=== PATIENT | male | born 1940 | race Caucasian/White ===

== ENCOUNTER 2018-08-25 08:27 | Outpatient (RCR) | payer MEDICARE | END 2018-08-27 09:14 | disposition home or self-care (01) | PROVIDERS: ATTEND Family Medicine | DX: M54.5 Low back pain (principal) ==

== ENCOUNTER → 2018-09-04 | Outpatient (CLI) | payer MEDICARE ==
--- NOTE | 2018-09-04 14:32 | Diagnostic Imaging Report ---
INDICATION: Dyspnea. TIME OF EXAM: 02:30 p.m. No prior studies are available for comparison. The heart size is normal. The pulmonary vascularity is unremarkable. The lungs are clear. No infiltrate, effusion or pneumothorax is detected. IMPRESSION: No acute cardiopulmonary process is detected. Dictated by: Dictated on workstation # [id number]
== END ==
LOC: CARD 13:57
PROVIDERS: ATTEND Nurse Practitioner Family
DX: R06.00 Dyspnea, unspecified (principal); I25.2 Old myocardial infarction; Z95.5 Presence of coronary angioplasty implant and graft
CPT/HCPCS: 71046; 93005

== ENCOUNTER 2018-09-28 09:31 | Outpatient (RCR) | payer MEDICARE ==
[2018-09-29] MEDS ORDERED: OMEG1CAP58 PO (11:40)
[2018-09-29] MEDS ORDERED: ASPI-586 PO (11:40)
[2018-09-29] MEDS ORDERED: ATOR40TA70 PO (13:01)
[2018-09-29] MEDS ORDERED: ASPI-999 PO (13:01)
== END 2018-09-28 12:24 | disposition home or self-care (01) ==
PROVIDERS: ATTEND Family Medicine
DX: M54.5 Low back pain (principal)

== ENCOUNTER 2018-09-29 11:05 | Day surgery (SDC) | payer MEDICARE ==
[~2018-09-29] VITALS: Ht 175.3 cm; Wt 72.6 kg
[2018-09-29] VITALS (9 sets, daily range): BP systolic 129–155; BP diastolic 68–82
[2018-09-29] MEDS ORDERED: NS IV 1000 ML 1,000 ML IV SCH ×2 (11:15→12:46)
[2018-09-29 11:35] LABS: HEMOGLOBIN 14.6 G/DL (13.3-17.7); MEAN PLATELET VOLUME 10.7 FL (7.4-10.4); RED BLOOD COUNT 4.79 10^6/uL (4.35-5.85); RED CELL DISTRIBUTION WIDTH 14.3 % (10.0-14.5)
[2018-09-29] MEDS ORDERED: OMEG1CAP58 PO (11:40)
[2018-09-29] MEDS ORDERED: ASPI-586 PO (11:40)
[2018-09-29 11:47] LABS: PROTHROMBIN TIME PATIENT 13.2 SEC (12.2-14.7)
[2018-09-29 11:55] LABS: ALANINE AMINOTRANSFERASE 23 U/L (0-55); ALBUMIN 4.6 GM/DL (3.2-4.5); ALKALINE PHOSPHATASE 53 U/L (40-136); BILIRUBIN,TOTAL 0.7 MG/DL (0.1-1.0); BUN/CREATININE RATIO 13; CALCIUM 9.9 MG/DL (8.5-10.1); CARBON DIOXIDE 25 MMOL/L (21-32); CHLORIDE 105 MMOL/L (98-107); CHOLESTEROL 246 MG/DL (< 200); GFR ESTIMATED > 60; GLUCOSE 96 MG/DL (70-105); HDL CHOLESTEROL 53 MG/DL (40-60); POTASSIUM 4.3 MMOL/L (3.6-5.0); SODIUM 139 MMOL/L (135-145); TOTAL PROTEIN 7.5 GM/DL (6.4-8.2); TRIGLYCERIDES 138 MG/DL (<150); VLDL CHOLESTEROL 28 MG/DL (5-40)
[2018-09-29] MEDS ORDERED: fentaNYL INJECTION 100 MCG/2 ML AMP ONE (11:55)
[2018-09-29] MEDS ORDERED: MIDAZOLAM 5 MG/5 ML (VERSED) VIAL ONE (11:55)
--- NOTE | 2018-09-29 12:04 | Cardiac Procedure Note-CS/ASA ---
Pre-Procedure Note Pre-Op Procedure Note H&P Reviewed The H&P was reviewed, patient examined and no changes noted. Date H&P Reviewed: Sep 29, 2018 Time H&P Reviewed: 12:04 Conscious Sedation Pre-Proced Time 12:04 ASA Score 3 For ASA 3 and 4: Consider anesthesia and medical clearance. Also, for patients with a history of failed moderate sedation consider anesthesia. Airway Lungs Heart ASA score ASA 1: a normal healthy patient ASA 2: a patient with a mild systemic disease (mid diabetes, controlled hypertension, obesity ASA 3: a patient with a severe systemic disease that limits activity (angina , COPD, prior Myocardial infarction) ASA 4: a patient with an incapacitating disease that is a constant threat to life (CHF, renal failure) ASA 5: a moribund patient not expected to survive 24 hrs. (ruptured aneurysm) ASA 6: a declared brain patient whose organs are being harvested. For emergent operations, add the letter E after the classification Mallampati Classification Grade 2 Sedation Plan Analgesia, Amnesia, Plan communicated to team members, Discussed options with patient/fam, Discussed risks with patient/fam The patient is an appropriate candidate to undergo the planned procedure, sedation, and anesthesia. The patient immediately re-assessed prior to indication. MEDARDO MCFARLANE MD FACP FAC CCDS Sep 29, 2018 12:04
[2018-09-29] MEDS ORDERED: HEParin 1000 UNIT/ML (10ML VIAL) FOR BOLUS ONE (12:21)
[2018-09-29] MEDS ORDERED: ADENOSINE 3 MG/1 ML (ADENOSCAN) 30ML VIAL IV ONE (12:21)
[2018-09-29] MEDS ORDERED: PATIENT MAY USE OWN MEDS, ALL PO SCH (13:00)
[2018-09-29] MEDS ORDERED: ATOR40TA70 PO (13:01)
[2018-09-29] MEDS ORDERED: ASPI-999 PO (13:01)
--- NOTE | 2018-09-29 13:02 | Discharge Inst-Post CATH ---
Discharge Inst-CATH Post Cardiac Cath D/C Inst Follow Up/Plan F/u with Dr Dunn in 2 weeks CARDIAC CATH DISCHARGE INSTRUCTIONS *Hold Metformin for 48 hours post heart cath. ACTIVITY * Go Home directly and rest. * Limit activity of the leg (or wrist if it was used) for 7 days including aerobics, swimming, jogging, bicycling, etc. * Restrict stair-climbing for 7 days if possible, if not, climb up with your non -cath leg, then bring together on the same step. * Avoid lifting, pushing, pulling or excessive movement of the affected extremity for 7 days. * Customary sexual activity may be resumed after 2 days-use caution not to use a position that strains or causes pain to the affected extremity. * No driving for 24 hours. * NO SMOKING. * Avoid straining for bowel movements for 7 days. * Gentle walking on level ground is allowed. * Returning to work will depend on the type of procedure and the results. Your doctor will discuss this with you. CALL YOUR DOCTOR FOR ANY OF THE FOLLOWING: *If bleeding from the puncture site occurs- Apply gentle pressure to site with clean cloth and call your doctor or EMS. * If a knot or lump forms under the skin, increases in size, or causes pain. * If bruising appears to be worsening or moving further down your leg instead of disappearing. * Temperature above 101 F. CARE OF YOUR GROIN INCISION; * Bruising or purple discoloration of the skin near the puncture site is common. * You may shower only, no bathtub bathing for 5 days. Be careful to avoid slipping as your leg may feel stiff. * If a closure device was used on your femoral artery, please see the attached guide regarding care of the device and your leg. * Leave the dressing on, until removed by office staff. CARE OF YOUR WRIST INCISION; * Bruising or purple discoloration of the skin near the puncture site is common. * You may shower. * DO NOT submerge wrist. * Leave dressing on, until removed by office staff.. MEDARDO DUNN MD [facility] CCDS Sep 29, 2018 13:02
--- NOTE | 2018-09-29 13:02 | Discharge Inst-Cardiology ---
Discharge Inst-Cardiac Discharge Medications New Medications: Aspirin (Aspirin) 81 Mg Tab.chew 81 MG PO DAILY, #90 TAB 3 Refills Atorvastatin Calcium (Atorvastatin Calcium) 40 Mg Tablet 40 MG PO HS, #90 TAB 3 Refills Continued Medications: [place]-3 Fatty Acids/Fish Oil ([place] 3 1,000 mg Softgel) 1 Each Capsule 1 EACH PO DAILY, CAP Discontinued Medications: Aspirin (Aspir 81) 81 Mg Tablet.dr 81 MG PO DAILY, TAB Orders-Post D/C & Referrals Pneu Vac Indicated: Yes MEDARDO MCFARLANE MD FACP FACC CCDS Sep 29, 2018 13:02
--- NOTE | 2018-09-29 15:25 | CARDIAC CATHETERIZATION ---
DATE OF SERVICE: 09/29/2018 CARDIAC CATHETERIZATION REPORT The patient is a 78-year-old gentleman, who is known to have coronary artery disease and has had coronary stenting done several years ago in [place], [place]. He has had recurrent symptoms of chest discomfort and shortness of breath. Repeat cardiac catheterization was carried out after having obtained an informed consent. PROCEDURE: He is brought to the cardiac catheterization laboratory in a fasting state. Right groin was prepared and draped in the usual sterile fashion. Lidocaine 1% was used for local anesthesia. Modified Seldinger technique was used to advance a 5-Cymro sheath in the right femoral artery, 5-Cymro JL4 catheter was used for left coronary angiography, 5-Cymro JR4 catheter for right coronary angiography, 5-Cymro pigtail catheter was used for left heart catheterization and left ventricular angiography. After the completion of the diagnostic procedure, we carried out fractional flow reserve measurement in the mid left circumflex artery; however, the patient appeared to have 50 to 60% stenosis with haziness. FRACTIONAL FLOW RESERVE MEASUREMENT IN THE LEFT CIRCUMFLEX ARTERY: We exchanged the sheath over a wire for a 6-Cymro sheath. We used a 6-Cymro JL4 guide catheter. We advanced the pressure wire across the mid left circumflex artery lesion and the tip was placed in the distal vessel. We gave 140 mcg per kilogram per minute of adenosine for 2.5 minutes. Fractional flow reserve was 0.99, indicating hemodynamic insignificance of the lesion. The wire was removed. Angiography of the coronary system was repeated and found to be unchanged. The catheter was removed. Angiography of the right femoral artery was carried out through the sheath. Mynx was used to achieve hemostasis. He received 5000 units of intravenous heparin prior to the fractional flow reserve measurement procedure. He tolerated the procedure well. HEMODYNAMICS: Left ventricular end-diastolic pressure following coronary angiography was 8 mmHg. There was no significant pressure gradient on pullback across the aortic valve. Ascending aortic pressure was 115/56 with a mean of 81 mmHg. LEFT VENTRICULAR ANGIOGRAPHY: Left ventricular angiography was carried out in the right anterior oblique projection. Global left ventricular systolic function is normal. No significant regional wall motion abnormalities are seen. Left ventricular ejection fraction is approximately 60%. There does not appear to be significant mitral regurgitation. CORONARY ANGIOGRAPHY: Diffuse coronary calcification is seen. Left main coronary artery does not exhibit significant disease. There are patent stents in the proximal left anterior descending and the proximal left circumflex arteries. These are widely patent. The left circumflex and the left anterior descending arteries have diffuse moderate disease distally. There appeared to be approximately 50% stenosis in the mid left circumflex artery and fractional flow reserve across it is 0.99, indicating hemodynamic insignificance. The right coronary artery is dominant. It has diffuse moderate disease, but no significant focal stenosis are seen. There is diffuse calcification of the right coronary artery. CONCLUSIONS: 1. Moderate diffuse coronary artery disease without significant focal stenoses. There are patent stents in the proximal left circumflex and the left anterior descending arteries. 2. Normal left ventricular end-diastolic pressure. 3. Normal global left ventricular systolic function with ejection fraction approximately 60%. DISCUSSION AND RECOMMENDATIONS: Based on results of the study, symptoms do not appear to be of coronary origin. Continuing risk factor modification is advised. We have added statin to the regimen because he was not on statins. Outpatient followup is advised. Job ID: [id number] DocumentID: [id number] Dictated Date: 09/29/2018 12:59:09 Force Variation Equipment Tender Date: 09/29/2018 15:24:31 Dictated By: MEDARDO MCFARLANE MD, MA, FACP, FACC, MTDD
== END 2018-09-29 16:45 | disposition home or self-care (01) ==
LOC: CATH 11:05 → SDC 13:27 → CATH 16:45
PROVIDERS: ATTEND Internal Medicine Cardiovascular Disease
DX: I25.10 Atherosclerotic heart disease of native coronary artery without angina pectoris (principal); Z95.5 Presence of coronary angioplasty implant and graft; Z87.891 Personal history of nicotine dependence; M79.89 Other specified soft tissue disorders; R94.31 Abnormal electrocardiogram [ECG] [EKG]; Z11.2 Encounter for screening for other bacterial diseases
CPT/HCPCS: 36415; 80053; 80061; 85027; 85610; 85730; 87081; 93458

== ENCOUNTER → 2018-11-17 | Outpatient (CLI) | payer MEDICARE ==
[~2018-11-17] MED LIST: ASPI-586 PO; ASPI-999 PO; ATOR40TA70 PO; OMEG1CAP58 PO
== END ==
LOC: RAD 13:07
PROVIDERS: ATTEND Internal Medicine Cardiovascular Disease
DX: I70.213 Atherosclerosis of native arteries of extremities with intermittent claudication, bilateral legs (principal); I25.10 Atherosclerotic heart disease of native coronary artery without angina pectoris; R06.02 Shortness of breath; R94.31 Abnormal electrocardiogram [ECG] [EKG]
CPT/HCPCS: 93923

== ENCOUNTER 2019-01-07 17:20 | Emergency (ER) | payer MEDICARE ==
[~2019-01-07] VITALS: Ht 175.3 cm; Wt 70.3 kg
[2019-01-07] MEDS ORDERED: LACTATED RINGERS 1,000 ML IV ONE (18:21)
[2019-01-07] MEDS ORDERED: ONDANSETRON 4 MG/2 ML (SDV) Z0FRAN IVP ONE (18:30)
[2019-01-07] MEDS ORDERED: DIATRIZOATE MEGLUM/SODIUM 37% 120 ML (GASTROGRAFIN) PO ONE ×2 (18:30→19:45)
[2019-01-07] MEDS ORDERED: LIDOCAINE 2% VISCOUS 15 ML UDC PO ONE (18:30)
[2019-01-07] MEDS ORDERED: ANTACID SUSP 30 ML UDC (MYLANTA) PO ONE (18:30)
[2019-01-07] MEDS ORDERED: PANTOPRAZOLE 40 MG (PROTONIX) VIAL IV ONE (18:30)
--- NOTE | 2019-01-07 18:33 | ED Abdominal Pain ---
General Chief Complaint: Abdominal/GI Problems Stated Complaint: VOMITING,CHEST PAIN Nursing Triage Note: pt presents to ed accompanied by adult daughter with complaints of vomiting 6 times today and no bm for a couple days. reports no abdmominal pain currently but did have some earlier today. pt also reports some cp earlier today. pt is tearful and appears upset in triage. pt daughter reports pt recently moved to be closer to family and is going through a divorce and has been stressed. Sepsis Screen: No Definite Risk Source of Information: Patient, Family (Daughter, nurse practitioner) Exam Limitations: Other (Early dementia, depression) History of Present Illness Date Seen by Provider: Jan 07, 2019 Time Seen by Provider: 18:10 Initial Comments The patient presents to ER by private conveyance with a daughter with chief complaint is had vomiting 6 times today. He's not been feeling well feeling bloated the past 2 or 3 days and had difficulty with bowel movements. He is a poor historian but his daughter has taken an interest in him especially in the last 6 months since he's had a divorce and moved from [place], [place]. He's never had a colonoscopy and denies any black tarry stools blood from the rectum. He does feel distended and nauseated. Allergies and Home Medications Allergies Coded Allergies: No Known Allergies (Verified Allergy, Unknown, 09/29/18) Home Medications Aspirin 81 Mg Tab.chew, 81 MG PO DAILY Prescribed by: MEDARDO MCFARLANE on 09/29/18 1301 Atorvastatin Calcium 40 Mg Tablet, 40 MG PO HS Prescribed by: MEDARDO MCFARLANE on 09/29/18 1301 [place]-3 Fatty Acids/Fish Oil 1 Each Capsule, 1 EACH PO DAILY, (Reported) Patient Home Medication List Home Medication List Reviewed: Yes Review of Systems Review of Systems Constitutional: No chills, No fever; malaise EENTM: No Blurred Vision, No Double Vision Respiratory: Denies Cough, Denies Shortness of Air Cardiovascular: Denies Chest Pain, Denies Edema Gastrointestinal: See HPI, Abdominal Pain (Epigastric, burning); Denies Constipated, Denies Diarrhea; Nausea, Poor Fluid Intake, Vomiting Genitourinary: Denies Burning, Denies Discharge Musculoskeletal: No back pain, No joint pain Past Furvvfe-Wqnfjg-Uxlfny Hx Patient Social History Alcohol Use: Denies Use Recreational Drug Use: No Smoking Status: Former Smoker Former Smoker, Quit: Sep 29, 1988 Recent Foreign Travel: No Contact w/Someone Who Travel: No Recent Infectious Disease Expo: No Immunizations Up To Date Date of Influenza Vaccine: Aug 05, 2018 Past Medical History Surgeries: Yes Coronary Stent, Eye Surgery Respiratory: No Currently Using CPAP: No Cardiac: Yes Coronary Artery Disease, Hypertension Neurological: No Genitourinary: No Gastrointestinal: No Endocrine: No Cancer: No Psychosocial: Yes Depression Blood Disorders: No Adverse Reaction/Blood Tranf: No Physical Exam Vital Signs Vital Signs - First Documented 01/07/19 17:34 Temp 97.8 Pulse 87 Resp 12 B/P (MAP) 164/93 (116) Pulse Ox 98 Capillary Refill : Less Than 3 Seconds Height/Weight/BMI Height: 5'9.00" Weight: 155lbs. 0.0oz. 70.470260wf; 23.6 BMI Method:Stated General Appearance: mild distress, thin HEENT: PERRL/EOMI, normal ENT inspection, pharynx normal Neck: full range of motion, normal inspection Respiratory: chest non-tender, lungs clear, normal breath sounds, no respiratory distress, no accessory muscle use Cardiovascular: normal peripheral pulses, regular rate, rhythm, no edema Peripheral Pulses: 2+ Radial Pulses (R), 2+ Radial Pulses (L) Gastrointestinal: normal bowel sounds (Quiescent), soft, tenderness (Mild epigastric tenderness negative for Escalante sign or mesenteric signs) Extremities: normal range of motion, non-tender, normal inspection, no pedal edema, normal capillary refill Neurologic/Psychiatric: alert, oriented x 3 Skin: normal color, warm/dry Progress/Results/Core Measures Results/Orders Lab Results Laboratory Tests Test 01/07/19 18:16 01/07/19 18:39 Range/Units White Blood Count 9.4 4.3-11.0 10^3/uL Red Blood Count 5.09 4.35-5.85 10^6/uL Hemoglobin 15.4 13.3-17.7 G/DL Hematocrit 43 40-54 % Mean Corpuscular Volume 84 80-99 FL Mean Corpuscular Hemoglobin 30 25-34 PG Mean Corpuscular Hemoglobin Concent 36 32-36 G/DL Red Cell Distribution Width 13.7 10.0-14.5 % Platelet Count 148 130-400 10^3/uL Mean Platelet Volume 11.0 H 7.4-10.4 FL Neutrophils (%) (Auto) 91 H 42-75 % Lymphocytes (%) (Auto) 5 L 12-44 % Monocytes (%) (Auto) 3 0-12 % Eosinophils (%) (Auto) 1 0-10 % Basophils (%) (Auto) 0 0-10 % Neutrophils # (Auto) 8.5 H 1.8-7.8 X 10^3 Lymphocytes # (Auto) 0.5 L 1.0-4.0 X 10^3 Monocytes # (Auto) 0.3 0.0-1.0 X 10^3 Eosinophils # (Auto) 0.1 0.0-0.3 10^3/uL Basophils # (Auto) 0.0 0.0-0.1 10^3/uL Neutrophils % (Manual) 86 % Lymphocytes % (Manual) 4 % Monocytes % (Manual) 5 % Eosinophils % (Manual) 1 % Basophils % (Manual) 0 % Band Neutrophils 4 % Blood Morphology Comment NORMAL Prothrombin Time 13.0 12.2-14.7 SEC INR Comment 1.0 0.8-1.4 Activated Partial Thromboplast Time 29 24-35 SEC Sodium Level 136 135-145 MMOL/L Potassium Level 4.5 3.6-5.0 MMOL/L Chloride Level 101 98-107 MMOL/L Carbon Dioxide Level 23 21-32 MMOL/L Anion Gap 12 5-14 MMOL/L Blood Urea Nitrogen 15 7-18 MG/DL Creatinine 1.02 0.60-1.30 MG/DL Estimat Glomerular Filtration Rate > 60 BUN/Creatinine Ratio 15 Glucose Level 107 H 70-105 MG/DL Calcium Level 9.5 8.5-10.1 MG/DL Corrected Calcium 8.5-10.1 MG/DL Magnesium Level 2.0 1.8-2.4 MG/DL Total Bilirubin 0.9 0.1-1.0 MG/DL Aspartate Amino Transf (AST/SGOT) 27 5-34 U/L Alanine Aminotransferase (ALT/SGPT) 22 0-55 U/L Alkaline Phosphatase 55 40-136 U/L Troponin I < 0.028 <0.028 NG/ML Total Protein 7.5 6.4-8.2 GM/DL Albumin 4.6 H 3.2-4.5 GM/DL Lipase 19 8-78 U/L Urine Color YELLOW Urine Clarity CLEAR Urine pH 5 5-9 Urine Specific [place] 1.020 1.016-1.022 Urine Protein 2+ H NEGATIVE Urine Glucose (UA) NEGATIVE NEGATIVE Urine Ketones 1+ H NEGATIVE Urine Nitrite NEGATIVE NEGATIVE Urine Bilirubin NEGATIVE NEGATIVE Urine Urobilinogen 1 NORMAL MG/DL Urine Leukocyte Esterase 1+ H NEGATIVE Urine RBC (Auto) NEGATIVE NEGATIVE Urine RBC RARE /HPF Urine WBC 0-2 /HPF Urine Crystals NONE /LPF Urine Bacteria TRACE /HPF Urine Casts NONE /LPF Urine Mucus LARGE H /LPF Urine Culture Indicated NO My Orders Orders - CALI CASTAÑEDA Ct Abdomen/Pelvis W (01/07/19 18:21) Saline Lock/Iv-Start (01/07/19 18:21) Cbc With Automated Diff (01/07/19:) Comprehensive Metabolic Panel (01/07/19:) Lipase (01/07/19 18:) Magnesium (01/07/19 18:) Protime With Inr (01/07/19 18:) Partial Thromboplastin Time (01/07/19 18:) Troponin I (01/07/19 18:21) Ua Culture If Indicated (01/07/19 18:21) Saline Lock/Iv-Start (01/07/19 18:21) Lactated Ringers (Lr 1000 Ml Iv Solution (01/07/19 18:21) Ekg Tracing (01/07/19 18:21) Continuous Ekg Monitoring (01/07/19 18:) Ondansetron Injection (Zofran Injectio (01/07/19 18:30) Lidocaine 2% Viscous 15 Ml (Xylocaine Vi (01/07/19 18:30) Antacid Suspension (Mylanta Suspension (01/07/19 18:30) Pantoprazole Injection (Protonix Injecti (01/07/19 18:30) Diatrizoate Meglum/Sodium 37% (Gastrogra (01/07/19 18:30) Manual Differential (01/07/19 18:16) Albuterol/Ipra Inhalation Soln (Duoneb I (01/07/19 19:00) Svn Small Volume Nebulizer (01/07/19 18:54) Chest 1 View, Ap/Pa Only (01/07/19 19:18) Iohexol Injection (Omnipaque 350 Mg/Ml 1 (3/14/19 19:45) Received Contrast (Contrast Received) (01/07/19 19:45) Sodium Chloride Flush (Catheter Flush Sy (01/07/19 19:45) Ns (Ivpb) (Sodium Chloride 0.9% Ivpb Bag (01/07/19 19:45) Diatrizoate Meglum/Sodium 37% (Gastrogra (01/07/19 19:45) Medications Given in ED Current Medications Medications Dose Ordered Sig/Marium Route Start Time Stop Time Status Last Admin Dose Admin Al Hydrox/Mg Hydrox/Simethicone 30 ml ONCE ONCE PO 01/07/19 18:30 01/07/19 18:31 DC 01/07/19 18:48 30 ML Albuterol/ Ipratropium 3 ml ONCE ONCE INH 01/07/19 19:00 01/07/19 19:01 DC 01/07/19 19:21 3 ML Diatrizoate Meglum/ Diatrizoate Sod 120 ml ONCE ONCE PO 01/07/19 18:30 01/07/19 18:31 DC 01/07/19 18:55 120 ML Diatrizoate Meglum/ Diatrizoate Sod 120 ml ONCE ONCE PO 01/07/19 19:45 01/07/19 19:46 DC 01/07/19 19:57 20 ML Iohexol 100 ml ONCE ONCE IV 01/07/19 19:45 01/07/19 19:46 DC 01/07/19 19:57 100 ML Lactated Ringer's 1,000 ml @ 0 mls/hr Q0M ONCE IV 01/07/19 18:21 01/07/19 18:26 DC 01/07/19 18:45 1,000 MLS/HR Lidocaine HCl 15 ml ONCE ONCE PO 01/07/19 18:30 01/07/19 18:31 DC 01/07/19 18:48 15 ML Ondansetron HCl 4 mg ONCE ONCE IVP 01/07/19 18:30 01/07/19 18:31 DC 01/07/19 18:48 4 MG Pantoprazole 40 mg ONCE ONCE IV 01/07/19 18:30 01/07/19 18:31 DC 01/07/19 18:48 40 MG Sodium Chloride 10 ml NEEDED PRN IV 01/07/19 19:45 01/07/19 19:57 10 ML Sodium Chloride 100 ml ONCE ONCE IV 01/07/19 19:45 01/07/19 19:46 DC 01/07/19 19:57 80 ML Vital Signs/I&O 01/07/19 17:34 Temp 97.8 Pulse 87 Resp 12 B/P (MAP) 164/93 (116) Pulse Ox 98 Blood Pressure Mean: 116 Progress Progress Note #1: Time: 19:17 Progress Note The patient tolerated the Zofran and GI cocktail and then drank the whole Gastrografin with aplomb. He had a couple coughing fits while he was drinking fluids only listened to him again and he was having some increased wheezing versus when he first got here so we gave him a DuoNeb which calm the wheezing down. We'll obtain a chest x-ray. Progress Note #2: Time: 20:44 Progress Note Patient's symptoms are significantly improved after the GI cocktail and Zofran. He appears to have some anterior colitis on the CT scan but no obstruction. Because he has oral contrast if need be could have a follow-up x-ray tomorrow by primary care. Initial ECG Impression Date: Jan 07, 2019 Initial ECG Impression Time: 17:34 Initial ECG Rate: 82 Initial ECG Rhythm: Normal Sinus Initial ECG Intervals: Normal Initial ECG Impression: Normal, Nonspecific Changes Initial ECG Comparisson: Unchanged Comment No change compared to previous EKG. Right bundle branch block. No ST elevation or depression. Diagnostic Imaging Diagonstic Imaging: Xray Plain Films/CT/US/NM/MRI: chest Comments No acute cardiopulmonary findings. Reviewed: Reviewed by Me Diagonstic Imaging: CT (With oral and IV contrast) Plain Films/CT/US/NM/MRI: abdomen, pelvis Comments NAME: [facility]IL [facility]ILLAS [facility] REC#: [id number] PT STATUS: REG ER : 1940 PHYSICIAN: CALI CASTAÑEDA MD ADMIT DATE: 01/07/19/ER Draft Date of Exam:01/07/19 CT ABDOMEN/PELVIS W PROCEDURE: CT abdomen and pelvis with contrast. TECHNIQUE: Multiple contiguous axial images were obtained through the abdomen and pelvis after administration of intravenous contrast. INDICATION: Abdomen pain, nausea, vomiting. No bowel movement for several days. EXAMINATION: CT abdomen and pelvis with contrast 01/07/2019 COMPARISONS: None FINDINGS: The lung bases demonstrate scattered chronic appearing changes of atelectasis or scar. The abdomen and pelvis demonstrate fatty infiltration throughout the liver. Gallbladder is distended but otherwise unremarkable. Pancreas is atrophied. Spleen unremarkable. Adrenal glands normal. Stomach is distended. No surrounding inflammatory change appreciated. Multiple dilated small bowel loops seen in the midabdomen. The colon for the most part is normal in appearance, however, the right colon contains some heterogeneous material both stool and fluid like in nature and involving the much of the ascending colon. Findings could be due to an enteritis/colitis; correlate with symptoms. No obstructive process is seen. There is atherosclerotic disease along the aorta and its branches. There is a small hiatal hernia with reflux of contrast into the esophagus noted. The kidneys contain multiple tiny cystic changes too small to characterize at this time. Adrenal glands unremarkable . No free air or free fluid seen in the abdomen nor the pelvis. Appendix unremarkable. Osseous structures unremarkable for acute process. IMPRESSION: 1. Findings of likely enteritis/colitis; correlate with symptoms. An obstruction is not seen at this time but if symptoms worsen followup could be performed at that time. 2. Small hiatal hernia. 3. Other incidental findings as discussed above. Dictated on workstation # [id number] Dict: 01/07/192022 Trans: 01/07/192035 [facility] [id number] Interpreted by: MARC PARMAR MD Electronically signed by: Reviewed: Reviewed by Me Departure Impression Primary Impression: Gastroenteritis and colitis, viral Disposition: HOME, SELF-CARE Condition: Improved Departure-Patient Inst. Decision time for Depature: 20:47 Referrals: KRISTEL PEREZ MD (PCP/Family) Primary Care Physician Patient Instructions: Viral Gastroenteritis, Adult (DC) Add. Discharge Instructions: All discharge instructions reviewed with patient and/or family. Voiced understanding. Drink plenty of fluids, sports drinks, Gatorade, Powerade etc. Eat a bland diet of broth, soup, bananas, rice, applesauce, toast etc. If you have pain you can use Tylenol 1000 mg and/or ibuprofen 800 mg every 8 hours each If you have nausea you can take one tablet of Zofran and place under tongue every 6 hours as needed. If you develop diarrhea leading ago for the first 24-48 hours. If he continues to be watery then you can take 2 tablets of Imodium followed by one tablet every 4 hours thereafter for watery stools. Return to the ER nearest you if you begin to experience bloody stools, intractable pain, nausea, fever above 102.5 or other worrisome symptoms. Your primary care doctor can do a follow-up x-ray if you are having difficulty passing stools over the next 2-3 days. Scripts Ondansetron (Ondansetron Odt) 4 Mg Tab.rapdis 4 MG PO Q6H PRN for NAUSEA/VOMITING, #12 TAB 0 Refills Prov: CALI CASTAÑEDA 01/07/19 CALI CASTAÑEDA Jan 07, 2019 18:33
[2019-01-07 18:40] LABS: BASOPHILS % (AUTO) 0 % (0-10); EOSINOPHILS # (AUTO) 0.1 10^3/uL (0.0-0.3); EOSINOPHILS % (AUTO) 1 % (0-10); HEMATOCRIT 43 % (40-54); HEMOGLOBIN 15.4 G/DL (13.3-17.7); LYMPHOCYTES # (AUTO) 0.5 X 10^3 (1.0-4.0); LYMPHOCYTES % (AUTO) 5 % (12-44); MEAN CORPUSCULAR HEMOGLOBIN 30 PG (25-34); MEAN CORPUSCULAR HGB CONC 36 G/DL (32-36); MEAN CORPUSCULAR VOLUME 84 FL (80-99); MONOCYTES # (AUTO) 0.3 X 10^3 (0.0-1.0); MONOCYTES % (AUTO) 3 % (0-12); NEUTROPHILS # (AUTO) 8.5 X 10^3 (1.8-7.8); NEUTROPHILS % (AUTO) 91 % (42-75); PLATELET COUNT 148 10^3/uL (130-400); RED CELL DISTRIBUTION WIDTH 13.7 % (10.0-14.5); WHITE BLOOD COUNT 9.4 10^3/uL (4.3-11.0)
[2019-01-07 18:49] LABS: BILIRUBIN,URINE NEGATIVE (NEGATIVE); CLARITY,URINE CLEAR; COLOR,URINE YELLOW; GLUCOSE, URINE (UA) NEGATIVE (NEGATIVE); KETONES,URINE 1+ (NEGATIVE); LEUKOCYTE ESTERASE ,URINE 1+ (NEGATIVE); NITRITE,URINE NEGATIVE (NEGATIVE); PH,URINE 5 (5-9); PROTEIN,URINE 2+ (NEGATIVE); UROBILINOGEN,URINE 1 MG/DL (NORMAL)
[2019-01-07] MEDS ORDERED: RT-ALBUTEROL/IPRATROPIUM 3 ML (DUONEB) VIAL INH ONE (19:00)
[2019-01-07 19:03] LABS: ALANINE AMINOTRANSFERASE 22 U/L (0-55); ALBUMIN 4.6 GM/DL (3.2-4.5); ALKALINE PHOSPHATASE 55 U/L (40-136); BILIRUBIN,TOTAL 0.9 MG/DL (0.1-1.0); BUN/CREATININE RATIO 15; CALCIUM 9.5 MG/DL (8.5-10.1); CARBON DIOXIDE 23 MMOL/L (21-32); CHLORIDE 101 MMOL/L (98-107); CREATININE SERUM 1.02 MG/DL (0.60-1.30); GFR ESTIMATED > 60; GLUCOSE 107 MG/DL (70-105); LIPASE 19 U/L (8-78); POTASSIUM 4.5 MMOL/L (3.6-5.0); SODIUM 136 MMOL/L (135-145); TOTAL PROTEIN 7.5 GM/DL (6.4-8.2)
[2019-01-07 19:05] LABS: BACTERIA,URINE TRACE /HPF; RBC,URINE RARE /HPF; WBC,URINE 0-2 /HPF
[2019-01-07 19:09] LABS: BAND NEUTROPHILS 4 %; BASOPHILS % (MANUAL) 0 %; EOSINOPHILS % (MANUAL) 1 %; LYMPHOCYTES % (MANUAL) 4 %; MONOCYTES % (MANUAL) 5 %; NEUTROPHILS % (MANUAL) 86 %; RBC MORPH NORMAL
[2019-01-07] MEDS ORDERED: CATHETER FLUSH 10 ML SYR IV PRN (19:45)
[2019-01-07] MEDS ORDERED: IOHEXOL 350 MG/ML 100 ML (OMNIPAQUE 350) VIAL IV ONE (19:45)
[2019-01-07] MEDS ORDERED: HOLD METFORMIN - RECEIVED CONTRAST 20 ML VIAL IV SCH (19:45)
[2019-01-07] MEDS ORDERED: NS 100 ML (IVPB) BAG IV ONE (19:45)
--- NOTE | 2019-01-07 20:37 | Diagnostic Imaging Report ---
PROCEDURE: CT abdomen and pelvis with contrast. TECHNIQUE: Multiple contiguous axial images were obtained through the abdomen and pelvis after administration of intravenous contrast. INDICATION: Abdomen pain, nausea, vomiting. No bowel movement for several days. EXAMINATION: CT abdomen and pelvis with contrast 01/07/2019 COMPARISONS: None FINDINGS: The lung bases demonstrate scattered chronic appearing changes of atelectasis or scar. The abdomen and pelvis demonstrate fatty infiltration throughout the liver. Gallbladder is distended but otherwise unremarkable. Pancreas is atrophied. Spleen unremarkable. Adrenal glands normal. Stomach is distended. No surrounding inflammatory change appreciated. Multiple dilated small bowel loops seen in the midabdomen. The colon for the most part is normal in appearance, however, the right colon contains some heterogeneous material both stool and fluid like in nature and involving the much of the ascending colon. Findings could be due to an enteritis/colitis; correlate with symptoms. No obstructive process is seen. There is atherosclerotic disease along the aorta and its branches. There is a small hiatal hernia with reflux of contrast into the esophagus noted. The kidneys contain multiple tiny cystic changes too small to characterize at this time. Adrenal glands unremarkable . No free air or free fluid seen in the abdomen nor the pelvis. Appendix unremarkable. Osseous structures unremarkable for acute process. IMPRESSION: 1. Findings of likely enteritis/colitis; correlate with symptoms. An obstruction is not seen at this time but if symptoms worsen followup could be performed at that time. 2. Small hiatal hernia. 3. Other incidental findings as discussed above. Dictated by: Dictated on workstation # [id number]
--- NOTE | 2019-01-07 20:42 | Diagnostic Imaging Report ---
INDICATION: Abdominal pain, nausea, and vomiting. EXAMINATION: Chest dated 01/07/2019. COMPARISON: 09/04/2018. FUNNIES: There are chronic changes in both lungs. In the right mid lung, there is a vague density possibly an early infiltrate. Remaining lungs are clear. Heart and pulmonary vasculature stable. IMPRESSION: 1. Possible right mid lung infiltrate. Follow-up recommended to assure resolution. Dictated by: Dictated on workstation # [id number]
[2019-01-07] MEDS ORDERED: ONDA4TAB11 PO (20:56)
[2019-01-07 21:00] VITALS: BP 132/86
== END 2019-01-07 21:05 | disposition home or self-care (01) ==
LOC: EDUNIT# 17:20 → ER 17:21
DX: A08.4 Viral intestinal infection, unspecified (principal); I25.10 Atherosclerotic heart disease of native coronary artery without angina pectoris; I10 Essential (primary) hypertension; F32.9 Major depressive disorder, single episode, unspecified; Z79.82 Long term (current) use of aspirin; Z87.891 Personal history of nicotine dependence; Z95.5 Presence of coronary angioplasty implant and graft
CPT/HCPCS: 36415; 71045; 74177; 80053; 81000; 83690; 83735; 84484; 85007; 85027; 85610; 85730; 93005

== ENCOUNTER 2019-03-07 14:33 | Emergency (ER) | payer MEDICARE ==
[~2019-03-07] VITALS: Ht 175.3 cm; Wt 65.8 kg
[~2019-03-07 14:33] MED LIST changes: +ONDA4TAB11 PO
--- NOTE | 2019-03-07 14:45 | NUR ---
NOTIFIED OF BUSY ER WITH POSSIBLE LONG WAIT TIME.
--- NOTE | 2019-03-07 15:35 | NUR ---
Moshe bowser in [facility] - 03/07/19 at 1622 by YOLIE PT TO ER ROOM 1, PT STATES HE WAS GETTING OUT OF CAR WHEN HE TRIED TO MOVE TOO FAST AND LOST HIS BALANCE Addendum: 03/07/19 at 1620 by YOLIE Abby bowser in [facility] - 03/07/19 at 1622 by YOLIE PT TO ER ROOM 1, PT STATES HE WAS GETTING OUT OF CAR WHEN HE TRIED TO MOVE TOO FAST AND LOST HIS BALANCE RESULTING IN A SMALL LACERATION TO THE BACK OF HEAD
--- NOTE | 2019-03-07 16:37 | NUR ---
PT ASSISTED WITH URINAL, PT DENIES ANY NEEDS OR C/O AT THIS TIME, PT SHOWS NO S/S OF DISTRESS, WILL CONTINUE TO MONITOR
--- NOTE | 2019-03-07 18:28 | Diagnostic Imaging Report ---
INDICATION: Fall. EXAMINATION: PA view of the chest was obtained at 6:06 p.m. COMPARISON: 01/07/2019. FINDINGS: Heart and mediastinal silhouette are normal in appearance. The lungs appear clear. There is no pneumothorax or pleural fluid. There is no overt bony abnormality in the chest. IMPRESSION: Negative chest. Dictated by: Dictated on workstation # [id number]
--- NOTE | 2019-03-07 18:43 | ED Fall/Injury ---
General Chief Complaint: Trauma-Non Activation Stated Complaint: FALL/LAC ON BACK OF HEAD Nursing Triage Note: TO TRIAGE VIA AMB. STATES HE BECAME DIZZY AND FELL AT [employer] AND HIT HIS HEAD ON THE PAVEMENT. DENIES LOC OR NECK PAIN. Source: patient Exam Limitations: no limitations History of Present Illness Date Seen by Provider: March 07, 2019 Time Seen by Provider: 17:50 Initial Comments This 78 showed gentleman presents to the emergency room accompanied by his daughter. He ambulates into the emergency room on his own power. Patient had a fall in a local retail parking lot. He got up out of the car and lost his balance or tripped causing the fall. He denies any loss of consciousness. Patient has had long-standing problems with dizziness and has been worked up extensively in the past according to his daughter. He has seen Dr. Dunn and underwent cardiac angiography last September. He does have known stents and moderate coronary artery disease. He does not recall specifically feeling more dizzy or lightheaded prior to his fall today. This is a long-standing problem for him and he has gone to physical therapy to try to improve his strength and balance. He struck the back of his head causing a minor abrasion. He states his neck feels a little stiff but does not hurt. Daughter states he ambulated into the emergency room on his own power. Patient states he has had some cough recently. He is afebrile. He has no diagnosis of COPD and does not do breathing treatments, but his daughter notes that he has had wheezing and shortness of breath improved by nebulizer treatments in the acute health care setting in the past. Allergies and Home Medications Allergies Coded Allergies: No Known Allergies (Verified Allergy, Unknown, 09/29/18) Home Medications Aspirin 81 Mg Tab.chew, 81 MG PO DAILY Prescribed by: MEDARDO DUNN on 09/29/18 1301 Atorvastatin Calcium 40 Mg Tablet, 40 MG PO HS Prescribed by: MEDARDO DUNN on 09/29/18 1301 [place]-3 Fatty Acids/Fish Oil 1 Each Capsule, 1 EACH PO DAILY, (Reported) Ondansetron 4 Mg Tab.rapdis, 4 MG PO Q6H PRN for NAUSEA/VOMITING Prescribed by: CALI CASTAÑEDA on 01/07/192055 Patient Home Medication List Home Medication List Reviewed: Yes Review of Systems Review of Systems Constitutional: no symptoms reported Eyes: No Symptoms Reported Ears, Nose, Mouth, Throat: no symptoms reported Respiratory: see HPI Cardiovascular: no symptoms reported Gastrointestinal: no symptoms reported Genitourinary: no symptoms reported Musculoskeletal: see HPI Skin: see HPI Psychiatric/Neurological: No Symptoms Reported Past Logcqfl-Kwsebc-Ooqjwf Hx Past Med/Social Hx: Reviewed and Corrections made Patient Social History Alcohol Use: Denies Use Recreational Drug Use: No Former Smoker, Quit: Sep 29, 1988 Recent Foreign Travel: No Contact w/Someone Who Travel: No Recent Infectious Disease Expo: No Physical Abuse: No Sexual Abuse: No Mistreated: No Fear: No Immunizations Up To Date Date of Influenza Vaccine: Aug 05, 2018 Past Medical History Surgeries: Yes Coronary Stent, Eye Surgery Respiratory: No Currently Using CPAP: No Cardiac: Yes Coronary Artery Disease, Hypertension Neurological: No Genitourinary: No Gastrointestinal: No Musculoskeletal: No Endocrine: No HEENT: No Cancer: No Psychosocial: Yes Depression Blood Disorders: No Adverse Reaction/Blood Tranf: No Physical Exam Vital Signs Vital Signs - First Documented 03/07/19 14:40 Temp 98.0 Pulse 73 Resp 16 B/P (MAP) 154/81 (105) Pulse Ox 97 O2 Delivery Room Air Capillary Refill : Less Than 3 Seconds Height, Weight, BMI Height: 5'9.00" Weight: 145lbs. 0.0oz. [id number]; 23.6 BMI Method:Stated General Appearance: WD/WN, no apparent distress HEENT: PERRL/EOMI, TMs normal, pharynx normal, other (oropharynx slightly dry. Abrasion of the posterior scalp) Neck: non-tender, normal inspection Cardiovascular: regular rate, rhythm, no edema, no murmur Respiratory: no respiratory distress, no accessory muscle use, wheezing Gastrointestinal: non tender, soft Extremities: normal inspection, no pedal edema Neurologic/Psychiatric: phonograph needle tip maker II-XII nml as tested, no motor/sensory deficits, alert, normal mood/affect, oriented x 3 Skin: normal color, warm/dry Cameron Coma Score Best Eye Response: (4) Open Spontaneously Best Verbal Response: (5) Oriented Best Motor Response: (6) Obeys Commands Cameron Total: 15 Progress/Results/Core Measures Results/Orders Lab Results Laboratory Tests Test 03/07/19 18:40 Range/Units Urine Color YELLOW Urine Clarity CLEAR Urine pH 8 5-9 Urine Specific [place] 1.010 L 1.016-1.022 Urine Protein NEGATIVE NEGATIVE Urine Glucose (UA) NEGATIVE NEGATIVE Urine Ketones NEGATIVE NEGATIVE Urine Nitrite NEGATIVE NEGATIVE Urine Bilirubin NEGATIVE NEGATIVE Urine Urobilinogen NORMAL NORMAL MG/DL Urine Leukocyte Esterase NEGATIVE NEGATIVE Urine RBC (Auto) NEGATIVE NEGATIVE Urine RBC NONE /HPF Urine WBC NONE /HPF Urine Squamous Epithelial Cells RARE /HPF Urine Crystals NONE /LPF Urine Bacteria NEGATIVE /HPF Urine Casts NONE /LPF Urine Mucus NEGATIVE /LPF Urine Culture Indicated NO My Orders Orders - KALEB CALL MD Ua Culture If Indicated (03/07/19 18:41) Albuterol/Ipra Inhalation Soln (Duoneb I (03/07/19 18:45) Svn Small Volume Nebulizer (03/07/19 18:44) Medications Given in ED Current Medications Medications Dose Ordered Sig/Marium Route Start Time Stop Time Status Last Admin Dose Admin Albuterol/ Ipratropium 3 ml ONCE ONCE INH 03/07/19 18:45 03/07/19 18:46 DC 03/07/19 19:00 3 ML Vital Signs/I&O 03/07/19 03/07/19 03/07/19 14:40 19:00 19:07 Temp 98.0 Pulse 73 78 81 79 Resp 16 B/P (MAP) 154/81 (105) 140/76 (97) 124/74 (91) 138/72 (94) Pulse Ox 97 96 O2 Delivery Room Air Room Air Blood Pressure Mean: 105 Progress Progress Note : Time: 19:05 Progress Note Chest x-ray was unremarkable. CT is pending. DuoNeb treatment was ordered for wheezing. Orthostatic blood pressures were unremarkable. Diagnostic Imaging Diagonstic Imaging: Xray Plain Films/CT/US/NM/MRI: chest Comments Chest x-ray viewed by me and report reviewed. See report below: NAME: PHIL CASILLAS MED REC#: [id number] PT STATUS: REG ER : 1940 PHYSICIAN: CALI CASTAÑEDA MD ADMIT DATE: 03/07/19/ER Draft Date of Exam:03/07/19 CHEST 1 VIEW, AP/PA ONLY INDICATION: Fall. EXAMINATION: PA view of the chest was obtained at 6:06 p.m. COMPARISON: 01/07/2019. FINDINGS: Heart and mediastinal silhouette are normal in appearance. The lungs appear clear. There is no pneumothorax or pleural fluid. There is no overt bony abnormality in the chest. IMPRESSION: Negative chest. Dictated on workstation # [id number] Dict: 03/07/191822 Trans: 03/07/191826 [facility] [id number] Interpreted by: DARIEL CHAU MD Diagonstic Imaging: CT Plain Films/CT/US/NM/MRI: c-spine, head Comments CT head and cervical spine viewed by me and report reviewed. See report below: NAME: PHIL CASILLAS [facility] REC#: [id number] PT STATUS: REG ER : 1940 PHYSICIAN: CALI CASTAÑEDA MD ADMIT DATE: 03/07/19/ER Draft Date of Exam:03/07/19 CT HEAD/CERVICAL SPINE WO INDICATION: Fall with head and neck pain CT brain findings: Noncontrast brain CT is performed. There are diffuse moderate atrophic changes. There were no extra-axial fluid collections. No intracranial hemorrhage. No intracranial mass or mass effect. Ventricles are prominent but compatible with age. Calvarial windows show no fracture. CT cervical spine findings: Axial slices are obtained with sagittal and coronal reconstructions without contrast. There was no evidence of cervical spine fracture. There is no subluxation or malalignment. There is disc space narrowing most prominent at C5-6 and C6-7. The facets are in good alignment with diffuse degenerative change. IMPRESSION: CT brain shows atrophic changes with no acute intracranial process or calvarial fracture. CT cervical spine shows degenerative findings as described above with no acute fracture or subluxation. Dictated on workstation # [id number] Dict: 03/07/191907 Trans: 03/07/19 [address] [facility] [id number] Interpreted by: DARIEL CHAU MD Departure Impression Primary Impression: Fall on same level Qualified Codes: W18.30XA - Fall on same level, unspecified, initial encounter Additional Impression: Contusion of scalp Qualified Codes: S00.03XA - Contusion of scalp, initial encounter Disposition: 01 HOME, SELF-CARE Condition: Stable Departure-Patient Inst. Decision time for Depature: 19:46 Referrals: KRISTEL PEREZ MD (PCP/Family) Primary Care Physician Patient Instructions: Minor Head Injury (DC) Add. Discharge Instructions: Rise and walk very carefully. Take her time getting up from a sitting or lying position. Follow-up with your primary care provider soon as possible. If ultrasound of the carotid arteries in your neck has not been performed by Dr. Dunn or Dr. Perez, consider having this ordered as it may be a cause of your episodes of dizziness. Stay well-hydrated. Return to care if you have any worsening of symptoms. Consider ambulating with a cane or walker to reduce risk of fall. All discharge instructions reviewed with patient and/or family. Voiced understanding. Copy Copies To 1: MEDARDO DUNN MD FACP FAC CCDS Copies To 2: KRISTEL PEREZ MD, JOSHUA T MD March 07, 2019 18:43
[2019-03-07] MEDS ORDERED: RT-ALBUTEROL/IPRATROPIUM 3 ML (DUONEB) VIAL INH ONE (18:45)
[2019-03-07 18:46] LABS: BILIRUBIN,URINE NEGATIVE (NEGATIVE); CLARITY,URINE CLEAR; COLOR,URINE YELLOW; GLUCOSE, URINE (UA) NEGATIVE (NEGATIVE); KETONES,URINE NEGATIVE (NEGATIVE); LEUKOCYTE ESTERASE ,URINE NEGATIVE (NEGATIVE); NITRITE,URINE NEGATIVE (NEGATIVE); PH,URINE 8 (5-9); PROTEIN,URINE NEGATIVE (NEGATIVE); UROBILINOGEN,URINE NORMAL (NORMAL)
[2019-03-07 18:51] LABS: BACTERIA,URINE NEGATIVE /HPF; SQUAMOUS EPITHELIAL CELL,UR RARE /HPF
--- NOTE | 2019-03-07 18:58 | NUR ---
PT BACK TO ED ROOM FROM RADIOLOGY, PT DENIES ANY NEEDS OR C/O AT THIS TIME, PT SHOWS NO S/S OF DISTRESS, VS ASSESSED AND STABLE, WILL CONTINUE TO MONITOR
[2019-03-07 19:07] VITALS: BP_SYST 124; BP_SYST 138; BP_SYST 140; BP_DIAS 72; BP_DIAS 74; BP_DIAS 76
--- NOTE | 2019-03-07 19:15 | NUR ---
Pt refused to give a urine sample for the tech. JAMILA Echeverria notified this RN of what the pt told her. Pt stated, "If we are not done by 1999 she is leaving and going to rip her IV out." Provider was notified and stated he would go and talk to pt.
--- NOTE | 2019-03-07 19:15 | Diagnostic Imaging Report ---
INDICATION: Fall with head and neck pain CT brain findings: Noncontrast brain CT is performed. There are diffuse moderate atrophic changes. There were no extra-axial fluid collections. No intracranial hemorrhage. No intracranial mass or mass effect. Ventricles are prominent but compatible with age. Calvarial windows show no fracture. CT cervical spine findings: Axial slices are obtained with sagittal and coronal reconstructions without contrast. There was no evidence of cervical spine fracture. There is no subluxation or malalignment. There is disc space narrowing most prominent at C5-6 and C6-7. The facets are in good alignment with diffuse degenerative change. IMPRESSION: CT brain shows atrophic changes with no acute intracranial process or calvarial fracture. CT cervical spine shows degenerative findings as described above with no acute fracture or subluxation. Dictated by: Dictated on workstation # [id number]
[2019-03-07 20:05] VITALS: BP 138/72
== END 2019-03-07 20:05 | disposition home or self-care (01) ==
LOC: EDUNIT# 14:33 → ER 14:34
DX: S00.03XA Contusion of scalp, initial encounter (principal); I25.10 Atherosclerotic heart disease of native coronary artery without angina pectoris; I10 Essential (primary) hypertension; F32.9 Major depressive disorder, single episode, unspecified; R40.2142 Coma scale, eyes open, spontaneous, at arrival to emergency department; R40.2252 Coma scale, best verbal response, oriented, at arrival to emergency department; R40.2362 Coma scale, best motor response, obeys commands, at arrival to emergency department; Z95.5 Presence of coronary angioplasty implant and graft; Z87.891 Personal history of nicotine dependence; W01.0XXA Fall on same level from slipping, tripping and stumbling without subsequent striking against object, initial encounter; Y92.481 Parking lot as the place of occurrence of the external cause
CPT/HCPCS: 70450; 71045; 72125; 81000; 94640

== ENCOUNTER 2019-09-28 16:59 | Observation (INO) | payer MEDICARE ==
[~2019-09-28] VITALS: Ht 175 cm; Wt 68.1 kg
[2019-09-28] MEDS ORDERED: PATIENT MAY USE OWN MEDS, ALL PO SCH (17:15)
--- NOTE | 2019-09-28 17:19 | History & Physicial ---
History of Present Illness History of Present Illness Reason for visit/HPI 79-year-old male presents to office late this afternoon with his daughter and he has symptoms of shortness of breath and difficulty breathing. His daughter reports he has been on Zithromax over the last week without any change of his respiratory status. He has not been running a significant fever. Most of his breathing is with gurgling sounds as well as wheezing. He does have a history of coronary artery disease. He has not had congestive heart failure in the past. His oral intake has markedly changed. Date of Admission September 28, 2019 Date Seen by a Provider: Sep 28, 2019 Time Seen by a Provider: 17:00 I consulted on this patient on 09/28/19 17:14 Attending Physician Kristel Perez MD Admitting Physician Kristel Perez MD Consult Allergies and Home Medications Allergies Coded Allergies: No Known Allergies (Verified Allergy, Unknown, 09/29/18) Home Medications Aspirin 81 Mg Tab.chew, 81 MG PO DAILY Prescribed by: MEDARDO MCFARLANE on 09/29/18 1301 Atorvastatin Calcium 40 Mg Tablet, 40 MG PO HS Prescribed by: MEDARDO MCFARLANE on 09/29/18 1301 [place]-3 Fatty Acids/Fish Oil 1 Each Capsule, 1 EACH PO DAILY, (Reported) Ondansetron 4 Mg Tab.rapdis, 4 MG PO Q6H PRN for NAUSEA/VOMITING Prescribed by: CALI CASTAÑEDA on 01/07/192055 Patient Home Medication List Home Medication List Reviewed: Yes Past Ptukcui-Wkqvyn-Jlkird Hx Patient Social History Employed/Student: retired Recreational Drug Use: No Smoking Status: Former Smoker Former Smoker, Quit: Sep 29, 1988 Immunizations Up To Date Date of Influenza Vaccine: Aug 05, 2018 Surgeries Yes Coronary Stent, Eye Surgery Respiratory No Currently Using CPAP: No Cardiovascular Yes Coronary Artery Disease, Hypertension Neurological No Genitourinary No Gastrointestinal No Musculoskeletal No Endocrine History of Endocrine Disorders: No HEENT History of HEENT Disorders: No Cancer No Psychosocial History of Psychiatric Problem: Yes Behavioral Health Disorders: Depression Blood Transfusions History of Blood Disorders: No Adverse Reaction to a Blood Tr: No Review of Systems Constitutional: see HPI Physical Exam Vital Signs Capillary Refill : Height, Weight, BMI Height: 5'9.00" Weight: 145lbs. 0.0oz. 65.244614bw; 23.6 BMI Method:Stated General Appearance: Mild Distress (due to dyspnea) Eyes: Bilateral Eye Normal Inspection HEENT: Pharynx Normal (with dry mucous membranes) Neck: Supple Respiratory: Chest Non Tender; No Lungs Clear; Accessory Muscle Use (slight), Crackles; No Decreased Breath Sounds; Rales (in basis), Respiratory Distress (mild), Rhonci; No Stridor; Wheezing Cardiovascular: Regular Rate, Rhythm (with occasional ectopy) Gastrointestinal: Soft Rectal: Deferred Back: Normal Inspection Extremity: Normal Capillary Refill, Pedal Edema (slight) Neurologic/Psychiatric: Oriented x3 Skin: Normal Color Assessment/Plan Assessment and Plan 1. Dyspnea and this may be related to pneumonia, pneumonitis, or perhaps congestive heart failure -patient to receive chest x-ray -Laboratory to include CBC, chemistries as well as BNP -We will initiate Rocephin 1 g IV every 24 hours -Respiratory therapy for oxygen by nasal cannula if necessary 2. History of coronary artery disease -Patient has seen arborist representative in the last 2 weeks and currently not on any medication. Admission Diagnosis 1. Dyspnea and this may be related to pneumonia, pneumonitis, or perhaps congestive heart failure 2. History of coronary artery disease Admission Status: Observation Reason for Inpatient Admission: initiation of IV Rocephin. Provide respiratory support and oxygen if necessary via respiratory therapy. Check chest x-ray and BNP KRISTEL PEREZ MD Sep 28, 2019 17:19 POS
[2019-09-28 17:32] VITALS: BP 179/89
--- NOTE | 2019-09-28 17:59 | Diagnostic Imaging Report ---
INDICATION: Shortness of air. TIME OF EXAM: 5:55 PM COMPARISON: Correlation is made with prior chest from 03/07/2019. FINDINGS: The heart size is normal. The pulmonary vascularity is unremarkable. The lungs are clear. No infiltrate, effusion or pneumothorax is detected. IMPRESSION: No acute cardiopulmonary process is detected. Dictated by: Dictated on workstation # [id number]
--- NOTE | 2019-09-28 18:00 | NUR ---
PHIL CASILLAS admitted to room 407-1, with an admitting diagnosis of SOA, on 09/28/[address] Watson's office via private vehicle, accompanied by family. PHIL CASILLAS introduced to surroundings, call light, bed controls, phone, TV, temperature control, lights, meal times, smoking policy, visitor policy, side rail policy, bathrooms and showers. Patient Rights given to patient in the handbook. PHIL CASILLAS verbalizes understanding that [facility] is not responsible for the loss or damage to any personal effects or valuables that are kept in the patients possession during their hospitalization. The following Patient Care Plans were discussed with the patient and family: Discharge Planning, pain management, dehydration, and medications. PHIL CASILLAS verbalizes understanding of Interdisciplinary Patient Education. Patient and/or family were informed about the Rapid Response Team and its purpose.
[2019-09-28 18:55] LABS: BASOPHILS % (AUTO) 0 % (0-10); EOSINOPHILS # (AUTO) 0.2 10^3/uL (0.0-0.3); EOSINOPHILS % (AUTO) 3 % (0-10); HEMATOCRIT 40 % (40-54); HEMOGLOBIN 13.8 G/DL (13.3-17.7); LYMPHOCYTES # (AUTO) 1.7 X 10^3 (1.0-4.0); LYMPHOCYTES % (AUTO) 29 % (12-44); MEAN CORPUSCULAR HEMOGLOBIN 30 PG (25-34); MEAN CORPUSCULAR HGB CONC 34 G/DL (32-36); MEAN CORPUSCULAR VOLUME 87 FL (80-99); MONOCYTES # (AUTO) 0.4 X 10^3 (0.0-1.0); MONOCYTES % (AUTO) 7 % (0-12); NEUTROPHILS # (AUTO) 3.7 X 10^3 (1.8-7.8); NEUTROPHILS % (AUTO) 62 % (42-75); PLATELET COUNT 138 10^3/uL (130-400); RED CELL DISTRIBUTION WIDTH 13.7 % (10.0-14.5)
[2019-09-28] MEDS ORDERED: CATHETER FLUSH 10 ML SYR IV PRN (19:15)
[2019-09-28 19:16] LABS: ALANINE AMINOTRANSFERASE 19 U/L (0-55); ALBUMIN 4.6 GM/DL (3.2-4.5); ALKALINE PHOSPHATASE 56 U/L (40-136); BILIRUBIN,TOTAL 0.6 MG/DL (0.1-1.0); BUN/CREATININE RATIO 10; CALCIUM 9.6 MG/DL (8.5-10.1); CARBON DIOXIDE 24 MMOL/L (21-32); CHLORIDE 101 MMOL/L (98-107); CREATININE SERUM 1.06 MG/DL (0.60-1.30); GFR ESTIMATED > 60; GLUCOSE 97 MG/DL (70-105); POTASSIUM 4.1 MMOL/L (3.6-5.0); SODIUM 136 MMOL/L (135-145); TOTAL PROTEIN 7.4 GM/DL (6.4-8.2)
[2019-09-28 19:30] VITALS: BP 119/71
[2019-09-28] MEDS: CATHETER FLUSH 10 ML SYR IV SCH (20:50)
[2019-09-28 22:03] LABS: BILIRUBIN,URINE NEGATIVE (NEGATIVE); CLARITY,URINE CLEAR; COLOR,URINE YELLOW; GLUCOSE, URINE (UA) NEGATIVE (NEGATIVE); KETONES,URINE NEGATIVE (NEGATIVE); LEUKOCYTE ESTERASE ,URINE NEGATIVE (NEGATIVE); NITRITE,URINE NEGATIVE (NEGATIVE); PH,URINE 6.5 (5-9); PROTEIN,URINE NEGATIVE (NEGATIVE)
[2019-09-28 22:15] LABS: AMORPHOUS SEDIMENT,UR RARE AMOR URATES /LPF; BACTERIA,URINE TRACE /HPF; WBC,URINE 0-2 /HPF
[2019-09-28] MEDS: RT-ALBUTEROL SULF 2.5 MG/3 ML PRE-MIX VIAL INH SCH (22:40)
[2019-09-29 00:05] VITALS: BP 128/60
[2019-09-29 04:05] VITALS: BP 132/61
[2019-09-29 05:14] LABS: BASOPHILS % (AUTO) 0 % (0-10); EOSINOPHILS # (AUTO) 0.2 10^3/uL (0.0-0.3); EOSINOPHILS % (AUTO) 4 % (0-10); HEMATOCRIT 37 % (40-54); HEMOGLOBIN 12.5 G/DL (13.3-17.7); LYMPHOCYTES # (AUTO) 1.3 X 10^3 (1.0-4.0); LYMPHOCYTES % (AUTO) 26 % (12-44); MEAN CORPUSCULAR HEMOGLOBIN 30 PG (25-34); MEAN CORPUSCULAR HGB CONC 34 G/DL (32-36); MEAN CORPUSCULAR VOLUME 87 FL (80-99); MEAN PLATELET VOLUME 11.1 FL (7.4-10.4); MONOCYTES # (AUTO) 0.4 X 10^3 (0.0-1.0); MONOCYTES % (AUTO) 8 % (0-12); NEUTROPHILS % (AUTO) 61 % (42-75); PLATELET COUNT 127 10^3/uL (130-400); RED CELL DISTRIBUTION WIDTH 13.6 % (10.0-14.5); WHITE BLOOD COUNT 4.8 10^3/uL (4.3-11.0)
[2019-09-29 05:34] LABS: ALANINE AMINOTRANSFERASE 12 U/L (0-55); ALBUMIN 3.8 GM/DL (3.2-4.5); ALKALINE PHOSPHATASE 45 U/L (40-136); BILIRUBIN,TOTAL 0.6 MG/DL (0.1-1.0); BUN/CREATININE RATIO 13; CALCIUM 8.9 MG/DL (8.5-10.1); CARBON DIOXIDE 22 MMOL/L (21-32); CHLORIDE 105 MMOL/L (98-107); CREATININE SERUM 0.94 MG/DL (0.60-1.30); GFR ESTIMATED > 60; GLUCOSE 89 MG/DL (70-105); SODIUM 138 MMOL/L (135-145)
[2019-09-29] MEDS: CATHETER FLUSH 10 ML SYR IV SCH (06:27)
--- NOTE | 2019-09-29 07:49 | Progress Note ---
Subjective Date Seen by a Provider: Sep 29, 2019 Time Seen by a Provider: 07:10 Subjective/Events-last exam Today I spoke with patient as well as his daughter regarding his course overnight. He apparently did not have any acute respiratory decompensation. He still has quite a bit of audible respiratory wheezing and "bubbly" sounds. He remained afebrile overnight. Patient reports he is weak. Objective Exam Vital Signs Date Time Temp Pulse Resp B/P (MAP) Pulse Ox O2 Delivery O2 Flow Rate FiO2 09/29/19 04:05 36.4 56 20 132/61 (84) 95 Room Air 09/29/19 00:05 36.8 66 22 128/60 (82) 98 Room Air 09/28/19 22:40 94 Room Air 09/28/19 20:00 Room Air 09/28/19 19:30 37.0 67 22 119/71 (87) 97 Room Air 09/28/19 18:00 Room Air 09/28/19 17:32 36.8 63 22 179/89 99 Room Air I & O 09/29/19 07:00 Intake Total 320 ml Output Total 625 ml Balance -305 ml Capillary Refill : General Appearance: No Apparent Distress (Although he has audible respiratory wheezing) Neck: Supple Respiratory: No Accessory Muscle Use; No Respiratory Distress; Rhonci, Wheezing Cardiovascular: Regular Rate, Rhythm Extremity: No Pedal Edema Neurologic/Psychiatric: Alert, Oriented x3 Results Lab Laboratory Tests 09/28/19 18:48: White Blood Count 6.0, Red Blood Count 4.59, Hemoglobin 13.8, Hematocrit 40, Mean Corpuscular Volume 87, Mean Corpuscular Hemoglobin 30, Mean Corpuscular Hemoglobin Concent 34, Red Cell Distribution Width 13.7, Platelet Count 138, Mean Platelet Volume 11.0H, Neutrophils (%) (Auto) 62, Lymphocytes (%) (Auto) 29 , Monocytes (%) (Auto) 7, Eosinophils (%) (Auto) 3, Basophils (%) (Auto) 0, Neutrophils # (Auto) 3.7, Lymphocytes # (Auto) 1.7, Monocytes # (Auto) 0.4, Eosinophils # (Auto) 0.2, Basophils # (Auto) 0.0, Sodium Level 136, Potassium Level 4.1, Chloride Level 101, Carbon Dioxide Level 24, Anion Gap 11, Blood Urea Nitrogen 11, Creatinine 1.06, Estimat Glomerular Filtration Rate > 60, BU N/Creatinine Ratio 10, Glucose Level 97, Calcium Level 9.6, Corrected Calcium , Total Bilirubin 0.6, Aspartate Amino Transf (AST/SGOT) 22, Alanine Aminotransferase (ALT/SGPT) 19, Alkaline Phosphatase 56, B-Type Natriuretic Peptide 96.9, Total Protein 7.4, Albumin 4.6H 09/28/19 21:50: Urine Color YELLOW, Urine Clarity CLEAR, Urine pH 6.5, Urine Specific [place] 1.020, Urine Protein NEGATIVE, Urine Glucose (UA) NEGATIVE, Urine Ketones NEGATIVE, Urine Nitrite NEGATIVE, Urine Bilirubin NEGATIVE, Urine Urobilinogen 0.2, Urine Leukocyte Esterase NEGATIVE, Urine RBC (Auto) NEGATIVE, Urine RBC NONE, Urine WBC 0-2, Urine Crystals PRESENTH, Urine Amorphous Sediment RARE ALO URATESH, Urine Bacteria TRACE, Urine Casts NONE, Urine Mucus NEGATIVE, Urine Culture Indicated NO 09/29/19 04:30: White Blood Count 4.8, Red Blood Count 4.21L, Hemoglobin 12.5L, Hematocrit 37L, Mean Corpuscular Volume 87, Mean Corpuscular Hemoglobin 30, Mean Corpuscular Hemoglobin Concent 34, Red Cell Distribution Width 13.6, Platelet Count 127L, Mean Platelet Volume 11.1H, Neutrophils (%) (Auto) 61, Lymphocytes (%) (Auto) 26, Monocytes (%) (Auto) 8, Eosinophils (%) (Auto) 4, Basophils (%) (Auto) 0, Neutrophils # (Auto) 3.0, Lymphocytes # (Auto) 1.3, Monocytes # (Auto) 0.4, Eosinophils # (Auto) 0.2, Basophils # (Auto) 0.0, Sodium Level 138, Potassium Level 4.0, Chloride Level 105, Carbon Dioxide Level 22, Anion Gap 11, Blood Urea Nitrogen 12, Creatinine 0.94, Estimat Glomerular Filtration Rate > 60, BUN/Creatinine Ratio 13, Glucose Level 89, Calcium Level 8.9, Corrected Calcium 9.1, Total Bilirubin 0.6, Aspartate Amino Transf (AST/SGOT) 19, Alanine Aminotransferase (ALT/SGPT) 12, Alkaline Phosphatase 45, Total Protein 6.0L, Albumin 3.8 Assessment/Plan Assessment/Plan Assess & Plan/Chief Complaint 1. Dyspnea and this may be related to pneumonia, pneumonitis, or perhaps congestive heart failure -patient to receive chest x-ray -Laboratory to include CBC, chemistries as well as BNP -We will initiate Rocephin 1 g IV every 24 hours -Respiratory therapy for oxygen by nasal cannula if necessary 09/29 -BNP is within normal range. Congestive heart failure seems much less likely also in light of negative chest x-ray. -It appears that his dyspnea is due to bronchial/perhaps even clinically bronchopneumonia. Patient may need repeat chest x-ray 2. History of coronary artery disease -Patient has seen patient relations director in the last 2 weeks and currently not on any medication. 3. Weakness -Patient may need rehabilitation. Will check with social worker. Clinical Quality Measures Admission Status Admission Dx 1. Dyspnea and this may be related to pneumonia, pneumonitis, or perhaps congestive heart failure 2. History of coronary artery disease DVT/VTE Risk/Contraindication: Risk Factor Score Per Nursin RFS Level Per Nursing on Admit: 2=Moderate KRISTEL PEREZ MD Sep 29, 2019 07:49 POS
[2019-09-29 08:00] VITALS: BP 141/66
[2019-09-29] MEDS ORDERED: BIMA2.5D4 OU (09:00)
[2019-09-29] MEDS ORDERED: cefTRIAXone FOR IV USE 1,000 MG in WATER (STERILE) FOR INJECTION 10 ML IV SCH (09:00)
--- NOTE | 2019-09-29 09:00 | NUR ---
PATIENT STATES THE ONLY MEDICATION HE TAKES IS HIS EYE DROP AT HS. HE STOPPED ALL OTHER PRESCRIPTION AND OTC MEDS.
--- NOTE | 2019-09-29 09:32 | Physical Therapy Evaluation ---
PT Evaluation-General Medical Diagnosis Admission Date Sep 28, 2019 at 17:13 Medical Diagnosis: SOB, difficulty breathing Onset Date: Sep 28, 2019 Therapy Diagnosis Therapy Diagnosis: impaired gait, decreased ROM, SOB Height/Weight Height (Feet): 5 Height (Inches): 9.00 Weight (Pounds): 145 Weight (Ounces): 0.0 Precautions Precautions/Isolations: Fall Prevention, Standard Precautions Weight Bear Status Right Lower Extremity: Right Full Weight Bearing Left Lower Extremity: Left Full Weight Bearing Referral Physician: Walter Reason for Referral: Evaluation/Treatment Medical History Pertinent Medical History: CAD, HTN Reviewed History: Yes Social History Home: Apartment ([place] [address]) Current Living Status: grandson lives with him Entry Into Home: Stairs With Railing PT Steps Into Home: 15 (5 steps split with platforms) Prior Prior Level of Function SCALE: Activities may be completed with or without assistive devices. 5-Xfxboohxat-lrdiuyo completes the activity by him/herself with no assistance from a helper. 5-Set-up or Clean-up Assistance-helper sets up or cleans up; patient completes activity. [place] assists only prior to or following the activity. 4-Supervision or Touching Assistance-helper provides verbal cues and/or touching/steadying and/or contact guard assistance as patient completes activity. Assistance may be provided throughout the activity or intermittently. 3-Partial/Moderate Assistance-helper does LESS THAN HALF the effort. [place] lifts, holds or supports trunk or limbs, but provides less than half the effort. 2-Substantial/Maximal Assistance-helper does MORE THAN HALF the effort. [place] lifts or holds trunk or limbs and provides more than half the effort. 2-Flsujicrk-tgfdaz does ALL the effort. Patient does none of the effort to complete the activity. Or, the assistance of 2 or more helpers is required for the patient to complete the activity. If activity was not attempted, code reason: 7-Patient Refused. 9-Not Applicable-not attempted and the patient did not perform the activity before the current illness, exacerbation or injury. 10-Not Attempted due to Environmental Limitations-(lack of equipment, weather restraints, etc.). 88-Not Attempted due to Medical Conditions or Safety Concerns. Bed Mobility: 4 Transfers (B,C,W/C): 4 Gait: 4 Stairs: 4 Indoor Mobility (Ambulation): Needed Some Help Stairs: Needed Some Help Prior Devices Use: Walker Prior Device Use: daughter reports pt uses 4 wheel walker in home and in community Pt's daughter reports pt has had multiple falls recently with 2 falls involving the pt hitting his head PT Evaluation-Current Subjective pt in bed pre-tx agrees to therapy reports no pain but 5/10 dyspnea at this time. Pt in recliner post-tx with daughter and RN present at this time. pt with call light, phone, table in reach with all needs met at this time. Pt/Family Goals to be independent at home Objective Patient Orientation: Person, Confused, Place pt is unaware of who is current president and reports the year is 2011. ROM/Strength ROM Lower Extremities WFL except for R dorsiflexion limited to neutral with hard end feel Strength Lower Extremities grossly 5/5 B/L throughout Integumentary/Posture Integumentary see nursing notes Bowel Incontinence: No Bladder Incontinence: No Neuromuscular (Tone, Coordination, Reflexes) hypertonicity in the R calf. Sensory Vision: Wears Glasses Hearing: Impaired Sensation Right Lower Extremit: Intact Sensation Left Lower Extremity: Intact Transfers Roll Left to Right (QC): 6 Sit to Lying (QC): 88 Lying to Sitting/Side of Bed(Q: 4 (SBA) Sit to Stand (QC): 4 (SBA) Chair/Fef-fk-Wiojr Xfer(QC): 4 (SBA) Car Transfer (QC): 88 Gait Does the Patient Walk?: Yes Mode of Locomotion: Walk Anticipated Mode of Locomotion: Both Walk 10 feet (QC): 4 (CGA) Walk 50 ft with 2 Turns(QC): 4 (CGA) Walk 150 ft (QC): 88 Walking 10ft/uneven surface-QC: 88 Distance: 140' Gait Assistive Device: FWW Comments/Gait Description pt ambulates with FWW CGA with increased R hip flexion to compensate for inability to dorsiflex past neutral in the R ankle. pt has tendency to speed up and loose control of the walker at times during ambulation. Wheelchair Training Does the Pt Use a Wheelchair?: No Wheel 50 ft with 2 turns (QC): 88 Wheel 150 ft (QC): 88 Type of Wheelchair: Manual Stairs 1 Step (curb) (QC): 88 4 Steps (QC): 88 12 Steps (QC): 8 Balance Sitting Static: Normal Sitting Dynamic: Normal Standing Static: Good Standing Dynamic: Fair Picking up an Object (QC): 88 Treatment pt performed bed mobility training, transfer training, skilled ambulation training, education, and functional LE strengthening (hip flexion, AP's, SAQ's) Assessment/Needs pt has some confusion this session. pt becomes unsafe during ambulation as he gets the walker too far out in front of him or turns and will attempt to leave the walker where it is requiring mod cuing to stay up and inside the walker. The pt reports no increase in dyspnea during ambulation but has audible crackling in chest area post-tx. Rehab Potential: Fair PT Rn Neonatal Icu Goals Skilled Nursing Goals PT Rn Neonatal Icu Goals Time Frame: Oct 06, 2019 Roll Left & Right (QC): 6 Sit to Lying (QC): 6 Lying-Sitting on Side/Bed(QC): 6 Sit to Stand (QC): 6 Chair/Bpo-ws-Lqsoq Xfer(QC): 5 Toilet Transfer (QC): 5 Car Transfer (QC): 5 Does the Patient Walk: Yes Walk 10 feet (QC): 5 Walk 50ft with 2 Turns (QC): 5 Walk 150 ft (QC): 5 Walking 10ft on Uneven Surface: 88 1 Step (curb) (QC): 4 4 Steps (QC): 4 12 Steps (QC): 4 Picking up an Object (QC): 88 Does the Pt use WC or Scooter?: No Type: N/A Type: N/A PT Plan Problem List Problem List: Activity Tolerance, Functional Strength, Safety, Balance, Gait, Transfer, Bed Mobility, ROM Treatment/Plan Treatment Plan: Continue Plan of Care Treatment Plan: Bed Mobility, Education, Functional Activity Roxie, Functional Strength, Gait, Safety, Therapeutic Exercise, Transfers Treatment Duration: Oct 06, 2019 Frequency: 6 times per week Estimated Hrs Per Day: .25 hour per day Patient and/or Family Agrees t: Yes Safety Risks/Education Patient Education: Gait Training, Transfer Techniques, Correct Positioning, Safety Issues Teaching Recipient: Patient Teaching Methods: Demonstration, Discussion Response to Teaching: Return Demonstration, Reinforcement Needed Discharge Recommendations Plan Pt will perform transfer training, bed mobility training, functional LE strengthening, step training, skilled ambulation training, and education. Therapy Discharge Recommendati: Other, See Comments (rehab) Time/GCodes Time In: 09 Time Out: 09 Total Billed Treatment Time: 15 Total Billed Treatment 1 visit EVL 15' KARAN VANEGAS PT Sep 29, 2019 09:32 POS
--- NOTE | 2019-09-29 09:38 | NUR ---
CM/SS: SS consult received for this patient for need of rehabilitation. Peggy RN called Dr. Walter montalvo determine if he was thinking more of a SNF rehabilitation or a IRF. He reports the patient lives with his daughter above a local cafe' and that there are several steps to enter the apartment. He is becoming increasingly weak and needs to gain some strength before discharge. Doctor requested a IRF referral be ordered, which has been done.
[2019-09-29] MEDS: RT-ALBUTEROL SULF 2.5 MG/3 ML PRE-MIX VIAL INH SCH (09:49)
--- NOTE | 2019-09-29 10:04 | NUR ---
CM/SS Visited pt to assess needs for Discharge Planning Plan: Pt to be assessed for inpatient rehab. Daughter is wanting pt to go inpatient rehab to get stronger, reports numerous falls prior to hospital admission. DME: Pt has can and two walkers - no other needs Summary: (written by Taylor) The patient's daughter Savannah ([phone]) requested to speak to social work lecturer to discuss inpatient rehab and or senior living placements. The daughter wanted to talk in private; therefore, we talked in family visiting room. The daughter verbalized the patient's history to CM/SS. The patient is currently living with his daughter, son-in-law, and grandson [place] [address]. The patient's daughter reports that he has been getting much weaker physically and having falls at home. Patient does have 2 walkers and a cane but is resistant to using them. The patient will use them when encouraged. The patient suffers from mental health issues such as depression and anxiety. The patient's daughter reports that he is not currently on medication or being seen by a mental health worker. However, the daughter has made an appointment at [facility] for October 07. CM/SS spoke with the patient to assess for suicidal ideation. Patient denies suicidal thoughts at this time. Patient agree's to speak with Warner. CM/SS got a hold of Ayannakeenan Linares who will visit with patient. Patient's daughter states that her Jaime will be visiting while she is in [place]. Will continue to follow to assess for other needs.
--- NOTE | 2019-09-29 10:28 | NUR ---
IRF Evaluation Order received to evaluate patient for the ARU. Chart review complete and findings discussed with Dr. Ku - patient accepted. Thank you for this referral.
--- NOTE | 2019-09-29 11:55 | NUR ---
report given to Sirena Wells f/junior Watson on signing DNR papers with family
[2019-09-29] MEDS ORDERED: BIMATOPROST 0.01% OU SCH (21:00)
[2019-09-29] MEDS ORDERED: EYE OU SCH (21:00)
[2019-10-07] MEDS ORDERED: SUCR1TAB PO (09:10)
[2019-10-07] MEDS ORDERED: FLUT12AE4 IH (09:10)
[2019-10-07] MEDS ORDERED: PANT40TA3 PO (09:10)
--- NOTE | 2019-10-14 08:22 | Discharge Summary ---
Diagnosis/Chief Complaint Date of Admission Sep 28, 2019 at 17:20 Date of Discharge Sep 29, 2019 at 11:55 Discharge Date: Sep 29, 2019 Admission Diagnosis Admission Diagnosis 1. Dyspnea and this may be related to pneumonia, pneumonitis, or perhaps congestive heart failure 2. History of coronary artery disease 3. Weakness Discharge Diagnosis 1. Dyspnea -- bronchitis/clinical pneumonia 2. History of coronary artery disease 3. Weakness/debility Reason Hospital Visit 79-year-old male presents to office late this afternoon with his daughter and he has symptoms of shortness of breath and difficulty breathing. His daughter reports he has been on Zithromax over the last week without any change of his respiratory status. He has not been running a significant fever. Most of his breathing is with gurgling sounds as well as wheezing. He does have a history of coronary artery disease. He has not had congestive heart failure in the past. His oral intake has markedly changed. Discharge Summary Hospital Course Hospital Course patient was admitted for observation on September 28, 2019 with a diagnosis of dyspnea. He was felt to have pneumonia or pneumonitis. With his history of coronary artery disease perhaps even congestive heart failure. His BNP however came back low and his chest x-ray was not consistent with congestive heart failure. He was initiated on Rocephin 1 g every 24 hours. Respiratory therapy also involved during the course of his stay In the morning of September 29, 2019 his respiratory effort was stable. He was still with audible wheezing but he was in no distress. I spoke tohis daughter regarding his health. He was not in shape to go home due to his debility and muscle weakness. Inpatient rehabilitation was consulted and graciously accepted him on the day of September 29, 2019 at this time he will be maintained on his current medications. Procedures None. Discharge Physical Examination Allergies: Coded Allergies: No Known Allergies (Verified Allergy, Unknown, 09/29/18) General Appearance: No Acute Distress Respiratory: Clear to Auscultation (except for a few wheezes) Cardiovascular: Regular Rate (with occasional ectopy) Abdominal: Normal Bowel Sounds, Soft Skin: No Rashes Neuro: Normal Speech (although he does seem confused at times) Discharge Home Medications Reviewed and agree with Discharge Medication list on patient's Discharge Instruction sheet Instructions to Patient/Family Please see electronic discharge instructions given to patient. Clinical Quality Measures DVT/VTE Risk/Contraindication: Risk Factor Score Per Nursin RFS Level Per Nursing on Admit: 2=Moderate KRISTEL PEREZ MD Oct 14, 2019 08:21
--- OUTSIDE RECORDS SUMMARY | 2019-10-24 08:01 | XMS REPORT | Continuity of Care Document ---
Author Organization Unknown Address Unknown Phone Unavailable Allergies Active Description Code Type Severity Reaction Onset Reported/Identified Relationship to Patient Clinical Status Yes NO KNOWN DRUG ALLERGIES UNKNOWN UNKNOWN Yes No Known Allergies [id number] Drug Allergy Unknown N/A 09/29/2018 Medications Medication Packaging Start Date St op Date Route Dosage Sig ACETAMINOPHEN ORAL TABLET 325mg(Tylenol) MG 10/07/2019 11/06/2019 PRN EVERY 6 Hour SUCRALFATE TAB 1 GM (CARAFATE) GM 10/07/2019 11/06/2019 ACHS&0630,1130,1630,2100 LOPERAMIDE CAP 2 MG (IMMODIUM) MG 10/07/2019 10/14/2019 PRN QID POLYETHYLENE GLYCOL POWDER U D PWD (MIRALAX 17GM UNIT DOSE PAKS) gm 10/07/2019 10/17/2019 PRN Q3H ALUM/MAG/SIMETH 30CC LIQ (MYLANTA PLUS) cc 10/07/2019 10/17/2019 PRN Q4H FLUTICASONE/SALMETEROL 100 / 50MCG (ADVAIR DISKUS) 10/07/2019 11/06/2019 BID&0800,2000 LACTULOSE SYRUP LIQ 20 GM/30 CC (CHRONULAC SYRUP) GM 10/07/2019 11/06/2019 BID&0800,2000 MILK OF MAGNESIA LIQ ml 10/07/2019 11/06/2019 PRN BID PANTOPRAZOLE TAB 40 MG (PROTONIX) MG 10/08/2019 11/06/2019 QAM&0800 VENLAFAXINE XR CAP 75 MG (EFFEXOR XR) MG 10/08/2019 11/06/2019 Daily&0900 BISACODYL SUPPOS 10 MG (DULCOLAX SUPPOS) MG 10/08/2019 10/14/2019 PRN Daily LORATADINE TAB 10 MG (CLARITIN) MG 10/09/2019 10/15/2019 Daily&0900 IPRATROPIUM/ALBUTEROL INH SO LN (DUO-NEB INH SOLN) MLS 10/09/2019 10/09/2019 ONCE&0958 IPRATROPIUM/ALBUTEROL INH SO LN (DUO-NEB INH SOLN) MLS 10/09/2019 11/08/2019 TID&0800,1400,2000 MONTELUKAST TAB 10 MG (SINGULAIR) MG 10/09/2019 11/07/2019 Daily&2000 VENLAFAXINE XR CAP 75 MG (EFFEXOR XR) MG 10/12/2019 11/10/2019 Daily&0900 NORMAL SALINE 1000CC IV BAG INJ 0.9 % (NS 1000CC IV BAG) ml 10/14/2019 10/29/2019 CONTINUOUSEVERY 0 Hour LORAZEPAM 1CC VIAL INJ 2 MG/CC (ATIVAN VIA L) MG 10/14/2019 10/21/2019 PRN Q4H IPRATROPIUM/ALBUTEROL INH SO LN (DUO-NEB INH SOLN) MLS 10/14/2019 10/24/2019 Q4H&0330,0730,1130,1530,1930 ,2330 Piperacillin-tazobactam 3.37 5 Gm IV recon soln (Zosyn) GM 10/14/2019 10/21/2019 Q6H&0400,1000,1600,2200 SUCRALFATE TAB 1 GM (CARAFATE) GM 10/14/2019 11/13/2019 ACHS&0630,1130,1630,2100 IPRATROPIUM/ALBUTEROL INH SO LN (DUO-NEB INH SOLN) MLS 10/14/2019 10/24/2019 Q4H&0200,0600,1000,1400,1800 ,2200 METHYLPREDNISOLONE VIAL INJ 40 MG/CC (SOLU-MEDROL VIAL) MG 10/14/2019 10/19/2019 Q6H&0600,1200,1800,2359 BUDESONIDE INHALATION SUSP A MP 0.5 MG/2CC (PULMICORT) MG 10/14/2019 10/21/2019 BID&0800,2000 FLUTICASONE/SALMETEROL 100 / 50MCG (ADVAIR DISKUS) APPLICATION 10/14/2019 11/13/2019 BID&0800,2000 LACTULOSE SYRUP LIQ 20 GM/30 CC (CHRONULAC SYRUP) GM 10/14/2019 10/21/2019 BID&0800,2000 VENLAFAXINE XR CAP 75 MG (EFFEXOR XR) MG 10/15/2019 10/21/2019 QAM&0800 LORATADINE TAB 10 MG (CLARITIN) MG 10/15/2019 10/21/2019 QAM&0800 MONTELUKAST TAB 10 MG (SINGULAIR) MG 10/15/2019 10/21/2019 QAM&0800 PANTOPRAZOLE TAB 40 MG (PROTONIX) MG 10/15/2019 11/13/2019 QAM&0800 ENOXAPARIN SYRINGE INJ 40 MG (LOVENOX SYRI NGE) MG 10/15/2019 10/24/2019 Daily&0900 AMOX-CLAV 875/125 TAB 875 MG-125MG (AUGMEN TIN) TAB 10/17/2019 10/17/2019 ONCE&1000 AMOX-CLAV 875/125 TAB 875 MG-125MG (AUGMEN TIN) TAB 10/17/2019 10/27/2019 BID&0800,2000 METHYLPREDNISOLONE VIAL INJ 40 MG/CC (SOLU-MEDROL VIAL) MG 10/17/2019 10/22/2019 BID&0800,2000 PREDNISONE TAB 10 MG (DELTASONE) MG 10/18/2019 10/18/2019 ONCE&1130 Problems Date Dx Coded Attending Type Code Diagnosis Diagnosed By KRISTEL PEREZ MD, Ot M54.5 LOW BACK PAIN 09/25/1223 KRISTEL PEREZ MD, Ot M54. 5 LOW BACK PAIN 08/11/2018 KRISTEL PEREZ MD, Ot M54. 5 LOW BACK PAIN 08/27/2018 KRISTEL PEREZ MD, Ot M54. 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 PRESENCE OF CORONARY ANGIOPLASTY IMPLANT 09/29/2018 MAEVE BAUGH FACC, MEDARDO FACP CCDS Ot I25.10 ATHSCL HEART DISEASE OF [place] CORONARY 09/29/2018 MAEVE BAUGH FACC, ALI FACP CCDS Ot M79.89 OTHER SPECIFIED SOFT TISSUE DISORDERS 09/29/2018 MAEVE BAUGH FACC, ALI FACP CCDS Ot R94.31 ABNORMAL ELECTROCARDIOGRAM [ECG] [EKG] 09/29/2018 MAEVE BAUGH FACC, ALI FACP CCDS Ot Z11.2 ENCOUNTER FOR SCREENING FOR OTHER BACTER 09/29/2018 MEDARDO MCFARLANE MD, FACC FACP CCDS Ot Z87.891 PERSONAL HISTORY OF NICOTINE DEPENDENCE 09/29/2018 MAEVE BAUGH FACC, ALI FACP CCDS Ot Z95.5 PRESENCE OF CORONARY ANGIOPLASTY IMPLANT 10/01/2018 LENY ANDREWS FERRYBOAT OPERATOR CABLE Ot I25.2 OLD MYOCARDIAL INFARCTION 10/01/2018 LENY ANDREWS FERRYBOAT OPERATOR CABLE Ot R06.00 DYSPNEA, UNSPECIFIED 10/01/2018 LENY ANDREWS FERRYBOAT OPERATOR CABLE Ot Z95.5 PRESENCE OF CORONARY ANGIOPLASTY IMPLANT 10/01/2018 MAEVE BAUGH FACC, MEDARDO FACP CCDS Ot I25.10 ATHSCL HEART DISEASE OF [place] CORONARY 10/01/2018 MAEVE BAUGH FACC, ALI FACP CCDS Ot M79.89 OTHER SPECIFIED SOFT TISSUE DISORDERS 10/01/2018 MEDARDO MCFARLANE MD, FACC FACP CCDS Ot R94.31 ABNORMAL ELECTROCARDIOGRAM [ECG] [EKG] 10/01/2018 MAEVE BAUGH FACC ALI FACP CCDS Ot Z11.2 ENCOUNTER FOR SCREENING FOR OTHER BACTER 10/01/2018 MAEVE BAUGH FACC ALI FACP CCDS Ot Z87.891 PERSONAL HISTORY OF NICOTINE DEPENDENCE 10/01/2018 MAEVE BAUGH FACC, ALI FACP CCDS Ot Z95.5 PRESENCE OF CORONARY ANGIOPLASTY IMPLANT 10/05/2018 MAEVE BAUGH FACC, ALI FACP CCDS Ot I25.10 ATHSCL HEART DISEASE OF [place] CORONARY 10/05/2018 MAEVE BAUGH FACC, ALI FACP CCDS Ot M79.89 OTHER SPECIFIED SOFT TISSUE DISORDERS 10/05/2018 MAEVE BAUGH FACC, ALI FACP CCDS Ot R94.31 ABNORMAL ELECTROCARDIOGRAM [ECG] [EKG] 10/05/2018 MAEVE BAUGH FACC, MEDARDO FACP CCDS Ot Z11.2 ENCOUNTER FOR SCREENING FOR OTHER BACTER 10/05/2018 MAEVE BAUGH FACC, ALI FACP CCDS Ot Z87.891 PERSONAL HISTORY OF NICOTINE DEPENDENCE 10/05/2018 MAEVE BAUGH FACC, ALI FACP CCDS Ot Z95.5 PRESENCE OF CORONARY ANGIOPLASTY IMPLANT 10/13/2018 MAEVE BAUGH FACC, ALI FACP CCDS Ot I70.213 ATHSCL [place] ARTERIES OF EXTRM W INTRMT 10/13/2018 MAEVE BAUGH FACC, ALI FACP CCDS Ot I70.213 ATHSCL [place] ARTERIES OF EXTRM W INTRMT 11/03/2018 MAEVE BAUGH FACC, ALI FACP CCDS Ot I25.10 ATHSCL HEART DISEASE OF [place] CORONARY 11/03/2018 MAEVE BAUGH FACC, ALI FACP CCDS Ot R06.02 SHORTNESS OF BREATH 11/03/2018 MAEVE BAUGH FACC, ALI FACP CCDS Ot R94.31 ABNORMAL ELECTROCARDIOGRAM [ECG] [EKG] 11/10/2018 MAEVE BAUGH FACC, ALI FACP CCDS Ot I70.213 ATHSCL [place] ARTERIES OF EXTRM W INTRMT 11/17/2018 MAEVE BAUGH FACC, ALI FACP CCDS Ot I70.213 ATHSCL [place] ARTERIES OF EXTRM W INTRMT 11/17/2018 MAEVE BAUGH FACC, ALI FACP CCDS Ot I70.213 ATHSCL [place] ARTERIES OF EXTRM W INTRMT 11/30/2018 MAEVE BAUGH FACC, ALI FACP CCDS Ot I25.10 ATHSCL HEART DISEASE OF [place] CORONARY 11/30/2018 MAEVE BAUGH FACC, ALI FACP CCDS Ot R06.02 SHORTNESS OF BREATH 11/30/2018 MAEVE BAUGH FACC, ALI FACP CCDS Ot R94.31 ABNORMAL ELECTROCARDIOGRAM [ECG] [EKG] 12/03/2018 MAEVE BAUGH FACC, ALI FACP CCDS Ot I25.10 ATHSCL HEART DISEASE OF [place] CORONARY 12/03/2018 MAEVE BAUGH FACC, ALI FACP CCDS Ot R06.02 SHORTNESS OF BREATH 12/03/2018 MAEVE BAUGH FACC, ALI FACP CCDS Ot R94.31 ABNORMAL ELECTROCARDIOGRAM [ECG] [EKG] 12/22/2018 MAEVE BAUGH FACC, ALI FACP CCDS Ot I25.10 ATHSCL HEART DISEASE OF [place] CORONARY 12/22/2018 MAEVE BAUGH FACC, ALI FACP CCDS Ot I70.213 ATHSCL [place] ARTERIES OF EXTRM W INTRMT 12/22/2018 MAEVE BAUGH FACC, ALI FACP CCDS Ot R06.02 SHORTNESS OF BREATH 12/22/2018 MAEVE BAUGH FACC, ALI FACP CCDS Ot R94.31 ABNORMAL ELECTROCARDIOGRAM [ECG] [EKG] 12/28/2018 MAEVE BAUGH FACC, ALI FACP CCDS Ot I25.10 ATHSCL HEART DISEASE OF [place] CORONARY 12/28/2018 MAEVE BAUGH FACC, ALI FACP CCDS Ot I70.213 ATHSCL [place] ARTERIES OF EXTRM W INTRMT 12/28/2018 MAEVE BAUGH FACАлександр, ALI FACP CCDS Ot R06.02 SHORTNESS OF BREATH 12/28/2018 MAEVE BAUGH FACАлександр, ALI FACP CCDS Ot R94.31 ABNORMAL ELECTROCARDIOGRAM [ECG] [EKG] 01/07/2019 CALI CASTAÑEDA MD Ot A08. 4 VIRAL INTESTINAL INFECTION, UNSPECIFIED 01/07/2019 CALI CASTAÑEDA MD Ot F32. 9 MAJOR DEPRESSIVE DISORDER, SINGLE EPISOD 01/07/2019 CALI CASTAÑEDA MD Ot I10 ESSENTIAL (PRIMARY) HYPERTENSION 01/07/2019 CALI CASTAÑEDA MD Ot I25. 10 ATHSCL HEART DISEASE OF [place] CORONARY 01/07/2019 CALI CASTAÑEDA MD Ot R11. 10 VOMITING, UNSPECIFIED 01/07/2019 CALI CASTAÑEDA MD Ot Z79. 82 RN PLASTIC SURGERY (CURRENT) USE OF ASPIRIN 01/07/2019 CALI CASTAÑEDA MD Ot Z87.891 PERSONAL HISTORY OF NICOTINE DEPENDENCE 01/07/2019 CALI CASTAÑEDA MD Ot Z95. 5 PRESENCE OF CORONARY ANGIOPLASTY IMPLANT 01/11/2019 CALI CASTAÑEDA MD Ot A08. 4 VIRAL INTESTINAL INFECTION, UNSPECIFIED 01/11/2019 CALI CASTAÑEDA MD Ot F32. 9 MAJOR DEPRESSIVE DISORDER, SINGLE EPISOD 01/11/2019 CALI CASTAÑEDA MD Ot I10 ESSENTIAL (PRIMARY) HYPERTENSION 01/11/2019 CALI CASTAÑEDA MD, Ot I25. 10 ATHSCL HEART DISEASE OF [place] CORONARY 01/11/2019 CALI CASTAÑEDA MD Ot R11. 10 VOMITING, UNSPECIFIED 01/11/2019 CALI CASTAÑEDA MD Ot Z79. 82 RN PLASTIC SURGERY (CURRENT) USE OF ASPIRIN 01/11/2019 CALI CASTAÑEDA MD, Ot Z87.891 PERSONAL HISTORY OF NICOTINE DEPENDENCE 01/11/2019 CALI CASTAÑEDA MD, Ot Z95. 5 PRESENCE OF CORONARY ANGIOPLASTY IMPLANT 03/07/2019 KALEB CALL MD, Ot F32.9 MAJOR DEPRESSIVE DISORDER, SINGLE EPISOD 03/07/2019 KALEB CALL MD, Ot I10 ESSENTIAL (PRIMARY) HYPERTENSION 03/07/2019 KALEB CALL MD, Ot I25.10 ATHSCL HEART DISEASE OF [place] CORONARY 03/07/2019 KALEB CALL MD, Ot R40.2142 COMA SCALE, EYES OPEN, SPONTANEOUS, EMR 03/07/2019 KALEB CALL MD, Ot R40.2252 COMA SCALE, BEST VERBAL RESPONSE, ORIENT 03/07/2019 KALEB CALL MD, Ot R40.2362 COMA SCALE, BEST MOTOR RESPONSE, OBEYS C 03/07/2019 KALEB CALL MD, Ot R42 DIZZINESS AND GIDDINESS 03/07/2019 KALEB CALL MD, Ot S00.03XA CONTUSION OF SCALP, INITIAL ENCOUNTER 03/07/2019 KALEB CALL MD, Ot W01.0XXA FALL SAME LEV FROM SLIP/TRIP W/O STRIKE 03/07/2019 KALEB CALL MD, Ot Y92.[address] OF OCCURRENCE O 03/07/2019 KALEB CALL MD, Ot Z87.891 PERSONAL HISTORY OF NICOTINE DEPENDENCE 03/07/2019 KALEB CALL MD, Ot Z95.5 PRESENCE OF CORONARY ANGIOPLASTY IMPLANT 03/09/2019 KALEB CALL MD, Ot F32.9 MAJOR DEPRESSIVE DISORDER, SINGLE EPISOD 03/09/2019 KALEB CALL MD, Ot I10 ESSENTIAL (PRIMARY) HYPERTENSION 03/09/2019 KALEB CALL MD, Ot I25.10 ATHSCL HEART DISEASE OF [place] CORONARY 03/09/2019 KALEB CALL MD, Ot R40.2142 COMA SCALE, EYES OPEN, SPONTANEOUS, EMR 03/09/2019 KALEB CALL MD, Ot R40.2252 COMA SCALE, BEST VERBAL RESPONSE, ORIENT 03/09/2019 KALEB CALL MD, Ot R40.2362 COMA SCALE, BEST MOTOR RESPONSE, OBEYS C 03/09/2019 KALEB CALL MD, Ot R42 DIZZINESS AND GIDDINESS 03/09/2019 KALEB CALL MD, Ot S00.03XA CONTUSION OF SCALP, INITIAL ENCOUNTER 03/09/2019 KALEB CALL MD, Ot W01.0XXA FALL SAME LEV FROM SLIP/TRIP W/O STRIKE 03/09/2019 KALEB CALL MD, Ot Y92.[address] OF OCCURRENCE O 03/09/2019 KALEB CALL MD, Ot Z87.891 PERSONAL HISTORY OF NICOTINE DEPENDENCE 03/09/2019 KALEB CALL MD, Ot Z95.5 PRESENCE OF CORONARY ANGIOPLASTY IMPLANT 09/29/2019 KRISTEL PEREZ MD, Ot F32. 9 MAJOR DEPRESSIVE DISORDER, SINGLE EPISOD 09/29/2019 KRISTEL PEREZ MD Ot I10 ESSENTIAL (PRIMARY) HYPERTENSION 09/29/2019 KRISTEL PEREZ MD, Ot I25. 10 ATHSCL HEART DISEASE OF [place] CORONARY 09/29/2019 KRISTEL PEREZ MD Ot R06. 02 SHORTNESS OF BREATH 09/29/2019 KRISTEL PEREZ MD, Ot Z79. 82 FDC (CURRENT) USE OF ASPIRIN 09/29/2019 KRISTEL PEREZ MD, Ot Z79.899 OTHER RN PLASTIC SURGERY (CURRENT) DRUG THERAPY 09/29/2019 KRISTEL PEREZ MD, Ot Z87.891 PERSONAL HISTORY OF NICOTINE DEPENDENCE 09/29/2019 KRISTEL PEREZ MD, Ot Z95. 5 PRESENCE OF CORONARY ANGIOPLASTY IMPLANT 10/07/2019 NAILA MACIEL DO Ot B96.89 OTH BACTERIAL AGENTS THE CAUSE OF DIS 10/07/2019 JANELL DO, NAILA Ot E78.5 HYPERLIPIDEMIA, UNSPECIFIED 10/07/2019 MACIEL DO, NAILA Ot F03.90 UNSPECIFIED DEMENTIA WITHOUT BEHAVIORAL 10/07/2019 JANELL LIU, NAILA Ot F32.9 MAJOR DEPRESSIVE DISORDER, SINGLE EPISOD 10/07/2019 MACIEL DO, NAILA Ot I10 ESSENTIAL (PRIMARY) HYPERTENSION 10/07/2019 MACIEL DO, NAILA Ot I25.10 ATHSCL HEART DISEASE OF [place] CORONARY 10/07/2019 MACIEL DO, NAILA Ot J18.9 PNEUMONIA, UNSPECIFIED ORGANISM 10/07/2019 MACIEL DO, NAILA Ot J20.8 ACUTE BRONCHITIS DUE TO OTHER SPECIFIED 10/07/2019 MACIEL DO, NAILA Ot J44.0 CHR OBSTRUCTIVE PULMON DISEASE WITH (ACU 10/07/2019 MACIEL DO, NAILA Ot J44.1 CHRONIC OBSTRUCTIVE PULMONARY DISEASE W 10/07/2019 JANELL DO, NAILA Ot K21.9 GASTRO-ESOPHAGEAL REFLUX DISEASE WITHOUT 10/07/2019 JANELL DO, NAILA Ot R29.6 REPEATED FALLS 10/07/2019 JANELL LIU, NAILA Ot R53.81 OTHER MALAISE 10/07/2019 MACIEL DO, NAILA Ot R63.4 ABNORMAL WEIGHT LOSS 10/07/2019 JANELL LIU, NAILA Ot Z87.89 1 PERSONAL HISTORY OF NICOTINE DEPENDENCE 10/07/2019 JANELL LIU, NAILA Ot Z95.5 PRESENCE OF CORONARY ANGIOPLASTY IMPLANT 10/15/2019 Rey Macieli W 491.20 OBSTRUCTIVE CHRONIC BRONCHITIS, WITHOUT EXACERBATION 10/15/2019 Naila Maciel W J44.9 CHRONIC OBSTRUCTIVE PULMONARY DISEASE, UNSPECIFIED 10/15/2019 Maciel, Naila W 491.20 OBSTRUCTIVE CHRONIC BRONCHITIS, WITHOUT EXACERBATION 10/15/2019 Maciel, Naila W 518.82 OTHER PULMONARY INSUFFICIENCY, NOT ELSEWHERE CLASSIFIED 10/15/2019 Naila Maciel W J44.9 CHRONIC OBSTRUCTIVE PULMONARY DISEASE, UNSPECIFIED 10/15/2019 Rey Macieli W R06.03 ACUTE RESPIRATORY DISTRESS 10/15/2019 Maciel, Naila W 491.20 OBSTRUCTIVE CHRONIC BRONCHITIS, WITHOUT EXACERBATION 10/15/2019 Maciel, Naila W 518.82 OTHER PULMONARY INSUFFICIENCY, NOT ELSEWHERE CLASSIFIED 10/15/2019 Naila Maciel W J44.9 CHRONIC OBSTRUCTIVE PULMONARY DISEASE, UNSPECIFIED 10/15/2019 Naila Maciel R06.03 ACUTE RESPIRATORY DISTRESS Procedures There is no data. Results Test Result Range Automated blood complete blood count (he mogram) panel - 09/29/18 11:30 Blood leukocytes automated count (number/volume) 6.0 10*3/uL 4.3-11.0 Blood erythrocytes automated count (number/volume) 4.79 10*6/uL 4.35-5.85 Venous blood hemoglobin measurement (mass/volume) 14.6 g/dL 13.3-17.7 Blood hematocrit (volume fraction) 41 % 40-54 Automated erythrocyte mean corpuscular volume 86 [ foz_us] 80-99 Automated erythrocyte mean corpuscular h emoglobin (mass per erythrocyte) 31 pg 25-34 Automated erythrocyte mean corpuscular h emoglobin concentration measurement (mass/volume) 36 g/dL 32-36 Automated erythrocyte distribution width ratio 14. 3 % 10.0- 14.5 Automated blood platelet count (count/volume) 141 10*3/uL 130-400 Automated blood platelet mean volume measurement 10.7 [foz_us] 7.4-10.4 PT panel in platelet poor plasma by coag ulation assay - 09/29/18 11:30 Prothrombin time (PT) in platelet poor plasma by coagu lation assay 13.2 s 12.2-14.7 INR in platelet poor plasma or blood by coagulation as say 1.0 0.8-1.4 Activated partial thromboplastin time (a PTT) in platelet poor plasma bycoagulation assay - 09/29/18 11:30 Activated partial thromboplastin time (a PTT) in platelet poor plasma bycoagulation assay 31 s 24-35 Comprehensive metabolic panel - 09/29/18 11:30 Serum or plasma sodium measurement (moles/volume) 139 mmol/L 135-145 Serum or plasma potassium measurement (moles/volume) 4.3 mmol/L 3.6-5.0 Serum or plasma chloride measurement (moles/volume) 105 mmol/L 98-107 Carbon dioxide 25 mmol/L 21-32 Serum or plasma anion gap determination (moles/volume) 9 mmol/L 5-14 Serum or plasma urea nitrogen measurement (mass/volume ) 12 mg/dL 7-18 Serum or plasma creatinine measurement (mass/volume) 0.90 mg/dL 0.60-1.30 Serum or plasma urea nitrogen/creatinine mass ratio 13 NRG Serum or plasma creatinine measurement w ith calculation of estimated glomerular filtration rate > NRG Serum or plasma glucose measurement (mass/volume) 96 mg/dL 70-105 Serum or plasma calcium measurement (mass/volume) 9.9 mg/dL 8.5-10.1 Serum or plasma total bilirubin measurement (mass/volu me) 0.7 mg/dL 0.1-1.0 Serum or plasma alkaline phosphatase karen surement (enzymatic activity/volume) 53 U/L 40-136 Serum or plasma aspartate aminotransfera se measurement (enzymatic activity/volume) 24 U/L 5-34 Serum or plasma alanine aminotransferase measurement (enzymatic activity/volume) 23 U/L 0-55 Serum or plasma protein measurement (mass/volume) 7.5 g/dL 6.4-8.2 Serum or plasma albumin measurement (mass/volume) 4.6 g/dL 3.2-4.5 Lipid 1996 panel - 09/29/18 11:30 Serum or plasma triglyceride measurement (mass/volume) 138 mg/dL <150 Serum or plasma cholesterol measurement (mass/volume) 246 mg/dL < 200 Serum or plasma cholesterol in HDL measurement (mass/v olume) 53 mg/dL 40-60 Cholesterol in LDL [mass/volume] in serum or plasma by direct assay 173 mg/dL 1-129 Serum or plasma cholesterol in VLDL measurement (mass/ volume) 28 mg/dL 5-40 Methicillin resistant Staphylococcus aur eus (MRSA) screening culture - 09/29/18 11:30 Methicillin resistant Staphylococcus aureus (MRSA) scr eening culture NEG NRG Complete blood count (CBC) with automate d white blood cell (WBC) differential - 01/07/19 18:16 Blood leukocytes automated count (number/volume) 9.4 10*3/uL 4.3-11.0 Blood erythrocytes automated count (number/volume) 5.09 10*6/uL 4.35-5.85 Venous blood hemoglobin measurement (mass/volume) 15.4 g/dL 13.3-17.7 Blood hematocrit (volume fraction) 43 % 40-54 Automated erythrocyte mean corpuscular volume 84 [ foz_us] 80-99 Automated erythrocyte mean corpuscular h emoglobin (mass per erythrocyte) 30 pg 25-34 Automated erythrocyte mean corpuscular h emoglobin concentration measurement (mass/volume) 36 g/dL 32-36 Automated erythrocyte distribution width ratio 13. 7 % 10.0- 14.5 Automated blood platelet count (count/volume) 148 10*3/uL 130-400 Automated blood platelet mean volume measurement 11.0 [foz_us] 7.4-10.4 Automated blood neutrophils/100 leukocytes 91 % 42-75 Automated blood lymphocytes/100 leukocytes 5 % 12-44 Blood monocytes/100 leukocytes 3 % 0-12 Automated blood eosinophils/100 leukocytes 1 % 0-10 Automated blood basophils/100 leukocytes 0 % 0-10 Blood neutrophils automated count (number/volume) 8.5 10*3 1.8-7.8 Blood lymphocytes automated count (number/volume) 0.5 10*3 1.0-4.0 Blood monocytes automated count (number/volume) 0. 3 10*3 0.0-1.0 Automated eosinophil count 0.1 10*3/uL 0 .0-0.3 Automated blood basophil count (count/volume) 0.0 10*3/uL 0.0-0.1 PT panel in platelet poor plasma by coag ulation assay - 01/07/19 18:16 Prothrombin time (PT) in platelet poor plasma by coagu lation assay 13.0 s 12.2-14.7 INR in platelet poor plasma or blood by coagulation as say 1.0 0.8-1.4 Activated partial thromboplastin time (a PTT) in platelet poor plasma bycoagulation assay - 01/07/19 18:16 Activated partial thromboplastin time (a PTT) in platelet poor plasma bycoagulation assay 29 s 24-35 Comprehensive metabolic panel - 01/07/19 18:16 Serum or plasma sodium measurement (moles/volume) 136 mmol/L 135-145 Serum or plasma potassium measurement (moles/volume) 4.5 mmol/L 3.6-5.0 Serum or plasma chloride measurement (moles/volume) 101 mmol/L 98-107 Carbon dioxide 23 mmol/L 21-32 Serum or plasma anion gap determination (moles/volume) 12 mmol/L 5-14 Serum or plasma urea nitrogen measurement (mass/volume ) 15 mg/dL 7-18 Serum or plasma creatinine measurement (mass/volume) 1.02 mg/dL 0.60-1.30 Serum or plasma urea nitrogen/creatinine mass ratio 15 NRG Serum or plasma creatinine measurement w ith calculation of estimated glomerular filtration rate > NRG Serum or plasma glucose measurement (mass/volume) 107 mg/dL 70-105 Serum or plasma calcium measurement (mass/volume) 9.5 mg/dL 8.5-10.1 Serum or plasma total bilirubin measurement (mass/volu me) 0.9 mg/dL 0.1-1.0 Serum or plasma alkaline phosphatase karen surement (enzymatic activity/volume) 55 U/L 40-136 Serum or plasma aspartate aminotransfera se measurement (enzymatic activity/volume) 27 U/L 5-34 Serum or plasma alanine aminotransferase measurement (enzymatic activity/volume) 22 U/L 0-55 Serum or plasma protein measurement (mass/volume) 7.5 g/dL 6.4-8.2 Serum or plasma albumin measurement (mass/volume) 4.6 g/dL 3.2-4.5 Magnesium - 01/07/19 18:16 Magnesium 2.0 mg/dL 1.8-2.4 Serum or plasma troponin i.cardiac measu rement (mass/volume) - 01/07/19 18:16 Serum or plasma troponin i.cardiac measurement (mass/v olume) < ng/mL <0.028 Lipase - 01/07/19 18:16 Lipase 19 U/L 8-78 Blood manual differential performed dete ction - 01/07/19 18:16 Blood monocytes/100 leukocytes 5 % NRG Manual blood segmented neutrophils/100 leukocytes 86 % NRG Blood band neutrophils/100 leukocytes 4 % NRG Manual blood lymphocytes/100 leukocytes 4 % NRG Manual eosinophils/100 leukocytes in nose 1 % NRG Manual blood basophils/100 leukocytes 0 % NRG Blood erythrocyte morphology finding identification NORMAL NRG Complete urinalysis with reflex to cultu re - 01/07/19 18:39 Urine color determination YELLOW NRG Urine clarity determination CLEAR NR G Urine pH measurement by test strip 5 5-9 Specific gravity of urine by test strip 1.020 1.016-1.022 Urine protein assay by test strip, semi-quantitative 2+ NEGATIVE Urine glucose detection by automated test strip NE GATIVE NEGATIVE Erythrocytes detection in urine sediment by light micr oscopy NEGATIVE NEGATIVE Urine ketones detection by automated test strip 1+ NEGATIVE Urine nitrite detection by test strip NEGATIVE NEGATIVE Urine total bilirubin detection by test strip NEGA TIVE NEGATIVE Urine urobilinogen measurement by automated test strip (mass/volume) 1 mg/dL NORMAL Urine leukocyte esterase detection by dipstick 1+ NEGATIVE Automated urine sediment erythrocyte cou nt by microscopy (number/high power field) RARE NRG Automated urine sediment leukocyte count by microscopy (number/high power field) [HPF] NRG Bacteria detection in urine sediment by light microsco py TRACE NRG Crystals detection in urine sediment by light microsco py NONE NRG Casts detection in urine sediment by light microscopy NONE NRG Mucus detection in urine sediment by light microscopy LARGE NRG Complete urinalysis with reflex to culture NO NRG Complete urinalysis with reflex to cultu re - 03/07/19 18:40 Urine color determination YELLOW NRG Urine clarity determination CLEAR NR G Urine pH measurement by test strip 8 5-9 Specific gravity of urine by test strip 1.010 1.016-1.022 Urine protein assay by test strip, semi-quantitative NEGATIVE NEGATIVE Urine glucose detection by automated test strip NE GATIVE NEGATIVE Erythrocytes detection in urine sediment by light micr oscopy NEGATIVE NEGATIVE Urine ketones detection by automated test strip NE GATIVE NEGATIVE Urine nitrite detection by test strip NEGATIVE NEGATIVE Urine total bilirubin detection by test strip NEGA TIVE NEGATIVE Urine urobilinogen measurement by automated test strip (mass/volume) NORMAL NORMAL Urine leukocyte esterase detection by dipstick NEG ATIVE NEGATIVE Automated urine sediment erythrocyte cou nt by microscopy (number/high power field) NONE NRG Automated urine sediment leukocyte count by microscopy (number/high power field) NONE NRG Bacteria detection in urine sediment by light microsco py NEGATIVE NRG Squamous epithelial cells detection in u rine sediment by light microscopy RARE NRG Crystals detection in urine sediment by light microsco py NONE NRG Casts detection in urine sediment by light microscopy NONE NRG Mucus detection in urine sediment by light microscopy NEGATIVE NRG Complete urinalysis with reflex to culture NO NRG Complete blood count (CBC) with automate d white blood cell (WBC) differential - 09/28/19 18:48 Blood leukocytes automated count (number/volume) 6.0 10*3/uL 4.3-11.0 Blood erythrocytes automated count (number/volume) 4.59 10*6/uL 4.35-5.85 Venous blood hemoglobin measurement (mass/volume) 13.8 g/dL 13.3-17.7 Blood hematocrit (volume fraction) 40 % 40-54 Automated erythrocyte mean corpuscular volume 87 [ foz_us] 80-99 Automated erythrocyte mean corpuscular h emoglobin (mass per erythrocyte) 30 pg 25-34 Automated erythrocyte mean corpuscular h emoglobin concentration measurement (mass/volume) 34 g/dL 32-36 Automated erythrocyte distribution width ratio 13. 7 % 10.0- 14.5 Automated blood platelet count (count/volume) 138 10*3/uL 130-400 Automated blood platelet mean volume measurement 11.0 [foz_us] 7.4-10.4 Automated blood neutrophils/100 leukocytes 62 % 42-75 Automated blood lymphocytes/100 leukocytes 29 % 12-44 Blood monocytes/100 leukocytes 7 % 0-12 Automated blood eosinophils/100 leukocytes 3 % 0-10 Automated blood basophils/100 leukocytes 0 % 0-10 Blood neutrophils automated count (number/volume) 3.7 10*3 1.8-7.8 Blood lymphocytes automated count (number/volume) 1.7 10*3 1.0-4.0 Blood monocytes automated count (number/volume) 0. 4 10*3 0.0-1.0 Automated eosinophil count 0.2 10*3/uL 0 .0-0.3 Automated blood basophil count (count/volume) 0.0 10*3/uL 0.0-0.1 Comprehensive metabolic panel - 09/28/19 18:48 Serum or plasma sodium measurement (moles/volume) 136 mmol/L 135-145 Serum or plasma potassium measurement (moles/volume) 4.1 mmol/L 3.6-5.0 Serum or plasma chloride measurement (moles/volume) 101 mmol/L 98-107 Carbon dioxide 24 mmol/L 21-32 Serum or plasma anion gap determination (moles/volume) 11 mmol/L 5-14 Serum or plasma urea nitrogen measurement (mass/volume ) 11 mg/dL 7-18 Serum or plasma creatinine measurement (mass/volume) 1.06 mg/dL 0.60-1.30 Serum or plasma urea nitrogen/creatinine mass ratio 10 NRG Serum or plasma creatinine measurement w ith calculation of estimated glomerular filtration rate > NRG Serum or plasma glucose measurement (mass/volume) 97 mg/dL 70-105 Serum or plasma calcium measurement (mass/volume) 9.6 mg/dL 8.5-10.1 Serum or plasma total bilirubin measurement (mass/volu me) 0.6 mg/dL 0.1-1.0 Serum or plasma alkaline phosphatase karen surement (enzymatic activity/volume) 56 U/L 40-136 Serum or plasma aspartate aminotransfera se measurement (enzymatic activity/volume) 22 U/L 5-34 Serum or plasma alanine aminotransferase measurement (enzymatic activity/volume) 19 U/L 0-55 Serum or plasma protein measurement (mass/volume) 7.4 g/dL 6.4-8.2 Serum or plasma albumin measurement (mass/volume) 4.6 g/dL 3.2-4.5 Serum or plasma lithium measurement (mol es/volume) - 09/28/19 18:48 BNP PT 96.9 pg/mL <100.0 Complete urinalysis with reflex to cultu re - 09/28/19 21:50 Urine color determination YELLOW NRG Urine clarity determination CLEAR NR G Urine pH measurement by test strip 6.5 5-9 Specific gravity of urine by test strip 1.020 1.016-1.022 Urine protein assay by test strip, semi-quantitative NEGATIVE NEGATIVE Urine glucose detection by automated test strip NE GATIVE NEGATIVE Erythrocytes detection in urine sediment by light micr oscopy NEGATIVE NEGATIVE Urine ketones detection by automated test strip NE GATIVE NEGATIVE Urine nitrite detection by test strip NEGATIVE NEGATIVE Urine total bilirubin detection by test strip NEGA TIVE NEGATIVE Urine urobilinogen measurement by automated test strip (mass/volume) 0.2 mg/dL < = 1.0 Urine leukocyte esterase detection by dipstick NEG ATIVE NEGATIVE Automated urine sediment erythrocyte cou nt by microscopy (number/high power field) NONE NRG Automated urine sediment leukocyte count by microscopy (number/high power field) [HPF] NRG Bacteria detection in urine sediment by light microsco py TRACE NRG Crystals detection in urine sediment by light microsco py PRESENT NRG Casts detection in urine sediment by light microscopy NONE NRG Mucus detection in urine sediment by light microscopy NEGATIVE NRG Complete urinalysis with reflex to culture NO NRG Amorphous sediment detection in urine sediment by ligh t microscopy RARE ALO URATES NRG Complete blood count (CBC) with automate d white blood cell (WBC) differential - 09/29/19 04:30 Blood leukocytes automated count (number/volume) 4.8 10*3/uL 4.3-11.0 Blood erythrocytes automated count (number/volume) 4.21 10*6/uL 4.35-5.85 Venous blood hemoglobin measurement (mass/volume) 12.5 g/dL 13.3-17.7 Blood hematocrit (volume fraction) 37 % 40-54 Automated erythrocyte mean corpuscular volume 87 [ foz_us] 80-99 Automated erythrocyte mean corpuscular h emoglobin (mass per erythrocyte) 30 pg 25-34 Automated erythrocyte mean corpuscular h emoglobin concentration measurement (mass/volume) 34 g/dL 32-36 Automated erythrocyte distribution width ratio 13. 6 % 10.0- 14.5 Automated blood platelet count (count/volume) 127 10*3/uL 130-400 Automated blood platelet mean volume measurement 11.1 [foz_us] 7.4-10.4 Automated blood neutrophils/100 leukocytes 61 % 42-75 Automated blood lymphocytes/100 leukocytes 26 % 12-44 Blood monocytes/100 leukocytes 8 % 0-12 Automated blood eosinophils/100 leukocytes 4 % 0-10 Automated blood basophils/100 leukocytes 0 % 0-10 Blood neutrophils automated count (number/volume) 3.0 10*3 1.8-7.8 Blood lymphocytes automated count (number/volume) 1.3 10*3 1.0-4.0 Blood monocytes automated count (number/volume) 0. 4 10*3 0.0-1.0 Automated eosinophil count 0.2 10*3/uL 0 .0-0.3 Automated blood basophil count (count/volume) 0.0 10*3/uL 0.0-0.1 Comprehensive metabolic panel - 09/29/19 04:30 Serum or plasma sodium measurement (moles/volume) 138 mmol/L 135-145 Serum or plasma potassium measurement (moles/volume) 4.0 mmol/L 3.6-5.0 Serum or plasma chloride measurement (moles/volume) 105 mmol/L 98-107 Carbon dioxide 22 mmol/L 21-32 Serum or plasma anion gap determination (moles/volume) 11 mmol/L 5-14 Serum or plasma urea nitrogen measurement (mass/volume ) 12 mg/dL 7-18 Serum or plasma creatinine measurement (mass/volume) 0.94 mg/dL 0.60-1.30 Serum or plasma urea nitrogen/creatinine mass ratio 13 NRG Serum or plasma creatinine measurement w ith calculation of estimated glomerular filtration rate > NRG Serum or plasma glucose measurement (mass/volume) 89 mg/dL 70-105 Serum or plasma calcium measurement (mass/volume) 8.9 mg/dL 8.5-10.1 Serum or plasma total bilirubin measurement (mass/volu me) 0.6 mg/dL 0.1-1.0 Serum or plasma alkaline phosphatase karen surement (enzymatic activity/volume) 45 U/L 40-136 Serum or plasma aspartate aminotransfera se measurement (enzymatic activity/volume) 19 U/L 5-34 Serum or plasma alanine aminotransferase measurement (enzymatic activity/volume) 12 U/L 0-55 Serum or plasma protein measurement (mass/volume) 6.0 g/dL 6.4-8.2 Serum or plasma albumin measurement (mass/volume) 3.8 g/dL 3.2-4.5 CALCIUM CORRECTED 9.1 mg/dL 8.5-10.1 Comprehensive metabolic panel - 09/30/19 05:32 Serum or plasma sodium measurement (moles/volume) 136 mmol/L 135-145 Serum or plasma potassium measurement (moles/volume) 4.8 mmol/L 3.6-5.0 Serum or plasma chloride measurement (moles/volume) 104 mmol/L 98-107 Carbon dioxide 20 mmol/L 21-32 Serum or plasma anion gap determination (moles/volume) 12 mmol/L 5-14 Serum or plasma urea nitrogen measurement (mass/volume ) 20 mg/dL 7-18 Serum or plasma creatinine measurement (mass/volume) 0.90 mg/dL 0.60-1.30 Serum or plasma urea nitrogen/creatinine mass ratio 22 NRG Serum or plasma creatinine measurement w ith calculation of estimated glomerular filtration rate > NRG Serum or plasma glucose measurement (mass/volume) 130 mg/dL 70-105 Serum or plasma calcium measurement (mass/volume) 8.8 mg/dL 8.5-10.1 Serum or plasma total bilirubin measurement (mass/volu me) 0.6 mg/dL 0.1-1.0 Serum or plasma alkaline phosphatase karen surement (enzymatic activity/volume) 43 U/L 40-136 Serum or plasma aspartate aminotransfera se measurement (enzymatic activity/volume) 19 U/L 5-34 Serum or plasma alanine aminotransferase measurement (enzymatic activity/volume) 20 U/L 0-55 Serum or plasma protein measurement (mass/volume) 6.4 g/dL 6.4-8.2 Serum or plasma albumin measurement (mass/volume) 4.0 g/dL 3.2-4.5 CALCIUM CORRECTED 8.8 mg/dL 8.5-10.1 Complete blood count (CBC) with automate d white blood cell (WBC) differential - 09/30/19 05:32 Blood leukocytes automated count (number/volume) 6.6 10*3/uL 4.3-11.0 Blood erythrocytes automated count (number/volume) 4.25 10*6/uL 4.35-5.85 Venous blood hemoglobin measurement (mass/volume) 12.8 g/dL 13.3-17.7 Blood hematocrit (volume fraction) 37 % 40-54 Automated erythrocyte mean corpuscular volume 87 [ foz_us] 80-99 Automated erythrocyte mean corpuscular h emoglobin (mass per erythrocyte) 30 pg 25-34 Automated erythrocyte mean corpuscular h emoglobin concentration measurement (mass/volume) 35 g/dL 32-36 Automated erythrocyte distribution width ratio 13. 3 % 10.0- 14.5 Automated blood platelet count (count/volume) 126 10*3/uL 130-400 Automated blood platelet mean volume measurement 11.2 [foz_us] 7.4-10.4 Automated blood neutrophils/100 leukocytes 88 % 42-75 Automated blood lymphocytes/100 leukocytes 11 % 12-44 Blood monocytes/100 leukocytes 1 % 0-12 Automated blood eosinophils/100 leukocytes 0 % 0-10 Automated blood basophils/100 leukocytes 0 % 0-10 Blood neutrophils automated count (number/volume) 5.8 10*3 1.8-7.8 Blood lymphocytes automated count (number/volume) 0.7 10*3 1.0-4.0 Blood monocytes automated count (number/volume) 0. 1 10*3 0.0-1.0 Automated eosinophil count 0.0 10*3/uL 0 .0-0.3 Automated blood basophil count (count/volume) 0.0 10*3/uL 0.0-0.1 Manual absolute plasma cell count - 12/03/14 05:32 Blood monocytes/100 leukocytes 0 % NRG Manual blood segmented neutrophils/100 leukocytes 86 % NRG Blood band neutrophils/100 leukocytes 3 % NRG Manual blood lymphocytes/100 leukocytes 10 % NRG Manual eosinophils/100 leukocytes in nose 0 % NRG Manual blood basophils/100 leukocytes 0 % NRG Blood lymphocytes variant/100 leukocytes 1 % NRG Blood toxic granules detection by light microscopy 1+ NRG Blood poikilocytosis detection by light microscopy SLIGHT NRG Blood rouleaux detection by light microscopy SLIGH T NRG Arterial blood gas measurement - 9 10:10 Blood pCO2 33 mm[Hg] 35-45 Blood pO2 92 mm[Hg] 79-93 Arterial blood bicarbonate measurement (moles/volume) 19 mmol/L 23-27 Arterial blood base excess by calculation -5.3 mmo l/L -2.5-2.5 Arterial blood oxygen saturation measurement 98 % 94-100 * Inhaled oxygen flow rate N/A NRG Arterial blood pH measurement with patient temperature correction 7.37 7.37-7.43 Arterial blood carbon dioxide, total measurement (mole s/volume) 20.1 mmol/L 21.0-31.0 Body site RIGHT RADIAL NRG Assessment of wrist artery patency prior to arterial p uncture POSITIVE NRG Setting of ventilation mode NO NR G Measurement of body temperature 36.6 NRG Capillary blood glucose measurement by g lucometer (mass/volume) - 09/30/19 15:49 Capillary blood glucose measurement by glucometer (mas s/volume) 164 mg/dL 70-110 Capillary blood glucose measurement by g lucometer (mass/volume) - 10/01/19 05:24 Capillary blood glucose measurement by glucometer (mas s/volume) 135 mg/dL 70-110 Capillary blood glucose measurement by g lucometer (mass/volume) - 10/01/19 15:32 Capillary blood glucose measurement by glucometer (mas s/volume) 208 mg/dL 70-110 Capillary blood glucose measurement by g lucometer (mass/volume) - 10/02/19 05:10 Capillary blood glucose measurement by glucometer (mas s/volume) 89 mg/dL 70-110 Capillary blood glucose measurement by g lucometer (mass/volume) - 10/02/19 15:50 Capillary blood glucose measurement by glucometer (mas s/volume) 131 mg/dL 70-110 Capillary blood glucose measurement by g lucometer (mass/volume) - 10/03/19 06:02 Capillary blood glucose measurement by glucometer (mas s/volume) 80 mg/dL 70-110 Capillary blood glucose measurement by g lucometer (mass/volume) - 10/03/19 15:14 Capillary blood glucose measurement by glucometer (mas s/volume) 160 mg/dL 70-110 Capillary blood glucose measurement by g lucometer (mass/volume) - 10/04/19 05:57 Capillary blood glucose measurement by glucometer (mas s/volume) 115 mg/dL 70-110 Complete blood count (CBC) with automate d white blood cell (WBC) differential - 10/04/19 06:15 Blood leukocytes automated count (number/volume) 6.8 10*3/uL 4.3-11.0 Blood erythrocytes automated count (number/volume) 4.36 10*6/uL 4.35-5.85 Venous blood hemoglobin measurement (mass/volume) 13.0 g/dL 13.3-17.7 Blood hematocrit (volume fraction) 38 % 40-54 Automated erythrocyte mean corpuscular volume 87 [ foz_us] 80-99 Automated erythrocyte mean corpuscular h emoglobin (mass per erythrocyte) 30 pg 25-34 Automated erythrocyte mean corpuscular h emoglobin concentration measurement (mass/volume) 34 g/dL 32-36 Automated erythrocyte distribution width ratio 14. 1 % 10.0- 14.5 Automated blood platelet count (count/volume) 120 10*3/uL 130-400 Automated blood platelet mean volume measurement 10.7 [foz_us] 7.4-10.4 Automated blood neutrophils/100 leukocytes 72 % 42-75 Automated blood lymphocytes/100 leukocytes 20 % 12-44 Blood monocytes/100 leukocytes 7 % 0-12 Automated blood eosinophils/100 leukocytes 0 % 0-10 Automated blood basophils/100 leukocytes 0 % 0-10 Blood neutrophils automated count (number/volume) 4.9 10*3 1.8-7.8 Blood lymphocytes automated count (number/volume) 1.4 10*3 1.0-4.0 Blood monocytes automated count (number/volume) 0. 5 10*3 0.0-1.0 Automated eosinophil count 0.0 10*3/uL 0 .0-0.3 Automated blood basophil count (count/volume) 0.0 10*3/uL 0.0-0.1 Comprehensive metabolic panel - 10/04/19 06:15 Serum or plasma sodium measurement (moles/volume) 136 mmol/L 135-145 Serum or plasma potassium measurement (moles/volume) 3.8 mmol/L 3.6-5.0 Serum or plasma chloride measurement (moles/volume) 102 mmol/L 98-107 Carbon dioxide 24 mmol/L 21-32 Serum or plasma anion gap determination (moles/volume) 10 mmol/L 5-14 Serum or plasma urea nitrogen measurement (mass/volume ) 19 mg/dL 7-18 Serum or plasma creatinine measurement (mass/volume) 0.97 mg/dL 0.60-1.30 Serum or plasma urea nitrogen/creatinine mass ratio 20 NRG Serum or plasma creatinine measurement w ith calculation of estimated glomerular filtration rate > NRG Serum or plasma glucose measurement (mass/volume) 85 mg/dL 70-105 Serum or plasma calcium measurement (mass/volume) 8.4 mg/dL 8.5-10.1 Serum or plasma total bilirubin measurement (mass/volu me) 0.3 mg/dL 0.1-1.0 Serum or plasma alkaline phosphatase karen surement (enzymatic activity/volume) 52 U/L 40-136 Serum or plasma aspartate aminotransfera se measurement (enzymatic activity/volume) 38 U/L 5-34 Serum or plasma alanine aminotransferase measurement (enzymatic activity/volume) 67 U/L 0-55 Serum or plasma protein measurement (mass/volume) 5.9 g/dL 6.4-8.2 Serum or plasma albumin measurement (mass/volume) 3.8 g/dL 3.2-4.5 CALCIUM CORRECTED 8.6 mg/dL 8.5-10.1 Capillary blood glucose measurement by g lucometer (mass/volume) - 10/04/19 15:19 Capillary blood glucose measurement by glucometer (mas s/volume) 151 mg/dL 70-110 Capillary blood glucose measurement by g lucometer (mass/volume) - 10/05/19 05:39 Capillary blood glucose measurement by glucometer (mas s/volume) 121 mg/dL 70-110 Capillary blood glucose measurement by g lucometer (mass/volume) - 10/05/19 15:16 Capillary blood glucose measurement by glucometer (mas s/volume) 153 mg/dL 70-110 Capillary blood glucose measurement by g lucometer (mass/volume) - 10/06/19 06:25 Capillary blood glucose measurement by glucometer (mas s/volume) 91 mg/dL 70-110 Capillary blood glucose measurement by g lucometer (mass/volume) - 10/06/19 15:26 Capillary blood glucose measurement by glucometer (mas s/volume) 155 mg/dL 70-110 Capillary blood glucose measurement by g lucometer (mass/volume) - 10/07/19 05:27 Capillary blood glucose measurement by glucometer (mas s/volume) 96 mg/dL 70-110 Lipid Panel - 10/08/19 05:40 C/HDL 3.7 3.7-6.7 Cholesterol 251 mg/dL 100-240 HDL 68 mg/dL 30-85 LDL-Calculated 147 mg/dL 0-100 Trig 178 mg/dL 35-160 VLDL 36 mg/dL 0-42 Comprehensive Metabolic Panel - 10/14/19 04:58 Albumin 3.5 g/dL 3.6-5.1 ALP 53 U/L 35-130 ALT 40 U/L 6-45 Anion Gap 10 6-14 AST 20 U/L 2-40 BUN 14 mg/dL 5-25 Calcium 8.4 mg/dL 8.3-10.4 Chloride 102 mmol/L 95-114 CO2 27 mEq/L 22-33 Creat 0.83 mg/dL 0.50-1.50 eGFR 90 mL/min/1.73m2 >59 Globulin 1.9 g/dL 2.3-3.5 Glucose 98 mg/dL 70-110 Osmo 280 280-295 Potassium 4.3 mmol/L 3.5-5.3 Sodium 135 mmol/L 134-148 TBil 0.6 mg/dL 0.2-1.2 TP 5.4 g/dL 6.0-8.3 Troponin I - 10/14/19 15:18 Troponin 0.023 ng/mL 0.000-0.400 Arterial Blood Gas - 10/14/19 15:18 Base -5.00 mmol/L 1.80-4.20 HCO3 22 mmol/L 20-31 O2 Sat 89 15L % 95-100 pCO2 44 mm/Hg 35-45 pH 7.31 7.35-7.45 PO2 62 mm/Hg 80-95 Blood Culture - 10/14/19 15:18 PRELIM CULTURE RESULTS Blood Culture Negativ e, No Growth Day 1 FINAL CULTURE RESULTS Blood Culture Negative , No Growth Day 5 MEDIA PLATED Blood Culture Media Position C50 CULTURE SOURCE right AC Blood Culture - 10/14/19 15:18 PRELIM CULTURE RESULTS Blood Culture Negativ e, No Growth Day 1 FINAL CULTURE RESULTS Blood Culture Negative , No Growth Day 5 MEDIA PLATED Blood Culture Media Position C44 CULTURE SOURCE right [id number] D-Dimer - 10/14/19 15:44 DDimer 193.00 ng/mL 21.00-229.00 Influenza - 10/14/19 15:44 Influenza NEGATIVE FOR A and B 0.00-0.0 0 Arterial Blood Gas - 10/14/19 18:23 Base -3.00 mmol/L 1.80-4.20 HCO3 21 mmol/L 20-31 O2 Sat 97 5L % 95-100 pCO2 32 mm/Hg 35-45 pH 7.43 7.35-7.45 PO2 86 mm/Hg 80-95 Comprehensive Metabolic Panel - 10/15/19 05:36 Albumin 3.6 g/dL 3.6-5.1 ALP 40 U/L 35-130 ALT 38 U/L 6-45 Anion Gap 16 6-14 AST 23 U/L 2-40 BUN 17 mg/dL 5-25 Calcium 8.4 mg/dL 8.3-10.4 Chloride 100 mmol/L 95-114 CO2 22 mEq/L 22-33 Creat 0.88 mg/dL 0.50-1.50 eGFR 84 mL/min/1.73m2 >59 Globulin 2.0 g/dL 2.3-3.5 Glucose 141 mg/dL 70-110 Osmo 279 280-295 Potassium 4.5 mmol/L 3.5-5.3 Sodium 133 mmol/L 134-148 TBil 1.1 mg/dL 0.2-1.2 TP 5.6 g/dL 6.0-8.3 Comprehensive Metabolic Panel - 10/16/19 05:55 Albumin 3.5 g/dL 3.6-5.1 ALP 38 U/L 35-130 ALT 35 U/L 6-45 Anion Gap 14 6-14 AST 22 U/L 2-40 BUN 22 mg/dL 5-25 Calcium 8.3 mg/dL 8.3-10.4 Chloride 103 mmol/L 95-114 CO2 23 mEq/L 22-33 Creat 0.85 mg/dL 0.50-1.50 eGFR 87 mL/min/1.73m2 >59 Globulin 2.0 g/dL 2.3-3.5 Glucose 152 mg/dL 70-110 Osmo 287 280-295 Potassium 3.9 mmol/L 3.5-5.3 Sodium 136 mmol/L 134-148 TBil 0.7 mg/dL 0.2-1.2 TP 5.5 g/dL 6.0-8.3 Comprehensive Metabolic Panel - 10/18/19 05:45 Albumin 3.5 g/dL 3.6-5.1 ALP 44 U/L 35-130 ALT 73 U/L 6-45 Anion Gap 13 6-14 AST 36 U/L 2-40 BUN 20 mg/dL 5-25 Calcium 8.4 mg/dL 8.3-10.4 Chloride 100 mmol/L 95-114 CO2 26 mEq/L 22-33 Creat 0.81 mg/dL 0.50-1.50 eGFR 92 mL/min/1.73m2 >59 Globulin 2.1 g/dL 2.3-3.5 Glucose 109 mg/dL 70-110 Osmo 280 280-295 Potassium 4.6 mmol/L 3.5-5.3 Sodium 134 mmol/L 134-148 TBil 0.6 mg/dL 0.2-1.2 TP 5.6 g/dL 6.0-8.3 Encounters ACCT No. Visit Date/Time Discharge Status Pt. Type Provider Facility Loc./Unit Complaint [id number] 10/14/2019 14:59:00 10/18/2019 10:20 :00 DIS Inpatient Naila Maciel [facility] enter ICU [id number] 10/07/2019 12:39:00 10/14/2019 15:00 :00 DIS Inpatient KALEB CEVALLOS [facility] [id number] 10/07/2019 13:14:11 Document Registration [id number] 09/29/2019 11:25:00 13:15:00 DIS Outpatient NAILA MACIEL DO [facility] IRF DEBILITY [id number] 09/28/2019 17:13:00 11:24:00 DIS Outpatient KRISTEL PEREZ MD [facility] 4TH DYSPNEA [id number] 03/07/2019 14:34:00 20:05:00 DIS Emergency BRUEGGEMANN MD, KALEB [place] [facility] ER FALL/LAC ON ALESSANDRO K OF HEAD [id number] 01/07/2019 17:21:00 21:05:00 DIS Emergency GARRY BAUGH, CALI Guzmán [facility] ER VOMITING,CHEST PAIN [id number] 11/17/2018 13:07:00 23:59:59 CLS Outpatient MAEVE BAUGH FACC, ALI FACP CC DS [facility] RAD PAD,CAD,SOB [id number] 10/30/2018 13:03:00 23:59:59 CLS Outpatient MAEVE BAUGH FACC, ALI FACP CC DS [facility] CARD SOB,CAD [id number] 09/29/2018 11:05:00 018 16:45:00 DIS Outpatient MAEVE BAUGH FACC, ALI FACP CC DS [facility] CATH SOB,CAD,ABN ORMAL EKG [id number] 09/28/2018 09:31:00 018 23:59:59 CLS Outpatient CHRIS BAUGH, KRISTEL Guzmán [facility] REHAB LOW BACK PAIN;LE WEAKNE SS [id number] 09/04/2018 13:57:00 018 23:59:59 CLS Outpatient LENY ANDREWS [facility] CARD DYSPNEA,CARDIAC STENTS [id number] 08/25/2018 08:27:00 09:14:00 DIS Outpatient KRISTEL PEREZ MD [facility] REHAB LBP; LOWER EXTREMITY STRENGTHENING
== END 2019-09-29 11:55 ==
LOC: 4TH 17:13 → UNDOADMOB 17:13 → 4TH 17:20 → UNDODISOB 09-29 11:24
PROVIDERS: ADMIT Family Medicine; ATTEND Family Medicine
DX: R06.02 Shortness of breath (principal); I25.10 Atherosclerotic heart disease of native coronary artery without angina pectoris; I10 Essential (primary) hypertension; F32.9 Major depressive disorder, single episode, unspecified; Z79.82 Long term (current) use of aspirin; Z87.891 Personal history of nicotine dependence; Z79.899 Other long term (current) drug therapy; Z95.5 Presence of coronary angioplasty implant and graft
CPT/HCPCS: 36415; 71046; 80053; 81000; 83880; 85025; 94640; 94760; 96374; 99211; G0378

== ENCOUNTER 2019-09-29 11:09 | Inpatient (IN) | payer MEDICARE ==
[~2019-09-29] VITALS: Ht 175.3 cm; Wt 68.9 kg
[~2019-09-29 11:09] MED LIST changes: +BIMA2.5D4 OU
--- NOTE | 2019-09-29 11:22 | NUR ---
REVIEWED MED REC IT WAS REPORTED UPON ADMISSION TO 4TH FLOOR. NO CHANGES WERE MADE WHEN THE PATIENT DISCHARGED TO REHAB.
[2019-09-29 11:30] VITALS: BP 136/73
--- NOTE | 2019-09-29 11:36 | NUR ---
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 The pt is Hoahaoism and said he weekly attends a Orthodox yazidism in [facility]. At the time of this visit he worked to recall the yazidism name and could not. He said he is and has a daughter Kathleen and son in law Peña who he relies upon for transportation. He shared that two years ago his younger brother in the hospital after he thought him to be improving, which he described as a "hard blow." The pt shared feeling lonely, physically frail, and identified struggles with changing identity and loss of independence related to aging and failing health. The pt said he has been feeling depressed contemplating his mortality, that he has only one brother surviving now, and his personal health is declining. States he is "feeling better right now" and that his rl has helped him process the grief. I facilitated theological reflection and encouraged sharing about his personal rl and understanding of suffering. He states that contemplating Uriah's suffering on the cross has helped him because he believes God knows and empathizes with his grief and pain and is present with him in it. Our visit concluded when PT arrived to transition the pt to IRF.
[2019-09-29] MEDS ORDERED: HYDROcodone/APAP 5 MG/325 MG (LORTAB) TAB PO PRN (11:45)
[2019-09-29] MEDS ORDERED: BISACODYL 10 MG SUPP (DULCOLAX) PR PRN (11:45)
[2019-09-29] MEDS ORDERED: guaiFENesin/CODEINE (ROBITUSSIN AC) 10ML UDC PO PRN ×2 (11:45)
[2019-09-29] MEDS ORDERED: DOCUSATE SODIUM 100 MG (COLACE) CAP PO PRN (11:45)
[2019-09-29] MEDS ORDERED: LACTULOSE SYRUP 10GM/15ML (ENULOSE) 30ML UDC PO PRN (11:45)
[2019-09-29] MEDS ORDERED: ALPRAZolam 0.25 MG (XANAX) TAB PO PRN (11:45)
[2019-09-29] MEDS ORDERED: MELATONIN 3 MG TABLET PO PRN (11:45)
[2019-09-29] MEDS ORDERED: ACETAMINOPHEN 500 MG TAB (TYLENOL) PO PRN (11:45)
[2019-09-29] MEDS ORDERED: ONDANSETRON 4 MG (ZOFRAN) ORAL DISSOLVE TAB PO PRN (11:45)
[2019-09-29] MEDS ORDERED: LOPERAMIDE 2 MG (IMODIUM) TABLET PO PRN (11:45)
[2019-09-29] MEDS ORDERED: diphenhydrAMINE 25 MG TAB (BENADRYL) PO PRN (11:45)
[2019-09-29] MEDS ORDERED: FLEET ENEMA ADULT 1 EA BTL PR PRN (11:45)
--- NOTE | 2019-09-29 11:47 | PM&R Post Admission Assessment ---
PM&R HP Date of Visit: Sep 29, 2019 Time of Visit: 11:30 History of Present Illness CC: Debility HPI: This is a 79yoWM clinic pt of Dr. Watson with a PMH of former smoking who was originally admitted to [facility] observation for bronchitis and cough but he has been falling multiple times and is high risk for significant decompensation. 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 His lungs were very course on exam and Dr. Reid was consulted, repeat chest x ray, started pt on some Solumedrol, Nebulizer treatments and Rocephin IV for bacterial bronchitis. At this current time pt denies any pain and he is having a pretty good day thus far. He will need to be able to walk up several steps to get to his home. Past Kmvyafx-Ezzyiv-Hkskbf Hx Past Med/Social Hx: Reviewed Nursing Past Med/Soc Hx, Reviewed and Corrections made Patient Social History Marrital Status: single Employed/Student: retired Alcohol Use: Rarely Uses Smoking Status: Former Smoker Former Smoker, Quit: Sep 29, 1988 Recent Hopitalizations: No Immunizations Up To Date Date of Influenza Vaccine: Aug 05, 2019 Seasonal Allergies Seasonal Allergies: No Past Medical History Surgeries: Coronary Stent, Eye Surgery Currently Using CPAP: No Cardiac: Coronary Artery Disease, Hypertension Psychosocial: Depression History of Blood Disorders: No Adverse Reaction to Blood Lin: No PM&R Allergy/Meds/Data Review Allergies Coded Allergies: No Known Allergies (Verified Allergy, Unknown, 09/29/18) Home Medications Scheduled Bimatoprost (Lumigan), 1 DROP OU HS, (Reported) Discontinued Medications Aspirin (Aspirin), 81 MG PO DAILY Discontinued Reason: No Longer Taking Atorvastatin Calcium (Atorvastatin Calcium), 40 MG PO HS Discontinued Reason: No Longer Taking [place]-3 Fatty Acids/Fish Oil ([place] 3 1,000 mg Softgel), 1 EACH PO DAILY, (Reported) Discontinued Reason: No Longer Taking Ondansetron (Ondansetron Odt), 4 MG PO Q6H PRN for NAUSEA/VOMITING Discontinued Reason: No Longer Taking Current Medications Current Medications Reviewed Review of Systems Constitutional: see HPI, dizziness, malaise, weakness Respiratory: cough, wheezing Musculoskeletal: joint pain Psychiatric/Neurological: Depressed All Other Systems Reviewed Negative Unless Noted: Yes Physical Exam Physical Exam Vital Signs Capillary Refill : Height, Weight, BMI Height: 5'9.00" Weight: 145lbs. 0.0oz. [id number]; 23.28 BMI Method:Stated General Appearance: No Apparent Distress, Chronically ill, Thin Eyes: Bilateral Eye Normal Inspection, Bilateral Eye PERRL HEENT: PERRL/EOMI, Normal ENT Inspection, Pharynx Normal Neck: Full Range of Motion, Normal Inspection, Non Tender, Supple, Carotid Bruit Respiratory: Chest Non Tender, No Accessory Muscle Use, No Respiratory Distress, Crackles, Decreased Breath Sounds, Wheezing Cardiovascular: Regular Rate, Rhythm, No Edema, No Gallop, No JVD, No Murmur, Normal Peripheral Pulses Gastrointestinal: Normal Bowel Sounds, No Organomegaly, No Pulsatile Mass, Non Tender, Soft Back: Normal Inspection, No CVA Tenderness, No Vertebral Tenderness Extremity: Normal Capillary Refill, Normal Inspection, Normal Range of Motion, Non Tender, No Calf Tenderness, No Pedal Edema Neurologic/Psychiatric: Alert, Oriented x3, No Motor/Sensory Deficits (generalized weakness lega more than arms but 4/5), Normal Mood/Affect, Other (balance dysfunction) Skin: Normal Color, Warm/Dry Lymphatic: No Adenopathy PM&R Medical Assessment & Plan REHAB/MEDICAL ASSESSMENT AND PLAN: REHAB IMPAIRMENT GROUP: Debility ETIOLOGIC DIAGNOSIS: Falls with debility The comorbidities that impact the patients function and/or functional outcome by: thin habitus, fall frequently, depressed affect, lung disease with acute illness REHAB PLAN: The patient is being admitted to our comprehensive inpatient rehabilitation facility and can tolerate the intensity of service consisting of at least: 180 minutes of therapy a day, 5 out of 7 days a week Rehab treatment will consist of: PT will help climb stairs and fall prevention, OT will help regain independence in ADL's The patient/family has a good understanding of our discharge process and will benefit from an interdisciplinary inpatient rehabilitation program. The patient has potential to make improvement and is in need of at least two of the following multidisciplinary therapies including but not limited to physical, occupational, speech, and prosthetics and orthotics. Additionally the patient will need services from respiratory, nutritional services, wound care, psychology, etc. (Customize this to each patient). Given the patients complex condition and risk of further medical complications, rehabilitation services cannot be safely or effectively provided at a lower level of care such as a jail facility. BARRIERS TO DISCHARGE: Climbing stairs to get to apartment ESTIMATED LOS: 10 days DISPOSITION: Home RELEVANT CHANGES SINCE PREADMISSION SCREENING: I have compared the patients medical and functional status at the time of the preadmission screening and there are: no changes PROGNOSIS: Good REHABILITATION GOALS: 1. Ability to climb stairs to get to apartment 2. Fall prevention in order to be at home alone All the above goals were reviewed with the patient and he/she is in agreement. By signing this document, I acknowledge that I have personally performed a full physical examination on this patient within 24 hours of admission to this inpatient rehabilitation facility and have determined the patient to be able to tolerate the above course of treatment at an intensive level for a reasonable period of time. I will be completing a detailed individualized Plan of Care for this patient by day #4 of the patients stay based upon the Preadmission Screen, the Post-Admission Evaluation, and the therapy evaluations. Admission Dx/Comorbidities: (1) Debility ICD Codes: R53.81 - Other malaise (2) Wheezing ICD Codes: R06.2 - Wheezing (3) Acute bronchitis, bacterial ICD Codes: J20.8 - Acute bronchitis due to other specified organisms; B96.89 - Other specified bacterial agents as the cause of diseases classified elsewhere (4) Former smoker ICD Codes: Z87.891 - Personal history of nicotine dependence (5) Weight loss ICD Codes: R63.4 - Abnormal weight loss (6) Depressed affect ICD Codes: R45.89 - Other symptoms and signs involving emotional state (7) Falls frequently ICD Codes: R29.6 - Repeated falls (8) Dyspnea ICD Codes: R06.00 - Dyspnea, unspecified (9) Hyperlipidemia ICD Codes: E78.5 - Hyperlipidemia, unspecified (10) CAD in [place] artery ICD Codes: I25.10 - Atherosclerotic heart disease of [place] coronary artery without angina pectoris GAMALIEL MACIEL DO Sep 29, 2019 11:47 POS
--- NOTE | 2019-09-29 11:48 | Physical Therapy Evaluation ---
PT Evaluation-General Medical Diagnosis Admission Date Sep 29, 2019 at 11:25 Medical Diagnosis: Dyspnea, SOB Onset Date: Sep 28, 2019 Therapy Diagnosis Therapy Diagnosis: impaired gait, impaired balance, decreased activity cameron, decreased ROM Height/Weight Height (Feet): 5 Height (Inches): 9.00 Weight (Pounds): 145 Weight (Ounces): 0.0 Precautions Precautions/Isolations: Fall Prevention, Standard Precautions Referral Physician: Kings Reason for Referral: Evaluation/Treatment Medical History Pertinent Medical History: CAD, HTN Reviewed History: Yes Social History Home: Apartment (above family restraunt) Current Living Status: grandson lives with pt Entry Into Home: Stairs With Railing PT Steps Into Home: 15 (5 stairs at a time then platform to get up all 15) HX obtained from pt's daughter as pt is poor historian Prior Prior Level of Function SCALE: Activities may be completed with or without assistive devices. 8-Wwdahjiatr-qahrvhw completes the activity by him/herself with no assistance from a helper. 5-Set-up or Clean-up Assistance-helper sets up or cleans up; patient completes activity. [place] assists only prior to or following the activity. 4-Supervision or Touching Assistance-helper provides verbal cues and/or touching/steadying and/or contact guard assistance as patient completes activity. Assistance may be provided throughout the activity or intermittently. 3-Partial/Moderate Assistance-helper does LESS THAN HALF the effort. [place] lifts, holds or supports trunk or limbs, but provides less than half the effort. 2-Substantial/Maximal Assistance-helper does MORE THAN HALF the effort. [place] lifts or holds trunk or limbs and provides more than half the effort. 1-Ufuofmabx-chpqsy does ALL the effort. Patient does none of the effort to complete the activity. Or, the assistance of 2 or more helpers is required for the patient to complete the activity. If activity was not attempted, code reason: 7-Patient Refused. 9-Not Applicable-not attempted and the patient did not perform the activity before the current illness, exacerbation or injury. 10-Not Attempted due to Environmental Limitations-(lack of equipment, weather restraints, etc.). 88-Not Attempted due to Medical Conditions or Safety Concerns. Bed Mobility: 4 Transfers (B,C,W/C): 4 Gait: 4 Stairs: 4 Indoor Mobility (Ambulation): Needed Some Help Stairs: Needed Some Help Prior Devices Use: Walker pt daughter reports HX. reports pt has 2 four wheeled walkers one for in home one for out of home that the pt was using all the time. PT Evaluation-Current Subjective pt received from room 407 to bring to rehab. pt agrees to therapy and denies any pain pt in recliner post tx with call light, phone, table in reach with all needs met at this time, chair alarm on. Pt/Family Goals pt wants to get back home and get around by himself Objective Patient Orientation: Person, Confused, Place ROM/Strength ROM Lower Extremities WFL except for R dorsiflexion limited to neutral with hard end feel Strength Lower Extremities grossly 5/5 B/L throughout Integumentary/Posture Integumentary see nursing notes Bowel Incontinence: No Bladder Incontinence: No Sensory Vision: Wears Glasses Hearing: Impaired Sensation Right Lower Extremit: Intact Sensation Left Lower Extremity: Intact Transfers Roll Left to Right (QC): 4 (SBA) Sit to Lying (QC): 4 (SBA) Lying to Sitting/Side of Bed(Q: 4 (SBA) Sit to Stand (QC): 4 (CGA) Chair/Kmc-hp-Wqlcg Xfer(QC): 4 (CGA) Car Transfer (QC): 4 (CGA) pt is SBA for all bed mobility and CGA for transfers Gait Does the Patient Walk?: Yes Mode of Locomotion: Walk Anticipated Mode of Locomotion: Walk Walk 10 feet (QC): 4 (CGA) Walk 50 ft with 2 Turns(QC): 4 (CGA) Walk 150 ft (QC): 4 (CGA) Walking 10ft/uneven surface-QC: 4 (CGA) Distance: 200' Gait Assistive Device: FWW Comments/Gait Description pt lets FWW get too far out infront of himself while ambulating and gets away and tries to turn without his walker. Wheelchair Training Does the Pt Use a Wheelchair?: No Wheel 50 ft with 2 turns (QC): 88 Wheel 150 ft (QC): 88 Type of Wheelchair: Manual Stairs 1 Step (curb) (QC): 3 (Micaela) 4 Steps (QC): 88 12 Steps (QC): 88 Walking Assistive Device: Walker Balance Sitting Static: Normal Sitting Dynamic: Good Standing Static: Good Standing Dynamic: Fair Picking up an Object (QC): 3 (Micaela) Treatment pt performed bed mobility training, transfer training, skilled ambulation training, step training, and education. Assessment/Needs pt is mod impulsive and unsafe with his FWW by not staying up in the walker and does not properly reach before Sit <-> stands. pt has difficulty following instructions but is very pleasant and willing to work for therapy. Following ambulation pt's O2 sats were reading 82% but rebounded back to 100% after 30 seconds of sitting, it may have been a bad reading at first. Rehab Potential: Fair PT Short Term Goals Short Term Goals Time Frame: Oct 06, 2019 Roll Left & Right: 6 Sit to lyin Lying to sitting on side of be: 5 Sit to stand: 4 (SBA) Chair/ikw-xz-sdrxs transfer: 4 (SBA) Toilet transfer: 4 (SBA) Car transfer: 4 (SBA) Walk 10 feet: 4 (SBA) Walk 50 feet with two turns: 4 (SBA) Walk 150 feet: 4 (SBA) 1 step (curb): 4 (CGA) PT Half-Way Goals [place] Goals PT Half-Way Goals Time Frame: Oct 20, 2019 Roll Left & Right (QC): 6 Sit to Lying (QC): 6 Lying-Sitting on Side/Bed(QC): 6 Sit to Stand (QC): 6 Chair/Ojf-dk-Eiskm Xfer(QC): 6 Toilet Transfer (QC): 6 Car Transfer (QC): 6 Does the Patient Walk: Yes Walk 10 feet (QC): 6 Walk 50ft with 2 Turns (QC): 6 Walk 150 ft (QC): 6 Walking 10ft on Uneven Surface: 6 1 Step (curb) (QC): 6 4 Steps (QC): 6 12 Steps (QC): 6 Picking up an Object (QC): 6 Does the Pt use WC or Scooter?: No Type: N/A Type: N/A PT Plan Problem List Problem List: Activity Tolerance, Functional Strength, Safety, Balance, Gait, Transfer, Bed Mobility, ROM Treatment/Plan Treatment Plan: Continue Plan of Care Treatment Plan: Bed Mobility, Concurrent Therapy, Education, Functional Activity Roxie, Functional Strength, Group Therapy, Gait, Safety, Therapeutic Exercise, Transfers Treatment Duration: Oct 20, 2019 Frequency: At least 5 of 7 days/Wk (IRF) Estimated Hrs Per Day: 1.5 hours per day Patient and/or Family Agrees t: Yes Safety Risks/Education Patient Education: Gait Training, Transfer Techniques, Steps, Correct Positioning, Safety Issues Teaching Recipient: Patient Teaching Methods: Demonstration, Discussion Response to Teaching: Return Demonstration, Reinforcement Needed Discharge Recommendations Plan Patient will perform bed mobility and transfer training, balance and endurance training, functional strengthening, stair training, gait training, and education, to improve functional mobility and independence at home. Therapy Discharge Recommendati: Other, See Comments (home with family) Time/GCodes Time In: 1115 Time Out: 1145 Total Billed Treatment Time: 30 Total Billed Treatment 1 visit JACOB 15' FA 15' KARAN VANEGAS PT Sep 29, 2019 11:48 POS
[2019-09-29] MEDS ORDERED: cefTRIAXone FOR IV USE 1,000 MG in WATER (STERILE) FOR INJECTION 10 ML IV SCH (12:00)
[2019-09-29] MEDS ORDERED: CATHETER FLUSH 10 ML SYR IV PRN (12:00)
--- NOTE | 2019-09-29 12:00 | NUR ---
Edilson Casillas admitted to room 228-1, with an admitting diagnosis of Debility and falls at home, on 09/29/[address] [place] [address] via wheelchair, accompanied by staff.EDILSON CASILLAS introduced to surroundings, call light, bed controls, phone, TV, temperature control, lights, meal times, smoking policy, visitor policy, side rail policy, bathrooms and showers. Patient Rights given to patient in the handbook.EDILSON CASILLAS verbalizes understanding that [facility] is not responsible for the loss or damage to any personal effects or valuables that are kept in the patients possession during their hospitalization. The following Patient Care Plans were discussed with the patient: Discharge Planning, falls, Potential for Injury. EDILSON CASILLAS verbalizes understanding of Interdisciplinary Patient Education.
--- NOTE | 2019-09-29 12:47 | Occupational Therapy Eval ---
OT Evaluation-General/PLF Medical Diagnosis Admission Date Sep 29, 2019 at 11:25 Medical Diagnosis: Dyspnea, SOB, multiple falls Onset Date: Sep 28, 2019 Therapy Diagnosis Therapy Diagnosis: Decreased ADL skills Height/Weight Height (Feet): 5 Height (Inches): 9.00 Weight (Pounds): 145 Weight (Ounces): 0.0 Precautions Precautions/Isolations: Fall Prevention, Standard Precautions Weight Bear Status Weight Bearing Restriction: Weight Bearing/Tolerated Referral Physician: Kings Referral Reason: Activity Tolerance, Self Care, [facility]/Treatment[facility] Medical History Pertinent Medical History: CAD, HTN Additional Medical History Anxiety and depression per daughter. Current History Pt. lives in apartment with daughter and son-in-law. Pt. has had multiple falls at home. Decreased cognition reported and noted. Reviewed History: Yes Social History Home: Apartment (above family restraunt) Current Living Status: Other Family (Pt. lives in apartment with daughter and son-in-law.) Entry Into Home: Stairs With Railing Steps Into Home: 15 (5 stairs at a time then platform to get up all 15) ADL-Prior Level of Function SCALE: Activities may be completed with or without assistive devices. 4-Rbsgirmhgn-zmjfnin completes the activity by him/herself with no assistance from a helper. 5-Set-up or Clean-up Assistance-helper sets up or cleans up; patient completes activity. [place] assists only prior to or following the activity. 4-Supervision or Touching Assistance-helper provides verbal cues and/or touching/steadying and/or contact guard assistance as patient completes act ivity. Assistance may be provided throughout the activity or intermittently. 3-Partial/Moderate Assistance-helper does LESS THAN HALF the effort. [place] lifts, holds or supports trunk or limbs, but provides less than half the effort. 2-Substantial/Maximal Assistance-helper does MORE THAN HALF the effort. [place] lifts or holds trunk or limbs and provides more than half the effort. 3-Pefolrqtu-aymhom does ALL the effort. Patient does none of the effort to complete the activity. Or, the assistance of 2 or more helpers is required for the patient to complete the activity. If activity was not attempted, code reason: 7-Patient Refused. 9-Not Applicable-not attempted and the patient did not perform the activity before the current illness, exacerbation or injury. 10-Not Attempted due to Environmental Limitations-(lack of equipment, weather restraints, etc.). 88-Not Attempted due to Medical Conditions or Safety Concerns. ADL PLOF Comments Family not present with pt. during interview. Pt. is able to state some history, but per PT, some of it is not correct. Per chart, pt. has walker and cane but does not use them. Requires cues from family. Pt. is unable to state if he is independent or not with ADLs, but does report, "I fall a lot and I don't know why." Self Care: Unknown Functional Cognition: Unknown DME/Equipment: Shower DME/Equipment Comments Pt. states that he does have a shower but no seat. OT Current Status Subjective No pain reported. Appearance Pt. up in chair and alert. Mental Status/Objective Patient Orientation: Confused, Unable to Assess Attachments: IV Current Glasses/Contacts: Yes Hearing Aids: No Dentures/Partials: Yes Hand Dominance: Right Upper Extremity ROM WFL Upper Extremity Strength 3+/5 bilateral UE ADL-Treatment Eating (QC): 5 (Lunch arrives. Pt. does not have the strength to cut up chicken or sweet potato. OT did this for him. Pt. able to eat after this.) Oral Hygiene (QC): 7 (Declines) Shower/Bathe Self (QC): 3 (Min assist. Pt. perseverates and washes the same spot multiple times. Max cues to sequence and continue with the task.) Upper Body Dressing (QC): 3 (Min assist to orient shirt and to position it correctly. Assist to pull down over back.) Lower Body Dressing (QC): 3 (Pt. able to doff shoes and socks with increased time and SBA. Required mod assist overall for safety, sequencing, and time management to don underwear, pants.) On/Off Footwear (QC): 3 Toileting Hygiene (QC): 7 Toilet Transfer (QC): 7 Other Treatments Pt. confused throughout ADL session. Max cues needed to sequence and complete tasks. Max cues for safety. Due to confusion, OT had to complete many tasks for him. Education OT Patient Education: Correct positioning, Modified ADL techniques, Progress toward Goal/Update tx plan, Purpose of tx/functional activities, Reviewed precautions, Rehab process, Transfer techniques Teaching Recipient: Patient Teaching Methods: Demonstration Response to Teaching: Verbalize Understanding, Reinforcement Needed OT Short Term Goals Short Term Goals Time Frame: Oct 06, 2019 Eatin Oral hygiene: 5 Toileting hygiene: 4 Shower/bathe self: 4 Upper body dressin Lower body dressin Putting on/taking off footwear: 4 OT Residential Goals Concierge Manager Goals Time Frame: Oct 13, 2019 Eating (QC): 6 Oral Hygiene (QC): 6 Toileting Hygiene (QC): 6 Shower/Bathe Self (QC): 5 Upper Body Dressing (QC): 5 Lower Body Dressing (QC): 5 On/Off Footwear (QC): 5 Additional Goals: 1-Demonstrate ADL Tasks, 2-Verbalize Understanding, 3- ImproveStrength/Roxie 1=Demonstrate adherence to instructed precautions during ADL tasks. 2=Patient will verbalize/demonstrate understanding of assistive devices/modifications for ADL. 3=Patient will improve strength/tolerance for activity to enable patient to perform ADL's. OT Education/Plan Problem List/Assessment Assessment: Decreased Activ Tolerance, Decreased Safety Aware, Decreased UE Strength, Dependent Transfers, Impaired Bed Mobility, Impaired Cognition, Impaired Coordination, Impaired Funct Balance, Impaired I ADL's, Impaired Self- Care Skills Discharge Recommendations Plan/Recommendations: Continue POC Therapy Discharge Recommendati: 24 Hour Supervision, Post Acute OT Comment Equipment needs to be determined. Treatment Plan/Plan of Care Treatment,Training & Education: Yes Patient would benefit from OT for education, treatment and training to promote independence in ADL's, mobility, safety and/or upper extremity function for ADL's. Plan of Care: ADL Retraining, Functional Mobility, Group Exercise/Act as Ind, UE Funct Exercise/Act Treatment Duration: Oct 13, 2019 Frequency: At least 5 of 7 days/Wk (IRF) Estimated Hrs Per Day: 1.5 hours per day Agreement: Yes Rehab Potential: Fair Time/GCodes Start Time: 11:45 Stop Time: 14:45 Total Time Billed (hr/min): 60 Billed Treatment Time 9410-4166 1, EVM x 15minutes, ADL x 15minutes [id number] 1, ADL x 30minutes DANI LANCE OT Sep 29, 2019 12:47 POS
[2019-09-29] MEDS: ENOXAPARIN 40 MG/0.4 ML (LOVENOX) SYR SC SCH (13:00)
[2019-09-29] MEDS: methylPREDNISolone 40 MG/ML (Solu-MEDROL) VIAL IV SCH ×2 (13:00→17:42)
--- NOTE | 2019-09-29 13:24 | Diagnostic Imaging Report ---
INDICATION: Rales, congestion and coughing. FINDINGS: There is no focal consolidation. No failure, effusion or pneumothorax. No free air beneath the diaphragms. IMPRESSION: No acute appearing abnormality. No change. Dictated by: Dictated on workstation # [id number]
[2019-09-29] MEDS: CATHETER FLUSH 10 ML SYR IV SCH ×2 (14:00→21:15)
--- NOTE | 2019-09-29 14:44 | Therapy Group Daily Note ---
Therapy Daily Group Note Patient Education Topic Other List Below (Benefits of exercise) Exercises LE Seated Exercise, UE Exercise Session Ratio (pt:therapist): 4:1 Goal of Session: Other (list) (Understanding and demonstrating benefits of a variety of physical activity as you age) Goal Met for this Session: Yes Pt Benefit of Group: Contributions to Others, Increased Functional Strength, Socialization Other/Notes Patient participated in group PT/OT session. Patient ambulated to/from session with assistance. Patient socialized and shared about personal obstacles to exercise and types of physical activity previously participated in. Patient performed movement during exercises but was unable to follow instructions to complete exercises fully. Pt. escorted to room after Rx with goldstein at hand and needs met Start Time: 13:00 Stop Time: 14:15 Total Billed Treatment Time: 75 Total Billed Treatment 1, GRP 75min ARELY MANN DIVIDEND DEPOSIT VOUCHER CLERK Sep 29, 2019 14:43 POS
--- NOTE | 2019-09-29 15:19 | ST Cognitive Linguistic Eval ---
Speech Evaluation-General Medical Diagnosis Dyspnea, SOB, multiple falls Onset Date: Sep 28, 2019 Therapy Diagnosis Therapy Diagnosis: Cognitive-communication Referral Referring Physician: Dr. Ku Medical History Pertinent Medical History: CAD, HTN Reviewed History: Yes Social History Current Living Status: Other Family (Pt. lives in apartment with daughter and son-in-law.) Speech PLF-Current Status Prior Level of Function Patient lives in an apartment with a daughter and son-in-law where he was dependent for daily needs. Subjective Patient was pleasant and compliant with the cognitive assessment. Language Eval: Auditory Comprehends Simple Yes/No Ques: Mild Indent/Objects Multiple Cleary: Mild Ident/Pics in Multiple Cleary: Mild Follows 1-Step Commands: Mild Follows Complex Directions: Moderate Follows General Conversations: Mild Language Eval: Verbal Language Completes Spontaneous Greeting: Functional Produces Auto, Serial Info: Mild Imitates Simple Words/Phrases: Mild Word Finding: Moderate Requests Basic Needs: Mild States Basic Personal Info: Moderate Expresses Complex Ideas: Moderate Objective Cognitive Domain Attention: Mild Memory: Moderate Problem Solving: Moderate Executive Functions: Moderate Visuospatial Skills: Mild Composite Severity Rating: Mild Clock Drawing Severity Rating: Moderate Objective Formal/Standardized Tests [facility] Mental Status ([facility]) Results 4/30, Moderate dementia level of function Oral Motor/Speech Production Within Normal Limits Impression Patient is a pleasantly confused man who was admitted to the ARU for strengthe oksana in order to return home safely. Patient was given the SLUMS with a score of 4/30 obtained. This score places him in the moderate dementia level of function. Patient will receive skilled ST services with focus on improving cognitive level of function. Speech Patient Assess Expression of Ideas/Wants: Frequently (2) Understanding Verbal Content: Sometimes Understands(2) Brief Interview-Mental Status: Yes Repetition of Three Words: Three (3) Temporal Orientation: Year: Missed by more than 5 yrs (0) Temporal Orientation: Month: Missed by 6 days-1 month (1) Temporal Orientation: Day: Incorrect or No Answer(0) Recall : Wear to say "Sock": No, could not recall (0) Recall : Color: No, could not recall (0) Recall : Bed: No, could not recall (0) Memory/Recall Ability: That he or she is in a hsp/hsp unit Speech Short Term Goals Short Term Goals Short Term Goals 1) Patient will complete memory tasks related to his daily needs at 80% or greater with minimal cues. 2) Patient will complete problem solving tasks related to his daily needs at 80% or greater with minimal cues. 3) Patient will complete safety awareness tasks related to his daily needs at 80% or greater with minimal cues. Speech Lusterer Goals Lusterer Goals Patient will improve cognitive-communication necessary for safety and daily living tasks with minimal assist. Speech-Plan Patient/Family Goals Patient/Family Goals: Patient's discharge destination will be determined by the team dependent upon his progress. Treatment Plan Speech Therapy Treatment Plan: Continue Plan of Care Patient will receive skilled ST with focus on improving safety and cognitive level of function. Treatment Duration: Oct 08, 2019 Frequency: 5 times per week Estimated Hrs Per Day: .5 hour per day Rehab Potential: Fair Barriers to Learning: Patient has moderate dementia level of cognitive function. Pt/Family Agrees to Plan: Yes Safety Risks/Education Teaching Recipient: Patient Teaching Methods: Discussion Response to Teaching: Verbalize Understanding Education Topics Provided: Safety within his room and communication of wants/needs. Time Speech Therapy Time In: 14:50 Speech Therapy Time Out: 15:05 Total Billed Time: 15 Billed Treatment Time 1, SPSNDCOMP MIRANDA Bella Sep 29, 2019 15:19 POS
[2019-09-29] MEDS: RT-ALBUTEROL/IPRATROPIUM 3 ML (DUONEB) VIAL INH SCH ×3 (16:26→21:34)
[2019-09-29 17:39] VITALS: BP 118/71
[2019-09-29] MEDS ORDERED: DOCUSATE SODIUM 100 MG (COLACE) CAP PO SCH (21:00)
[2019-09-29] MEDS: SENNA W/DOCUSATE (SENOKOT S) TABLET PO SCH (21:14)
[2019-09-29] MEDS: LUMIGAN 0.01% OU SCH (21:14)
[2019-09-29] MEDS: POLYETHYLENE GLYCOL 17 GM (MIRALAX) PACK PO SCH (21:19)
--- NOTE | 2019-09-29 21:25 | Individualized Plan of Care ---
Individualized Plan of Care Rehab Nursing IPOC Order Admission Date Sep 29, 2019 at 11:25 Current Orders Orders Admission Arrival Bed Request (09/29/19 11:25) Admission Order(Inpt,Obs,Sdc) (09/29/19 11:35) Vital Signs: Per Unit Policy ( 08,16,00 (09/29/19 11:35) Rodrick Linn 09,21 (09/29/19 11:35) Sequential Compression Device Q4H (09/29/19 11:35) Sdc Teacher-Inpt Rehab Con (09/29/19 11:35) Rehab Nursing Orders-Ipoc (09/29/19 11:35) Physical Therapy Rehab Orders (09/29/19 11:35) Occupational Therapy Rehab Ord (09/29/19 11:35) Speech Therapy Rehab Orders (09/29/19 11:35) Cbc With Automated Diff (09/30/19 06:00) Comprehensive Metabolic Panel (09/30/19 06:00) General/Regular (09/29/19 Dinner) Intake & Output 06,14,22 (09/29/19 11:35) Precautions (Aru) (09/29/19 11:35) Weekly Weight WEEK (09/29/19 11:35) Rehab-Intensity Of Therapy (09/29/19 11:35) Initiate Admission Nursing Pro .admission (09/29/19 11:35) Acetaminophen Tablet (Tylenol Tablet) (09/29/19 11:45) Alprazolam Tablet (Xanax Tablet) (09/29/19 11:45) Calcium Carbonate Chew Tablet (Antacid C (09/29/19 11:45) Diphenhydramine Tablet (Benadryl Tablet) (09/29/19 11:45) Docusate Sodium Capsule (Colace Capsule) (09/29/19 21:00) Docusate Sodium Capsule (Colace Capsule) (09/29/19 11:45) Bisacodyl Suppository (Dulcolax Supposit (09/29/19 11:45) Lactulose Oral Solution (Enulose Oral So (09/29/19 11:45) Na Phos/Na Biphos Enema (Fleet Enema Misha (09/29/19 11:45) Guaifenesin/Codeine Syrup (Robitussin Ac (09/29/19 11:45) Hydrocodone/Apap 5/325 Tablet (Lortab 5 (09/29/19 11:45) Loperamide Tablet (Imodium Tablet) (09/29/19 11:45) Enoxaparin Injection (Lovenox Injection) (09/29/19 12:00) Melatonin Tablet (Melatonin Tablet) (09/29/19 11:45) Polyethylene Glycol Powder Pkt (Miralax (09/29/19 21:00) Ondansetron Oral Dissolve Tab (Zofran (09/29/19 11:45) Senna S Tablet (Senokot S Tablet) (09/29/19 21:00) Tramadol Tablet (Ultram Tablet) (09/29/19 11:45) Consult Pulmonology (09/29/19 11:35) Chest Pa/Lat (2 View) (09/29/19 11:35) Albuterol/Ipra Inhalation Soln (Duoneb I (09/29/19 14:00) Svn Small Volume Nebulizer (09/29/19 11:35) Methylprednisolone Sod Succ (Solu-Medrol (09/29/19 12:00) Ceftriaxone For Iv Use (Rocephin For I (09/29/19 12:00) Guaifenesin/Codeine Syrup (Robitussin Ac (09/29/19 11:45) Sodium Chloride Flush (Catheter Flush Sy (09/29/19 12:00) Sodium Chloride Flush (Catheter Flush Sy (09/29/19 14:00) Ceftriaxone For Iv Use (Rocephin For I (09/30/19 09:00) Patient Visit (09/29/19 ) Pt Eval Low Complexity (09/29/19 ) Functional Activities, Ea 15 (09/29/19 ) Patient Visit (09/29/19 ) Therapeutic, Group (09/29/19 ) Ambulate 08,12,20 (09/29/19 15:06) Dvt/Vte Risk - Notifiy Physici Q4H (09/29/19 15:06) Patient Visit (09/29/19 ) Speech Sound Lang Comp (09/29/19 ) Non-Formulary Medication (Non-Formulary (09/29/19 21:00) Manual Differential (09/30/19 05:32) Ct Chest W (09/30/19 07:04) Arterial Blood Gas (09/30/19 07:05) Arterial Blood Draw (09/30/19 07:05) Fluticasone/Salmeterol Common (Advair 11 (09/30/19 08:00) Mdi Treatment (09/30/19 07:06) Follow-Up Appointment (09/30/19 07:07) Iohexol Injection (Omnipaque 350 Mg/Ml 1 (09/30/19 10:30) Received Contrast (Hold Metformin- Contr (09/30/19 10:30) Ns (Ivpb) (Sodium Chloride 0.9% Ivpb Bag (09/30/19 10:30) Sodium Chloride Flush (Catheter Flush Sy (09/30/19 10:30) Transfer - Bed/Room/Location (09/30/19 11:53) Patient Visit (09/30/19 ) Treat. Speech/Lang/Voice (09/30/19 ) Accucheck Bid DBID (09/30/19 14:08) Ensure Enlive (09/30/19 Dinner) Patient Visit (09/30/19 ) Exercise Therap, Ea 15 Min (09/30/19 ) Functional Activities, Ea 15 (09/30/19 ) Patient Visit (09/30/19 ) Gait Training, Ea 15 Min (09/30/19 ) Prednisone Tablet (Deltasone Tablet) (10/02/19 07:00) Gait Training, Ea 15 Min (09/30/19 ) Sucralfate Tablet (Carafate Tablet) (10/01/19 16:00) Pantoprazole Tablet (Protonix Tablet) (10/01/19 13:00) Patient Visit (10/01/19 ) Treat. Speech/Lang/Voice (10/01/19 ) Patient Visit (10/01/19 ) Exercise Therap, Ea 15 Min (10/01/19 ) Gait Training, Ea 15 Min (10/01/19 ) Patient Visit (10/01/19 ) Rehab Nursing Orders: Ongoing Assess. of Cognitive Status, Ongoing Assess. of Function Status, Bladder Training, Bowel Management, Disease Management & Educaiton, DVT Prophylaxis, Fall Prevention, Fluid/Electrolyte/Nutrition Mgmt, Infection Prevention, Medication Management & Education, Management of Risks & Complications, Management of Skin Intergrity, Nutrition Management, Pain Management, Patient/Family Support, Safety Management Intensity of Therapy to be met Patient to be seen: 15 hrs over 7 cons. days PT IPOC Problem List: Activity Tolerance, Functional Strength, Safety, Balance, Gait, Transfer, Bed Mobility, ROM Treatment Plan: Continue Plan of Care Bed Mobility, Concurrent Therapy, Education, Functional Activity Roxie, Functional Strength, Group Therapy, Gait, Safety, Therapeutic Exercise, Transfers Treatment Duration: Oct 20, 2019 Frequency: At least 5 of 7 days/Wk (IRF) Estimated Hrs Per Day: 1.5 hours per day OT IPOC Problems: Decreased Activ Tolerance, Decreased Safety Aware, Decreased UE Strength, Dependent Transfers, Impaired Bed Mobility, Impaired Cognition, Impaired Coordination, Impaired Funct Balance, Impaired I ADL's, Impaired Self- Care Skills OT Treatment, Training and Edu: Yes Plan of Care: ADL Retraining, Functional Mobility, Group Exercise/Act as Ind, UE Funct Exercise/Act Treatment Duration: Oct 13, 2019 Frequency: At least 5 of 7 days/Wk (IRF) Estimated Hrs Per Day: 1.[address] IPOC Speech Therapy Treatment Plan: Continue Plan of Care Treatment Duration: Oct 08, 2019 Frequency: 5 times per week Estimated Hrs Per Day: .5 hour per day Sdc Teacher/Case Mgmt Sdc Teacher/Case Managemen: Discharge Planning Dietitian/Hat Model Dietitian/Hat Model to monitor nutritional status and make changes and/or recommendations as needed and work with speech pathology on dietary upgrades as the occur. Physician IPOC Medical Issues being managed closely and that require the 24 hour availability of a physician: Patient w/recent pneumonia with hypoxia and now confusion with severe weakness and fall risk Medical Issues: Bowel/Bladder Function, DVT Prophylaxis, Falls Precautions, Fluid/Electrolyte/Nutrition Balance, Infection Protection, Pain Management Brief Synthesis of Preadmission Screen, Post-Admission Evaluation, and Therapy Evaluations: PT will enable patient to gain ambulatory strength OT will help regain ADL's ST will help with cognition Medical Prognosis: Fair Anticipated Length of Stay: 7 days GAMALIEL MACIEL DO Sep 29, 2019 21:25 POS
[2019-09-30] MEDS: methylPREDNISolone 40 MG/ML (Solu-MEDROL) VIAL IV SCH ×4 (00:58→17:19)
[2019-09-30] MEDS: RT-ALBUTEROL/IPRATROPIUM 3 ML (DUONEB) VIAL INH SCH ×6 (02:05→22:03)
[2019-09-30 05:54] VITALS: BP 116/63
[2019-09-30 06:31] LABS: ALANINE AMINOTRANSFERASE 20 U/L (0-55); ALKALINE PHOSPHATASE 43 U/L (40-136); BILIRUBIN,TOTAL 0.6 MG/DL (0.1-1.0); BUN/CREATININE RATIO 22; CALCIUM 8.8 MG/DL (8.5-10.1); CARBON DIOXIDE 20 MMOL/L (21-32); CHLORIDE 104 MMOL/L (98-107); GFR ESTIMATED > 60; GLUCOSE 130 MG/DL (70-105); POTASSIUM 4.8 MMOL/L (3.6-5.0); SODIUM 136 MMOL/L (135-145); TOTAL PROTEIN 6.4 GM/DL (6.4-8.2)
[2019-09-30 06:37] LABS: BASOPHILS % (AUTO) 0 % (0-10); EOSINOPHILS % (AUTO) 0 % (0-10); HEMATOCRIT 37 % (40-54); HEMOGLOBIN 12.8 G/DL (13.3-17.7); LYMPHOCYTES # (AUTO) 0.7 X 10^3 (1.0-4.0); LYMPHOCYTES % (AUTO) 11 % (12-44); MEAN CORPUSCULAR HEMOGLOBIN 30 PG (25-34); MEAN CORPUSCULAR HGB CONC 35 G/DL (32-36); MEAN CORPUSCULAR VOLUME 87 FL (80-99); MEAN PLATELET VOLUME 11.2 FL (7.4-10.4); MONOCYTES # (AUTO) 0.1 X 10^3 (0.0-1.0); MONOCYTES % (AUTO) 1 % (0-12); NEUTROPHILS # (AUTO) 5.8 X 10^3 (1.8-7.8); NEUTROPHILS % (AUTO) 88 % (42-75); PLATELET COUNT 126 10^3/uL (130-400); RED CELL DISTRIBUTION WIDTH 13.3 % (10.0-14.5); WHITE BLOOD COUNT 6.6 10^3/uL (4.3-11.0)
[2019-09-30] MEDS: CATHETER FLUSH 10 ML SYR IV SCH ×3 (06:39→21:45)
[2019-09-30 06:49] LABS: BAND NEUTROPHILS 3 %; BASOPHILS % (MANUAL) 0 %; EOSINOPHILS % (MANUAL) 0 %; LYMPHOCYTES % (MANUAL) 10 %; MONOCYTES % (MANUAL) 0 %; NEUTROPHILS % (MANUAL) 86 %; POIKILOCYTOSIS SLIGHT; REACTIVE LYMPHOCYTES 1 %; ROULEAUX SLIGHT; TOXIC GRANULATION/VACUOLAZATIO 1+
--- NOTE | 2019-09-30 07:05 | Pulmonary Consultation ---
History of Present Illness History of Present Illness Date Seen by Provider: Sep 30, 2019 Time Seen by Provider: 07:00 Date of Admission History of Present Illness 79yo with hx of tobacco use admitted to hospital secondary to acute bronchitis, worsening SOB, cough, and mulitple falls/weakness. Pt has been loosing weight oaver the last few months. PT was started on Solumedrol, and Rocephin. I am consulted for pulmonary management. Allergies and Home Medications Allergies Coded Allergies: No Known Allergies (Verified Allergy, Unknown, 09/29/18) Home Medications Bimatoprost 2.5 Ml Drops, 1 DROP OU HS, (Reported) Past Xobbayu-Zdbnxh-Dfnulz Hx Past Med/Social Hx: Reviewed Nursing Past Med/Soc Hx, Reviewed and Corrections made Patient Social History Alcohol Use: Rarely Uses Recreational Drug Use: No Smoking Status: Former Smoker Type Used: Cigarettes Former Smoker, Quit: Sep 29, 1988 Recent Foreign Travel: No Contact w/Someone Who Travel: No Recent Infectious Disease Expo: No Recent Hopitalizations: No Immunizations Up To Date Date of Pneumonia Vaccine: Sep 29, 2014 Date of Influenza Vaccine: Aug 05, 2019 Seasonal Allergies Seasonal Allergies: No Past Medical History Surgeries: Yes Coronary Stent, Eye Surgery Respiratory: No Currently Using CPAP: No Cardiac: Yes (stents) Coronary Artery Disease, Hypertension Neurological: No Genitourinary: No Gastrointestinal: No Musculoskeletal: No Endocrine: No HEENT: No Cancer: No Psychosocial: Yes Depression Integumentary: Yes (dry skin legs and arms) Blood Disorders: No Adverse Reaction/Blood Tranf: No Family Medical History Patient reports no known family medical history. Review of Systems Time Seen by Provider: 09:23 Constitutional: Sweats, Weakness, Malaise; No: Fever, Chills, Other Eyes: No: Pain, Vision change, Conjunctivae inflammation, Eyelid inflammation, Other, Redness ENT: Nose congestion; No: Ear pain, Ear discharge, Nose pain, Nose discharge, Mouth pain, Mouth swelling, Throat pain, Throat swelling, Other Respiratory: Cough, Shortness of breath, SOB with excertion, Wheezing, Sputum Cardiovascular: Paroxysmal Noc. Dyspnea; No: Chest Pain, Palpitations, Orthopnea, Edema, Lt Headedness, Other Gastrointestinal: No: Nausea, Vomiting, Abdominal Pain, Diarrhea, Constipation, Melena, Hematochezia, Other Genitourinary: No Dysuria, No Frequency, No Incontinence, No Hematuria, No Retention, No Other Sepsis Event Evaluation Height, Weight, BMI Height: 5'9.00" Weight: 145lbs. 0.0oz. 65.250687ii; 22.16 BMI Method:Stated Exam Exam Vital Signs Date Time Temp Pulse Resp B/P (MAP) Pulse Ox O2 Delivery O2 Flow Rate FiO2 09/30/19 05:54 37.1 57 16 116/63 (80) 90 Room Air 09/30/19 02:05 92 Room Air 09/29/19 21:34 93 Room Air 09/29/19 20:50 Room Air 09/29/19 17:50 Room Air 09/29/19 17:39 37.0 61 16 118/71 (87) 98 Room Air 09/29/19 11:30 36.4 58 20 136/73 99 Room Air I & O 09/30/19 07:00 Intake Total 640 ml Balance 640 ml Height & Weight Height: 5'9.00" Weight: 145lbs. 0.0oz. 65.443964qz; 22.16 BMI Method:Stated General Appearance: No Apparent Distress, Chronically ill, Thin HEENT: PERRL/EOMI, Normal ENT Inspection, Pharynx Normal Neck: Full Range of Motion, Normal Inspection, Non Tender, Supple, Carotid Bruit Respiratory: Chest Non Tender, No Accessory Muscle Use, No Respiratory Distress, Crackles, Decreased Breath Sounds, Wheezing Cardiovascular: Regular Rate, Rhythm, No Edema, No Gallop, No JVD, No Murmur, Normal Peripheral Pulses Extremity: Normal Capillary Refill, Normal Inspection, Normal Range of Motion, Non Tender, No Calf Tenderness, No Pedal Edema Neurologic/Psychiatric: Alert, Oriented x3, No Motor/Sensory Deficits (generalized weakness lega more than arms but 4/5), Normal Mood/Affect, Other (balance dysfunction) Skin: Normal Color, Warm/Dry Lymphatic: No Adenopathy Results Lab Laboratory Tests 09/30/19 05:32 Assessment/Plan Assessment/Plan COPDAE -Continue solumedrol -Check CT of chest with contrast r/o mass -will probably home portable oxygen - will do out pt PFT -DuoNeb add advair -Check ABG Debility -PT/OT inpt rehab KENISHA CORCORAN DO Sep 30, 2019 07:05 POS
[2019-09-30] MEDS: RT-ADVAIR HFA 115/21 MCG PER PUFF IH SCH ×2 (08:00→19:07)
[2019-09-30] MEDS: SENNA W/DOCUSATE (SENOKOT S) TABLET PO SCH ×2 (08:12→21:45)
[2019-09-30] MEDS: cefTRIAXone FOR IV USE 1,000 MG in WATER (STERILE) FOR INJECTION 10 ML IV SCH (08:12)
[2019-09-30] MEDS: POLYETHYLENE GLYCOL 17 GM (MIRALAX) PACK PO SCH ×2 (08:12→22:01)
--- NOTE | 2019-09-30 09:35 | PM&R Progress Note ---
Subjective HPI/CC On Admission Date Seen by Provider: Sep 30, 2019 Time Seen by Provider: 08:15 Subjective/Events-last exam CT and ABG will be ordered by Dr. Reid. Confusion noted, will await for slum score. Dr. Watson will see him and talk to him about his code status. Lungs are clear, really respond to the IV steroids. Confusion noted IV antibiotics maintained. Checked meds and labs Reviewed therapy notes Conferred with substance abuse nurse of Systems Pulmonary: Dyspnea Neurological: Weakness, Confusion Objective Exam Vital Signs Vital Signs Date Time Temp Pulse Resp B/P (MAP) Pulse Ox O2 Delivery O2 Flow Rate FiO2 09/30/19 22:03 94 Room Air 09/30/19 16:12 36.8 74 16 120/67 (84) Capillary Refill : Less Than 3 Seconds General Appearance: No Apparent Distress, Chronically ill, Thin HEENT: PERRL/EOMI, Normal ENT Inspection, Pharynx Normal Neck: Full Range of Motion, Normal Inspection, Non Tender, Supple, Carotid Bruit Respiratory: Chest Non Tender, No Accessory Muscle Use, No Respiratory D istress, Crackles, Decreased Breath Sounds, Other (improved today) Cardiovascular: Regular Rate, Rhythm, No Edema, No Gallop, No JVD, No Murmur, Normal Peripheral Pulses Gastrointestinal: Normal Bowel Sounds, No Organomegaly, No Pulsatile Mass, Non Tender, Soft Back: Normal Inspection, No CVA Tenderness, No Vertebral Tenderness Extremity: Normal Capillary Refill, Normal Inspection, Normal Range of Motion, Non Tender, No Calf Tenderness, No Pedal Edema Neurologic/Psychiatric: Alert, Oriented x3, No Motor/Sensory Deficits (generalized weakness lega more than arms but 4/5), Normal Mood/Affect, Other (balance dysfunction) Skin: Normal Color, Warm/Dry Lymphatic: No Adenopathy Results/Procedures Lab Laboratory Tests 09/30/19 05:32 Patient resulted labs reviewed. FIM Transfers Therapy Code Descriptions/Definitions Functional [place] Measure: 0=Not Assessed/NA 4=Minimal Assistance 1=Total Assistance 5=Supervision or Setup 2=Maximal Assistance 6=Modified [place] 3=Moderate Assistance 7=Complete IndependenceSCALE: Activities may be completed with or without assistive devices. 4-Jwoogxdurh-efzlanx completes the activity by him/herself with no assistance from a helper. 5-Set-up or Clean-up Assistance-helper sets up or cleans up; patient completes activity. [place] assists only prior to or following the activity. 4-Supervision or Touching Assistance-helper provides verbal cues and/or touching/steadying and/or contact guard assistance as patient completes activ ity. Assistance may be provided throughout the activity or intermittently. 3-Partial/Moderate Assistance-helper does LESS THAN HALF the effort. [place] lifts, holds or supports trunk or limbs, but provides less than half the effort. 2-Substantial/Maximal Assistance-helper does MORE THAN HALF the effort. [place] lifts or holds trunk or limbs and provides more than half the effort. 4-Qaoplvfvc-xyskzi does ALL the effort. Patient does none of the effort to complete the activity. Or, the assistance of 2 or more helpers is required for the patient to complete the activity. If activity was not attempted, code reason: 7-Patient Refused. 9-Not Applicable-not attempted and the patient did not perform the activity before the current illness, exacerbation or injury. 10-Not Attempted due to Environmental Limitations-(lack of equipment, weather restraints, etc.). 88-Not Attempted due to Medical Conditions or Safety Concerns. Roll Left to Right (QC): 4 (SBA) Sit to Lying (QC): 4 (SBA) Sit to Stand (QC): 4 (CGA) Chair/Wak-em-Xwmnz Xfer(QC): 4 (CGA) Car Transfer (QC): 4 (CGA) Gait Training Does the Patient Walk?: Yes Walk 10 feet (QC): 4 (CGA) Walk 50 ft with 2 Turns(QC): 4 (CGA) Walk 150 ft (QC): 4 (CGA) Walking 10ft/uneven surface-QC: 4 (CGA) Gait Assistive Device: FWW Wheelchair Training Does the Pt Use a Wheelchair?: No Wheel 50 ft with 2 turns (QC): 88 Wheel 150 ft (QC): 88 Type of Wheelchair: Manual Stair Training 1 Step (curb) (QC): 3 (Micaela) 4 Steps (QC): 88 12 Steps (QC): 88 Balance Picking up an Object (QC): 3 (Micaela) ADL-Treatment Eating (QC): 5 (Lunch arrives. Pt. does not have the strength to cut up chicken or sweet potato. OT did this for him. Pt. able to eat after this.) Oral Hygiene (QC): 7 (Declines) Shower/Bathe Self (QC): 3 (Min assist. Pt. perseverates and washes the same spot multiple times. Max cues to sequence and continue with the task.) Upper Body Dressing (QC): 3 (Min assist to orient shirt and to position it correctly. Assist to pull down over back.) Lower Body Dressing (QC): 3 (Pt. able to doff shoes and socks with increased time and SBA. Required mod assist overall for safety, sequencing, and time management to don underwear, pants.) On/Off Footwear (QC): 3 Toileting Hygiene (QC): 7 Toilet Transfer (QC): 7 Assessment/Plan Assessment and Plan Assess & Plan/Chief Complaint Assessment: Severe debility Weight loss Falls AECOPD Confusion Plan: Monitor lungs ABX Steroids Appreciate DR Reid (1) Debility (2) Wheezing (3) Acute bronchitis, bacterial (4) Former smoker (5) Weight loss (6) Depressed affect (7) Falls frequently (8) Dyspnea (9) Hyperlipidemia (10) CAD in jena artery GAMALIEL MACIEL DO Sep 30, 2019 09:35 POS
[2019-09-30 10:16] LABS: ABG BASE EXCESS -5.3 MMOL/L (-2.5-2.5); ABG OXYGEN SATURATION 98 % (94-100); ABG PCO2 33 MMHG (35-45); ABG PH 7.37 (7.37-7.43); ABG PO2 92 MMHG (79-93); ABG TCO2 20.1 MMOL/L (21.0-31.0)
[2019-09-30 10:18] LABS: ALLENS TEST POSITIVE; PATIENT TEMP 36.6; VENTILATOR NO
[2019-09-30] MEDS ORDERED: NS 100 ML (IVPB) BAG IV ONE (10:30)
[2019-09-30] MEDS ORDERED: HOLD METFORMIN - RECEIVED CONTRAST 20 ML VIAL IV SCH (10:30)
[2019-09-30] MEDS ORDERED: CATHETER FLUSH 10 ML SYR IV PRN (10:30)
[2019-09-30] MEDS ORDERED: IOHEXOL 350 MG/ML 100 ML (OMNIPAQUE 350) VIAL IV ONE (10:30)
--- NOTE | 2019-09-30 10:46 | Speech Therapy Daily Note ---
Speech Daily Progress Note Subjective Date Seen by Provider: Sep 30, 2019 Time Seen by Provider: 00:30 Patient was walking about his room "going to get a cup of coffee" when I entered his room. His chair alarm was sounding off. I had him return to his chair and went to get him a cup of coffee. He stayed in his chair for the remainder of our session. Objective Patient completed a series of simple general information questions with 70% accuracy. Patient required frequent redirection to topic throughout the session. Assessment Assessment Current Status: Fair Progress Treatment Plan Continue Plan of Care Speech Short Term Goals Short Term Goals Short Term Goals 1) Patient will complete memory tasks related to his daily needs at 80% or greater with minimal cues. 2) Patient will complete problem solving tasks related to his daily needs at 80% or greater with minimal cues. 3) Patient will complete safety awareness tasks related to his daily needs at 80% or greater with minimal cues. Speech Mold Machine Operator Goals Mold Machine Operator Goals Patient will improve cognitive-communication necessary for safety and daily living tasks with minimal assist. Speech-Plan Patient/Family Goals Patient/Family Goals: Patient's discharge plan will be determined at a later time by the rehab team. Treatment Plan Speech Therapy Treatment Plan: Continue Plan of Care Patient is pleasant and cooperative with redirection. Treatment Duration: Oct 08, 2019 Frequency: 5 times per week Estimated Hrs Per Day: .5 hour per day Rehab Potential: Fair Barriers to Learning: Patient has moderate dementia level of function. Pt/Family Agrees to Plan: Yes Safety Risks/Education Teaching Recipient: Patient Teaching Methods: Discussion Response to Teaching: Verbalize Understanding, Reinforcement Needed Education Topics Provided: Continued safety within his room, staying in his chair and utilization of his call light as needed. Time Speech Therapy Time In: 09:00 Speech Therapy Time Out: 09:30 Total Billed Time: 30 Billed Treatment Time 1, AVINASH ZHONGMIRANDA MILLS Sep 30, 2019 10:46 POS
--- NOTE | 2019-09-30 11:11 | Diagnostic Imaging Report ---
PROCEDURE: CT chest with contrast only. TECHNIQUE: Multiple contiguous axial images were obtained through the chest after administration of intravenous contrast. Auto Exposure Controls were utilized during the CT exam to meet ALARA standards for radiation dose reduction. INDICATION: Shortness of breath. No prior studies are available for comparison. No axillary lymphadenopathy is identified. No definite mediastinal or hilar lymphadenopathy is detected. There are coronary arterial calcifications. No pericardial or pleural fluid is identified. A minimal density in the left upper lobe posteriorly is seen which may represent some minimal infiltrate versus scarring. Minimal patchy infiltrate in the superior segment left lower lobe is identified. Central airways appear to be patent. No discrete parenchymal mass is seen. The upper abdomen is unremarkable. IMPRESSION: Minimal patchy left upper and left lower lobe infiltrate. No parenchymal mass or thoracic lymphadenopathy is detected. Dictated by: Dictated on workstation # [id number]
--- NOTE | 2019-09-30 11:55 | Physical Therapy Daily Note ---
PT Daily Note-Current Subjective pt in recliner pre-tx agrees to therapy and denies any pain at this time. Appearance pt in recliner in new room 230 per RN request with call light, room phone, tray table in reach with all needs met at this time. Chair alarm set Mental Status Patient Orientation: Person, Confused Attachments: IV Transfers SCALE: Activities may be completed with or without assistive devices. 7-Vmubmjybhj-vywwrzl completes the activity by him/herself with no assistance from a helper. 5-Set-up or Clean-up Assistance-helper sets up or cleans up; patient completes activity. [place] assists only prior to or following the activity. 4-Supervision or Touching Assistance-helper provides verbal cues and/or touching/steadying and/or contact guard assistance as patient completes activity. Assistance may be provided throughout the activity or intermittently. 3-Partial/Moderate Assistance-helper does LESS THAN HALF the effort. [place] lifts, holds or supports trunk or limbs, but provides less than half the effort. 2-Substantial/Maximal Assistance-helper does MORE THAN HALF the effort. [place] lifts or holds trunk or limbs and provides more than half the effort. 1-Jnsgvpugt-soehau does ALL the effort. Patient does none of the effort to complete the activity. Or, the assistance of 2 or more helpers is required for the patient to complete the activity. If activity was not attempted, code reason: 7-Patient Refused. 9-Not Applicable-not attempted and the patient did not perform the activity before the current illness, exacerbation or injury. 10-Not Attempted due to Environmental Limitations-(lack of equipment, weather restraints, etc.). 88-Not Attempted due to Medical Conditions or Safety Concerns. Sit to Stand (QC): 4 (SBA) Chair/Suk-sz-Asfaq Xfer(QC): 4 (SBA) Gait Training Does the Patient Walk?: Yes Distance: 100',150'x2 Walk 10 feet (QC): 4 (CGA) Walk 50 ft with 2 Turns(QC): 4 (CGA) Walk 150 ft (QC): 4 (CGA) Gait Assistive Device: FWW pt continues to demonstrate decreased dorsiflexion on the RLE and lands with foot flat contact. Wheelchair Training Does the Pt Use a Wheelchair?: No Exercises Seated Therapy Exercises: Long arc quads, Hip flexion Seated Reps: 45 (15reps 3 sets) Standing: Hip Abduction, Heel/toe raises Standing Reps: 45 (15reps 3 sets) NuStep Minutes: 15 NuStep Workload: 6 Treatments pt performed transfer training, skilled ambulation training, functional LE strengthening/endurance training, and education. Assessment Current Status: Good Progress pt continues to be confused and impulsive through session but is motivated and attempts to follow commands. Pt continues to have difficulty with UE placement for safety prior to sit <-> stands. pt cameron activity but requires multiple rests throughout ambulation and in between exercises. PT Short Term Goals Short Term Goals Time Frame: Oct 06, 2019 Roll Left & Right: 6 Sit to lyin Lying to sitting on side of be: 5 Sit to stand: 4 (SBA) Chair/enc-pf-rikld transfer: 4 (SBA) Toilet transfer: 4 (SBA) Car transfer: 4 (SBA) Walk 10 feet: 4 (SBA) Walk 50 feet with two turns: 4 (SBA) Walk 150 feet: 4 (SBA) 1 step (curb): 4 (CGA) PT Automatic I Threading Machine Feeder Goals Automatic I Threading Machine Feeder Goals PT Group Home Goals Time Frame: Oct 20, 2019 Roll Left & Right (QC): 6 Sit to Lying (QC): 6 Lying-Sitting on Side/Bed(QC): 6 Sit to Stand (QC): 6 Chair/Imv-cd-Wqdyd Xfer(QC): 6 Toilet Transfer (QC): 6 Car Transfer (QC): 6 Does the Patient Walk: Yes Walk 10 feet (QC): 6 Walk 50ft with 2 Turns (QC): 6 Walk 150 ft (QC): 6 Walking 10ft on Uneven Surface: 6 1 Step (curb) (QC): 6 4 Steps (QC): 6 12 Steps (QC): 6 Picking up an Object (QC): 6 Does the Pt use WC or Scooter?: No Type: N/A Type: N/A PT Plan Problem List Problem List: Activity Tolerance, Functional Strength, Safety, Balance, Gait, Transfer, Bed Mobility, ROM Treatment/Plan Treatment Plan: Continue Plan of Care Treatment Plan: Bed Mobility, Concurrent Therapy, Education, Functional Activity Roxie, Functional Strength, Group Therapy, Gait, Safety, Therapeutic Exercise, Transfers Treatment Duration: Oct 20, 2019 Frequency: At least 5 of 7 days/Wk (IRF) Estimated Hrs Per Day: 1.5 hours per day Patient and/or Family Agrees t: Yes Safety Risks/Education Patient Education: Gait Training, Transfer Techniques, Correct Positioning, Safety Issues Teaching Recipient: Patient Teaching Methods: Demonstration, Discussion Response to Teaching: Return Demonstration, Reinforcement Needed Time/GCodes Time In: 1100 Time Out: 1200 Total Billed Treatment Time: 60 Total Billed Treatment 1 visit GT 20' FA 15' EX 25' KARAN VANEGAS PT Sep 30, 2019 11:55 POS
--- NOTE | 2019-09-30 11:59 | NUR ---
Dr. Reid notified of CT and ABG results.
[2019-09-30] MEDS: ENOXAPARIN 40 MG/0.4 ML (LOVENOX) SYR SC SCH (12:43)
--- NOTE | 2019-09-30 13:20 | Occupational Ther Daily Note ---
OT Current Status-Daily Note Subjective No c/o of pain. Appearance Pt in bed when OT entered the room. Nurse present. Pt agrees to work with OT Mental Status/Objective Patient Orientation: Person, Confused Attachments: IV ADL-Treatment Therapy Code Descriptions/Definitions Functional [place] Measure: 0=Not Assessed/NA 4=Minimal Assistance 1=Total Assistance 5=Supervision or Setup 2=Maximal Assistance 6=Modified [place] 3=Moderate Assistance 7=Complete IndependenceSCALE: Activities may be completed with or without assistive devices. 1-Hfatgiiisk-tktufdl completes the activity by him/herself with no assistance from a helper. 5-Set-up or Clean-up Assistance-helper sets up or cleans up; patient completes activity. [place] assists only prior to or following the activity. 4-Supervision or Touching Assistance-helper provides verbal cues and/or touching/steadying and/or contact guard assistance as patient completes activity. Assistance may be provided throughout the activity or intermittently. 3-Partial/Moderate Assistance-helper does LESS THAN HALF the effort. [place] lifts, holds or supports trunk or limbs, but provides less than half the effort. 2-Substantial/Maximal Assistance-helper does MORE THAN HALF the effort. [place] lifts or holds trunk or limbs and provides more than half the effort. 5-Uiquixsdr-pfxong does ALL the effort. Patient does none of the effort to complete the activity. Or, the assistance of 2 or more helpers is required for the patient to complete the activity. If activity was not attempted, code reason: 7-Patient Refused. 9-Not Applicable-not attempted and the patient did not perform the activity before the current illness, exacerbation or injury. 10-Not Attempted due to Environmental Limitations-(lack of equipment, weather restraints, etc.). 88-Not Attempted due to Medical Conditions or Safety Concerns. Oral Hygiene (QC): 4 (SBA seated at sink to brush teeth and hair.) Upper Body Dressing (QC): 5 (Pt completed UB dressing with set up.) Lower Body Dressing (QC): 4 (Pt required CGA in stance to hike pants over hips.) Footwear (5)-Required set up to don shoes and socks. Other Treatment Pt declined shower but agrees to change clothes. OT handed pt bag to choose clothes for the day. Pt picked out his clothes. Pt sit from supine to EOB with supervision. Pt completed dressing seated at EOB. Pt required CGA to stand with walker. Pt completed washing his face and oral hygiene seated at the sink. Pt required cues to squeeze toothpaste onto the brush. Pt seemed confused and required cues to remember what he was doing. Pt ambulated with walker to therapy gym with min assist and cues to keep walker closer. Pt participated in armbike exercise 10 min with minimal resistance to increase activity tolerance for functional tasks. Pt ambulated with walker back to his room with min assist. Pt seated in recliner at the end of session. Phone/call light in reach. All needs met in room. Chair alarm on. Education OT Patient Education: Correct positioning, Exercise program, Modified ADL techniques, Progress toward Goal/Update tx plan, Purpose of tx/functional activities, Reviewed precautions, Rehab process, Safety issues, Transfer techniques Teaching Recipient: Patient Teaching Methods: Demonstration Response to Teaching: Verbalize Understanding, Unable to Comprehend OT Short Term Goals Short Term Goals Time Frame: Oct 06, 2019 Eatin Oral hygiene: 5 Toileting hygiene: 4 Shower/bathe self: 4 Upper body dressin Lower body dressin Putting on/taking off footwear: 4 OT [facility] Goals [facility] Goals Time Frame: Oct 13, 2019 Eating (QC): 6 Oral Hygiene (QC): 6 Toileting Hygiene (QC): 6 Shower/Bathe Self (QC): 5 Upper Body Dressing (QC): 5 Lower Body Dressing (QC): 5 On/Off Footwear (QC): 5 Additional Goals: 1-Demonstrate ADL Tasks, 2-Verbalize Understanding, 3- ImproveStrength/Roxie 1=Demonstrate adherence to instructed precautions during ADL tasks. 2=Patient will verbalize/demonstrate understanding of assistive devic es/modifications for ADL. 3=Patient will improve strength/tolerance for activity to enable patient to perform ADL's. OT Education/Plan Problem List/Assessment Assessment: Decreased Activ Tolerance, Decreased Safety Aware, Decreased UE Strength, Dependent Transfers, Impaired Cognition, Impaired Funct Balance, Impaired I ADL's, Impaired Self-Care Skills Discharge Recommendations Plan/Recommendations: Continue POC Therapy Discharge Recommendati: 24 Hour Supervision, Post Acute OT Treatment Plan/Plan of Care Treatment,Training & Education: Yes Patient would benefit from OT for education, treatment and training to promote independence in ADL's, mobility, safety and/or upper extremity function for ADL's. Plan of Care: ADL Retraining, Functional Mobility, Group Exercise/Act as Ind, UE Funct Exercise/Act Treatment Duration: Oct 13, 2019 Frequency: At least 5 of 7 days/Wk (IRF) Estimated Hrs Per Day: 1.5 hours per day Agreement: Yes Rehab Potential: Fair Time/GCodes Start Time: 08:15 Stop Time: 09:00 Total Time Billed (hr/min): 45 Billed Treatment Time 1, ADL x2 (30 Min) EX x1 (15 Min) DANI LANCE OT Sep 30, 2019 13:20 POS
--- NOTE | 2019-09-30 13:35 | NUR ---
Patient moved to room 230 to be closer to the Nurse's station D/T confusion and impulsivity.
--- NOTE | 2019-09-30 14:13 | Occupational Ther Daily Note ---
OT Current Status-Daily Note Subjective No c/o of pain. Pt seated in recliner when OT entered the room. Pt agrees to work with therapy. Mental Status/Objective Patient Orientation: Person Attachments: IV ADL-Treatment Therapy Code Descriptions/Definitions Functional [place] Measure: 0=Not Assessed/NA 4=Minimal Assistance 1=Total Assistance 5=Supervision or Setup 2=Maximal Assistance 6=Modified [place] 3=Moderate Assistance 7=Complete IndependenceSCALE: Activities may be completed with or without assistive devices. 5-Zwtdtpssov-qjpotxv completes the activity by him/herself with no assistance from a helper. 5-Set-up or Clean-up Assistance-helper sets up or cleans up; patient completes activity. [place] assists only prior to or following the activity. 4-Supervision or Touching Assistance-helper provides verbal cues and/or touching/steadying and/or contact guard assistance as patient completes activity. Assistance may be provided throughout the activity or intermittently. 3-Partial/Moderate Assistance-helper does LESS THAN HALF the effort. [place] lifts, holds or supports trunk or limbs, but provides less than half the effort. 2-Substantial/Maximal Assistance-helper does MORE THAN HALF the effort. [place] lifts or holds trunk or limbs and provides more than half the effort. 7-Gucybqkza-bozibu does ALL the effort. Patient does none of the effort to complete the activity. Or, the assistance of 2 or more helpers is required for the patient to complete the activity. If activity was not attempted, code reason: 7-Patient Refused. 9-Not Applicable-not attempted and the patient did not perform the activity before the current illness, exacerbation or injury. 10-Not Attempted due to Environmental Limitations-(lack of equipment, weather restraints, etc.). 88-Not Attempted due to Medical Conditions or Safety Concerns. Other Treatment Pt required CGA to stand with walker from recliner. Pt ambulated with walker to therapy gym and CGA. Pt donned 1 lb wrist weight on right hand due to IV on left hand. Pt attempted to complete nut/bolt activity though due to cognitive difficulties pt unable to sequence task. Pt completed fine motor strengthening exercise using resistive therapy pegs to increase UE and frame repairer/pinch strength for functional tasks. Pt ambulated back to his room with CGA. Pt required verbal and physical cues to keep walker closer. Pt transferred to the recliner with walker and CGA for safety. Pt seated in recliner with safety measures in place. Call light/phone in reach at the end of session. All needs met in room. Education OT Patient Education: Exercise program, Modified ADL techniques, Progress toward Goal/Update tx plan, Purpose of tx/functional activities, Reviewed precautions, Rehab process, Safety issues, Transfer techniques Teaching Recipient: Patient Teaching Methods: Demonstration, Discussion Response to Teaching: Verbalize Understanding OT Short Term Goals Short Term Goals Time Frame: Oct 06, 2019 Eatin Oral hygiene: 5 Toileting hygiene: 4 Shower/bathe self: 4 Upper body dressin Lower body dressin Putting on/taking off footwear: 4 OT Outreach Liaison Goals Outreach Liaison Goals Time Frame: Oct 13, 2019 Eating (QC): 6 Oral Hygiene (QC): 6 Toileting Hygiene (QC): 6 Shower/Bathe Self (QC): 5 Upper Body Dressing (QC): 5 Lower Body Dressing (QC): 5 On/Off Footwear (QC): 5 Additional Goals: 1-Demonstrate ADL Tasks, 2-Verbalize Understanding, 3- ImproveStrength/Roxie 1=Demonstrate adherence to instructed precautions during ADL tasks. 2=Patient will verbalize/demonstrate understanding of assistive devices/modific ations for ADL. 3=Patient will improve strength/tolerance for activity to enable patient to perform ADL's. OT Education/Plan Problem List/Assessment Assessment: Decreased Activ Tolerance, Decreased UE Strength, Impaired I ADL's, Impaired Self-Care Skills Discharge Recommendations Plan/Recommendations: Continue POC Therapy Discharge Recommendati: Post Acute OT Treatment Plan/Plan of Care Treatment,Training & Education: Yes Patient would benefit from OT for education, treatment and training to promote independence in ADL's, mobility, safety and/or upper extremity function for ADL's. Plan of Care: ADL Retraining, Functional Mobility, Group Exercise/Act as Ind, UE Funct Exercise/Act Treatment Duration: Oct 13, 2019 Frequency: At least 5 of 7 days/Wk (IRF) Estimated Hrs Per Day: 1.5 hours per day Agreement: Yes Rehab Potential: Fair Time/GCodes Start Time: 13:30 Stop Time: 14:00 Total Time Billed (hr/min): 30 Billed Treatment Time 1,EX x2 (30 Min) CLAUDIA UMANZOR Sep 30, 2019 14:13 POS
--- NOTE | 2019-09-30 15:05 | NUR ---
Dr. Watson notified of confusion and impulsivity. No new orders rec'd. Dr. Watson states that he will see patient tomorrow. States that he will address code status at that time.
--- NOTE | 2019-09-30 15:33 | Physical Therapy Daily Note ---
PT Daily Note-Current Subjective Pt agreeable to PT session. Pain Numeric Pain Scale: 0-No Pain Appearance Pt sitting up in recliner before and after session, alarm activated, call light, phone and bedside table within reach Mental Status Patient Orientation: Person, Eyes Open Transfers SCALE: Activities may be completed with or without assistive devices. 5-Nluqfwiugr-mfmauuk completes the activity by him/herself with no assistance from a helper. 5-Set-up or Clean-up Assistance-helper sets up or cleans up; patient completes activity. [place] assists only prior to or following the activity. 4-Supervision or Touching Assistance-helper provides verbal cues and/or touching/steadying and/or contact guard assistance as patient completes activity. Assistance may be provided throughout the activity or intermittently. 3-Partial/Moderate Assistance-helper does LESS THAN HALF the effort. [place] lifts, holds or supports trunk or limbs, but provides less than half the effort. 2-Substantial/Maximal Assistance-helper does MORE THAN HALF the effort. [place] lifts or holds trunk or limbs and provides more than half the effort. 2-Nqmgpxvdx-dprwbe does ALL the effort. Patient does none of the effort to complete the activity. Or, the assistance of 2 or more helpers is required for the patient to complete the activity. If activity was not attempted, code reason: 7-Patient Refused. 9-Not Applicable-not attempted and the patient did not perform the activity before the current illness, exacerbation or injury. 10-Not Attempted due to Environmental Limitations-(lack of equipment, weather restraints, etc.). 88-Not Attempted due to Medical Conditions or Safety Concerns. Sit to Stand (QC): 4 pt verbalizing steps to safely stand and sit while performing sit to and from stand transfers Gait Training Does the Patient Walk?: Yes Distance: 300 x2 Walk 10 feet (QC): 4 Walk 50 ft with 2 Turns(QC): 4 Walk 150 ft (QC): 4 Gait Persons Needed: 1 Gait Assistive Device: FWW path deviation, too far from walker improved with skilled inst in posture and walking up into walker for safety, some unsteadiness and impulsiveness bia with turns, no LOB, good pace Neuromuscular in // bars tandem gt fwd and retro and [place] stepping L and R Treatments education, safety, gait, transfers, balance, strength, activity tolerance, functional mobility Assessment Current Status: Good Progress PT Short Term Goals Short Term Goals Time Frame: Oct 06, 2019 Roll Left & Right: 6 Sit to lyin Lying to sitting on side of be: 5 Sit to stand: 4 (SBA) Chair/eyg-fb-rsgfx transfer: 4 (SBA) Toilet transfer: 4 (SBA) Car transfer: 4 (SBA) Walk 10 feet: 4 (SBA) Walk 50 feet with two turns: 4 (SBA) Walk 150 feet: 4 (SBA) 1 step (curb): 4 (CGA) PT [facility] Goals [facility] Goals PT Enrollment Consultant Goals Time Frame: Oct 20, 2019 Roll Left & Right (QC): 6 Sit to Lying (QC): 6 Lying-Sitting on Side/Bed(QC): 6 Sit to Stand (QC): 6 Chair/Ytn-yo-Ecozl Xfer(QC): 6 Toilet Transfer (QC): 6 Car Transfer (QC): 6 Does the Patient Walk: Yes Walk 10 feet (QC): 6 Walk 50ft with 2 Turns (QC): 6 Walk 150 ft (QC): 6 Walking 10ft on Uneven Surface: 6 1 Step (curb) (QC): 6 4 Steps (QC): 6 12 Steps (QC): 6 Picking up an Object (QC): 6 Does the Pt use WC or Scooter?: No Type: N/A Type: N/A PT Plan Treatment/Plan Treatment Plan: Continue Plan of Care Treatment Plan: Bed Mobility, Concurrent Therapy, Education, Functional Activity Roxie, Functional Strength, Group Therapy, Gait, Safety, Therapeutic Ex ercise, Transfers Treatment Duration: Oct 20, 2019 Frequency: At least 5 of 7 days/Wk (IRF) Estimated Hrs Per Day: 1.5 hours per day Patient and/or Family Agrees t: Yes Safety Risks/Education Patient Education: Gait Training, Transfer Techniques, Safety Issues Teaching Recipient: Patient Teaching Methods: Demonstration, Discussion Response to Teaching: Verbalize Understanding, Return Demonstration, Reinforcement Needed Time/GCodes Time In: 1404 Time Out: 1419 Total Billed Treatment Time: 15 Total Billed Treatment 1 visit, GT x15 min TATE KOTHARI MANAGER COMMUNICATION Sep 30, 2019 15:33 POS
[2019-09-30 16:12] VITALS: BP 120/67
--- NOTE | 2019-09-30 16:13 | NUR ---
"RD ASSESSMENT PMHx: CAD; HTN; HLD PT INTERACTION: Pt was awake and pleasant during nutrition assessment. Pt states current appetite is pretty good and has been for some time. Note pt avg PO intake of 85% x2meal, per chart review. Pt states following a regular diet at home, and has no issues with chewing/swallowing food at this time. Pt states no recent issues with n/v/c/d at this time, and his last BM was prior to admit. Note pt currently on bowel regimen of colace BID; miralax BID; senna BID; and bisacodyl PRN, per chart review. Pt states no recent wt changes. Note 6# wt gain x7mon, per chart review. ABNORMAL NUTRITION-RELATED LAB VALUES LOW: HIGH: BUN 20; glu 130 Est. kcal needs: 4329-6557 kcal | 25-30 kcal/kg Est. Pro needs: 69-82 g Pro | 1.0-1.2 g Pro/kg PES STATEMENT: Given pt's current PO intake, no nutrition diagnosis at this time (NO-1.1) INTERVENTION: Continue with current diet order of Regular diet. Will continue to follow and reassess as pt needs and status change. MONITOR/EVALUATE: PO Intake; Plan of Care; Hydration Status; Weight Status; Lab Values Lloyd Conteh, MS, RD, LD"
[2019-09-30] MEDS ORDERED: NON-FORMULARY MEDICATION 1 EA EA (Bimatoprost (Lumigan) 1 DROP) OU SCH (21:00)
[2019-09-30] MEDS: LUMIGAN 0.01% OU SCH (21:45)
[2019-10-01] MEDS: methylPREDNISolone 40 MG/ML (Solu-MEDROL) VIAL IV SCH ×2 (00:14→05:24)
[2019-10-01] MEDS: CATHETER FLUSH 10 ML SYR IV SCH ×3 (00:14→22:01)
[2019-10-01] MEDS: RT-ALBUTEROL/IPRATROPIUM 3 ML (DUONEB) VIAL INH SCH ×5 (02:39→20:22)
[2019-10-01 06:08] VITALS: BP 150/70
[2019-10-01] MEDS: RT-ADVAIR HFA 115/21 MCG PER PUFF IH SCH ×2 (07:25→20:22)
--- NOTE | 2019-10-01 07:29 | Pulmonary Progress Note ---
Subjective Time Seen by a Provider: 07:28 Subjective/Events-last exam No complications noted. Sepsis Event Evaluation Height, Weight, BMI Height: 5'9.00" Weight: 145lbs. 0.0oz. 65.089308iq; 22.16 BMI Method:Stated Exam Exam Vital Signs Date Time Temp Pulse Resp B/P (MAP) Pulse Ox O2 Delivery O2 Flow Rate FiO2 10/01/19 06:08 36.8 83 18 150/70 (96) 95 Room Air 09/30/19 22:03 94 Room Air 09/30/19 20:10 Room Air 09/30/19 19:07 95 Room Air 09/30/19 16:12 36.8 74 16 120/67 (84) 95 Room Air 09/30/19 14:24 97 Room Air 09/30/19 12:49 Room Air I & O 10/01/19 07:00 Intake Total 1025 ml Output Total 200 ml Balance 825 ml Height & Weight Height: 5'9.00" Weight: 145lbs. 0.0oz. 65.282382zw; 22.16 BMI Method:Stated General Appearance: No Apparent Distress, Chronically ill, Thin HEENT: PERRL/EOMI, Normal ENT Inspection, Pharynx Normal Neck: Full Range of Motion, Normal Inspection, Non Tender, Supple, Carotid Bruit Respiratory: Chest Non Tender, No Accessory Muscle Use, No Respiratory Distress, Crackles, Decreased Breath Sounds, Other (improved today) Cardiovascular: Regular Rate, Rhythm, No Edema, No Gallop, No JVD, No Murmur, Normal Peripheral Pulses Extremity: Normal Capillary Refill, Normal Inspection, Normal Range of Motion, Non Tender, No Calf Tenderness, No Pedal Edema Neurologic/Psychiatric: Alert, Oriented x3, No Motor/Sensory Deficits (generalized weakness lega more than arms but 4/5), Normal Mood/Affect, Other (balance dysfunction) Skin: Normal Color, Warm/Dry Lymphatic: No Adenopathy Results Lab Laboratory Tests 09/30/19 05:32 Assessment/Plan Assessment/Plan [place] -Steroids - change to prednisone -CT of chest with contrast r/o mass - reviewed -will probably home portable oxygen - will do out pt PFT -DuoNeb add advair - ABG Debility -PT/OT inpt rehab KENISHA CORCORAN DO Oct 01, 2019 07:29 POS
--- NOTE | 2019-10-01 07:52 | Progress Note ---
Subjective Date Seen by a Provider: Oct 01, 2019 Time Seen by a Provider: 07:30 Subjective/Events-last exam Today I spoke with patient's daughter, Savannah, regarding his resuscitation status. At this point she would like to have her father make his decision on this. She is going to be returning early this afternoon as well to discuss this. Apparently she also wanted to have [place] care involved. Objective Exam Vital Signs Date Time Temp Pulse Resp B/P (MAP) Pulse Ox O2 Delivery O2 Flow Rate FiO2 10/01/19 07:25 97 Room Air 10/01/19 06:08 36.8 83 18 150/70 (96) 95 Room Air 09/30/19 22:03 94 Room Air 09/30/19 20:10 Room Air 09/30/19 19:07 95 Room Air 09/30/19 16:12 36.8 74 16 120/67 (84) 95 Room Air 09/30/19 14:24 97 Room Air 09/30/19 12:49 Room Air I & O 10/01/19 07:00 Intake Total 1025 ml Output Total 200 ml Balance 825 ml Capillary Refill : Less Than 3 Seconds General Appearance: No Apparent Distress (He is currently taking an albuterol breathing treatment) Results Lab Laboratory Tests 09/30/19 10:10: Blood Gas Puncture Site RIGHT RADIAL, Blood Gas Patient Temperature 36.6, Arterial Blood pH 7.37, Arterial Blood Partial Pressure CO2 33L, Arterial Blood Partial Pressure O2 92, Arterial Blood HCO3 19L, Arterial Blood Total CO2 20.1L, Arterial Blood Oxygen Saturation 98, Arterial Blood Base Excess -5.3L, [place] Test POSITIVE, Blood Gas Ventilator Setting NO, Blood Gas Inspired Oxygen N/A 09/30/19 15:49: Glucometer 164H 10/01/19 05:24: Glucometer 135H Assessment/Plan Assessment/Plan Assess & Plan/Chief Complaint 1. COPD exacerbation -Currently receiving breathing treatments as well as IV Solu-Medrol -Pulmonary consultation is noted 2. Weakness -He is inpatient therapy. Note: Hopefully his DO NOT RESUSCITATE status will be clarified today. At this time based upon patient's desire he does wish to be full code. Clinical Quality Measures DVT/VTE Risk/Contraindication: Risk Factor Score Per Nursin RFS Level Per Nursing on Admit: 4+=Very High KRISTEL PEREZ MD Oct 01, 2019 07:52 POS
[2019-10-01] MEDS: CALCIUM CARBONATE 500 MG (TUMS) TAB.CHEW PO PRN ×2 (08:15→19:56)
--- NOTE | 2019-10-01 09:07 | Occupational Ther Daily Note ---
OT Current Status-Daily Note Subjective No complaint of pain. Appearance Pt laying in bed watching TV when OT entered the room. Pt agrees to work with OT. Mental Status/Objective Patient Orientation: Person, Confused Attachments: IV ADL-Treatment Therapy Code Descriptions/Definitions Functional [place] Measure: 0=Not Assessed/NA 4=Minimal Assistance 1=Total Assistance 5=Supervision or Setup 2=Maximal Assistance 6=Modified [place] 3=Moderate Assistance 7=Complete IndependenceSCALE: Activities may be completed with or without assistive devices. 6-Lfdadzsuzu-yxqnrej completes the activity by him/herself with no assistance from a helper. 5-Set-up or Clean-up Assistance-helper sets up or cleans up; patient completes activity. [place] assists only prior to or following the activity. 4-Supervision or Touching Assistance-helper provides verbal cues and/or touching/steadying and/or contact guard assistance as patient completes activity. Assistance may be provided throughout the activity or intermittently. 3-Partial/Moderate Assistance-helper does LESS THAN HALF the effort. [place] lifts, holds or supports trunk or limbs, but provides less than half the effort. 2-Substantial/Maximal Assistance-helper does MORE THAN HALF the effort. [place] lifts or holds trunk or limbs and provides more than half the effort. 4-Ulxzxqkjy-edqdjg does ALL the effort. Patient does none of the effort to complete the activity. Or, the assistance of 2 or more helpers is required for the patient to complete the activity. If activity was not attempted, code reason: 7-Patient Refused. 9-Not Applicable-not attempted and the patient did not perform the activity before the current illness, exacerbation or injury. 10-Not Attempted due to Environmental Limitations-(lack of equipment, weather restraints, etc.). 88-Not Attempted due to Medical Conditions or Safety Concerns. Oral Hygiene (QC): 5 (Pt completes oral hygiene seated at the sink. Pt required set up to complete.) Bathing Location: L Arm, R Arm, L Upper Leg, R Upper Leg, L Lower Leg (including foot), R Lower Leg (including foot), Chest, Abdomen, Buttocks, Perineal Area Shower/Bathe Self (QC): 4 (Using hand held shower and bench, pt completed shower with set up but required cues to cleanse other parts of the body. ) Upper Body Dressing (QC): 5 (Pt completed UB dressing seated. Pt required set up only. ) Lower Body Dressing (QC): 4 (Pt completed LB dressing with SBA. Pt completed the tasks seated on a bench.) Toileting Hygiene (QC): 7 (Pt declined using toilet.) Toilet Transfer (QC): 7 Footwear (4) Pt donned shoe/socks bilateral with supervision. Other Treatment From supine to EOB, pt required min assist. CGA to stand with walker from the bed. Pt ambulated to the bathroom with walker and CGA. Pt transferred to the bench and completed shower seated. Pt would wash part of the body and forgets other parts. Pt completed dressing seated on bench. PT transferred to the chair and brushed hair. Pt ambulated with walker and required min assist to therapy gym. Pt required cues to keep walker closer and to look where he was going. Pt participated in arm bike exercise 10 minutes with mod resistance to increase strength and activity tolerance for functional tasks. Pt ambulated back to his room with walker and CGA. Pt reported of heartburn. Nurse notified. Nurse aware and had given pt Tums earlier, RIVERA gave pt Sprite. Pt seated in recliner with chair alarm in place. Call light/phone in reach. All needs met in room. Education OT Patient Education: Correct positioning, Energy conservation, Exercise program, Modified ADL techniques, Progress toward Goal/Update tx plan, Purpose of tx/functional activities, Reviewed precautions, Rehab process, Safety issues, Transfer techniques Teaching Recipient: Patient Teaching Methods: Demonstration Response to Teaching: Verbalize Understanding OT Short Term Goals Short Term Goals Time Frame: Oct 06, 2019 Eatin Oral hygiene: 5 Toileting hygiene: 4 Shower/bathe self: 4 Upper body dressin Lower body dressin Putting on/taking off footwear: 4 OT Media Relations Manager Goals Media Relations Manager Goals Time Frame: Oct 13, 2019 Eating (QC): 6 Oral Hygiene (QC): 6 Toileting Hygiene (QC): 6 Shower/Bathe Self (QC): 5 Upper Body Dressing (QC): 5 Lower Body Dressing (QC): 5 On/Off Footwear (QC): 5 Additional Goals: 1-Demonstrate ADL Tasks, 2-Verbalize Understanding, 3- ImproveStrength/Roxie 1=Demonstrate adherence to instructed precautions during ADL tasks. 2=Patient will verbalize/demonstrate understanding of assistive devices/modifications for ADL. 3=Patient will improve strength/tolerance for activity to enable patient to perform ADL's. OT Education/Plan Problem List/Assessment Assessment: Decreased Activ Tolerance, Decreased UE Strength, Impaired Cognition, Impaired Coordination, Impaired Funct Balance, Impaired I ADL's, Impaired Self-Care Skills Discharge Recommendations Plan/Recommendations: Continue POC Therapy Discharge Recommendati: Post Acute OT Treatment Plan/Plan of Care Treatment,Training & Education: Yes Patient would benefit from OT for education, treatment and training to promote independence in ADL's, mobility, safety and/or upper extremity function for ADL's. Plan of Care: ADL Retraining, Functional Mobility, Group Exercise/Act as Ind, UE Funct Exercise/Act Treatment Duration: Oct 13, 2019 Frequency: At least 5 of 7 days/Wk (IRF) Estimated Hrs Per Day: 1.5 hours per day Agreement: Yes Rehab Potential: Fair Time/GCodes Start Time: 08:00 Stop Time: 09:00 Total Time Billed (hr/min): 60 Billed Treatment Time 1, ADL x3 (40 Min) EX x1 (20 Min) CLAUDIA UMANZOR Oct 01, 2019 09:07 POS
--- NOTE | 2019-10-01 10:04 | Speech Therapy Daily Note ---
Speech Daily Progress Note Subjective Date Seen by Provider: Oct 01, 2019 Time Seen by Provider: 00:30 Patient was sitting in his chair, drinking coffee and watching television. Objective Patient completed conversational tasks related to his daily routine with 80% given 15% verbal cues. Assessment Assessment Current Status: Good Progress Treatment Plan Continue Plan of Care Speech Short Term Goals Short Term Goals Short Term Goals 1) Patient will complete memory tasks related to his daily needs at 80% or greater with minimal cues. 2) Patient will complete problem solving tasks related to his daily needs at 80% or greater with minimal cues. 3) Patient will complete safety awareness tasks related to his daily needs at 80% or greater with minimal cues. Speech Php Architect Goals Correction Goals Patient will improve cognitive-communication necessary for safety and daily living tasks with minimal assist. Speech-Plan Patient/Family Goals Patient/Family Goals: Patient's plans are to return to the apartment he lives in with family. Treatment Plan Speech Therapy Treatment Plan: Continue Plan of Care Patient will continue ST services with focus on improving cognition. Treatment Duration: Oct 08, 2019 Frequency: 5 times per week Estimated Hrs Per Day: .5 hour per day Rehab Potential: Fair Barriers to Learning: Patient has moderate dementia level of function. Pt/Family Agrees to Plan: Yes Safety Risks/Education Teaching Recipient: Patient Teaching Methods: Demonstration, Discussion Response to Teaching: Verbalize Understanding, Return Demonstration Education Topics Provided: Continued safety within his room, utilizing the call light for wants/needs Time Speech Therapy Time In: 09:00 Speech Therapy Time Out: 09:30 Total Billed Time: 30 Billed Treatment Time 1, MIRANDA Jackson Oct 01, 2019 10:04 POS
[2019-10-01] MEDS: POLYETHYLENE GLYCOL 17 GM (MIRALAX) PACK PO SCH ×2 (10:55→20:50)
[2019-10-01] MEDS: SENNA W/DOCUSATE (SENOKOT S) TABLET PO SCH ×2 (10:55→20:49)
[2019-10-01] MEDS: cefTRIAXone FOR IV USE 1,000 MG in WATER (STERILE) FOR INJECTION 10 ML IV SCH ×2 (11:16→14:12)
--- NOTE | 2019-10-01 11:49 | Physical Therapy Daily Note ---
PT Daily Note-Current Subjective pt in recliner pre-tx agrees to therapy and denies any pain. Appearance pt in recliner post-tx with chair alarm set, call light, phone, table in reach with all needs met at this time. Mental Status Patient Orientation: Person, Confused Attachments: IV Transfers SCALE: Activities may be completed with or without assistive devices. 2-Tpohtdwyyh-cnxcguv completes the activity by him/herself with no assistance from a helper. 5-Set-up or Clean-up Assistance-helper sets up or cleans up; patient completes activity. [place] assists only prior to or following the activity. 4-Supervision or Touching Assistance-helper provides verbal cues and/or touching/steadying and/or contact guard assistance as patient completes activity. Assistance may be provided throughout the activity or intermittently. 3-Partial/Moderate Assistance-helper does LESS THAN HALF the effort. [place] lifts, holds or supports trunk or limbs, but provides less than half the effort. 2-Substantial/Maximal Assistance-helper does MORE THAN HALF the effort. [place] lifts or holds trunk or limbs and provides more than half the effort. 5-Krwgeubpg-xqbrpl does ALL the effort. Patient does none of the effort to complete the activity. Or, the assistance of 2 or more helpers is required for the patient to complete the activity. If activity was not attempted, code reason: 7-Patient Refused. 9-Not Applicable-not attempted and the patient did not perform the activity before the current illness, exacerbation or injury. 10-Not Attempted due to Environmental Limitations-(lack of equipment, weather restraints, etc.). 88-Not Attempted due to Medical Conditions or Safety Concerns. Sit to Stand (QC): 4 (SBA) Gait Training Distance: 400',300' Walk 10 feet (QC): 4 (SBA) Walk 50 ft with 2 Turns(QC): 4 (SBA) Walk 150 ft (QC): 4 (SBA) Gait Assistive Device: FWW pt continues to ambulate with FWW too far infront of himself and will temporarily correct with cues but regresses back to his normal pattern. pt continues to lack Dorsiflexion on the R foot and have overall decreased ROM on the RLE. Wheelchair Training Does the Pt Use a Wheelchair?: No Exercises Standing: Hip Abduction, Heel/toe raises, Marching, Mini squats, Side steps Standing Reps: 45 (3sets 15reps) Treatments pt performed transfer training, skilled ambulation training, functional LE strengthening exercises, and education. Assessment Current Status: Good Progress pt continues to be unsafe during ambulation and have the walker too far ahead of himself. Pt is not consistent with pushing up or reaching for the chair for sit <->stands. Pt continues to be confused but pleasant and motivated and cameron all activity in the session. PT Short Term Goals Short Term Goals Time Frame: Oct 06, 2019 Roll Left & Right: 6 Sit to lyin Lying to sitting on side of be: 5 Sit to stand: 4 (SBA) Chair/nha-bm-knmud transfer: 4 (SBA) Toilet transfer: 4 (SBA) Car transfer: 4 (SBA) Walk 10 feet: 4 (SBA) Walk 50 feet with two turns: 4 (SBA) Walk 150 feet: 4 (SBA) 1 step (curb): 4 (CGA) PT Cleaner Laboratory Equipment Goals Detention Goals PT Cleaner Laboratory Equipment Goals Time Frame: Oct 20, 2019 Roll Left & Right (QC): 6 Sit to Lying (QC): 6 Lying-Sitting on Side/Bed(QC): 6 Sit to Stand (QC): 6 Chair/Hur-gd-Eangp Xfer(QC): 6 Toilet Transfer (QC): 6 Car Transfer (QC): 6 Does the Patient Walk: Yes Walk 10 feet (QC): 6 Walk 50ft with 2 Turns (QC): 6 Walk 150 ft (QC): 6 Walking 10ft on Uneven Surface: 6 1 Step (curb) (QC): 6 4 Steps (QC): 6 12 Steps (QC): 6 Picking up an Object (QC): 6 Does the Pt use WC or Scooter?: No Type: N/A Type: N/A PT Plan Problem List Problem List: Activity Tolerance, Functional Strength, Safety, Balance, Gait, Transfer, Bed Mobility, ROM Treatment/Plan Treatment Plan: Continue Plan of Care Treatment Plan: Bed Mobility, Concurrent Therapy, Education, Functional Activity Roxie, Functional Strength, Group Therapy, Gait, Safety, Therapeutic Exercise, Transfers Treatment Duration: Oct 20, 2019 Frequency: At least 5 of 7 days/Wk (IRF) Estimated Hrs Per Day: 1.5 hours per day Patient and/or Family Agrees t: Yes Safety Risks/Education Patient Education: Gait Training, Transfer Techniques, Correct Positioning, Safety Issues Teaching Recipient: Patient Teaching Methods: Demonstration, Discussion Response to Teaching: Return Demonstration, Reinforcement Needed Time/GCodes Time In: 1100 Time Out: 1145 Total Billed Treatment Time: 45 Total Billed Treatment 1 visit EX 30' GT 15' KARAN VANEGAS PT Oct 01, 2019 11:49 POS
--- NOTE | 2019-10-01 13:04 | PM&R Progress Note ---
Subjective HPI/CC On Admission Date Seen by Provider: Oct 01, 2019 Time Seen by Provider: 10:00 Subjective/Events-last exam Pt trying to [facility] elope GERD treatment will initiate proton pump inhibitor of Protonix 40mg and Carafate 1g before meals and at bedtime CT showed pneumonia, he is on Rocephin and doing well Lungs are cleared up Slum score was 4/30 which is profound dementia Will evaluate what his needs are in order to be sure he is safe to go home but he will need / supervision Checked meds and labs Reviewed therapy notes Conferred with artificial pearl maker of Systems General: Fatigue Neurological: Confusion Objective Exam Vital Signs Vital Signs Date Time Temp Pulse Resp B/P (MAP) Pulse Ox O2 Delivery O2 Flow Rate FiO2 10/02/19 09:02 96 Room Air 10/02/19 05:30 36.5 60 18 133/71 (91) Capillary Refill : Less Than 3 Seconds General Appearance: No Apparent Distress (He is currently taking an albuterol breathing treatment) HEENT: PERRL/EOMI, Normal ENT Inspection, Pharynx Normal Neck: Full Range of Motion, Normal Inspection, Non Tender, Supple, Carotid Bruit Respiratory: Chest Non Tender, No Accessory Muscle Use, No Respiratory Distress, Crackles, Decreased Breath Sounds, Other (improved today) Cardiovascular: Regular Rate, Rhythm, No Edema, No Gallop, No JVD, No Murmur, Normal Peripheral Pulses Gastrointestinal: Normal Bowel Sounds, No Organomegaly, No Pulsatile Mass, Non Tender, Soft Back: Normal Inspection, No CVA Tenderness, No Vertebral Tenderness Extremity: Normal Capillary Refill, Normal Inspection, Normal Range of Motion, Non Tender, No Calf Tenderness, No Pedal Edema Neurologic/Psychiatric: Alert, Oriented x3, No Motor/Sensory Deficits (generalized weakness lega more than arms but 4/5), Normal Mood/Affect, Other (balance dysfunction) Skin: Normal Color, Warm/Dry Lymphatic: No Adenopathy Results/Procedures Lab Patient resulted labs reviewed. FIM Transfers Therapy Code Descriptions/Definitions Functional [place] Measure: 0=Not Assessed/NA 4=Minimal Assistance 1=Total Assistance 5=Supervision or Setup 2=Maximal Assistance 6=Modified [place] 3=Moderate Assistance 7=Complete IndependenceSCALE: Activities may be completed with or without assistive devices. 2-Idourkmfvw-ujkffiw completes the activity by him/herself with no assistance from a helper. 5-Set-up or Clean-up Assistance-helper sets up or cleans up; patient completes activity. [place] assists only prior to or following the activity. 4-Supervision or Touching Assistance-helper provides verbal cues and/or touching/steadying and/or contact guard assistance as patient completes activity. Assistance may be provided throughout the activity or intermittently. 3-Partial/Moderate Assistance-helper does LESS THAN HALF the effort. [place] lifts, holds or supports trunk or limbs, but provides less than half the effort. 2-Substantial/Maximal Assistance-helper does MORE THAN HALF the effort. [place] lifts or holds trunk or limbs and provides more than half the effort. 4-Djfrpgxjo-ugtqiz does ALL the effort. Patient does none of the effort to complete the activity. Or, the assistance of 2 or more helpers is required for the patient to complete the activity. If activity was not attempted, code reason: 7-Patient Refused. 9-Not Applicable-not attempted and the patient did not perform the activity before the current illness, exacerbation or injury. 10-Not Attempted due to Environmental Limitations-(lack of equipment, weather restraints, etc.). 88-Not Attempted due to Medical Conditions or Safety Concerns. Roll Left to Right (QC): 4 (SBA) Sit to Lying (QC): 4 (SBA) Sit to Stand (QC): 4 (SBA) Chair/Ium-ma-Dyysw Xfer(QC): 4 (SBA) Car Transfer (QC): 4 (CGA) Gait Training Does the Patient Walk?: Yes Distance: 400',300' Walk 10 feet (QC): 4 (SBA) Walk 50 ft with 2 Turns(QC): 4 (SBA) Walk 150 ft (QC): 4 (SBA) Walking 10ft/uneven surface-QC: 4 (CGA) Gait Persons Needed: 1 Gait Assistive Device: FWW Wheelchair Training Does the Pt Use a Wheelchair?: No Wheel 50 ft with 2 turns (QC): 88 Wheel 150 ft (QC): 88 Type of Wheelchair: Manual Stair Training 1 Step (curb) (QC): 3 (Micaela) 4 Steps (QC): 88 12 Steps (QC): 88 Balance Picking up an Object (QC): 3 (Micaela) ADL-Treatment Eating (QC): 5 (Lunch arrives. Pt. does not have the strength to cut up chicken or sweet potato. OT did this for him. Pt. able to eat after this.) Oral Hygiene (QC): 5 (Pt completes oral hygiene seated at the sink. Pt required set up to complete.) Bathing Location: L Arm, R Arm, L Upper Leg, R Upper Leg, L Lower Leg (including foot), R Lower Leg (including foot), Chest, Abdomen, Buttocks, Perineal Area Shower/Bathe Self (QC): 4 (Using hand held shower and bench, pt completed shower with set up but required cues to cleanse other parts of the body. ) Upper Body Dressing (QC): 5 (Pt completed UB dressing seated. Pt required set up only. ) Lower Body Dressing (QC): 4 (Pt completed LB dressing with SBA. Pt completed the tasks seated on a bench.) On/Off Footwear (QC): 3 Toileting Hygiene (QC): 7 (Pt declined using toilet.) Toilet Transfer (QC): 7 Assessment/Plan Assessment and Plan Assess & Plan/Chief Complaint Assessment: Severe debility PNA on CT not on CXR Weight loss Falls AECOPD Confusion Plan: Monitor lungs ABX Steroids Appreciate DR Reid (1) Debility (2) Wheezing (3) Acute bronchitis, bacterial (4) Former smoker (5) Weight loss (6) Depressed affect (7) Falls frequently (8) Dyspnea (9) Hyperlipidemia (10) CAD in [place] artery GAMALIEL MACIEL DO Oct 01, 2019 13:04 POS
[2019-10-01] MEDS: PANTOPRAZOLE 40 MG (PROTONIX) TAB PO SCH (14:18)
[2019-10-01] MEDS: ENOXAPARIN 40 MG/0.4 ML (LOVENOX) SYR SC SCH (14:18)
--- NOTE | 2019-10-01 14:57 | Therapy Group Daily Note ---
Therapy Daily Group Note Patient Education Topic Other List Below (handwashing, ARU expectations/description) Exercises LE Seated Exercise, UE Exercise Session Ratio (pt:therapist): 4:1 Goal of Session: Education on ARU Expectations, UE/LE Strengthing Goal Met for this Session: Yes Pt Benefit of Group: Contributions to Others, Increased Functional Strength, Improved Cognition, Recognition of Peers, Socialization Other/Notes Pt ambulation using FWW to OT/PT group. Group consisted of introductions (name, place living, favorite [place] candy), socialization, UE/LE seated exercise activity, memory activity, educational topics over handwashing and ARU description/expectations. Pt introduced self appropriately and actively listened to peers. Pt acknowledged understanding of educational topics by verbalizing own opinions and beginning discussions during group over topics. Pt then was able to grasp and hold onto gomez bag to throw to designated area with 50% or more accuracy. After therapy, pt lying in bed with call light/phone in reach. All needs met in room. Start Time: 13:00 Stop Time: 14:15 Total Billed Treatment Time: 75 Total Billed Treatment 1-GRP CLAUDIA UMANZOR Oct 01, 2019 14:57 POS
--- NOTE | 2019-10-01 15:59 | NUR ---
SS Met with patient to complete initial assessment. Patient was admitted to the ARU, 09/29/19 with the primary diagnosis of Debility; Generalized Weakness. Prior to hospitalization the patient was living with his grandson in [place], [place]. He was reportedly independent with ADLs and functionally mobile with a rollator. Patient states he does not have any additional equipment; however, he states he does have grab bars in the shower. Patient does confirm he has several steps at both entrances of [place], so it will be imperative that he safely navigate stairs, prior to dismissal. Patient identifies his daughter, Savannah Phan (POA) as his primary contact. Savannah can be reached at . Patient confirms his PCP is Dr. Parveen Watson. Patient identified his primary insurance provider as [facility], with supplemental coverage provided by [facility]. The purpose of the Weekly Team Conference was discussed; patient with no concerns. SS will continue to follow as it relates to discharge planning.
[2019-10-01 16:17] VITALS: BP 120/68
[2019-10-01] MEDS: SUCRALFATE 1 GM (CARAFATE) TAB PO SCH ×2 (17:03→20:48)
--- NOTE | 2019-10-01 19:05 | NUR ---
bedside report received from JOHNY PERAZA, assume care of pt
--- NOTE | 2019-10-01 19:56 | NUR ---
c/o heartburn, antacid given
[2019-10-01] MEDS: LUMIGAN 0.01% OU SCH (20:48)
--- NOTE | 2019-10-01 20:49 | NUR ---
pt refused miralax but took Senokot, states heartburn better
[2019-10-02] MEDS: RT-ALBUTEROL/IPRATROPIUM 3 ML (DUONEB) VIAL INH SCH ×6 (00:37→23:40)
[2019-10-02 05:30] VITALS: BP 133/71
[2019-10-02] MEDS: predniSONE 20 MG TAB PO SCH (06:42)
[2019-10-02] MEDS: SUCRALFATE 1 GM (CARAFATE) TAB PO SCH ×4 (06:42→21:32)
[2019-10-02] MEDS: CATHETER FLUSH 10 ML SYR IV SCH ×3 (06:43→22:43)
--- NOTE | 2019-10-02 07:11 | NUR ---
bedside report given to BERNARD PERAZA
[2019-10-02] MEDS: RT-ADVAIR HFA 115/21 MCG PER PUFF IH SCH ×2 (09:02→19:54)
[2019-10-02] MEDS: SENNA W/DOCUSATE (SENOKOT S) TABLET PO SCH ×2 (09:48→21:32)
[2019-10-02] MEDS: PANTOPRAZOLE 40 MG (PROTONIX) TAB PO SCH (09:48)
[2019-10-02] MEDS: POLYETHYLENE GLYCOL 17 GM (MIRALAX) PACK PO SCH ×2 (09:49→21:33)
[2019-10-02] MEDS: cefTRIAXone FOR IV USE 1,000 MG in WATER (STERILE) FOR INJECTION 10 ML IV SCH (09:49)
--- NOTE | 2019-10-02 10:30 | Physical Therapy Daily Note ---
PT Daily Note-Current Subjective Pt agreeable to PT session. States his pelvic pain comes and goes. States pain is when getting in and out of bed Pain Numeric Pain Scale: 0-No Pain Appearance Pt in bed awake and alert upon arrival with bed alarm activated. At end of session, pt sitting up in recliner with LE's elevated, call light, phone and bedside table within reach Mental Status Patient Orientation: Person, Place, Time, Eyes Open, Situation Transfers SCALE: Activities may be completed with or without assistive devices. 4-Ympfnqexvl-anrskgh completes the activity by him/herself with no assistance from a helper. 5-Set-up or Clean-up Assistance-helper sets up or cleans up; patient completes activity. [place] assists only prior to or following the activity. 4-Supervision or Touching Assistance-helper provides verbal cues and/or touching/steadying and/or contact guard assistance as patient completes activity. Assistance may be provided throughout the activity or intermittently. 3-Partial/Moderate Assistance-helper does LESS THAN HALF the effort. [place] lifts, holds or supports trunk or limbs, but provides less than half the effort. 2-Substantial/Maximal Assistance-helper does MORE THAN HALF the effort. [place] lifts or holds trunk or limbs and provides more than half the effort. 1-Dcajjcroy-fanwai does ALL the effort. Patient does none of the effort to complete the activity. Or, the assistance of 2 or more helpers is required for the patient to complete the activity. If activity was not attempted, code reason: 7-Patient Refused. 9-Not Applicable-not attempted and the patient did not perform the activity before the current illness, exacerbation or injury. 10-Not Attempted due to Environmental Limitations-(lack of equipment, weather restraints, etc.). 88-Not Attempted due to Medical Conditions or Safety Concerns. Lying to Sitting/Side of Bed(Q: 4 Sit to Stand (QC): 3 (sit to stand CGA verb inst, stand to sit x1 eposode requiring physical A due to LOB balance, all other stand to sit transfers CGA and verb inst for technique and safety) Pt requiring skilled inst for safety during sit to and from stand transfers, LOB x1 falling back toward bed requiring physical assist to control Gait Training Does the Patient Walk?: Yes Walk 10 feet (QC): 4 Walk 50 ft with 2 Turns(QC): 4 Walking 10ft/uneven surface-QC: 4 (x2 reps) Gait Persons Needed: 1 Gait Assistive Device: FWW unsteady with decreased step length and height, no LOB Stair Training Stair Training: Handrails/: uses walker #of Steps: 1 (x2) 1 Step (curb) (QC): 4 Exercises NuStep Minutes: 10 NuStep Workload: 8 (seat 10, arms 10) Treatments education, safety, bed mobilty, transfers, gait, activity tolerance, functional mobility, strength, balance Assessment decreased safety awareness, retro LOB x1 requiring physical Assist to recover PT Short Term Goals Short Term Goals Time Frame: Oct 06, 2019 Roll Left & Right: 6 Sit to lyin Lying to sitting on side of be: 5 Sit to stand: 4 (SBA) Chair/tum-yy-jfrbx transfer: 4 (SBA) Toilet transfer: 4 (SBA) Car transfer: 4 (SBA) Walk 10 feet: 4 (SBA) Walk 50 feet with two turns: 4 (SBA) Walk 150 feet: 4 (SBA) 1 step (curb): 4 (CGA) PT [facility] Goals Cold Working Inspector Goals PT Cold Working Inspector Goals Time Frame: Oct 20, 2019 Roll Left & Right (QC): 6 Sit to Lying (QC): 6 Lying-Sitting on Side/Bed(QC): 6 Sit to Stand (QC): 6 Chair/Jxz-zo-Ruydh Xfer(QC): 6 Toilet Transfer (QC): 6 Car Transfer (QC): 6 Does the Patient Walk: Yes Walk 10 feet (QC): 6 Walk 50ft with 2 Turns (QC): 6 Walk 150 ft (QC): 6 Walking 10ft on Uneven Surface: 6 1 Step (curb) (QC): 6 4 Steps (QC): 6 12 Steps (QC): 6 Picking up an Object (QC): 6 Does the Pt use WC or Scooter?: No Type: N/A Type: N/A PT Plan Treatment/Plan Treatment Plan: Continue Plan of Care Treatment Plan: Bed Mobility, Concurrent Therapy, Education, Functional Activity Roxie, Functional Strength, Group Therapy, Gait, Safety, Therapeutic Exercise, Transfers Treatment Duration: Oct 20, 2019 Frequency: At least 5 of 7 days/Wk (IRF) Estimated Hrs Per Day: 1.5 hours per day Patient and/or Family Agrees t: Yes Safety Risks/Education Patient Education: Gait Training, Transfer Techniques, Steps, Safety Issues Teaching Recipient: Patient Teaching Methods: Demonstration, Discussion Response to Teaching: Verbalize Understanding, Return Demonstration, Reinf orcement Needed Time/GCodes Time In: 1017 Time Out: 1041 Total Billed Treatment Time: 24 Total Billed Treatment 1 visit, EX x10 min, GT x14 in [facility] Oct 02, 2019 10:30 POS
[2019-10-02] MEDS: ENOXAPARIN 40 MG/0.4 ML (LOVENOX) SYR SC SCH (11:16)
--- NOTE | 2019-10-02 12:16 | PM&R Progress Note ---
Subjective HPI/CC On Admission Date Seen by Provider: Oct 02, 2019 Time Seen by Provider: 10:00 Subjective/Events-last exam Confusion does occur Definitely has sundowning Slums score low score is confirmed Denies any pain Reports he short of breath but his oxygen level is fine he does not appear to be short of breath when he exerts himself so unsure if I can follow that report reliably Will evaluate what his needs are in order to be sure he is safe to go home but he will need 24/ supervision Checked meds and labs Reviewed therapy notes Conferred with curriculum assistant principal of Systems General: Fatigue Pulmonary: Dyspnea Neurological: Confusion Objective Exam Vital Signs Vital Signs Date Time Temp Pulse Resp B/P (MAP) Pulse Ox O2 Delivery O2 Flow Rate FiO2 10/03/19 18:16 96 Room Air 10/03/19 17:04 37.0 66 18 144/69 (94) Capillary Refill : Less Than 3 Seconds General Appearance: No Apparent Distress, WD/WN, Chronically ill, Thin HEENT: PERRL/EOMI, Normal ENT Inspection, Pharynx Normal Neck: Full Range of Motion, Normal Inspection, Non Tender, Supple, Carotid Bruit Respiratory: Chest Non Tender, Lungs Clear, Normal Breath Sounds, No Accessory Muscle Use, No Respiratory Distress Cardiovascular: Regular Rate, Rhythm, No Edema, No Gallop, No JVD, No Murmur, Normal Peripheral Pulses Gastrointestinal: Normal Bowel Sounds, No Organomegaly, No Pulsatile Mass, Non Tender, Soft Back: Normal Inspection, No CVA Tenderness, No Vertebral Tenderness Extremity: Normal Capillary Refill, Normal Inspection, Normal Range of Motion, Non Tender, No Calf Tenderness, No Pedal Edema Neurologic/Psychiatric: Alert, Oriented x3, No Motor/Sensory Deficits (generalized weakness lega more than arms but 4/5), Normal Mood/Affect, Disoriented, Other (balance dysfunction) Skin: Normal Color, Warm/Dry Lymphatic: No Adenopathy Results/Procedures Lab Patient resulted labs reviewed. FIM Transfers Therapy Code Descriptions/Definitions Functional [place] Measure: 0=Not Assessed/NA 4=Minimal Assistance 1=Total Assistance 5=Supervision or Setup 2=Maximal Assistance 6=Modified [place] 3=Moderate Assistance 7=Complete IndependenceSCALE: Activities may be completed with or without assistive devices. 0-Lcfarfykcq-nujaaph completes the activity by him/herself with no assistance from a helper. 5-Set-up or Clean-up Assistance-helper sets up or cleans up; patient completes activity. [place] assists only prior to or following the activity. 4-Supervision or Touching Assistance-helper provides verbal cues and/or touching/steadying and/or contact guard assistance as patient completes activity. Assistance may be provided throughout the activity or intermittently. 3-Partial/Moderate Assistance-helper does LESS THAN HALF the effort. [place] lifts, holds or supports trunk or limbs, but provides less than half the effort. 2-Substantial/Maximal Assistance-helper does MORE THAN HALF the effort. [place] lifts or holds trunk or limbs and provides more than half the effort. 3-Bxdpfufqo-lzsfiy does ALL the effort. Patient does none of the effort to complete the activity. Or, the assistance of 2 or more helpers is required for the patient to complete the activity. If activity was not attempted, code reason: 7-Patient Refused. 9-Not Applicable-not attempted and the patient did not perform the activity before the current illness, exacerbation or injury. 10-Not Attempted due to Environmental Limitations-(lack of equipment, weather restraints, etc.). 88-Not Attempted due to Medical Conditions or Safety Concerns. Roll Left to Right (QC): 4 (SBA) Sit to Lying (QC): 4 (SBA) Sit to Stand (QC): 3 (sit to stand CGA verb inst, stand to sit x1 eposode requiring physical A due to LOB balance, all other stand to sit transfers CGA and verb inst for technique and safety) Chair/Sul-fi-Dcnpx Xfer(QC): 4 (SBA) Car Transfer (QC): 4 (CGA) Gait Training Does the Patient Walk?: Yes Distance: 400',300' Walk 10 feet (QC): 4 Walk 50 ft with 2 Turns(QC): 4 Walk 150 ft (QC): 4 (SBA) Walking 10ft/uneven surface-QC: 4 (x2 reps) Gait Persons Needed: 1 Gait Assistive Device: FWW Wheelchair Training Does the Pt Use a Wheelchair?: No Wheel 50 ft with 2 turns (QC): 88 Wheel 150 ft (QC): 88 Type of Wheelchair: Manual Stair Training Stair Training: Handrails/: uses walker #of Steps: 1 (x2) 1 Step (curb) (QC): 4 4 Steps (QC): 88 12 Steps (QC): 88 Balance Picking up an Object (QC): 3 (Micaela) ADL-Treatment Eating (QC): 5 (Lunch arrives. Pt. does not have the strength to cut up chicken or sweet potato. OT did this for him. Pt. able to eat after this.) Oral Hygiene (QC): 5 (Pt completes oral hygiene seated at the sink. Pt required set up to complete.) Bathing Location: L Arm, R Arm, L Upper Leg, R Upper Leg, L Lower Leg (including foot), R Lower Leg (including foot), Chest, Abdomen, Buttocks, Perineal Area Shower/Bathe Self (QC): 4 (Using hand held shower and bench, pt completed shower with set up but required cues to cleanse other parts of the body. ) Upper Body Dressing (QC): 5 (Pt completed UB dressing seated. Pt required set up only. ) Lower Body Dressing (QC): 4 (Pt completed LB dressing with SBA. Pt completed the tasks seated on a bench.) On/Off Footwear (QC): 3 Toileting Hygiene (QC): 7 (Pt declined using toilet.) Toilet Transfer (QC): 7 Assessment/Plan Assessment and Plan Assess & Plan/Chief Complaint Assessment: Severe debility PNA on CT not on CXR Weight loss Falls AECOPD Confusion with low SLUMS c/w dementia Plan: Monitor lungs ABX completed Steroids tapered Appreciate Dr Reid Memory evaluation (1) Debility (2) Wheezing (3) Acute bronchitis, bacterial (4) Former smoker (5) Weight loss (6) Depressed affect (7) Falls frequently (8) Dyspnea (9) Hyperlipidemia (10) CAD in [place] artery GAMALIEL MACIEL DO Oct 02, 2019 12:15 POS
[2019-10-02 16:29] VITALS: BP 124/69
[2019-10-02] MEDS: CALCIUM CARBONATE 500 MG (TUMS) TAB.CHEW PO PRN (18:19)
--- NOTE | 2019-10-02 19:08 | NUR ---
bedside report received from LISA PERAZA, assume care of pt
--- NOTE | 2019-10-02 21:32 | NUR ---
pt refused miralax & Senokot, pt confused [place] tried to orient to place date & time pt can retain information for short periods, bed/ chair alarms on & tele sitter for pt
[2019-10-02] MEDS: LUMIGAN 0.01% OU SCH (21:33)
[2019-10-03] MEDS: RT-ALBUTEROL/IPRATROPIUM 3 ML (DUONEB) VIAL INH SCH ×5 (03:24→22:48)
[2019-10-03 05:51] VITALS: BP 127/68
[2019-10-03] MEDS: SUCRALFATE 1 GM (CARAFATE) TAB PO SCH ×4 (06:21→20:39)
[2019-10-03] MEDS: predniSONE 20 MG TAB PO SCH (06:21)
[2019-10-03] MEDS: CATHETER FLUSH 10 ML SYR IV SCH ×2 (06:22→08:57)
--- NOTE | 2019-10-03 07:11 | NUR ---
bedside report given to CHERIE PERAZA
[2019-10-03] MEDS: POLYETHYLENE GLYCOL 17 GM (MIRALAX) PACK PO SCH ×2 (08:12→20:43)
[2019-10-03] MEDS: cefTRIAXone FOR IV USE 1,000 MG in WATER (STERILE) FOR INJECTION 10 ML IV SCH (08:12)
[2019-10-03] MEDS: PANTOPRAZOLE 40 MG (PROTONIX) TAB PO SCH (08:12)
[2019-10-03] MEDS: SENNA W/DOCUSATE (SENOKOT S) TABLET PO SCH ×2 (08:16→20:39)
[2019-10-03] MEDS: RT-ADVAIR HFA 115/21 MCG PER PUFF IH SCH ×2 (11:07→18:16)
[2019-10-03] MEDS: ENOXAPARIN 40 MG/0.4 ML (LOVENOX) SYR SC SCH (12:16)
--- NOTE | 2019-10-03 12:20 | PM&R Progress Note ---
Subjective HPI/CC On Admission Date Seen by Provider: Oct 03, 2019 Time Seen by Provider: 10:30 Subjective/Events-last exam Completed abx Dyspnea is reported unsure if that is reliable considering his dementia No pain is reported Fall risk continues Will evaluate what his needs are in order to be sure he is safe to go home but he will need 24/ supervision Checked meds and labs Reviewed therapy notes Conferred with laundry operator wash room of Systems General: Fatigue Pulmonary: Dyspnea Objective Exam Vital Signs Vital Signs Date Time Temp Pulse Resp B/P (MAP) Pulse Ox O2 Delivery O2 Flow Rate FiO2 10/03/19 18:16 96 Room Air 10/03/19 17:04 37.0 66 18 144/69 (94) Capillary Refill : Less Than 3 Seconds General Appearance: No Apparent Distress (He is currently taking an albuterol breathing treatment) HEENT: PERRL/EOMI, Normal ENT Inspection, Pharynx Normal Neck: Full Range of Motion, Normal Inspection, Non Tender, Supple, Carotid Bruit Respiratory: Chest Non Tender, No Accessory Muscle Use, No Respiratory Distress, Crackles, Decreased Breath Sounds, Other (improved today) Cardiovascular: Regular Rate, Rhythm, No Edema, No Gallop, No JVD, No Murmur, Normal Peripheral Pulses Gastrointestinal: Normal Bowel Sounds, No Organomegaly, No Pulsatile Mass, Non Tender, Soft Back: Normal Inspection, No CVA Tenderness, No Vertebral Tenderness Extremity: Normal Capillary Refill, Normal Inspection, Normal Range of Motion, Non Tender, No Calf Tenderness, No Pedal Edema Neurologic/Psychiatric: Alert, Oriented x3, No Motor/Sensory Deficits (generalized weakness lega more than arms but 4/5), Normal Mood/Affect, Other (balance dysfunction) Skin: Normal Color, Warm/Dry Lymphatic: No Adenopathy Results/Procedures Lab Patient resulted labs reviewed. FIM Transfers Therapy Code Descriptions/Definitions Functional [place] Measure: 0=Not Assessed/NA 4=Minimal Assistance 1=Total Assistance 5=Supervision or Setup 2=Maximal Assistance 6=Modified [place] 3=Moderate Assistance 7=Complete IndependenceSCALE: Activities may be completed with or without assistive devices. 9-Ehzomfkpsa-pwmjoek completes the activity by him/herself with no assistance from a helper. 5-Set-up or Clean-up Assistance-helper sets up or cleans up; patient completes activity. [place] assists only prior to or following the activity. 4-Supervision or Touching Assistance-helper provides verbal cues and/or touching/steadying and/or contact guard assistance as patient completes acti vity. Assistance may be provided throughout the activity or intermittently. 3-Partial/Moderate Assistance-helper does LESS THAN HALF the effort. [place] lifts, holds or supports trunk or limbs, but provides less than half the effort. 2-Substantial/Maximal Assistance-helper does MORE THAN HALF the effort. [place] lifts or holds trunk or limbs and provides more than half the effort. 7-Vgvwezdhz-risycb does ALL the effort. Patient does none of the effort to complete the activity. Or, the assistance of 2 or more helpers is required for the patient to complete the activity. If activity was not attempted, code reason: 7-Patient Refused. 9-Not Applicable-not attempted and the patient did not perform the activity before the current illness, exacerbation or injury. 10-Not Attempted due to Environmental Limitations-(lack of equipment, weather restraints, etc.). 88-Not Attempted due to Medical Conditions or Safety Concerns. Roll Left to Right (QC): 4 (SBA) Sit to Lying (QC): 4 (SBA) Sit to Stand (QC): 3 (sit to stand CGA verb inst, stand to sit x1 eposode requiring physical A due to LOB balance, all other stand to sit transfers CGA and verb inst for technique and safety) Chair/Pnh-sf-Dsgvy Xfer(QC): 4 (SBA) Car Transfer (QC): 4 (CGA) Gait Training Does the Patient Walk?: Yes Distance: 400',300' Walk 10 feet (QC): 4 Walk 50 ft with 2 Turns(QC): 4 Walk 150 ft (QC): 4 (SBA) Walking 10ft/uneven surface-QC: 4 (x2 reps) Gait Persons Needed: 1 Gait Assistive Device: FWW Wheelchair Training Does the Pt Use a Wheelchair?: No Wheel 50 ft with 2 turns (QC): 88 Wheel 150 ft (QC): 88 Type of Wheelchair: Manual Stair Training Stair Training: Handrails/: uses walker #of Steps: 1 (x2) 1 Step (curb) (QC): 4 4 Steps (QC): 88 12 Steps (QC): 88 Balance Picking up an Object (QC): 3 (Micaela) ADL-Treatment Eating (QC): 5 (Lunch arrives. Pt. does not have the strength to cut up chicken or sweet potato. OT did this for him. Pt. able to eat after this.) Oral Hygiene (QC): 5 (Pt completes oral hygiene seated at the sink. Pt required set up to complete.) Bathing Location: L Arm, R Arm, L Upper Leg, R Upper Leg, L Lower Leg (including foot), R Lower Leg (including foot), Chest, Abdomen, Buttocks, Perineal Area Shower/Bathe Self (QC): 4 (Using hand held shower and bench, pt completed shower with set up but required cues to cleanse other parts of the body. ) Upper Body Dressing (QC): 5 (Pt completed UB dressing seated. Pt required set up only. ) Lower Body Dressing (QC): 4 (Pt completed LB dressing with SBA. Pt completed the tasks seated on a bench.) On/Off Footwear (QC): 3 Toileting Hygiene (QC): 7 (Pt declined using toilet.) Toilet Transfer (QC): 7 Assessment/Plan Assessment and Plan Assess & Plan/Chief Complaint Assessment: Severe debility PNA on CT not on CXR Weight loss Falls AECOPD Confusion Plan: Monitor lungs ABX Steroids Appreciate DR Reid (1) Debility (2) Wheezing (3) Acute bronchitis, bacterial (4) Former smoker (5) Weight loss (6) Depressed affect (7) Falls frequently (8) Dyspnea (9) Hyperlipidemia (10) CAD in [place] artery GAMALIEL MACIEL DO Oct 03, 2019 12:20 POS
[2019-10-03 17:04] VITALS: BP 144/69
--- NOTE | 2019-10-03 19:00 | NUR ---
bedside report received from CHERIE PERAZA, assume care of pt
--- NOTE | 2019-10-03 20:39 | NUR ---
pt refused miralax but took Senokot
[2019-10-03] MEDS: LUMIGAN 0.01% OU SCH (20:41)
[2019-10-04] MEDS: RT-ALBUTEROL/IPRATROPIUM 3 ML (DUONEB) VIAL INH SCH ×6 (03:16→22:46)
[2019-10-04 06:08] VITALS: BP 118/61
[2019-10-04] MEDS: SUCRALFATE 1 GM (CARAFATE) TAB PO SCH ×4 (06:25→20:04)
[2019-10-04] MEDS: predniSONE 20 MG TAB PO SCH (06:25)
[2019-10-04 06:48] LABS: BASOPHILS % (AUTO) 0 % (0-10); EOSINOPHILS % (AUTO) 0 % (0-10); HEMATOCRIT 38 % (40-54); LYMPHOCYTES # (AUTO) 1.4 X 10^3 (1.0-4.0); LYMPHOCYTES % (AUTO) 20 % (12-44); MEAN CORPUSCULAR HEMOGLOBIN 30 PG (25-34); MEAN CORPUSCULAR HGB CONC 34 G/DL (32-36); MEAN CORPUSCULAR VOLUME 87 FL (80-99); MEAN PLATELET VOLUME 10.7 FL (7.4-10.4); MONOCYTES # (AUTO) 0.5 X 10^3 (0.0-1.0); MONOCYTES % (AUTO) 7 % (0-12); NEUTROPHILS # (AUTO) 4.9 X 10^3 (1.8-7.8); NEUTROPHILS % (AUTO) 72 % (42-75); PLATELET COUNT 120 10^3/uL (130-400); RED CELL DISTRIBUTION WIDTH 14.1 % (10.0-14.5); WHITE BLOOD COUNT 6.8 10^3/uL (4.3-11.0)
[2019-10-04 07:14] LABS: ALANINE AMINOTRANSFERASE 67 U/L (0-55); ALBUMIN 3.8 GM/DL (3.2-4.5); ALKALINE PHOSPHATASE 52 U/L (40-136); BILIRUBIN,TOTAL 0.3 MG/DL (0.1-1.0); BUN/CREATININE RATIO 20; CALCIUM 8.4 MG/DL (8.5-10.1); CARBON DIOXIDE 24 MMOL/L (21-32); CHLORIDE 102 MMOL/L (98-107); CREATININE SERUM 0.97 MG/DL (0.60-1.30); GFR ESTIMATED > 60; GLUCOSE 85 MG/DL (70-105); POTASSIUM 3.8 MMOL/L (3.6-5.0); SODIUM 136 MMOL/L (135-145); TOTAL PROTEIN 5.9 GM/DL (6.4-8.2)
--- NOTE | 2019-10-04 07:15 | NUR ---
bedside report given to JOHNY PERAZA
[2019-10-04] MEDS: RT-ADVAIR HFA 115/21 MCG PER PUFF IH SCH ×2 (07:48→19:12)
[2019-10-04] MEDS: PANTOPRAZOLE 40 MG (PROTONIX) TAB PO SCH (08:22)
[2019-10-04] MEDS: POLYETHYLENE GLYCOL 17 GM (MIRALAX) PACK PO SCH ×2 (08:23→20:08)
[2019-10-04] MEDS: SENNA W/DOCUSATE (SENOKOT S) TABLET PO SCH ×2 (08:23→20:04)
--- NOTE | 2019-10-04 09:09 | Speech Therapy Daily Note ---
Speech Daily Progress Note Subjective Date Seen by Provider: Oct 04, 2019 Time Seen by Provider: 00:30 Patient was sitting up in his bed finishing his breakfast when I entered his room. Objective Patient completed a series of questions for memory of his daily needs/schedule/visitors over the weekend with 80% given moderate cues.s Assessment Assessment Current Status: Fair Progress Treatment Plan Continue Plan of Care Speech Short Term Goals Short Term Goals Short Term Goals 1) Patient will complete memory tasks related to his daily needs at 80% or greater with minimal cues. 2) Patient will complete problem solving tasks related to his daily needs at 80% or greater with minimal cues. 3) Patient will complete safety awareness tasks related to his daily needs at 80% or greater with minimal cues. Speech Bail Attacher Goals Bail Attacher Goals Patient will improve cognitive-communication necessary for safety and daily living tasks with minimal assist. Speech-Plan Patient/Family Goals Patient/Family Goals: Patient plans on returning to his apartment where he lives with his daughter and son-in-law. Treatment Plan Speech Therapy Treatment Plan: Continue Plan of Care Patient is progressing toward ST goals. Treatment Duration: Oct 08, 2019 Frequency: 5 times per week Estimated Hrs Per Day: .5 hour per day Rehab Potential: Fair Barriers to Learning: Patient has moderate dementia level of function. Pt/Family Agrees to Plan: Yes Safety Risks/Education Teaching Recipient: Patient Teaching Methods: Demonstration, Discussion Response to Teaching: Verbalize Understanding, Return Demonstration Education Topics Provided: Continued safety within his room and utilization of call light as needed. Time Speech Therapy Time In: 08:15 Speech Therapy Time Out: 08:45 Total Billed Time: 30 Billed Treatment Time 1, MIRANDA Jackson Oct 04, 2019 09:09 POS
--- NOTE | 2019-10-04 09:51 | PM&R Progress Note ---
Subjective HPI/CC On Admission Date Seen by Provider: Oct 04, 2019 Time Seen by Provider: 08:30 Subjective/Events-last exam GERD treatment with Carafate and proton pump inhibitor has seemed to be helpful Hiccups at time IV was discontinued after completing antibiotics Bowel movement was yesterday Feels like he is progressing nicely Will evaluate what his needs are in order to be sure he is safe to go home but he will need 24/7 supervision Checked meds and labs Reviewed therapy notes Conferred with resource recovery engineer of Systems General: Fatigue Pulmonary: Dyspnea Neurological: Confusion Objective Exam Vital Signs Vital Signs Date Time Temp Pulse Resp B/P (MAP) Pulse Ox O2 Delivery O2 Flow Rate FiO2 10/04/19 20:08 Room Air 10/04/19 19:11 97 10/04/19 16:00 37.0 73 16 147/78 (101) Capillary Refill : Less Than 3 Seconds General Appearance: No Apparent Distress (He is currently taking an albuterol breathing treatment) HEENT: PERRL/EOMI, Normal ENT Inspection, Pharynx Normal Neck: Full Range of Motion, Normal Inspection, Non Tender, Supple, Carotid Bruit Respiratory: Chest Non Tender, Lungs Clear, Normal Breath Sounds, No Accessory Muscle Use, No Respiratory Distress, Decreased Breath Sounds Cardiovascular: Regular Rate, Rhythm, No Edema, No Gallop, No JVD, No Murmur, Normal Peripheral Pulses Gastrointestinal: Normal Bowel Sounds, No Organomegaly, No Pulsatile Mass, Non Tender, Soft Back: Normal Inspection, No CVA Tenderness, No Vertebral Tenderness Extremity: Normal Capillary Refill, Normal Inspection, Normal Range of Motion, Non Tender, No Calf Tenderness, No Pedal Edema Neurologic/Psychiatric: Alert, Oriented x3, No Motor/Sensory Deficits (generalized weakness lega more than arms but 4/5), Normal Mood/Affect, Other (balance dysfunction) Skin: Normal Color, Warm/Dry Lymphatic: No Adenopathy Results/Procedures Lab Laboratory Tests 10/04/19 06:15 Patient resulted labs reviewed. FIM Transfers Therapy Code Descriptions/Definitions Functional Telephone Measure: 0=Not Assessed/NA 4=Minimal Assistance 1=Total Assistance 5=Supervision or Setup 2=Maximal Assistance 6=Modified Telephone 3=Moderate Assistance 7=Complete IndependenceSCALE: Activities may be completed with or without assistive devices. 9-Ztfoiukeqy-wgofewo completes the activity by him/herself with no assistance from a helper. 5-Set-up or Clean-up Assistance-helper sets up or cleans up; patient completes activity. [place] assists only prior to or following the activity. 4-Supervision or Touching Assistance-helper provides verbal cues and/or touching/steadying and/or contact guard assistance as patient completes activity. Assistance may be provided throughout the activity or intermittently. 3-Partial/Moderate Assistance-helper does LESS THAN HALF the effort. [place] lifts, holds or supports trunk or limbs, but provides less than half the effort. 2-Substantial/Maximal Assistance-helper does MORE THAN HALF the effort. [place] lifts or holds trunk or limbs and provides more than half the effort. 2-Izrgwacdz-vfguld does ALL the effort. Patient does none of the effort to complete the activity. Or, the assistance of 2 or more helpers is required for the patient to complete the activity. If activity was not attempted, code reason: 7-Patient Refused. 9-Not Applicable-not attempted and the patient did not perform the activity before the current illness, exacerbation or injury. 10-Not Attempted due to Environmental Limitations-(lack of equipment, weather restraints, etc.). 88-Not Attempted due to Medical Conditions or Safety Concerns. Roll Left to Right (QC): 4 (SBA) Sit to Lying (QC): 4 (SBA) Sit to Stand (QC): 3 (sit to stand CGA verb inst, stand to sit x1 eposode requiring physical A due to LOB balance, all other stand to sit transfers CGA and verb inst for technique and safety) Chair/Krt-hr-Pqfko Xfer(QC): 4 (SBA) Car Transfer (QC): 4 (CGA) Gait Training Does the Patient Walk?: Yes Distance: 400',300' Walk 10 feet (QC): 4 Walk 50 ft with 2 Turns(QC): 4 Walk 150 ft (QC): 4 (SBA) Walking 10ft/uneven surface-QC: 4 (x2 reps) Gait Persons Needed: 1 Gait Assistive Device: FWW Wheelchair Training Does the Pt Use a Wheelchair?: No Wheel 50 ft with 2 turns (QC): 88 Wheel 150 ft (QC): 88 Type of Wheelchair: Manual Stair Training Stair Training: Handrails/: uses walker #of Steps: 1 (x2) 1 Step (curb) (QC): 4 4 Steps (QC): 88 12 Steps (QC): 88 Balance Picking up an Object (QC): 3 (Micaela) ADL-Treatment Eating (QC): 5 (Lunch arrives. Pt. does not have the strength to cut up chicken or sweet potato. OT did this for him. Pt. able to eat after this.) Oral Hygiene (QC): 5 (Pt completes oral hygiene seated at the sink. Pt required set up to complete.) Bathing Location: L Arm, R Arm, L Upper Leg, R Upper Leg, L Lower Leg (including foot), R Lower Leg (including foot), Chest, Abdomen, Buttocks, Perineal Area Shower/Bathe Self (QC): 4 (Using hand held shower and bench, pt completed shower with set up but required cues to cleanse other parts of the body. ) Upper Body Dressing (QC): 5 (Pt completed UB dressing seated. Pt required set up only. ) Lower Body Dressing (QC): 4 (Pt completed LB dressing with SBA. Pt completed the tasks seated on a bench.) On/Off Footwear (QC): 3 Toileting Hygiene (QC): 7 (Pt declined using toilet.) Toilet Transfer (QC): 7 Assessment/Plan Assessment and Plan Assess & Plan/Chief Complaint Assessment: Severe debility PNA on CT not on CXR Weight loss Falls AECOPD Confusion with low SLUMS c/w dementia Plan: Monitor lungs ABX completed Steroids tapered Appreciate Dr Reid Memory evaluation Stair training (1) Debility (2) Wheezing (3) Acute bronchitis, bacterial (4) Former smoker (5) Weight loss (6) Depressed affect (7) Falls frequently (8) Dyspnea (9) Hyperlipidemia (10) CAD in [place] artery GAMALIEL MACIEL DO Oct 04, 2019 09:51 POS
--- NOTE | 2019-10-04 11:04 | Physical Therapy Daily Note ---
PT Daily Note-Current Subjective Pt. agrees to Rx. States he doesnt use an AD in his home, leaves a 4WW "in the restaurant" to use when he is out and down the stairs Pain Location: No Pain Reported Mental Status Patient Orientation: Person, Place Transfers SCALE: Activities may be completed with or without assistive devices. 5-Nivqgbqeqp-hyavmwq completes the activity by him/herself with no assistance from a helper. 5-Set-up or Clean-up Assistance-helper sets up or cleans up; patient completes activity. [place] assists only prior to or following the activity. 4-Supervision or Touching Assistance-helper provides verbal cues and/or touching/steadying and/or contact guard assistance as patient completes activity. Assistance may be provided throughout the activity or intermittently. 3-Partial/Moderate Assistance-helper does LESS THAN HALF the effort. [place] lifts, holds or supports trunk or limbs, but provides less than half the effort. 2-Substantial/Maximal Assistance-helper does MORE THAN HALF the effort. [place] lifts or holds trunk or limbs and provides more than half the effort. 6-Fmhtwylhj-fujtud does ALL the effort. Patient does none of the effort to complete the activity. Or, the assistance of 2 or more helpers is required for the patient to complete the activity. If activity was not attempted, code reason: 7-Patient Refused. 9-Not Applicable-not attempted and the patient did not perform the activity before the current illness, exacerbation or injury. 10-Not Attempted due to Environmental Limitations-(lack of equipment, weather restraints, etc.). 88-Not Attempted due to Medical Conditions or Safety Concerns. Roll Left & Right (QC): 6 Sit to Lying (QC): 6 Lying to Sitting/Side of Bed(Q: 6 Sit to Stand (QC): 6 Gait Training Does the Patient Walk?: Yes Walk 10 feet (QC): 5 Walk 50 ft with 2 Turns(QC): 5 Walk 150 ft (QC): 5 Gait Persons Needed: 1 Gait Assistive Device: Walker 4 Wheeled trialed 4WW with pt. demonstrating he can engage the brakes when needed and turn etc. Stair Training Stair Training: Handrails/: 2 handrails #of Steps: 4 4 Steps (QC): 4 Stairs: Pattern: Reciprocal Exercises Seated Therapy Exercises: Ankle pumps, Sit to stand, Long arc quads, Hip flexion, Hip abd/add Seated Reps: 15 Standing: Heel/toe raises, Marching Standing Reps: 10 NuStep Minutes: 10 NuStep Workload: 4 Assessment Current Status: Good Progress education and reminders for safe gait closer to device and good handling for turns and the challenge of moving side ways with walker PT Short Term Goals Short Term Goals Time Frame: Oct 06, 2019 Roll Left & Right: 6 Sit to lyin Lying to sitting on side of be: 5 Sit to stand: 4 (SBA) Chair/ibi-hz-wteay transfer: 4 (SBA) Toilet transfer: 4 (SBA) Car transfer: 4 (SBA) Walk 10 feet: 4 (SBA) Walk 50 feet with two turns: 4 (SBA) Walk 150 feet: 4 (SBA) 1 step (curb): 4 (CGA) PT [place]ug [place] Operator Helper Goals [place] Operator Helper Goals PT [place] Operator Helper Goals Time Frame: Oct 20, 2019 Roll Left & Right (QC): 6 Sit to Lying (QC): 6 Lying-Sitting on Side/Bed(QC): 6 Sit to Stand (QC): 6 Chair/Ytu-qi-Nxwfk Xfer(QC): 6 Toilet Transfer (QC): 6 Car Transfer (QC): 6 Does the Patient Walk: Yes Walk 10 feet (QC): 6 Walk 50ft with 2 Turns (QC): 6 Walk 150 ft (QC): 6 Walking 10ft on Uneven Surface: 6 1 Step (curb) (QC): 6 4 Steps (QC): 6 12 Steps (QC): 6 Picking up an Object (QC): 6 Does the Pt use WC or Scooter?: No Type: N/A Type: N/A PT Plan Treatment/Plan Treatment Plan: Continue Plan of Care Treatment Plan: Bed Mobility, Concurrent Therapy, Education, Functional Activity Roxie, Functional Strength, Group Therapy, Gait, Safety, Therapeutic Exercise, Transfers Treatment Duration: Oct 20, 2019 Frequency: At least 5 of 7 days/Wk (IRF) Estimated Hrs Per Day: 1.5 hours per day Patient and/or Family Agrees t: Yes Safety Risks/Education Patient Education: Gait Training, Transfer Techniques, Steps, Correct Positioning, Disease Process, Safety Issues Teaching Recipient: Patient Teaching Methods: Demonstration, Discussion Response to Teaching: Verbalize Understanding, Return Demonstration, Reinforcement Needed Time/GCodes Time In: 1015 Time Out: 1100 Total Billed Treatment Time: 45 Total Billed Treatment 1, EX20m,GT10m,FA15m ARELY MANN HOTEL ENGINEER Oct 04, 2019 11:04 POS
[2019-10-04] MEDS: ENOXAPARIN 40 MG/0.4 ML (LOVENOX) SYR SC SCH (12:01)
--- NOTE | 2019-10-04 12:05 | Progress Note ---
HARMONY SUMNER,MED STUDENT 10/04/19 1205: Progress Note Patient is feeling well today. Denies having any pain or shortness of breath. He reports decreased appetite today. His indigestion has improved on protonix and carafate. PT and OT going well. Barriers to going home at this time include cognitive decline requiring memory evaluation. He will likely require 24 hr supervision at home. He is also at increased fall risk, currently able to ambulate with a walker with assistance. [place] steps at [place], so it is imperative that he can safely navigate stairs prior to discharge. NAILA MACIEL DO 10/04/192045: Supervisory-Addendum Brief Verification & Attestation Participated in pt care: history, MDM, physical Personally performed: exam, history, MDM, supervision of care Care discussed with: Medical Student Procedures: n/a Results interpretation: Verified all documentation Verification and Attestation of Medical Student E/M Service A medical student performed and documented this service in my presence. I reviewed and verified all information documented by the medical student and made modifications to such information, when appropriate. I personally performed the physical exam and medical decision making. Naila Maciel, Oct 04, 2019,20:46 HARMONY SUMNER,MED STUDENT Oct 04, 2019 12:05 NAILA GAR DO Oct 04, 2019 20:46 POS
--- NOTE | 2019-10-04 14:59 | Physical Therapy Daily Note ---
PT Daily Note-Current Subjective Pt. agrees to Rx. Pain Location: No Pain Reported Transfers SCALE: Activities may be completed with or without assistive devices. 9-Hpxdvlsysf-jjrqmfh completes the activity by him/herself with no assistance from a helper. 5-Set-up or Clean-up Assistance-helper sets up or cleans up; patient completes activity. [place] assists only prior to or following the activity. 4-Supervision or Touching Assistance-helper provides verbal cues and/or touching/steadying and/or contact guard assistance as patient completes activity. Assistance may be provided throughout the activity or intermittently. 3-Partial/Moderate Assistance-helper does LESS THAN HALF the effort. [place] lifts, holds or supports trunk or limbs, but provides less than half the effort. 2-Substantial/Maximal Assistance-helper does MORE THAN HALF the effort. [place] lifts or holds trunk or limbs and provides more than half the effort. 3-Wfxmugokb-twtmry does ALL the effort. Patient does none of the effort to complete the activity. Or, the assistance of 2 or more helpers is required for the patient to complete the activity. If activity was not attempted, code reason: 7-Patient Refused. 9-Not Applicable-not attempted and the patient did not perform the activity before the current illness, exacerbation or injury. 10-Not Attempted due to Environmental Limitations-(lack of equipment, weather restraints, etc.). 88-Not Attempted due to Medical Conditions or Safety Concerns. Sit to Stand (QC): 4 sit to stand with instructions for use of hands at arm rests required repeatedly Gait Training Does the Patient Walk?: Yes Gait Assistive Device: Walker 4 Wheeled much work on safety during gait, turning device safely and space efficiently as well as clearing R foot Stair Training Stairs: Pattern: Reciprocal up down 8 steps CGA to SBA with some wheezing and SOB noted but no LOB Exercises Supine Ex: Bridging, Ankle pumps, Quad Set, Rolling, Lower trunk rotation, Heel Slides, Scooting, Straight leg raise, Hip abd/add Supine Reps: 15 Assessment Current Status: Good Progress requires supervision and instruction throughout for safety PT Short Term Goals Short Term Goals Time Frame: Oct 06, 2019 Roll Left & Right: 6 Sit to lyin Lying to sitting on side of be: 5 Sit to stand: 4 (SBA) Chair/zha-us-zqffc transfer: 4 (SBA) Toilet transfer: 4 (SBA) Car transfer: 4 (SBA) Walk 10 feet: 4 (SBA) Walk 50 feet with two turns: 4 (SBA) Walk 150 feet: 4 (SBA) 1 step (curb): 4 (CGA) PT Half-Way Goals Guest Services Ambassador Goals PT Guest Services Ambassador Goals Time Frame: Oct 20, 2019 Roll Left & Right (QC): 6 Sit to Lying (QC): 6 Lying-Sitting on Side/Bed(QC): 6 Sit to Stand (QC): 6 Chair/Lbn-gw-Ahwxw Xfer(QC): 6 Toilet Transfer (QC): 6 Car Transfer (QC): 6 Does the Patient Walk: Yes Walk 10 feet (QC): 6 Walk 50ft with 2 Turns (QC): 6 Walk 150 ft (QC): 6 Walking 10ft on Uneven Surface: 6 1 Step (curb) (QC): 6 4 Steps (QC): 6 12 Steps (QC): 6 Picking up an Object (QC): 6 Does the Pt use WC or Scooter?: No Type: N/A Type: N/A PT Plan Treatment/Plan Treatment Plan: Continue Plan of Care Treatment Plan: Bed Mobility, Concurrent Therapy, Education, Functional Activity Roxie, Functional Strength, Group Therapy, Gait, Safety, Therapeutic Exercise, Transfers Treatment Duration: Oct 20, 2019 Frequency: At least 5 of 7 days/Wk (IRF) Estimated Hrs Per Day: 1.5 hours per day Patient and/or Family Agrees t: Yes Safety Risks/Education Patient Education: Gait Training, Transfer Techniques, Steps, Correct Positioning, Disease Process, Safety Issues Teaching Recipient: Patient Teaching Methods: Demonstration, Discussion Response to Teaching: Verbalize Understanding, Return Demonstration, Reinforcement Needed Time/GCodes Time In: 1430 Time Out: 1500 Total Billed Treatment Time: 30 Total Billed Treatment 1,GT20m,EX10m ARELY MANN SURGICAL ASSIST Oct 04, 2019 14:59 POS
--- NOTE | 2019-10-04 15:06 | Occupational Ther Daily Note ---
OT Current Status-Daily Note Subjective No pain reported. Appearance Pt. in bed when OT entered room. Agrees to work with therapy. Mental Status/Objective Patient Orientation: Person ADL-Treatment Therapy Code Descriptions/Definitions Functional [place] Measure: 0=Not Assessed/NA 4=Minimal Assistance 1=Total Assistance 5=Supervision or Setup 2=Maximal Assistance 6=Modified [place] 3=Moderate Assistance 7=Complete IndependenceSCALE: Activities may be completed with or without assistive devices. 3-Mpwofhjkyh-fjwaktm completes the activity by him/herself with no assistance from a helper. 5-Set-up or Clean-up Assistance-helper sets up or cleans up; patient completes activity. [place] assists only prior to or following the activity. 4-Supervision or Touching Assistance-helper provides verbal cues and/or touching/steadying and/or contact guard assistance as patient completes activity. Assistance may be provided throughout the activity or intermittently. 3-Partial/Moderate Assistance-helper does LESS THAN HALF the effort. [place] lifts, holds or supports trunk or limbs, but provides less than half the effort. 2-Substantial/Maximal Assistance-helper does MORE THAN HALF the effort. [place] lifts or holds trunk or limbs and provides more than half the effort. 7-Hklhzykfr-cpwonh does ALL the effort. Patient does none of the effort to complete the activity. Or, the assistance of 2 or more helpers is required for the patient to complete the activity. If activity was not attempted, code reason: 7-Patient Refused. 9-Not Applicable-not attempted and the patient did not perform the activity before the current illness, exacerbation or injury. 10-Not Attempted due to Environmental Limitations-(lack of equipment, weather restraints, etc.). 88-Not Attempted due to Medical Conditions or Safety Concerns. Oral Hygiene (QC): 7 (Pt. declines completing oral care. States, "I did this earlier today.") Shower/Bathe Self (QC): 7 (Pt. declines showering or sponge bathing. States that he already showered today. However, pt. has not showered today.) Upper Body Dressing (QC): 4 (SBA to don clean shirt.) Lower Body Dressing (QC): 4 (SBA to don pants over feet. CGA in stance to don pants over hips.) Toileting Hygiene (QC): 4 (CGA in stance to use toilet.) Pt. agrees to work with therapist. Declines showering but agrees to change his clothes. Transfers to side of bed and completed dressing task. After completing dressing task, pt. ambulated with therapist to therapy gym. Pt. completed fine motor task with nuts/bolts, with no difficulty. Completed 10 minutes on armbike at light resistance to increase overall strength/endurance. Began to work on cognitive task with "[place]" game. Pt. had great difficulty understanding simple instructions, even though he was cued multiple times. Pt. unable to follow cues with verbalized instructions, or writing down the instructions. Multiple cues for safety given. OT simplified the instructions and pt. able to follow with just verbal questions, with no follow through required. Ambulated back to room with all needs met. Education OT Patient Education: Correct positioning, Exercise program, Modified ADL techniques, Progress toward Goal/Update tx plan, Purpose of tx/functional activities, Reviewed precautions, Rehab process, Transfer techniques Teaching Recipient: Patient Teaching Methods: Demonstration, Discussion Response to Teaching: Verbalize Understanding, Return Demonstration OT Short Term Goals Short Term Goals Time Frame: Oct 06, 2019 Eatin Oral hygiene: 5 Toileting hygiene: 4 Shower/bathe self: 4 Upper body dressin Lower body dressin Putting on/taking off footwear: 4 OT Vegetable Washing Machine Operator Goals Vegetable Washing Machine Operator Goals Time Frame: Oct 13, 2019 Eating (QC): 6 Oral Hygiene (QC): 6 Toileting Hygiene (QC): 6 Shower/Bathe Self (QC): 5 Upper Body Dressing (QC): 5 Lower Body Dressing (QC): 5 On/Off Footwear (QC): 5 Additional Goals: 1-Demonstrate ADL Tasks, 2-Verbalize Understanding, 3- ImproveStrength/Roxie 1=Demonstrate adherence to instructed precautions during ADL tasks. 2=Patient will verbalize/demonstrate understanding of assistive devices/mo difications for ADL. 3=Patient will improve strength/tolerance for activity to enable patient to perform ADL's. OT Education/Plan Problem List/Assessment Assessment: Decreased Activ Tolerance, Decreased Safety Aware, Dependent Transfers, Impaired Cognition, Impaired I ADL's, Impaired Self-Care Skills Discharge Recommendations Plan/Recommendations: Continue POC Therapy Discharge Recommendati: Post Acute OT Treatment Plan/Plan of Care Treatment,Training & Education: Yes Patient would benefit from OT for education, treatment and training to promote independence in ADL's, mobility, safety and/or upper extremity function for ADL' s. Plan of Care: ADL Retraining, Functional Mobility, Group Exercise/Act as Ind, UE Funct Exercise/Act Treatment Duration: Oct 13, 2019 Frequency: At least 5 of 7 days/Wk (IRF) Estimated Hrs Per Day: 1.5 hours per day Agreement: Yes Rehab Potential: Fair Time/GCodes Start Time: 08:45 Stop Time: 10:00 Total Time Billed (hr/min): 75 Billed Treatment Time 1, ADL x 30minutes, Ex x 15minutes, FA x 30minutes DANI LANCE OT Oct 04, 2019 15:06 POS
[2019-10-04 16:00] VITALS: BP 147/78
--- NOTE | 2019-10-04 19:01 | NUR ---
bedside report received from JOHNY PERAZA, assume care of pt
--- NOTE | 2019-10-04 20:04 | NUR ---
pt refused miralax & Senokot, knows place & person but not date, side rails up x4, bed alarm on & tele sitter in place
[2019-10-04] MEDS: LUMIGAN 0.01% OU SCH (20:06)
[2019-10-05] MEDS: RT-ALBUTEROL/IPRATROPIUM 3 ML (DUONEB) VIAL INH SCH ×6 (02:02→22:39)
[2019-10-05 05:59] VITALS: BP 145/78
[2019-10-05] MEDS: SUCRALFATE 1 GM (CARAFATE) TAB PO SCH ×4 (06:15→20:56)
[2019-10-05] MEDS: predniSONE 20 MG TAB PO SCH (06:15)
[2019-10-05] MEDS: RT-ADVAIR HFA 115/21 MCG PER PUFF IH SCH ×2 (06:48→18:45)
--- NOTE | 2019-10-05 07:13 | NUR ---
bedside report given to DREA PERAZA
[2019-10-05] MEDS: SENNA W/DOCUSATE (SENOKOT S) TABLET PO SCH ×2 (08:15→20:56)
[2019-10-05] MEDS: POLYETHYLENE GLYCOL 17 GM (MIRALAX) PACK PO SCH ×2 (08:15→20:59)
[2019-10-05] MEDS: PANTOPRAZOLE 40 MG (PROTONIX) TAB PO SCH (08:15)
--- NOTE | 2019-10-05 09:51 | Physical Therapy Daily Note ---
PT Daily Note-Current Subjective Pt sitting in recliner upon arrival. Pt agrees to PT. Pain Location: No Pain Reported Mental Status Patient Orientation: Person, Confused, Place Transfers SCALE: Activities may be completed with or without assistive devices. 2-Qwuziwqbga-kvuxdcm completes the activity by him/herself with no assistance from a helper. 5-Set-up or Clean-up Assistance-helper sets up or cleans up; patient completes activity. [place] assists only prior to or following the activity. 4-Supervision or Touching Assistance-helper provides verbal cues and/or touching/steadying and/or contact guard assistance as patient completes activity. Assistance may be provided throughout the activity or intermittently. 3-Partial/Moderate Assistance-helper does LESS THAN HALF the effort. [place] lifts, holds or supports trunk or limbs, but provides less than half the effort. 2-Substantial/Maximal Assistance-helper does MORE THAN HALF the effort. [place] lifts or holds trunk or limbs and provides more than half the effort. 1-Jyfhvjbyu-yftoyi does ALL the effort. Patient does none of the effort to complete the activity. Or, the assistance of 2 or more helpers is required for the patient to complete the activity. If activity was not attempted, code reason: 7-Patient Refused. 9-Not Applicable-not attempted and the patient did not perform the activity before the current illness, exacerbation or injury. 10-Not Attempted due to Environmental Limitations-(lack of equipment, weather restraints, etc.). 88-Not Attempted due to Medical Conditions or Safety Concerns. Sit to Stand (QC): 5 Weight Bearing Full Weight Bearing Full Weight Bearing Gait Training Does the Patient Walk?: Yes Distance: 200' Walk 10 feet (QC): 5 Walk 50 ft with 2 Turns(QC): 5 Walk 150 ft (QC): 5 Gait Persons Needed: 1 Gait Assistive Device: FWW Pt ambulated with both 4WW and FWW. Pt ambulates more safely with FWW. Wheelchair Training Does the Pt Use a Wheelchair?: No Stair Training Stair Training: Handrails/: 2 handrails #of Steps: 16 1 Step (curb) (QC): 5 4 Steps (QC): 5 12 Steps (QC): 5 Stairs: Pattern: Reciprocal Exercises Seated Therapy Exercises: Ankle pumps, Long arc quads, Hip flexion, Kicking activity, Hip abd/add Seated Reps: 20 NuStep Minutes: 15 NuStep Workload: 5 Treatments Pt transfers from sitting to standing using FWW. Pt ambulates in hallway using FWW. Pt uses NuStep for 15m at WL 5. Pt completes Seated Ex in chair before returning to room to rest. Pt resting in recliner with all needs met, including call light in hand. Assessment Current Status: Good Progress Pt is gaining strength but continues to remain confused and demonstrates lack of social awareness. PT Short Term Goals Short Term Goals Time Frame: Oct 06, 2019 Roll Left & Right: 6 Sit to lyin Lying to sitting on side of be: 5 Sit to stand: 4 (SBA) Chair/fop-en-xcspm transfer: 4 (SBA) Toilet transfer: 4 (SBA) Car transfer: 4 (SBA) Walk 10 feet: 4 (SBA) Walk 50 feet with two turns: 4 (SBA) Walk 150 feet: 4 (SBA) 1 step (curb): 4 (CGA) PT Intermediate Goals Balloon Sander Goals PT Balloon Sander Goals Time Frame: Oct 20, 2019 Roll Left & Right (QC): 6 Sit to Lying (QC): 6 Lying-Sitting on Side/Bed(QC): 6 Sit to Stand (QC): 6 Chair/Tit-ng-Pbgvw Xfer(QC): 6 Toilet Transfer (QC): 6 Car Transfer (QC): 6 Does the Patient Walk: Yes Walk 10 feet (QC): 6 Walk 50ft with 2 Turns (QC): 6 Walk 150 ft (QC): 6 Walking 10ft on Uneven Surface: 6 1 Step (curb) (QC): 6 4 Steps (QC): 6 12 Steps (QC): 6 Picking up an Object (QC): 6 Does the Pt use WC or Scooter?: No Type: N/A Type: N/A PT Plan Problem List Problem List: Activity Tolerance, Safety Treatment/Plan Treatment Plan: Continue Plan of Care Treatment Plan: Bed Mobility, Concurrent Therapy, Education, Functional Activity Roxie, Functional Strength, Group Therapy, Gait, Safety, Therapeutic Exercise, Transfers Treatment Duration: Oct 20, 2019 Frequency: At least 5 of 7 days/Wk (IRF) Estimated Hrs Per Day: 1.5 hours per day Patient and/or Family Agrees t: Yes Safety Risks/Education Patient Education: Gait Training, Correct Positioning, Safety Issues Teaching Recipient: Patient Teaching Methods: Discussion Response to Teaching: Verbalize Understanding, Reinforcement Needed Time/GCodes Time In: 900 Time Out: 945 Total Billed Treatment Time: 45 Total Billed Treatment 1, GT (15m) & EX x2 (30m) HARMONY SMITH JET DYEING MACHINE OPERATOR Oct 05, 2019 09:51 POS
--- NOTE | 2019-10-05 09:58 | PM&R Progress Note ---
Subjective HPI/CC On Admission Date Seen by Provider: Oct 05, 2019 Time Seen by Provider: 08:30 Subjective/Events-last exam No significant issues. Had a large BM and seemed to be doing well with that. Still baseline confusion. No pain reported. Will evaluate what his needs are in order to be sure he is safe to go home but he will need 24/7 supervision Checked meds and labs Reviewed therapy notes Conferred with workers compensation claims adjuster of Systems Pulmonary: Dyspnea Neurological: Confusion Objective Exam Vital Signs Vital Signs Date Time Temp Pulse Resp B/P (MAP) Pulse Ox O2 Delivery O2 Flow Rate FiO2 10/05/19 18:46 93 Room Air 10/05/19 15:51 37.4 79 16 133/73 (93) Capillary Refill : Less Than 3 Seconds General Appearance: No Apparent Distress (He is currently taking an albuterol breathing treatment) HEENT: PERRL/EOMI, Normal ENT Inspection, Pharynx Normal Neck: Full Range of Motion, Normal Inspection, Non Tender, Supple, Carotid Bruit Respiratory: Chest Non Tender, Lungs Clear, Normal Breath Sounds, No Accessory Muscle Use, No Respiratory Distress, Decreased Breath Sounds Cardiovascular: Regular Rate, Rhythm, No Edema, No Gallop, No JVD, No Murmur, Normal Peripheral Pulses Gastrointestinal: Normal Bowel Sounds, No Organomegaly, No Pulsatile Mass, Non Tender, Soft Back: Normal Inspection, No CVA Tenderness, No Vertebral Tenderness Extremity: Normal Capillary Refill, Normal Inspection, Normal Range of Motion, Non Tender, No Calf Tenderness, No Pedal Edema Neurologic/Psychiatric: Alert, Oriented x3, No Motor/Sensory Deficits (generalized weakness lega more than arms but 4/5), Normal Mood/Affect, Other (balance dysfunction) Skin: Normal Color, Warm/Dry Lymphatic: No Adenopathy Results/Procedures Lab Patient resulted labs reviewed. FIM Transfers Therapy Code Descriptions/Definitions Functional [place] Measure: 0=Not Assessed/NA 4=Minimal Assistance 1=Total Assistance 5=Supervision or Setup 2=Maximal Assistance 6=Modified [place] 3=Moderate Assistance 7=Complete IndependenceSCALE: Activities may be completed with or without assistive devices. 0-Zgpiaiwkxl-pikcgat completes the activity by him/herself with no assistance from a helper. 5-Set-up or Clean-up Assistance-helper sets up or cleans up; patient completes activity. [place] assists only prior to or following the activity. 4-Supervision or Touching Assistance-helper provides verbal cues and/or touching/steadying and/or contact guard assistance as patient completes activity. Assistance may be provided throughout the activity or intermittently. 3-Partial/Moderate Assistance-helper does LESS THAN HALF the effort. [place] lifts, holds or supports trunk or limbs, but provides less than half the effort. 2-Substantial/Maximal Assistance-helper does MORE THAN HALF the effort. [place] lifts or holds trunk or limbs and provides more than half the effort. 5-Cxralrgci-ctbtpd does ALL the effort. Patient does none of the effort to complete the activity. Or, the assistance of 2 or more helpers is required for the patient to complete the activity. If activity was not attempted, code reason: 7-Patient Refused. 9-Not Applicable-not attempted and the patient did not perform the activity before the current illness, exacerbation or injury. 10-Not Attempted due to Environmental Limitations-(lack of equipment, weather restraints, etc.). 88-Not Attempted due to Medical Conditions or Safety Concerns. Roll Left to Right (QC): 6 Sit to Lying (QC): 6 Sit to Stand (QC): 4 Chair/Okq-jo-Oammu Xfer(QC): 4 (SBA) Car Transfer (QC): 4 (CGA) Gait Training Does the Patient Walk?: Yes Distance: 400',300' Walk 10 feet (QC): 5 Walk 50 ft with 2 Turns(QC): 5 Walk 150 ft (QC): 5 Walking 10ft/uneven surface-QC: 4 (x2 reps) Gait Persons Needed: 1 Gait Assistive Device: Walker 4 Wheeled Wheelchair Training Does the Pt Use a Wheelchair?: No Wheel 50 ft with 2 turns (QC): 88 Wheel 150 ft (QC): 88 Type of Wheelchair: Manual Stair Training Stair Training: Handrails/: 2 handrails #of Steps: 4 1 Step (curb) (QC): 4 4 Steps (QC): 4 12 Steps (QC): 88 Stairs: Pattern: Reciprocal Balance Picking up an Object (QC): 3 (Micaela) ADL-Treatment Eating (QC): 5 (Lunch arrives. Pt. does not have the strength to cut up chicken or sweet potato. OT did this for him. Pt. able to eat after this.) Oral Hygiene (QC): 7 (Pt. declines completing oral care. States, "I did this earlier today.") Bathing Location: L Arm, R Arm, L Upper Leg, R Upper Leg, L Lower Leg (including foot), R Lower Leg (including foot), Chest, Abdomen, Buttocks, Perineal Area Shower/Bathe Self (QC): 7 (Pt. declines showering or sponge bathing. States that he already showered today. However, pt. has not showered today.) Upper Body Dressing (QC): 4 (SBA to don clean shirt.) Lower Body Dressing (QC): 4 (SBA to don pants over feet. CGA in stance to don pants over hips.) On/Off Footwear (QC): 3 Toileting Hygiene (QC): 4 (CGA in stance to use toilet.) Toilet Transfer (QC): 7 Assessment/Plan Assessment and Plan Assess & Plan/Chief Complaint Assessment: Severe debility PNA on CT not on CXR Weight loss Falls AECOPD Confusion with low SLUMS c/w dementia Plan: Monitor lungs ABX completed Steroids tapered Appreciate Dr Reid Memory evaluation Stair training (1) Debility (2) Wheezing (3) Acute bronchitis, bacterial (4) Former smoker (5) Weight loss (6) Depressed affect (7) Falls frequently (8) Dyspnea (9) Hyperlipidemia (10) CAD in [place] artery GAMALIEL MACIEL DO Oct 05, 2019 09:58 POS
--- NOTE | 2019-10-05 10:52 | Progress Note ---
HARMONY SUMNER,MED STUDENT 10/05/19 1052: Progress Note Patient is feeling well today, he is dressed and sitting in bed waiting for physical therapy. He slept well last night. Denies any pain at this time. His appetite is improved today and he reports a bowel movement yesterday. PT and OT are going well, they are focusing on stair training since he must navigate the stairs at his apartment once discharged. NAILA MACIEL DO 10/05/19 2103: Supervisory-Addendum Brief Verification & Attestation Participated in pt care: history, MDM, physical Personally performed: exam, history, MDM, supervision of care Care discussed with: Medical Student Procedures: n/a Results interpretation: Verified all documentation Verification and Attestation of Medical Student E/M Service A medical student performed and documented this service in my presence. I reviewed and verified all information documented by the medical student and made modifications to such information, when appropriate. I personally performed the physical exam and medical decision making. Naila Maciel, Oct 05, 2019,21:02 HARMONY SUMNER,MED STUDENT Oct 05, 2019 10:52 NAILA GAR DO Oct 05, 2019 21:03 POS
[2019-10-05] MEDS: ENOXAPARIN 40 MG/0.4 ML (LOVENOX) SYR SC SCH (11:49)
--- NOTE | 2019-10-05 14:39 | Occupational Ther Daily Note ---
OT Current Status-Daily Note Subjective No pain reported. Appearance Pt. up in chair. Agrees to work with OT. Mental Status/Objective Patient Orientation: Person ADL-Treatment Therapy Code Descriptions/Definitions Functional [place] Measure: 0=Not Assessed/NA 4=Minimal Assistance 1=Total Assistance 5=Supervision or Setup 2=Maximal Assistance 6=Modified [place] 3=Moderate Assistance 7=Complete IndependenceSCALE: Activities may be completed with or without assistive devices. 7-Znrxpjsgpb-vcvnyqu completes the activity by him/herself with no assistance from a helper. 5-Set-up or Clean-up Assistance-helper sets up or cleans up; patient completes activity. [place] assists only prior to or following the activity. 4-Supervision or Touching Assistance-helper provides verbal cues and/or touching/steadying and/or contact guard assistance as patient completes activity. Assistance may be provided throughout the activity or intermittently. 3-Partial/Moderate Assistance-helper does LESS THAN HALF the effort. [place] lifts, holds or supports trunk or limbs, but provides less than half the effort. 2-Substantial/Maximal Assistance-helper does MORE THAN HALF the effort. [place] lifts or holds trunk or limbs and provides more than half the effort. 5-Ebvqgiafi-kvpout does ALL the effort. Patient does none of the effort to complete the activity. Or, the assistance of 2 or more helpers is required for the patient to complete the activity. If activity was not attempted, code reason: 7-Patient Refused. 9-Not Applicable-not attempted and the patient did not perform the activity before the current illness, exacerbation or injury. 10-Not Attempted due to Environmental Limitations-(lack of equipment, weather restraints, etc.). 88-Not Attempted due to Medical Conditions or Safety Concerns. Eating (QC): 6 Oral Hygiene (QC): 7 (Pt. declines brushing dentures and states that he has already done this today. Will speak with nursing to see if this is true.) Shower/Bathe Self (QC): 4 (CGA in stance to wash all parts. Pt. declines showering but agrees to sponge bathe.) Upper Body Dressing (QC): 5 Lower Body Dressing (QC): 4 (CGA in stance. Noted that pt. begins to breathe harder and has difficulty donning socks due to having to bend over.) Other Treatment After ADLs in room, pt. ambulated with walker and CGA to therapy gym. Tolerated 15 minutes on arm bike at mod resistance to increase overall strength and independence. Pt. was then instructed on use of AE to make doffing/donning socks easier. Pt. able to perform this task with multiple cues. Will continue to address this. Ambulated back to room after treatment in gym. All needs met. Education OT Patient Education: Correct positioning, Exercise program, Modified ADL techniques, Progress toward Goal/Update tx plan, Purpose of tx/functional activities, Reviewed precautions, Rehab process, Transfer techniques Teaching Recipient: Patient, Family Teaching Methods: Demonstration, Discussion Response to Teaching: Verbalize Understanding, Return Demonstration OT Short Term Goals Short Term Goals Time Frame: Oct 06, 2019 Eatin Oral hygiene: 5 Toileting hygiene: 4 Shower/bathe self: 4 Upper body dressin Lower body dressin Putting on/taking off footwear: 4 OT Chcf Goals Film Spooler Goals Time Frame: Oct 13, 2019 Eating (QC): 6 Oral Hygiene (QC): 6 Toileting Hygiene (QC): 6 Shower/Bathe Self (QC): 5 Upper Body Dressing (QC): 5 Lower Body Dressing (QC): 5 On/Off Footwear (QC): 5 Additional Goals: 1-Demonstrate ADL Tasks, 2-Verbalize Understanding, 3- ImproveStrength/Roxie 1=Demonstrate adherence to instructed precautions during ADL tasks. 2=Patient will verbalize/demonstrate understanding of assistive devices/modifications for ADL. 3=Patient will improve strength/tolerance for activity to enable patient to perform ADL's. OT Education/Plan Problem List/Assessment Assessment: Decreased Activ Tolerance, Decreased UE Strength, Impaired Cognitio n, Impaired I ADL's, Impaired Self-Care Skills Discharge Recommendations Plan/Recommendations: Continue POC Therapy Discharge Recommendati: 24 Hour Supervision Treatment Plan/Plan of Care Treatment,Training & Education: Yes Patient would benefit from OT for education, treatment and training to promote independence in ADL's, mobility, safety and/or upper extremity function for ADL's. Plan of Care: ADL Retraining, Functional Mobility, Group Exercise/Act as Ind, UE Funct Exercise/Act Treatment Duration: Oct 13, 2019 Frequency: At least 5 of 7 days/Wk (IRF) Estimated Hrs Per Day: 1.5 hours per day Agreement: Yes Rehab Potential: Fair Time/GCodes Start Time: 10:35 Stop Time: 11:50 Total Time Billed (hr/min): 75 Billed Treatment Time 1, ADL x 45minutes, Ex x 15minutes, FA x 15minutes DANI LANCE OT Oct 05, 2019 14:39 POS
--- NOTE | 2019-10-05 14:49 | Speech Therapy Daily Note ---
Speech Daily Progress Note Subjective Date Seen by Provider: Oct 05, 2019 Time Seen by Provider: 00:30 Patient was resting in his recliner after finishing his lunch. Objective Patient completed a series of safety awareness tasks using cards "What's wrong with this picture?" with 75% given 25% cues. Assessment Assessment Current Status: Good Progress Treatment Plan Continue Plan of Care Speech Short Term Goals Short Term Goals Short Term Goals 1) Patient will complete memory tasks related to his daily needs at 80% or greater with minimal cues. 2) Patient will complete problem solving tasks related to his daily needs at 80% or greater with minimal cues. 3) Patient will complete safety awareness tasks related to his daily needs at 80% or greater with minimal cues. Speech Conservation Biology Professor Goals Conservation Biology Professor Goals Patient will improve cognitive-communication necessary for safety and daily living tasks with minimal assist. Speech-Plan Patient/Family Goals Patient/Family Goals: Patient plans on returning home with family upon discharge from rehab. Treatment Plan Speech Therapy Treatment Plan: Continue Plan of Care Patient requires decreased cues to attend to task. Treatment Duration: Oct 08, 2019 Frequency: 5 times per week Estimated Hrs Per Day: .5 hour per day Rehab Potential: Fair Barriers to Learning: Patient has moderate level of cognitive deficit Pt/Family Agrees to Plan: Yes Safety Risks/Education Teaching Recipient: Patient Teaching Methods: Demonstration, Discussion Response to Teaching: Verbalize Understanding, Return Demonstration, Reinforcement Needed Education Topics Provided: Continued communication of wants/needs Time Speech Therapy Time In: 13:00 Speech Therapy Time Out: 13:30 Total Billed Time: 30 Billed Treatment Time 1, MIRANDA Jackson Oct 05, 2019 14:48 POS
--- NOTE | 2019-10-05 14:55 | Speech Therapy Daily Note ---
Speech Short Term Goals Short Term Goals Short Term Goals 1) Patient will complete memory tasks related to his daily needs at 80% or greater with minimal cues. 2) Patient will complete problem solving tasks related to his daily needs at 80% or greater with minimal cues. 3) Patient will complete safety awareness tasks related to his daily needs at 80% or greater with minimal cues. Speech Fdc Goals Fdc Goals Patient will improve cognitive-communication necessary for safety and daily living tasks with minimal assist. Speech-Plan Treatment Plan Treatment Duration: Oct 08, 2019 Frequency: 5 times per week Estimated Hrs Per Day: .5 hour per day Rehab Potential: MIRANDA Clements Oct 05, 2019 14:55 POS
--- NOTE | 2019-10-05 15:13 | Physical Therapy Daily Note ---
PT Daily Note-Current Subjective Pt sitting in recliner upon arrival. Pt agrees to PT. Pain Location: No Pain Reported Mental Status Patient Orientation: Person, Confused, Place Transfers SCALE: Activities may be completed with or without assistive devices. 4-Ohcwgkmewe-gdmjubi completes the activity by him/herself with no assistance from a helper. 5-Set-up or Clean-up Assistance-helper sets up or cleans up; patient completes activity. [place] assists only prior to or following the activity. 4-Supervision or Touching Assistance-helper provides verbal cues and/or touching/steadying and/or contact guard assistance as patient completes activity. Assistance may be provided throughout the activity or intermittently. 3-Partial/Moderate Assistance-helper does LESS THAN HALF the effort. [place] lifts, holds or supports trunk or limbs, but provides less than half the effort. 2-Substantial/Maximal Assistance-helper does MORE THAN HALF the effort. [place] lifts or holds trunk or limbs and provides more than half the effort. 0-Jczmxowla-rytzvr does ALL the effort. Patient does none of the effort to complete the activity. Or, the assistance of 2 or more helpers is required for the patient to complete the activity. If activity was not attempted, code reason: 7-Patient Refused. 9-Not Applicable-not attempted and the patient did not perform the activity before the current illness, exacerbation or injury. 10-Not Attempted due to Environmental Limitations-(lack of equipment, weather restraints, etc.). 88-Not Attempted due to Medical Conditions or Safety Concerns. Weight Bearing Full Weight Bearing Full Weight Bearing Exercises Supine Ex: Quad Set, Glut sets, Heel Slides, Straight leg raise, Hip abd/add Supine Reps: 15 Seated Therapy Exercises: Ankle pumps, Long arc quads, Hip flexion, Kicking activity Seated Reps: 15 Treatments POLE SANDER OPERATOR provides HEP for Supine & Seated Ex and these are practiced. Pt resting in recliner at end of Rx with all needs met, including call light. Assessment Current Status: Good Progress POLE SANDER OPERATOR continues to focus on increased safety awareness during activities. PT Short Term Goals Short Term Goals Time Frame: Oct 06, 2019 Roll Left & Right: 6 Sit to lyin Lying to sitting on side of be: 5 Sit to stand: 4 (SBA) Chair/les-wq-arurl transfer: 4 (SBA) Toilet transfer: 4 (SBA) Car transfer: 4 (SBA) Walk 10 feet: 4 (SBA) Walk 50 feet with two turns: 4 (SBA) Walk 150 feet: 4 (SBA) 1 step (curb): 4 (CGA) PT Intermediate Goals Intermediate Goals PT Cement Mason Helper Goals Time Frame: Oct 20, 2019 Roll Left & Right (QC): 6 Sit to Lying (QC): 6 Lying-Sitting on Side/Bed(QC): 6 Sit to Stand (QC): 6 Chair/Tor-to-Ezufw Xfer(QC): 6 Toilet Transfer (QC): 6 Car Transfer (QC): 6 Does the Patient Walk: Yes Walk 10 feet (QC): 6 Walk 50ft with 2 Turns (QC): 6 Walk 150 ft (QC): 6 Walking 10ft on Uneven Surface: 6 1 Step (curb) (QC): 6 4 Steps (QC): 6 12 Steps (QC): 6 Picking up an Object (QC): 6 Does the Pt use WC or Scooter?: No Type: N/A Type: N/A PT Plan Problem List Problem List: Activity Tolerance, Safety Treatment/Plan Treatment Plan: Continue Plan of Care Treatment Plan: Bed Mobility, Concurrent Therapy, Education, Functional Activity Roxie, Functional Strength, Group Therapy, Gait, Safety, Therapeutic Exercise, Transfers Treatment Duration: Oct 20, 2019 Frequency: At least 5 of 7 days/Wk (IRF) Estimated Hrs Per Day: 1.5 hours per day Patient and/or Family Agrees t: Yes Safety Risks/Education Patient Education: Safety Issues Teaching Recipient: Patient Teaching Methods: Discussion Response to Teaching: Verbalize Understanding Time/GCodes Time In: 1330 Time Out: 1400 Total Billed Treatment Time: 30 Total Billed Treatment 1, EX x2 (30m) HARMONY SMITH PTA Oct 05, 2019 15:13 POS
[2019-10-05 15:51] VITALS: BP 133/73
--- NOTE | 2019-10-05 19:08 | NUR ---
bedside report received from DREA PERAZA, assume care of pt
--- NOTE | 2019-10-05 20:56 | NUR ---
pt took Senokot but refused miralax pt still confused, side rails up x$, bed alarm on & has tel sitter
[2019-10-05] MEDS: LUMIGAN 0.01% OU SCH (20:59)
[2019-10-06] MEDS: RT-ALBUTEROL/IPRATROPIUM 3 ML (DUONEB) VIAL INH SCH ×7 (02:18→22:37)
[2019-10-06 05:54] VITALS: BP 132/76
[2019-10-06] MEDS: SUCRALFATE 1 GM (CARAFATE) TAB PO SCH ×4 (06:40→20:31)
[2019-10-06] MEDS: predniSONE 20 MG TAB PO SCH (06:40)
--- NOTE | 2019-10-06 07:11 | NUR ---
bedside report given to BERNARD PERAZA
[2019-10-06] MEDS: SENNA W/DOCUSATE (SENOKOT S) TABLET PO SCH ×2 (08:22→20:31)
[2019-10-06] MEDS: PANTOPRAZOLE 40 MG (PROTONIX) TAB PO SCH (08:22)
[2019-10-06] MEDS: RT-ADVAIR HFA 115/21 MCG PER PUFF IH SCH ×2 (08:53→22:36)
--- NOTE | 2019-10-06 09:17 | Speech Therapy Daily Note ---
Speech Daily Progress Note Subjective Date Seen by Provider: Oct 06, 2019 Time Seen by Provider: 00:30 Patient was resting in his bed watching television. He asked for another cup of coffee, which I fixed for him. Objective Patient completed problem solving tasks with 80% given 20% cues. Assessment Assessment Current Status: Good Progress Treatment Plan Continue Plan of Care Speech Short Term Goals Short Term Goals Short Term Goals 1) Patient will complete memory tasks related to his daily needs at 80% or greater with minimal cues. 2) Patient will complete problem solving tasks related to his daily needs at 80% or greater with minimal cues. 3) Patient will complete safety awareness tasks related to his daily needs at 80% or greater with minimal cues. Speech Pricer Goals Pricer Goals Patient will improve cognitive-communication necessary for safety and daily living tasks with minimal assist. Speech-Plan Patient/Family Goals Patient/Family Goals: The patient plans on returning to the apartment he shares with his family. Treatment Plan Speech Therapy Treatment Plan: Continue Plan of Care Patient has progressed toward meeting ST goals. Treatment Duration: Oct 08, 2019 Frequency: 5 times per week Estimated Hrs Per Day: .5 hour per day Rehab Potential: Fair Barriers to Learning: Patient has moderate dementia Pt/Family Agrees to Plan: Yes Safety Risks/Education Teaching Recipient: Patient Teaching Methods: Demonstration, Discussion Response to Teaching: Verbalize Understanding, Return Demonstration, [facility] ement Needed Education Topics Provided: Continued safety within his room. Time Speech Therapy Time In: 08:30 Speech Therapy Time Out: 09:00 Total Billed Time: 30 Billed Treatment Time 1, SLTS No QUALITY CODES: EXPRESSION OF IDEAS/WANTS: 3 UNDERSTANDING VERBAL CONTENT: 3 BRIEF INTERVIEW MENTAL STATUS: YES REPETITION OF 3 WORDS: 3 TEMPORAL ORIENTATION: YEAR: INCORRECT, MONTH: CORRECT, DAY: MISSED BY 3 OR MORE RECALL SOCK: NO, COLOR: NO, BED YES WITH CUE MEMORY/RECALL ABILITY: THAT HE IS IN THE HOSPITAL MIRANDA ZHONG Oct 06, 2019 09:17 POS
[2019-10-06] MEDS: POLYETHYLENE GLYCOL 17 GM (MIRALAX) PACK PO SCH ×2 (09:50→19:55)
--- NOTE | 2019-10-06 09:56 | PM&R Progress Note ---
Subjective HPI/CC On Admission Date Seen by Provider: Oct 06, 2019 Time Seen by Provider: 08:45 Subjective/Events-last exam Cognition is an issue and places him at fall risk Needs 24/7 supervision BM was two days ago so will initiate Lactulose and Senna Telesitter maintained GERD is much improved with proton pump inhibitor Overall doing very well with ambulation He does report some SOB at times but his O2 sat is maintained and good alignment Will evaluate what his needs are in order to be sure he is safe to go home but he will need 24/7 supervision Checked meds and labs Reviewed therapy notes Conferred with holistic specialist of Systems Pulmonary: Dyspnea Neurological: Confusion Objective Exam Vital Signs Vital Signs Date Time Temp Pulse Resp B/P (MAP) Pulse Ox O2 Delivery O2 Flow Rate FiO2 10/06/19 17:43 37.0 70 18 123/74 (90) 98 Room Air Capillary Refill : Less Than 3 Seconds General Appearance: No Apparent Distress (He is currently taking an albuterol breathing treatment), WD/WN, Chronically ill, Thin HEENT: PERRL/EOMI, Normal ENT Inspection, Pharynx Normal Neck: Full Range of Motion, Normal Inspection, Non Tender, Supple, Carotid Bruit Respiratory: Chest Non Tender, Lungs Clear, Normal Breath Sounds, No Accessory Muscle Use, No Respiratory Distress, Decreased Breath Sounds Cardiovascular: Regular Rate, Rhythm, No Edema, No Gallop, No JVD, No Murmur, Normal Peripheral Pulses Gastrointestinal: Normal Bowel Sounds, No Organomegaly, No Pulsatile Mass, Non Tender, Soft Back: Normal Inspection, No CVA Tenderness, No Vertebral Tenderness Extremity: Normal Capillary Refill, Normal Inspection, Normal Range of Motion, Non Tender, No Calf Tenderness, No Pedal Edema Neurologic/Psychiatric: Alert, Oriented x3, No Motor/Sensory Deficits (generalized weakness lega more than arms but 4/5), Normal Mood/Affect, Other (balance dysfunction) Skin: Normal Color, Warm/Dry Lymphatic: No Adenopathy Results/Procedures Lab Patient resulted labs reviewed. FIM Transfers Therapy Code Descriptions/Definitions Functional [place] Measure: 0=Not Assessed/NA 4=Minimal Assistance 1=Total Assistance 5=Supervision or Setup 2=Maximal Assistance 6=Modified [place] 3=Moderate Assistance 7=Complete IndependenceSCALE: Activities may be completed with or without assistive devices. 3-Akgwrvjvvs-xmemtvq completes the activity by him/herself with no assistance from a helper. 5-Set-up or Clean-up Assistance-helper sets up or cleans up; patient completes activity. [place] assists only prior to or following the activity. 4-Supervision or Touching Assistance-helper provides verbal cues and/or touching/steadying and/or contact guard assistance as patient completes activity. Assistance may be provided throughout the activity or intermittently. 3-Partial/Moderate Assistance-helper does LESS THAN HALF the effort. [place] lifts, holds or supports trunk or limbs, but provides less than half the effort. 2-Substantial/Maximal Assistance-helper does MORE THAN HALF the effort. [place] lifts or holds trunk or limbs and provides more than half the effort. 9-Ixmstlxbf-agwchz does ALL the effort. Patient does none of the effort to complete the activity. Or, the assistance of 2 or more helpers is required for the patient to complete the activity. If activity was not attempted, code reason: 7-Patient Refused. 9-Not Applicable-not attempted and the patient did not perform the activity before the current illness, exacerbation or injury. 10-Not Attempted due to Environmental Limitations-(lack of equipment, weather restraints, etc.). 88-Not Attempted due to Medical Conditions or Safety Concerns. Roll Left to Right (QC): 6 Sit to Lying (QC): 6 Sit to Stand (QC): 5 Chair/Nsc-uf-Ddpdf Xfer(QC): 4 (SBA) Car Transfer (QC): 4 (CGA) Gait Training Does the Patient Walk?: Yes Distance: 200' Walk 10 feet (QC): 5 Walk 50 ft with 2 Turns(QC): 5 Walk 150 ft (QC): 5 Walking 10ft/uneven surface-QC: 4 (x2 reps) Gait Persons Needed: 1 Gait Assistive Device: FWW Wheelchair Training Does the Pt Use a Wheelchair?: No Wheel 50 ft with 2 turns (QC): 88 Wheel 150 ft (QC): 88 Stair Training Stair Training: Handrails/: 2 handrails #of Steps: 16 1 Step (curb) (QC): 5 4 Steps (QC): 5 12 Steps (QC): 5 Stairs: Pattern: Reciprocal Balance Picking up an Object (QC): 3 (Micaela) ADL-Treatment Eating (QC): 6 Oral Hygiene (QC): 7 Bathing Location: L Arm, R Arm, L Upper Leg, R Upper Leg, L Lower Leg (including foot), R Lower Leg (including foot), Chest, Abdomen, Buttocks, Perineal Area Shower/Bathe Self (QC): 4 Upper Body Dressing (QC): 5 Lower Body Dressing (QC): 4 On/Off Footwear (QC): 3 Toileting Hygiene (QC): 4 (CGA in stance to use toilet.) Toilet Transfer (QC): 7 Assessment/Plan Assessment and Plan Assess & Plan/Chief Complaint Assessment: Severe debility PNA on CT not on CXR s/p treatment Weight loss Falls AECOPD Confusion with low SLUMS c/w dementia owning Plan: Monitor lungs ABX completed Steroids tapered Appreciate Dr Reid Memory evaluation Stair training (1) Debility (2) Wheezing (3) Acute bronchitis, bacterial (4) Former smoker (5) Weight loss (6) Depressed affect (7) Falls frequently (8) Dyspnea (9) Hyperlipidemia (10) CAD in [place] artery GAMALIEL MACIEL DO Oct 06, 2019 09:56 POS
--- NOTE | 2019-10-06 10:38 | Physical Therapy Daily Note ---
PT Daily Note-Current Subjective Pt laying Supine in bed upon arrival. Pt agrees to PT for QC scoring for anticipated D/C. Pain Location: No Pain Reported Mental Status Patient Orientation: Person, Confused, Place Transfers SCALE: Activities may be completed with or without assistive devices. 2-Qanbeyfmhc-wblpicq completes the activity by him/herself with no assistance from a helper. 5-Set-up or Clean-up Assistance-helper sets up or cleans up; patient completes activity. [place] assists only prior to or following the activity. 4-Supervision or Touching Assistance-helper provides verbal cues and/or touching /steadying and/or contact guard assistance as patient completes activity. Assistance may be provided throughout the activity or intermittently. 3-Partial/Moderate Assistance-helper does LESS THAN HALF the effort. [place] lifts, holds or supports trunk or limbs, but provides less than half the effort. 2-Substantial/Maximal Assistance-helper does MORE THAN HALF the effort. [place] lifts or holds trunk or limbs and provides more than half the effort. 7-Kujtetxrj-jipkrs does ALL the effort. Patient does none of the effort to complete the activity. Or, the assistance of 2 or more helpers is required for the patient to complete the activity. If activity was not attempted, code reason: 7-Patient Refused. 9-Not Applicable-not attempted and the patient did not perform the activity before the current illness, exacerbation or injury. 10-Not Attempted due to Environmental Limitations-(lack of equipment, weather restraints, etc.). 88-Not Attempted due to Medical Conditions or Safety Concerns. Roll Left & Right (QC): 6 Sit to Lying (QC): 6 Lying to Sitting/Side of Bed(Q: 6 Sit to Stand (QC): 6 Chair/Ihx-gm-Pvgkr Xfer(QC): 6 Toilet Transfer (QC): 6 Car Transfer (QC): 6 Pt is able to complete with VC for safety. Weight Bearing Full Weight Bearing Full Weight Bearing Gait Training Does the Patient Walk?: Yes Distance: 150' x2 Walk 10 feet (QC): 6 Walk 50 ft with 2 Turns(QC): 6 Walk 150 ft (QC): 6 Walking 10ft/uneven surface-QC: 6 Gait Persons Needed: 1 Gait Assistive Device: FWW Pt walks with increased safety using FWW instead of 4WW. Wheelchair Training Does the Pt Use a Wheelchair?: No Stair Training Stair Training: Handrails/: 2 handrails #of Steps: 16 1 Step (curb) (QC): 6 4 Steps (QC): 6 12 Steps (QC): 6 Stairs: Pattern: Reciprocal Balance Picking up an Object (QC): 88 Special Test Comments Pt gets dizzy upon bending over, not attempted. Exercises NuStep Minutes: 15 NuStep Workload: 5 Treatments Pt transfers from Supine to EOB to Standing. Pt uses restroom before leaving room for Rx. Pt ambulates in hallway using FWW. Pt completes all QC scoring items listed above. Pt returns to room at end of Rx to rest in recliner with all needs met, call light in hand. Assessment Current Status: Good Progress Pt has improved with strength and activity tolerance although continues to remain confused, demonstrating lack of social awareness. PT Short Term Goals Short Term Goals Time Frame: Oct 06, 2019 Roll Left & Right: 6 Sit to lyin Lying to sitting on side of be: 5 Sit to stand: 4 (SBA) Chair/mzk-dl-yvfxc transfer: 4 (SBA) Toilet transfer: 4 (SBA) Car transfer: 4 (SBA) Walk 10 feet: 4 (SBA) Walk 50 feet with two turns: 4 (SBA) Walk 150 feet: 4 (SBA) 1 step (curb): 4 (CGA) PT Retirement Goals [employer] Supervisor Goals PT Retirement Goals Time Frame: Oct 20, 2019 Roll Left & Right (QC): 6 Sit to Lying (QC): 6 Lying-Sitting on Side/Bed(QC): 6 Sit to Stand (QC): 6 Chair/Uoi-qc-Fnanx Xfer(QC): 6 Toilet Transfer (QC): 6 Car Transfer (QC): 6 Does the Patient Walk: Yes Walk 10 feet (QC): 6 Walk 50ft with 2 Turns (QC): 6 Walk 150 ft (QC): 6 Walking 10ft on Uneven Surface: 6 1 Step (curb) (QC): 6 4 Steps (QC): 6 12 Steps (QC): 6 Picking up an Object (QC): 6 Does the Pt use WC or Scooter?: No Type: N/A Type: N/A PT Plan Problem List Problem List: Activity Tolerance, Safety Treatment/Plan Treatment Plan: Continue Plan of Care Treatment Plan: Bed Mobility, Concurrent Therapy, Education, Functional Activity Roxie, Functional Strength, Group Therapy, Gait, Safety, Therapeutic Exercise, Transfers Treatment Duration: Oct 20, 2019 Frequency: At least 5 of 7 days/Wk (IRF) Estimated Hrs Per Day: 1.5 hours per day Patient and/or Family Agrees t: Yes Safety Risks/Education Patient Education: Gait Training, Transfer Techniques, Correct Positioning, Safety Issues Teaching Recipient: Patient Teaching Methods: Discussion Response to Teaching: Verbalize Understanding Time/GCodes Time In: 900 Time Out: 945 Total Billed Treatment Time: 45 Total Billed Treatment 1, GT (15m), EX (15m) & FA (15m) HARMONY SMITH INDUSTRIAL ORGANIZATIONAL PSYCHOLOGIST Oct 06, 2019 10:37 POS
--- NOTE | 2019-10-06 11:31 | Occupational Ther Daily Note ---
OT Current Status-Daily Note Subjective No pain reported. Appearance Pt. up in chair. Alert. Agrees to shower. Mental Status/Objective Patient Orientation: Person ADL-Treatment Therapy Code Descriptions/Definitions Functional [place] Measure: 0=Not Assessed/NA 4=Minimal Assistance 1=Total Assistance 5=Supervision or Setup 2=Maximal Assistance 6=Modified [place] 3=Moderate Assistance 7=Complete IndependenceSCALE: Activities may be completed with or without assistive devices. 6-Tkxwfbyxvl-hrrhijy completes the activity by him/herself with no assistance from a helper. 5-Set-up or Clean-up Assistance-helper sets up or cleans up; patient completes activity. [place] assists only prior to or following the activity. 4-Supervision or Touching Assistance-helper provides verbal cues and/or touching/steadying and/or contact guard assistance as patient completes activity. Assistance may be provided throughout the activity or intermittently. 3-Partial/Moderate Assistance-helper does LESS THAN HALF the effort. [place] lifts, holds or supports trunk or limbs, but provides less than half the effort. 2-Substantial/Maximal Assistance-helper does MORE THAN HALF the effort. [place] lifts or holds trunk or limbs and provides more than half the effort. 8-Ftvsvljcr-pmmqou does ALL the effort. Patient does none of the effort to complete the activity. Or, the assistance of 2 or more helpers is required for the patient to complete the activity. If activity was not attempted, code reason: 7-Patient Refused. 9-Not Applicable-not attempted and the patient did not perform the activity before the current illness, exacerbation or injury. 10-Not Attempted due to Environmental Limitations-(lack of equipment, weather restraints, etc.). 88-Not Attempted due to Medical Conditions or Safety Concerns. Eating (QC): 5 Oral Hygiene (QC): 5 (Set up seated at sink.) Shower/Bathe Self (QC): 4 (Constant supervision as pt. will wash the same spot multiple times and not move on. Supervision for safety as well. Pt. able to wash all parts on his own with cues.) Upper Body Dressing (QC): 5 (Set up) Lower Body Dressing (QC): 4 (SBA and cues to complete LE dressing in sequenced fashion. Pt. likes to use sock aide, but demonstrates little carry over on how to use it from yesterday. CGA in stance to pull pants up and fasten.) Toileting Hygiene (QC): 7 (Declines using toilet.) Toilet Transfer (QC): 7 Other Treatment Pt. is physically doing well. Requires cues and constant supervision due to safety and cognition. Pt. is somewhat impulsive and requires prompting to move onto the next thing. After ADLs in room, pt. ambulated to therapy gym. Worked on fine motor and sequencing task with decorating small [place] tree. Pt. opened packages and able to put hooks onto small ornaments. Able to hang on tree with cues to spread them out. Pt. seemed to enjoy this. Ambulated back to room with cues to keep walker closer to body for safety. Pt. in chair with alarm set at end of treatment. All needs met. Education OT Patient Education: Correct positioning, Exercise program, Modified ADL techniques, Progress toward Goal/Update tx plan, Purpose of tx/functional activities, Reviewed precautions, Rehab process, Transfer techniques, Use of adapted equipment Teaching Recipient: Patient Teaching Methods: Demonstration, Discussion Response to Teaching: Verbalize Understanding, Return Demonstration OT Short Term Goals Short Term Goals Time Frame: Oct 06, 2019 Eatin Oral hygiene: 5 Toileting hygiene: 4 Shower/bathe self: 4 Upper body dressin Lower body dressin Putting on/taking off footwear: 4 OT Mcfp Goals Mcfp Goals Time Frame: Oct 13, 2019 Eating (QC): 6 Oral Hygiene (QC): 6 Toileting Hygiene (QC): 6 Shower/Bathe Self (QC): 5 Upper Body Dressing (QC): 5 Lower Body Dressing (QC): 5 On/Off Footwear (QC): 5 Additional Goals: 1-Demonstrate ADL Tasks, 2-Verbalize Understanding, 3- ImproveStrength/[place]oxie 1=Demonstrate adherence to instructed precautions during ADL tasks. 2=Patient will verbalize/demonstrate understanding of assistive device s/modifications for ADL. 3=Patient will improve strength/tolerance for activity to enable patient to perform ADL's. OT Education/Plan Problem List/Assessment Assessment: Decreased Activ Tolerance, Decreased UE Strength, Dependent Transfers, Impaired Cognition, Impaired Funct Balance, Impaired I ADL's, Impaired Self-Care Skills, Restricted Funct UE ROM Discharge Recommendations Plan/Recommendations: Continue POC Therapy Discharge Recommendati: 24 Hour Supervision Treatment Plan/Plan of Care Treatment,Training & Education: Yes Patient would benefit from OT for education, treatment and training to promote independence in ADL's, mobility, safety and/or upper extremity function for ADL's. Plan of Care: ADL Retraining, Functional Mobility, Group Exercise/Act as Ind, UE Funct Exercise/Act Treatment Duration: Oct 13, 2019 Frequency: At least 5 of 7 days/Wk (IRF) Estimated Hrs Per Day: 1.5 hours per day Agreement: Yes Rehab Potential: Fair Time/GCodes Start Time: 10:00 Stop Time: 11:00 Total Time Billed (hr/min): 60 Billed Treatment Time 1, ADL x 45minutes, FA x 15minutes DANI LANCE OT Oct 06, 2019 11:31 POS
[2019-10-06] MEDS: ENOXAPARIN 40 MG/0.4 ML (LOVENOX) SYR SC SCH (12:21)
--- NOTE | 2019-10-06 14:15 | Progress Note ---
HARMONY SUMNER,MED STUDENT 10/06/19 1415: Progress Note Patient is feeling well overall today and has no concerns. PT reports that he is doing very well physically with walking and transferring, only sometimes requiring moderate assist. Yesterday he went up and down 16 steps, which is similar to what he has at his apartment. OT and speech report some concern for his cognitive status in that he needs constant cues and supervision during therapy He often gets up without his walker and must be reminded to use it. His initial SLUMS score was 4/30, consistent with moderate dementia. A repeat SLUMS score prior to discharge may be of benefit. Rehab staff will follow up with his daughter to clarify his living situation and whether he has what he needs for discharge. He will require home health and supervision when he is discharged home. Goal discharge date: 10/08/19 NAILA MACIEL DO 10/06/192116: Supervisory-Addendum Brief Verification & Attestation Participated in pt care: history, MDM, physical Personally performed: exam, history, MDM, supervision of care Care discussed with: Medical Student Procedures: n/a Results interpretation: Verified all documentation Verification and Attestation of Medical Student E/M Service A medical student performed and documented this service in my presence. I reviewed and verified all information documented by the medical student and made modifications to such information, when appropriate. I personally performed the physical exam and medical decision making. Naila Maciel, Oct 06, 2019,21:16 HARMONY SUMNER,MED STUDENT Oct 06, 2019 14:15 NAILA GAR DO Oct 06, 2019 21:17 POS
--- NOTE | 2019-10-06 14:40 | NUR ---
Weekly Team Conference Met with patient to review summary, he was in agreement to discharge 10/07/19 to home with [facility] for RN, PT and OT. Updated daughter Savannah Phan by phone and she shared that she had scheduled sometime back for patient to be assessed by [facility] at his home. Since he was in the hospital she contacted them independently and scheduled the assessment to be completed while here prior to leaving for home. [facility] Jaime Mcclain anticipated in a.m. to assess and consult for inpatient vs outpatient mental health supports. Confirmed patient's home situation is that he resides above [employer] in one apartment and that his grandson resides in another on the same floor but they do not adjoin. Patient goes to restaurant for breakfast/lunch and he stays in the restaurant for socialization with staff and diners. 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 Followup in a.m.
--- NOTE | 2019-10-06 15:09 | Therapy Group Daily Note ---
Therapy Daily Group Note Patient Education Topic Other List Below (Transfers) Exercises LE Seated Exercise, UE Exercise Session Ratio (pt:therapist): 4:1 Goal of Session: UE/LE Strengthing, Safety with Transfers Goal Met for this Session: Yes Pt Benefit of Group: Contributions to Others, F/U Use of Strategies @Home, Increased Functional Safety, Increased Functional Strength, Improved Cognition, Recognition of Peers, Socialization Other/Notes Pt ambulated using FWW to [facility] for OT/PT group. Group consisted of introductions (name, place living, [place] memory), socialization, pt led UE/LE seated exercises and education for safe transfers. Pt introduced self appropriately and actively listened to peers. Assistance given when pt got off topic or became teary during introductions. Pt able to read exercise card and lead peers in one exercise then was able to complete other exercises. Pt acknowledged understanding of safe transfers utilizing AE for bathroom, automobile and chairs by contributing ideas and own experiences. After therapy, pt lying in bed with call light/phone in reach. All needs met in room. Start Time: 13:00 Stop Time: 14:15 Total Billed Treatment Time: 75 Total Billed Treatment 1, GRP (75m) HARMONY SMITH PTA Oct 06, 2019 15:09 POS
[2019-10-06 17:43] VITALS: BP 123/74
[2019-10-06] MEDS: LUMIGAN 0.01% OU SCH (20:31)
[2019-10-07] MEDS: RT-ALBUTEROL/IPRATROPIUM 3 ML (DUONEB) VIAL INH SCH ×3 (03:33→12:00)
[2019-10-07] MEDS: SUCRALFATE 1 GM (CARAFATE) TAB PO SCH ×2 (06:12→11:07)
[2019-10-07] MEDS: predniSONE 20 MG TAB PO SCH (06:12)
[2019-10-07 06:15] VITALS: BP 138/77
[2019-10-07] MEDS: RT-ADVAIR HFA 115/21 MCG PER PUFF IH SCH (07:58)
[2019-10-07] MEDS ORDERED: PANT40TA3 PO (09:10)
[2019-10-07] MEDS ORDERED: FLUT12AE4 IH (09:10)
[2019-10-07] MEDS ORDERED: SUCR1TAB PO (09:10)
--- NOTE | 2019-10-07 09:11 | Discharge Summary ---
Diagnosis/Chief Complaint Date of Admission Sep 29, 2019 at 11:25 Date of Discharge Discharge Date: Oct 07, 2019 Discharge Diagnosis Assessment: Severe debility PNA on CT not on CXR s/p treatment Weight loss Falls AECOPD Confusion with low SLUMS c/w dementia Plan: Monitor lungs ABX completed Steroids tapered Appreciate Dr Reid Memory evaluation Stair training (1) Debility (2) Wheezing (3) Acute bronchitis, bacterial (4) Former smoker (5) Weight loss (6) Depressed affect (7) Falls frequently (8) Dyspnea (9) Hyperlipidemia (10) CAD in [place] artery Discharge Summary Discharge Physical Examination Allergies: Coded Allergies: No Known Allergies (Verified Allergy, Unknown, 09/29/18) Vitals & I&Os Vital Signs Date Time Temp Pulse Resp B/P (MAP) Pulse Ox O2 Delivery O2 Flow Rate FiO2 10/07/19 09:00 Room Air 10/07/19 07:58 97 10/07/19 06:15 36.6 69 18 138/77 (97) General Appearance: Alert, Oriented X3, Cooperative Respiratory: Clear to Auscultation, Normal Air Movement Neuro: Normal Gait, Normal Speech, Strength at 5/5 X4 Ext Psych/Mental Status: Mental Status NL, Mood NL Hospital Course Was the Problem List Reviewed?: Yes Hospital course: pt had an uneventful hospital course for nine days when he was admitted s/p pneumonia, completed IV antibiotics and Prednisone for acute exacerbation of COPD, Dr. Reid was consulted, Pt did not require any oxygen, he did benefit from nebulizer treatments periodically. Dementia was noted with a slum score constantly a 4 out of 30, he met criteria for inpatient senior behavioral unit to try to modify and improve memory prior to discharge, so he was transferred to [facility] senior behavioral unit. Labs (last 24 hrs) Laboratory Tests 09/30/19 05:32: White Blood Count 6.6, Red Blood Count 4.25L, Hemoglobin 12.8L, Hematocrit 37L, Mean Corpuscular Volume 87, Mean Corpuscular Hemoglobin 30, Mean Corpuscular Hemoglobin Concent 35, Red Cell Distribution Width 13.3, Platelet Count 126L, Mean Platelet Volume 11.2H, Neutrophils (%) (Auto) 88H, Lymphocytes (%) (Auto) 11L, Monocytes (%) (Auto) 1, Eosinophils (%) (Auto) 0, Basophils (%) (Auto) 0, Neutrophils # (Auto) 5.8, Lymphocytes # (Auto) 0.7L, Monocytes # (Auto) 0.1, Eosinophils # (Auto) 0.0, Basophils # (Auto) 0.0, Neutrophils % (Manual) 86, Lymphocytes % (Manual) 10, Monocytes % (Manual) 0, Eosinophils % (Manual) 0, Basophils % (Manual) 0, Band Neutrophils 3, Reactive Lymphocytes 1, Toxic Granulation 1+, Poikilocytosis SLIGHT, Rouleau SLIGHT, Sodium Level 136, Potassium Level 4.8, Chloride Level 104, Carbon Dioxide Level 20L, Anion Gap 12, Blood Urea Nitrogen 20H, Creatinine 0.90, Estimat Glomerular Filtration Rate > 60, BUN/Creatinine Ratio 22, Glucose Level 130H, Calcium Level 8.8, Corrected C alcium 8.8, Total Bilirubin 0.6, Aspartate Amino Transf (AST/SGOT) 19, Alanine Aminotransferase (ALT/SGPT) 20, Alkaline Phosphatase 43, Total Protein 6.4, Albumin 4.0 09/30/19 10:10: Blood Gas Puncture Site RIGHT RADIAL, Blood Gas Patient Temperature 36.6, Arterial Blood pH 7.37, Arterial Blood Partial Pressure CO2 33L, Arterial Blood Partial Pressure O2 92, Arterial Blood HCO3 19L, Arterial Blood Total CO2 20.1L, Arterial Blood Oxygen Saturation 98, Arterial Blood Base Excess -5.3L, Casey Test POSITIVE, Blood Gas Ventilator Setting NO, Blood Gas Inspired Oxygen N/A 09/30/19 15:49: Glucometer 164H 10/01/19 05:24: Glucometer 135H 10/01/19 15:32: Glucometer 208H 10/02/19 05:10: Glucometer 89 10/02/19 15:50: Glucometer 131H 10/03/19 06:02: Glucometer 80 10/03/19 15:14: Glucometer 160H 10/04/19 05:57: Glucometer 115H 10/04/19 06:15: White Blood Count 6.8, Red Blood Count 4.36, Hemoglobin 13.0L, Hematocrit 38L, Mean Corpuscular Volume 87, Mean Corpuscular Hemoglobin 30, Mean Corpuscular Hemoglobin Concent 34, Red Cell Distribution Width 14.1, Platelet Count 120L, Mean Platelet Volume 10.7H, Neutrophils (%) (Auto) 72, Lymphocytes (%) (Auto) 20, Monocytes (%) (Auto) 7, Eosinophils (%) (Auto) 0, Basophils (%) (Auto) 0, Neutrophils # (Auto) 4.9, Lymphocytes # (Auto) 1.4, Monocytes # (Auto) 0.5, Eosinophils # (Auto) 0.0, Basophils # (Auto) 0.0, Sodium Level 136, Potassium Level 3.8, Chloride Level 102, Carbon Dioxide Level 24, Anion Gap 10, Blood Urea Nitrogen 19H, Creatinine 0.97, Estimat Glomerular Filtration Rate > 60, BUN/Creatinine Ratio 20, Glucose Level 85, Calcium Level 8.4L, Corrected Calcium 8.6, Total Bilirubin 0.3, Aspartate Amino Transf (AST/SGOT) 38H, Alanine Aminotransferase (ALT/SGPT) 67H, Alkaline Phosphatase 52, Total Protein 5.9L, Albumin 3.8 10/04/19 15:19: Glucometer 151H 10/05/19 05:39: Glucometer 121H 10/05/19 15:16: Glucometer 153H 10/06/19 06:25: Glucometer 91 10/06/19 15:26: Glucometer 155H 10/07/19 05:27: Glucometer 96 Pending Labs Laboratory Tests 09/30/19 05:32: White Blood Count 6.6, Red Blood Count 4.25, Hemoglobin 12.8, Hematocrit 37, Mean Corpuscular Volume 87, Mean Corpuscular Hemoglobin 30, Mean Corpuscular Hemoglobin Concent 35, Red Cell Distribution Width 13.3, Platelet Count 126, Mean Platelet Volume 11.2, Neutrophils (%) (Auto) 88, Lymphocytes (%) (Auto) 11, Monocytes (%) (Auto) 1, Eosinophils (%) (Auto) 0, Basophils (%) (Auto) 0, Neutrophils # (Auto) 5.8, Lymphocytes # (Auto) 0.7, Monocytes # (Auto) 0.1, Eosinophils # (Auto) 0.0, Basophils # (Auto) 0.0, Neutrophils % (Manual) 86, Lymphocytes % (Manual) 10, Monocytes % (Manual) 0, Eosinophils % (Manual) 0, Basophils % (Manual) 0, Band Neutrophils 3, Reactive Lymphocytes 1, Toxic Granulation 1+, Poikilocytosis SLIGHT, Rouleau SLIGHT, Sodium Level 136, Potassium Level 4.8, Chloride Level 104, Carbon Dioxide Level 20, Anion Gap 12, Blood Urea Nitrogen 20, Creatinine 0.90, Estimat Glomerular Filtration Rate > 60, BUN/Creatinine Ratio 22, Glucose Level 130, Calcium Level 8.8, Corrected Calcium 8.8, Total Bilirubin 0.6, Aspartate Amino Transf (AST/SGOT) 19, Alanine Aminotransferase (ALT/SGPT) 20, Alkaline Phosphatase 43, Total Protein 6.4, Albumin 4.0 09/30/19 10:10: Blood Gas Puncture Site RIGHT RADIAL, Blood Gas Patient Temperature 36.6, Arterial Blood pH 7.37, Arterial Blood Partial Pressure CO2 33, Arterial Blood Partial Pressure O2 92, Arterial Blood HCO3 19, Arterial Blood Total CO2 20.1, Arterial Blood Oxygen Saturation 98, Arterial Blood Base Excess -5.3, Casey Test POSITIVE, Blood Gas Ventilator Setting NO, Blood Gas Inspired Oxygen N/A 09/30/19 15:49: Glucometer 164 10/01/19 05:24: Glucometer 135 10/01/19 15:32: Glucometer 208 10/02/19 05:10: Glucometer 89 10/02/19 15:50: Glucometer 131 10/03/19 06:02: Glucometer 80 10/03/19 15:14: Glucometer 160 10/04/19 05:57: Glucometer 115 10/04/19 06:15: White Blood Count 6.8, Red Blood Count 4.36, Hemoglobin 13.0, Hematocrit 38, Mean Corpuscular Volume 87, Mean Corpuscular Hemoglobin 30, Mean Corpuscular Hemoglobin Concent 34, Red Cell Distribution Width 14.1, Platelet Count 120, Mean Platelet Volume 10.7, Neutrophils (%) (Auto) 72, Lymphocytes (%) (Auto) 20, Monocytes (%) (Auto) 7, Eosinophils (%) (Auto) 0, Basophils (%) (Auto) 0, Neutrophils # (Auto) 4.9, Lymphocytes # (Auto) 1.4, Monocytes # (Auto) 0.5, Eosinophils # (Auto) 0.0, Basophils # (Auto) 0.0, Sodium Level 136, Potassium Level 3.8, Chloride Level 102, Carbon Dioxide Level 24, Anion Gap 10, Blood Urea Nitrogen 19, Creatinine 0.97, Estimat Glomerular Filtration Rate > 60, BUN/Creatinine Ratio 20, Glucose Level 85, Calcium Level 8.4, Corrected Calcium 8.6, Total Bilirubin 0.3, Aspartate Amino Transf (AST/SGOT) 38, Alanine Aminotransferase (ALT/SGPT) 67, Alkaline Phosphatase 52, Total Protein 5.9, Albumin 3.8 10/04/19 15:19: Glucometer 151 10/05/19 05:39: Glucometer 121 10/05/19 15:16: Glucometer 153 10/06/19 06:25: Glucometer 91 10/06/19 15:26: Glucometer 155 10/07/19 05:27: Glucometer 96 Discharge Home Medications: Active Scripts Active Pantoprazole Sodium 40 Mg Tablet.dr 40 Mg PO DAILY Sucralfate 1 Gm Tablet 1 Gm PO ACHS 30 Days Advair Hfa 115-21 Mcg Inhaler (Fluticasone/Salmeterol) 12 Gm Hfa.aer.ad 2 Puff IH BID@08,20 30 Days Reported Lumigan (Bimatoprost) 2.5 Ml Drops 1 Drop OU HS Instructions to patient/family Please see electronic discharge instructions given to patient. Diagnosis/Problems Diagnosis/Problems (1) Debility (2) Wheezing (3) Acute bronchitis, bacterial (4) Former smoker (5) Weight loss (6) Depressed affect (7) Falls frequently (8) Dyspnea (9) Hyperlipidemia (10) CAD in [place] Clinical Quality Measures DVT/VTE Risk/Contraindication: Risk Factor Score Per Nursin RFS Level Per Nursing on Admit: 4+=Very High GAMALIEL MACIEL DO Oct 07, 2019 09:11 POS
--- NOTE | 2019-10-07 11:02 | Therapy Team Discharge Summary ---
Therapy Discharge Summary Discharge Recommendations Date of Discharge 10-07-19 Therapy D/C Recommendations: 24 hr Supervision, Occupational Therapy Home Care Occupational Therapy Pt. has been seen by occupational therapy to increase overall strength and independence. Pt. has made physical gains with ADL skills, but continues to require supervision due to cognitive deficits and safety issues. Pt. requires cues to sequence the steps to shower and dress self, as well as CGA in stance to pull pants up, toilet, etc....Pt. requires cues for safety, as he will stand and begin to walk at times without walker. Pt. has been shown and has performed with AE to make LE dressing easier, but demonstrates little carry over from day to day, and requires new cues to complete the task. Recommend 24 hour supervis ion at discharge. Decreased Activ Tolerance, Decreased Safety Aware, Decreased UE Strength, Dependent Transfers, Impaired Cognition, Impaired Funct Balance, Impaired I ADL's, Impaired Self-Care Skills PT Long-Term Goals Residential Real Estate Assistant Goals PT Residential Real Estate Assistant Goals Time Frame: Oct 20, 2019 Roll Left to Right (QC): 6 Sit to Lying (QC): 6 Lying-Sitting on Side/Bed(QC): 6 Sit to Stand (QC): 6 Chair/Jgp-ft-Fvcql Xfer(QC): 6 Car Transfer (QC): 6 Does the Patient Walk: Yes Walk 10 feet (QC): 6 Walk 10ft-Uneven Surface(QC): 6 Walk 50ft with 2 Turns (QC): 6 Walk 150 ft (QC): 6 Does the Pt use WC or Scooter?: No 1 Step (curb) (QC): 6 4 Steps (QC): 6 12 Steps (QC): 6 Picking up an Object (QC): 6 OT Residential Real Estate Assistant Goals Residential Real Estate Assistant Goals Time Frame: Oct 13, 2019 Eating (QC): 6 (met) Oral Hygiene (QC): 6 (not met) Shower/Bathe Self (QC): 5 (not met) Upper Body Dressing (QC): 5 (not met) Lower Body Dressing (QC): 5 (not met) On/Off Footwear (QC): 5 (not met) Toileting Hygiene (QC): 6 (not met) Toilet/Commode Transfer (QC): 6 (not met) Additional Goals: 1-Demonstrate ADL Tasks, 2-Verbalize Understanding, 3- ImproveStrength/Roxie 1=Demonstrate adherence to instructed precautions during ADL tasks. 2=Patient will verbalize/demonstrate understanding of assistive devices/modifications for ADL. 3=Patient will improve strength/tolerance for activity to enable patient to perform ADL's. Speech Residential Real Estate Assistant Goals Long-Term Goals Patient will improve cognitive-communication necessary for safety and daily living tasks with minimal assist. DANI LANCE OT Oct 07, 2019 11:02 POS
[2019-10-07] MEDS: PANTOPRAZOLE 40 MG (PROTONIX) TAB PO SCH (11:07)
[2019-10-07] MEDS: POLYETHYLENE GLYCOL 17 GM (MIRALAX) PACK PO SCH (11:07)
[2019-10-07] MEDS: ENOXAPARIN 40 MG/0.4 ML (LOVENOX) SYR SC SCH (11:07)
[2019-10-07] MEDS: SENNA W/DOCUSATE (SENOKOT S) TABLET PO SCH (11:07)
--- NOTE | 2019-10-07 11:15 | Therapy Team Discharge Summary ---
Therapy Discharge Summary Discharge Recommendations Date of Discharge 10/07/19 Therapy D/C Recommendations: 24 hr Supervision, Occupational Therapy Home Care Physical Therapy This patient was transferred to ARU post acute hospital stay due to respiratory issues and decreased mobility. His PLOF was intermittent SBA with mobility in his apartment. At initial evaluation, pt was SB-CGA with bed mobilty and transfers and required CGA with gait. Treatment has consisted of functional strength, balance, safety training and increasing gait distance. At discharge, he is mod indep with bed mob, transfers and gait; he is able to go up/down 16 steps (as required to enter his apartment.) Pt has made good progress and achieved mobility goals. He does have decreased safety awareness which is of concern. He is to discharge this date to [facility] for follow up care. DC from ARU this date. Occupational Therapy Decreased Activ Tolerance, Decreased Safety Aware, Decreased UE Strength, Dependent Transfers, Impaired Cognition, Impaired Funct Balance, Impaired I ADL's, Impaired Self-Care Skills PT Regional Owner Operator Truck Driver Goals Group Home Goals PT Regional Owner Operator Truck Driver Goals Time Frame: Oct 20, 2019 Roll Left to Right (QC): 6 Sit to Lying (QC): 6 Lying-Sitting on Side/Bed(QC): 6 Sit to Stand (QC): 6 Chair/Flk-mj-Pzdpo Xfer(QC): 6 Car Transfer (QC): 6 Does the Patient Walk: Yes Walk 10 feet (QC): 6 Walk 10ft-Uneven Surface(QC): 6 Walk 50ft with 2 Turns (QC): 6 Walk 150 ft (QC): 6 Does the Pt use WC or Scooter?: No 1 Step (curb) (QC): 6 4 Steps (QC): 6 12 Steps (QC): 6 Picking up an Object (QC): 6 LTG's achieved to a satisfactory level OT Group Home Goals Regional Owner Operator Truck Driver Goals Time Frame: Oct 13, 2019 Eating (QC): 6 (met) Oral Hygiene (QC): 6 (not met) Shower/Bathe Self (QC): 5 (not met) Upper Body Dressing (QC): 5 (not met) Lower Body Dressing (QC): 5 (not met) On/Off Footwear (QC): 5 (not met) Toileting Hygiene (QC): 6 (not met) Toilet/Commode Transfer (QC): 6 (not met) Additional Goals: 1-Demonstrate ADL Tasks, 2-Verbalize Understanding, 3- ImproveStrength/Roxie 1=Demonstrate adherence to instructed precautions during ADL tasks. 2=Patient will verbalize/demonstrate understanding of assistive devices/modifications for ADL. 3=Patient will improve strength/tolerance for activity to enable patient to perform ADL's. Speech Group Home Goals Group Home Goals Patient will improve cognitive-communication necessary for safety and daily living tasks with minimal assist. CLAUDIA DODSON PT Oct 07, 2019 11:15 POS
--- NOTE | 2019-10-07 14:33 | NUR ---
Patient discharged today for direct admit to [facility]. Jaime Mcclain here this a.m. to assess patient, daughter Savannah here to participate with patient for evaluation and discussion. Determination was made for patient to admit directly to inpatient [facility] via daughter transport and he was subsequently discharged from ARU as planned. This was an acute to acute service [facility] health/mental health. No other discharge arrangements necessary.
--- NOTE | 2019-10-08 10:49 | Therapy Team Discharge Summary ---
Therapy Discharge Summary Discharge Recommendations Date of Discharge Oct 07, 2019 at 13:15 Therapy D/C Recommendations: 24 hr Supervision, Occupational Therapy Home Care Occupational Therapy Decreased Activ Tolerance, Decreased Safety Aware, Decreased UE Strength, Dependent Transfers, Impaired Cognition, Impaired Funct Balance, Impaired I ADL's, Impaired Self-Care Skills Speech-Language Pathology Patient was admitted to the ARU due to debility. Patient was in the moderate dementia range of function. Patient received skilled ST for improving safety awareness. Patient was discharged to home with family on 10/07/19. Patient discharged from skilled ST at that time. PT Fdc Goals Fdc Goals PT [employer]erox Machine Mechanic Goals Time Frame: Oct 20, 2019 Roll Left to Right (QC): 6 Sit to Lying (QC): 6 Lying-Sitting on Side/Bed(QC): 6 Sit to Stand (QC): 6 Chair/Tqv-bw-Vgxfs Xfer(QC): 6 Car Transfer (QC): 6 Does the Patient Walk: Yes Walk 10 feet (QC): 6 Walk 10ft-Uneven Surface(QC): 6 Walk 50ft with 2 Turns (QC): 6 Walk 150 ft (QC): 6 Does the Pt use WC or Scooter?: No 1 Step (curb) (QC): 6 4 Steps (QC): 6 12 Steps (QC): 6 Picking up an Object (QC): 6 OT Fdc Goals [employer] Machine Mechanic Goals Time Frame: Oct 13, 2019 Eating (QC): 6 (met) Oral Hygiene (QC): 6 (not met) Shower/Bathe Self (QC): 5 (not met) Upper Body Dressing (QC): 5 (not met) Lower Body Dressing (QC): 5 (not met) On/Off Footwear (QC): 5 (not met) Toileting Hygiene (QC): 6 (not met) Toilet/Commode Transfer (QC): 6 (not met) Additional Goals: 1-Demonstrate ADL Tasks, 2-Verbalize Understanding, 3- ImproveStrength/Roxie 1=Demonstrate adherence to instructed precautions during ADL tasks. 2=Patient will verbalize/demonstrate understanding of assistive devices/modifications for ADL. 3=Patient will improve strength/tolerance for activity to enable patient to perform ADL's. Speech Fdc Goals Fdc Goals Patient will improve cognitive-communication necessary for safety and daily living tasks with minimal assist. Met MIRANDA ZHONG Oct 08, 2019 10:49 POS
== END 2019-10-07 13:15 | DRG 947 ==
PROVIDERS: ADMIT Internal Medicine; ATTEND Internal Medicine
DX: R53.81 Other malaise (principal); R63.4 Abnormal weight loss; J18.9 Pneumonia, unspecified organism; J44.1 Chronic obstructive pulmonary disease with (acute) exacerbation; J44.0 Chronic obstructive pulmonary disease with (acute) lower respiratory infection; J20.8 Acute bronchitis due to other specified organisms; B96.89 Other specified bacterial agents as the cause of diseases classified elsewhere; R29.6 Repeated falls; F03.90 Unspecified dementia, unspecified severity, without behavioral disturbance, psychotic disturbance, mood disturbance, and anxiety; K21.9 Gastro-esophageal reflux disease without esophagitis; I25.10 Atherosclerotic heart disease of native coronary artery without angina pectoris; I10 Essential (primary) hypertension; F32.9 Major depressive disorder, single episode, unspecified; E78.5 Hyperlipidemia, unspecified; Z95.5 Presence of coronary angioplasty implant and graft; Z87.891 Personal history of nicotine dependence
CPT/HCPCS: 36415; 71046; 71260; 80053; 82805; 82962; 85007; 85025; 85027; 94640; 94760

== ENCOUNTER 2019-10-26 08:45 | Inpatient (IN) | payer MEDICARE ==
[~2019-10-26] VITALS: Ht 175.3 cm; Wt 76.0 kg
[~2019-10-26 08:45] MED LIST changes: +FLUT12AE4 IH; +PANT40TA3 PO; +RT-ALBUTEROL/IPRATROPIUM 3 ML (DUONEB) VIAL ONE; +SUCR1TAB PO
[2019-10-26] MEDS ORDERED: RT-ALBUTEROL SULF 2.5 MG/3 ML PRE-MIX VIAL ONE (08:48)
[2019-10-26] MEDS ORDERED: RT-ALBUTEROL SULF 2.5 MG/3 ML PRE-MIX VIAL INH STA (08:54)
[2019-10-26] MEDS ORDERED: methylPREDNISolone 125 MG (Solu-MEDROL) VIAL IVP ONE (09:00)
[2019-10-26] MEDS ORDERED: RT-ALBUTEROL/IPRATROPIUM 3 ML (DUONEB) VIAL INH ONE (09:00)
[2019-10-26 09:03] LABS: BASOPHILS % (AUTO) 0 % (0-10); EOSINOPHILS % (AUTO) 0 % (0-10); HEMATOCRIT 40 % (40-54); HEMOGLOBIN 13.9 G/DL (13.3-17.7); LYMPHOCYTES # (AUTO) 0.4 X 10^3 (1.0-4.0); LYMPHOCYTES % (AUTO) 5 % (12-44); MEAN CORPUSCULAR HEMOGLOBIN 30 PG (25-34); MEAN CORPUSCULAR HGB CONC 35 G/DL (32-36); MEAN CORPUSCULAR VOLUME 85 FL (80-99); MEAN PLATELET VOLUME 10.2 FL (7.4-10.4); MONOCYTES # (AUTO) 0.5 X 10^3 (0.0-1.0); MONOCYTES % (AUTO) 6 % (0-12); NEUTROPHILS # (AUTO) 7.1 X 10^3 (1.8-7.8); NEUTROPHILS % (AUTO) 88 % (42-75); PLATELET COUNT 137 10^3/uL (130-400); RED CELL DISTRIBUTION WIDTH 14.4 % (10.0-14.5); WHITE BLOOD COUNT 8.1 10^3/uL (4.3-11.0)
[2019-10-26 09:27] LABS: ALANINE AMINOTRANSFERASE 57 U/L (0-55); ALKALINE PHOSPHATASE 50 U/L (40-136); BILIRUBIN,TOTAL 1.1 MG/DL (0.1-1.0); BUN/CREATININE RATIO 11; CALCIUM 8.9 MG/DL (8.5-10.1); CARBON DIOXIDE 23 MMOL/L (21-32); CHLORIDE 92 MMOL/L (98-107); CREATININE SERUM 0.87 MG/DL (0.60-1.30); GFR ESTIMATED > 60; GLUCOSE 87 MG/DL (70-105); POTASSIUM 4.4 MMOL/L (3.6-5.0); SODIUM 128 MMOL/L (135-145); TOTAL PROTEIN 6.5 GM/DL (6.4-8.2)
--- NOTE | 2019-10-26 09:39 | Diagnostic Imaging Report ---
INDICATION: Shortness of breath. COMPARISON: 09/29/2019. FINDINGS: The heart size is normal. The mediastinum is unremarkable. There is no pleural effusion or pneumothorax. IMPRESSION: No acute cardiopulmonary abnormality. Dictated by: Dictated on workstation # [id number]
[2019-10-26] MEDS ORDERED: HOLD METFORMIN - RECEIVED CONTRAST 20 ML VIAL IV SCH (10:00)
[2019-10-26] MEDS ORDERED: CATHETER FLUSH 10 ML SYR IV PRN ×2 (10:00→15:00)
[2019-10-26] MEDS ORDERED: IOHEXOL 350 MG/ML 100 ML (OMNIPAQUE 350) VIAL IV ONE (10:00)
[2019-10-26] MEDS ORDERED: NS 100 ML (IVPB) BAG IV ONE (10:00)
[2019-10-26 10:09] LABS: BAND NEUTROPHILS 7 %; LYMPHOCYTES % (MANUAL) 2 %; METAMYELOCYTES % 3 %; MONOCYTES % (MANUAL) 3 %; NEUTROPHILS % (MANUAL) 85 %; RBC MORPH NORMAL; TOXIC GRANULATION/VACUOLAZATIO 2+
--- NOTE | 2019-10-26 10:54 | ED General ---
General Chief Complaint: Respiratory Problems Stated Complaint: SOA Nursing Triage Note: Pt to ED via EMS for respiratory problems. Pt poor historian due to dementia. EMS arrived to ED on 4 L NC. EMS reports pt has been afebrile per fpc. Nursing Sepsis Screen: No Definite Risk Source of Information: Patient, EMS Exam Limitations: No Limitations History of Present Illness Date Seen by Provider: Oct 26, 2019 Time Seen by Provider: 08:45 Initial Comments This 79-year-old gentleman presents to the emergency room via EMS from [facility] in [place] because of shortness of breath, wheezing, and abdominal pain and distention. assisted staff noted an oxygen saturation in the 70s on room air. 3 L by nasal cannula brought him up into the 90s. A DuoNeb was administered in route by EMS. He is still quite tight and wheezy. He is afebrile. Patient denies any known constipation or diarrhea. He does have de mentia which impacts his ability to report history. Allergies and Home Medications Allergies Coded Allergies: No Known Allergies (Verified Allergy, Unknown, 09/29/18) Home Medications Bimatoprost 2.5 Ml Drops, 1 DROP OU HS, (Reported) Fluticasone/Salmeterol 12 Gm Hfa.aer.ad, 2 PUFF IH BID@,20 Prescribed by: GAMALIEL MACIEL on 10/07/19 09 Pantoprazole Sodium 40 Mg Tablet.dr, 40 MG PO DAILY Prescribed by: GAMALIEL MACIEL on 10/07/19 09 Sucralfate 1 Gm Tablet, 1 GM PO ACHS Prescribed by: GAMALIEL MACIEL on 10/07/19 09 Patient Home Medication List Home Medication List Reviewed: Yes Review of Systems Review of Systems Constitutional: no symptoms reported EENTM: no symptoms reported Respiratory: see HPI Cardiovascular: no symptoms reported Gastrointestinal: see HPI Genitourinary: no symptoms reported Musculoskeletal: no symptoms reported Skin: no symptoms reported Psychiatric/Neurological: No Symptoms Reported Hematologic/Lymphatic: No Symptoms Reported Past Blcmhbc-Prfxnx-Lumekj Hx Past Med/Social Hx: Reviewed and Corrections made Patient Social History Alcohol Use: Denies Use Recreational Drug Use: No Type Used: Cigarettes Former Smoker, Quit: Sep 29, 1988 2nd Hand Smoke Exposure: No Recent Foreign Travel: No Contact w/Someone Who Travel: No Recent Infectious Disease Expo: No Recent Hopitalizations: No Immunizations Up To Date Tetanus Booster (TDap): Unknown Date of Pneumonia Vaccine: Sep 29, 2014 Date of Influenza Vaccine: Aug 05, 2019 Seasonal Allergies Seasonal Allergies: No Past Medical History Surgeries: Yes Coronary Stent, Eye Surgery Respiratory: Yes COPD Currently Using CPAP: No Cardiac: Yes (stents) Coronary Artery Disease, Hypertension Neurological: Yes Dementia Genitourinary: No Gastrointestinal: Yes Gastroesophageal Reflux, Chronic Constipation Musculoskeletal: No Endocrine: No HEENT: Yes Glaucoma Cancer: No Psychosocial: Yes Depression Integumentary: Yes (dry skin legs and arms) Blood Disorders: No Adverse Reaction/Blood Tranf: No Family Medical History Patient reports no known family medical history. Physical Exam Vital Signs Vital Signs - First Documented 10/26/19 08:45 Temp 36.9 Pulse 77 Resp 28 B/P (MAP) 141/77 (98) Pulse Ox 98 O2 Delivery Nasal Cannula O2 Flow Rate 4.00 Capillary Refill : Less Than 3 Seconds Height, Weight, BMI Height: 5'9.00" Weight: 145lbs. 0.0oz. 65.113354ks; 23.00 BMI Method:Stated General Appearance: No Apparent Distress, WD/WN HEENT: PERRL/EOMI, Normal ENT Inspection Neck: Normal Inspection Respiratory: Normal Breath Sounds, No Accessory Muscle Use, No Respiratory Distress, Wheezing Cardiovascular: Regular Rate, Rhythm, No Edema, No Murmur Gastrointestinal: Distended, Tenderness (mild, generalized) Extremity: Normal Inspection, No Pedal Edema Neurologic/Psychiatric: Alert, Oriented x3, No Motor/Sensory Deficits, Normal Mood/Affect, acidizer water well II-XII Norm as Tested Skin: Normal Color, Warm/Dry Progress/Results/Core Measures Suspected Sepsis Recent Fever Within 48 Hours: No Infection Criteria Present: None New/Unexplained Altered Menta: No Sepsis Screen: No Definite Risk SIRS Temperature: Pulse: 77 Respiratory Rate: 28 Laboratory Tests 10/26/19 08:45: White Blood Count 8.1 Blood Pressure 141 /77 Mean: 98 Laboratory Tests 10/26/19 08:45: Creatinine 0.87, Platelet Count 137, Total Bilirubin 1.1H Results/Orders Lab Results Laboratory Tests Test 10/26/19 08:45 Range/Units White Blood Count 8.1 4.3-11.0 10^3/uL Red Blood Count 4.69 4.35-5.85 10^6/uL Hemoglobin 13.9 13.3-17.7 G/DL Hematocrit 40 40-54 % Mean Corpuscular Volume 85 80-99 FL Mean Corpuscular Hemoglobin 30 25-34 PG Mean Corpuscular Hemoglobin Concent 35 32-36 G/DL Red Cell Distribution Width 14.4 10.0-14.5 % Platelet Count 137 130-400 10^3/uL Mean Platelet Volume 10.2 7.4-10.4 FL Neutrophils (%) (Auto) 88 H 42-75 % Lymphocytes (%) (Auto) 5 L 12-44 % Monocytes (%) (Auto) 6 0-12 % Eosinophils (%) (Auto) 0 0-10 % Basophils (%) (Auto) 0 0-10 % Neutrophils # (Auto) 7.1 1.8-7.8 X 10^3 Lymphocytes # (Auto) 0.4 L 1.0-4.0 X 10^3 Monocytes # (Auto) 0.5 0.0-1.0 X 10^3 Eosinophils # (Auto) 0.0 0.0-0.3 10^3/uL Basophils # (Auto) 0.0 0.0-0.1 10^3/uL Neutrophils % (Manual) 85 % Lymphocytes % (Manual) 2 % Monocytes % (Manual) 3 % Metamyelocytes % 3 % Band Neutrophils 7 % Toxic Granulation 2+ Blood Morphology Comment NORMAL Sodium Level 128 L 135-145 MMOL/L Potassium Level 4.4 3.6-5.0 MMOL/L Chloride Level 92 L 98-107 MMOL/L Carbon Dioxide Level 23 21-32 MMOL/L Anion Gap 13 5-14 MMOL/L Blood Urea Nitrogen 10 7-18 MG/DL Creatinine 0.87 0.60-1.30 MG/DL Estimat Glomerular Filtration Rate > 60 BUN/Creatinine Ratio 11 Glucose Level 87 70-105 MG/DL Calcium Level 8.9 8.5-10.1 MG/DL Corrected Calcium 8.9 8.5-10.1 MG/DL Total Bilirubin 1.1 H 0.1-1.0 MG/DL Aspartate Amino Transf (AST/SGOT) 35 H 5-34 U/L Alanine Aminotransferase (ALT/SGPT) 57 H 0-55 U/L Alkaline Phosphatase 50 40-136 U/L C-Reactive Protein High Sensitivity 10.99 H 0.00-0.50 MG/DL B-Type Natriuretic Peptide 328.5 H <100.0 PG/ML Total Protein 6.5 6.4-8.2 GM/DL Albumin 4.0 3.2-4.5 GM/DL Micro Results Microbiology 10/26/19 Influenza Types A,B Antigen (ANNETTE) - Final, Complete My Orders Orders - KALEB CALL MD Albuterol/Ipra Inhalation Soln (Duoneb I (10/26/19 08:45) Albuterol Pre-Mix Nebs (Rt) (Proventil (10/26/19 08:48) Albuterol Pre-Mix Nebs (Rt) (Proventil (10/26/19 08:54) Albuterol/Ipra Inhalation Soln (Duoneb I (10/26/19 09:00) Chest 1 View, Ap/Pa Only (10/26/19 08:54) Svn Small Volume Nebulizer (10/26/19 08:54) Svn Small Volume Nebulizer (10/26/19 08:54) BNP (10/26/19 08:54) Cbc With Automated Diff (10/26/19 08:54) Comprehensive Metabolic Panel (10/26/19 08:54) Hs C Reactive Protein (10/26/19 08:54) Methylprednisolone Sod Succ (Solu-Medrol (10/26/19 09:00) Influenza A And B Antigens (10/26/19 08:55) Manual Differential (10/26/19 08:45) Ct Abdomen/Pelvis W (10/26/19 09:42) Iohexol Injection (Omnipaque 350 Mg/Ml 1 (10/26/19 10:00) Received Contrast (Hold Metformin- Contr (10/26/19 10:00) Sodium Chloride Flush (Catheter Flush Sy (10/26/19 10:00) Ns (Ivpb) (Sodium Chloride 0.9% Ivpb Bag (10/26/19 10:00) Medications Given in ED Current Medications Medications Dose Ordered Sig/Marium Route Start Time Stop Time Status Last Admin Dose Admin Albuterol/ Ipratropium 3 ml ONCE ONCE INH 10/26/19 09:00 10/26/19 09:01 DC 10/26/19 08:56 3 ML Iohexol 100 ml ONCE ONCE IV 10/26/19 10:00 10/26/19 10:23 DC 10/26/19 10:56 92 ML Methylprednisolone Sodium Succinate 62.5 mg ONCE ONCE IVP 10/26/19 09:00 10/26/19 09:01 DC 10/26/19 09:28 62.5 MG Sodium Chloride 100 ml ONCE ONCE IV 10/26/19 10:00 10/26/19 10:23 DC 10/26/19 10:56 80 ML Vital Signs/I&O 10/26/19 10/26/19 08:45 08:57 Temp 36.9 Pulse 77 Resp 28 B/P (MAP) 141/77 (98) Pulse Ox 98 98 O2 Delivery Nasal Cannula Nasal Cannula O2 Flow Rate 4.00 4.00 Capillary Refill : Less Than 3 Seconds Blood Pressure Mean: 98 Progress Note #1: Progress Note Patient was seen and examined. An hour-long nebulizer treatment was ordered along with Solu-Medrol 62.5 mg IV. Chest x-ray was unremarkable. Because of elevated CRP and abdominal pain with distention a CT was ordered and is pending. Progress Note #2: Progress Note Patient improved after hour-long breathing treatment and steroids. CT scan demonstrated no pathologic findings. Case was discussed with Dr. Perez who will see him later today. Diagnostic Imaging Diagonstic Imaging: Xray Plain Films/CT/US/NM/MRI: chest Comments Chest x-ray viewed by me and report reviewed. See report below: NAME: PHIL CASILLAS [facility] REC#: [id number] PT STATUS: REG ER : 1940 PHYSICIAN: KALEB CALL MD ADMIT DATE: 10/26/19/ER Signed Date of Exam:10/26/19 CHEST 1 VIEW, AP/PA ONLY INDICATION: Shortness of breath. COMPARISON: 09/29/2019. FINDINGS: The heart size is normal. The mediastinum is unremarkable. There is no pleural effusion or pneumothorax. IMPRESSION: No acute cardiopulmonary abnormality. Dictated by: Dictated on workstation # [id number] Dict: 10/26/19 0934 Trans: 10/26/19 1025 [id number] Interpreted by: WISAM GRISSOM MD Electronically signed by: WISAM GRISSOM MD 10/26/19 1025 Diagonstic Imaging: CT Plain Films/CT/US/NM/MRI: abdomen, pelvis Comments CT abdomen and pelvis viewed by me and report reviewed. See report below: NAME: PHIL CASILLAS [facility] REC#: [id number] PT STATUS: REG ER : 1940 PHYSICIAN: KALEB CALL MD ADMIT DATE: 10/26/19/ER Draft Date of Exam:10/26/19 CT ABDOMEN/PELVIS W PROCEDURE: CT abdomen and pelvis with contrast. TECHNIQUE: Multiple contiguous axial images were obtained through the abdomen and pelvis after administration of intravenous contrast. Auto Exposure Controls were utilized during the CT exam to meet ALARA standards for radiation dose reduction. INDICATION: Pain, distention. COMPARISON: Study compared to 01/07/2019. FINDINGS: Colonic fecal load was not pathologic. There is no evidence for ileus nor small or large bowel obstruction. No perienteric or pericolonic edema. No bowel wall thickening. There is a chronic small hiatal hernia. The liver, gallbladder, bile ducts, spleen, adrenals, and pancreas are unremarkable. The urinary tracts are unobstructed. There is no ascites, abscess, hematoma, or fluid collection. There is no free air. There are aortoiliac and mesenteric atherosclerotic vascular calcifications without aneurysm, dissection, rupture, or arterial obstruction. Urinary bladder is unremarkable. There is no diverticulitis or appendicitis. IMPRESSION: No obstructive features, inflammatory process, or acute abnormalities identified. Dictated on workstation # [id number] Dict: 10/26/19 1106 Trans: 10/26/19 1125 [id number] Interpreted by: BABS PLEITEZ Departure Communication (Admissions) Time/Spoke to Admitting Phy: 11:55 Dr. Perez Impression Primary Impression: COPD exacerbation Additional Impressions: Hypoxia Abdominal pain Qualified Codes: R10.84 - Generalized abdominal pain Disposition: ADMITTED INPATIENT Condition: Improved Admissions Decision to Admit Reason: Admit from ER (General) Decision to Admit/Date: Oct 26, 2019 Time/Decision to Admit Time: 08:50 Departure-Patient Inst. Referrals: KRISTEL PEREZ MD (PCP/Family) Primary Care Physician KALEB CALL MD Oct 26, 2019 10:54
--- NOTE | 2019-10-26 11:26 | Diagnostic Imaging Report ---
PROCEDURE: CT abdomen and pelvis with contrast. TECHNIQUE: Multiple contiguous axial images were obtained through the abdomen and pelvis after administration of intravenous contrast. Auto Exposure Controls were utilized during the CT exam to meet ALARA standards for radiation dose reduction. INDICATION: Pain, distention. COMPARISON: Study compared to 01/07/2019. FINDINGS: Colonic fecal load was not pathologic. There is no evidence for ileus nor small or large bowel obstruction. No perienteric or pericolonic edema. No bowel wall thickening. There is a chronic small hiatal hernia. The liver, gallbladder, bile ducts, spleen, adrenals, and pancreas are unremarkable. The urinary tracts are unobstructed. There is no ascites, abscess, hematoma, or fluid collection. There is no free air. There are aortoiliac and mesenteric atherosclerotic vascular calcifications without aneurysm, dissection, rupture, or arterial obstruction. Urinary bladder is unremarkable. There is no diverticulitis or appendicitis. IMPRESSION: No obstructive features, inflammatory process, or acute abnormalities identified. Dictated by: Dictated on workstation # [id number]
--- NOTE | 2019-10-26 12:15 | NUR ---
Pt's low BP at this time due to pt laying on side. Pt repositioned and BP checked again to be WNL.
[2019-10-26] MEDS ORDERED: NS IV 1000 ML 1,000 ML IV SCH ×2 (12:31→13:32)
[2019-10-26 12:42] LABS: ABG BASE EXCESS 0.4 MMOL/L (-2.5-2.5); ABG OXYGEN SATURATION 97 % (94-100); ABG PCO2 37 MMHG (35-45); ABG PH 7.44 (7.37-7.43); ABG PO2 91 MMHG (79-93); ABG TCO2 24.9 MMOL/L (21.0-31.0)
[2019-10-26 12:44] LABS: ALLENS TEST YES-POS; INSPIRED O2 3; VENTILATOR NO
[2019-10-26 12:45] LABS: PATIENT TEMP 38.3
[2019-10-26] MEDS ORDERED: ACETAMINOPHEN 500 MG TAB (TYLENOL) PO ONE (12:45)
[2019-10-26 12:46] VITALS: BP 123/72
[2019-10-26 13:09] LABS: BILIRUBIN,URINE NEGATIVE (NEGATIVE); CLARITY,URINE CLEAR; COLOR,URINE YELLOW; GLUCOSE, URINE (UA) NEGATIVE (NEGATIVE); KETONES,URINE NEGATIVE (NEGATIVE); LEUKOCYTE ESTERASE ,URINE NEGATIVE (NEGATIVE); NITRITE,URINE NEGATIVE (NEGATIVE); PH,URINE 7.5 (5-9); PROTEIN,URINE NEGATIVE (NEGATIVE)
[2019-10-26] MEDS: PIPERACILLIN SODIUM/TAZOBACTAM 4.5 GM in NS (IVPB) 100 ML IV ONE ×2 (13:13→13:43)
[2019-10-26 13:27] LABS: BACTERIA,URINE NEGATIVE /HPF
--- NOTE | 2019-10-26 14:15 | NUR ---
PHIL CASILLAS admitted to room 511-1, with an admitting diagnosis of COPD EXAC,SEPSIS, HYPOXIA on 10/26/19 from ER via [facility], accompanied by STAFF/FAMILY.PHIL CASILLAS introduced to surroundings, call light, bed controls, phone, TV, temperature control, lights, meal times, smoking policy, visitor policy, side rail policy, bathrooms and showers. Patient Rights given to patient in the handbook. PHIL CASILLAS verbalizes understanding that [facility] is not responsible for the loss or damage to any personal effects or valuables that are kept in the patients posession during their hospitalization. The following Patient Care Plans were discussed with the PT: Discharge Planning, IMPAIRED GAS EXCHANGE,INEFFECTIVE BREATHING PATTERN, and HIGH RISK INFECTION. PHIL CASILLAS verbalizes understanding of Interdisciplinary Patient Education. Patient and family were informed about the Rapid Response Team and its purpose.
[2019-10-26 14:39] VITALS: BP 131/75
[2019-10-26] MEDS ORDERED: ACETAMINOPHEN 500 MG TAB (TYLENOL) PO PRN (15:00)
[2019-10-26] MEDS ORDERED: RT-ALBUTEROL SULF 2.5 MG/3 ML PRE-MIX VIAL INH PRN (15:15)
--- NOTE | 2019-10-26 15:18 | History & Physicial ---
History of Present Illness History of Present Illness Reason for visit/HPI 79-year-old male brought into the emergency room via EMS from [facility] [place] in [facility] with difficulty breathing. Patient was recently admitted and spent time on inpatient rehabilitation. He was ultimately released to [facility] and was there. On his recent admission it was for COPD with exacerbation. Currently he is with also wheezing and abdominal distention. He was noted to have oxygen saturation in the 70 percentile on room air. He was placed on 3 L nasal cannula and this has brought him up to the 90 percentile in the emergency department. Date of Admission Oct 26, 2019 at 12:47 Date Seen by a Provider: Oct 26, 2019 Time Seen by a Provider: 15:30 I consulted on this patient on 10/26/19 15:16 Attending Physician Parveen Perez MD Admitting Physician Parveen Perez MD Consult Allergies and Home Medications Allergies Coded Allergies: No Known Allergies (Verified Allergy, Unknown, 09/29/18) Home Medications Bimatoprost 2.5 Ml Drops, 1 DROP OU DAILY, (Reported) Fluticasone/Salmeterol 1 Each Blst.w.dev, 1 PUFF IH BID, (Reported) Lactulose 20 Gm/30 Ml Solution, 30 ML PO BID, (Reported) Loratadine 10 Mg Tablet, 10 MG PO DAILY, (Reported) Montelukast Sodium 10 Mg Tablet, 10 MG PO DAILY, (Reported) Pantoprazole Sodium 40 Mg Tablet.dr, 40 MG PO DAILY, (Reported) Sucralfate 1 Gm Tablet, 1 GM PO ACHS, (Reported) Venlafaxine HCl 150 Mg Cap.er.24h, 150 MG PO DAILY, (Reported) Patient Home Medication List Home Medication List Reviewed: Yes Past Xonxobx-Hwxtdh-Rcsnvw Hx Patient Social History Marrital Status: Alcohol Use: Denies Use Recreational Drug Use: No Former Smoker, Quit: Sep 29, 1988 Type Used: Cigarettes 2nd Hand Smoke Exposure: No Recent Foreign Travel: No Contact w/other who traveled: No Recent Hopitalizations: No Recent Infectious Disease Expo: No Immunizations Up To Date Tetanus Booster (TDap): Unknown Date of Pneumonia Vaccine: Sep 29, 2014 Date of Influenza Vaccine: Aug 27, 2019 Seasonal Allergies Seasonal Allergies: No Surgeries Yes Coronary Stent, Eye Surgery Respiratory Yes Currently Using CPAP: No Cardiovascular Yes (stents) Coronary Artery Disease, Hypertension Neurological Yes Dementia Genitourinary No Gastrointestinal Yes Gastroesophageal Reflux, Chronic Constipation Musculoskeletal No Endocrine History of Endocrine Disorders: No HEENT History of HEENT Disorders: Yes HEENT Disorders: Glaucoma Cancer No Psychosocial History of Psychiatric Problem: Yes Behavioral Health Disorders: Depression Integumentary History of Skin or Integumenta: Yes (dry skin legs and arms) Blood Transfusions History of Blood Disorders: No Adverse Reaction to a Blood Tr: No Family Medical History Family Hx: Patient reports no known family medical history. Review of Systems Constitutional: see HPI Physical Exam Vital Signs Vital Signs - First Documented 10/26/19 14:15 FiO2 30 Capillary Refill : Less Than 3 Seconds Height, Weight, BMI Height: 5'9.00" Weight: 145lbs. 0.0oz. 65.827233qv; 24.34 BMI Method:Stated General Appearance: Mild Distress HEENT: Moist Mucous Membranes Neck: Full Range of Motion Cardiovascular: Regular Rate, Rhythm Gastrointestinal: Soft Rectal: Deferred Comments NAME: PHIL CASILLAS [facility] REC#: [id number] PT STATUS: REG ER : 1940 PHYSICIAN: KALEB CALL MD ADMIT DATE: 10/26/19/ER Signed Date of Exam:10/26/19 CHEST 1 VIEW, AP/PA ONLY INDICATION: Shortness of breath. COMPARISON: 09/29/2019. FINDINGS: The heart size is normal. The mediastinum is unremarkable. There is no pleural effusion or pneumothorax. IMPRESSION: No acute cardiopulmonary abnormality. Dictated by: Dictated on workstation # [id number] Dict: 10/26/1934 Trans: 10/26/19 1025 [id number] Interpreted by: WISAM GRISSOM MD Electronically signed by: WISAM GRISSOM MD 10/26/19 1025 [facility] [place] NAME: [facility] L [facility] REC#: [id number] PT STATUS: REG ER : 1940 PHYSICIAN: KALEB CALL MD ADMIT DATE: 10/26/19/ER Signed Date of Exam:10/26/19 CT ABDOMEN/PELVIS W PROCEDURE: CT abdomen and pelvis with contrast. TECHNIQUE: Multiple contiguous axial images were obtained through the abdomen and pelvis after administration of intravenous contrast. Auto Exposure Controls were utilized during the CT exam to meet ALARA standards for radiation dose reduction. INDICATION: Pain, distention. COMPARISON: Study compared to 01/07/2019. FINDINGS: Colonic fecal load was not pathologic. There is no evidence for ileus nor small or large bowel obstruction. No perienteric or pericolonic edema. No bowel wall thickening. There is a chronic small hiatal hernia. The liver, gallbladder, bile ducts, spleen, adrenals, and pancreas are unremarkable. The urinary tracts are unobstructed. There is no ascites, abscess, hematoma, or fluid collection. There is no free air. There are aortoiliac and mesenteric atherosclerotic vascular calcifications without aneurysm, dissection, rupture, or arterial obstruction. Urinary bladder is unremarkable. There is no diverticulitis or appendicitis. IMPRESSION: No obstructive features, inflammatory process, or acute abnormalities identified. Dictated by: Dictated on workstation # [id number] Dict: 10/26/19 1106 Trans: 10/26/19 1153 [id number] Interpreted by: BABS PLEITEZ Electronically signed by: BABS PLEITEZ 10/26/19 1153 Assessment/Plan Assessment and Plan 1. COPD exacerbation -IV Solu-Medrol initiated in the emergency department -Nebulizing treatments per RT 2. Suspicious for sepsis with a lactic acid of 5 -Patient initiated on IV Zosyn in ED. -Monitor lactic acid level 3. Abdominal discomfortCT nondiagnostic -Monitor for improvement Admission Diagnosis 1. COPD exacerbation 2. Suspicious for sepsis with a lactic acid of 5 3. Abdominal discomfortCT nondiagnostic Admission Status: Inpatient Order (span 2 midnights) Reason for Inpatient Admission: Further pulmonary care with respiratory therapy involvement. Initiation of IV Solu-Medrol as well as IV antibiotic Zosyn Clinical Quality Measures DVT/VTE Risk/Contraindication: Risk Factor Score Per Nursin RFS Level Per Nursing on Admit: 4+=Very High PARVEEN PEREZ MD Oct 26, 2019 15:18
[2019-10-26] MEDS: methylPREDNISolone 40 MG/ML (Solu-MEDROL) VIAL IV SCH ×2 (15:23→23:03)
[2019-10-26] MEDS: NS IV 1000 ML 1,000 ML IV SCH ×2 (15:23→23:03)
[2019-10-26 15:25] VITALS: BP 137/70
[2019-10-26] MEDS ORDERED: VANCOMYCIN 1500 MG/NS 500 ML IVPB IV NR ×2 (15:30)
--- NOTE | 2019-10-26 15:31 | NUR ---
DR PEREZ HERE TO SEE PT, INFORMED OF DVT/VTE SCORE AND INFORMED OF LACTIC ACID LEVELS.
--- NOTE | 2019-10-26 15:42 | NUR ---
VANCOMYCIN DOSING: CrCl 61.9 LOADING DOSE: 1500MG MAINT DOSE: 1 GM Q 24H VANCOMYCIN TROUGH DUE 10/29 @ 1500 IF TROUGH >20, HOLD / 1600 DOSE
[2019-10-26] MEDS ORDERED: LORA10TA7 PO (15:48)
[2019-10-26] MEDS ORDERED: MONT10TA24 PO (15:48)
[2019-10-26] MEDS ORDERED: PANT40TA3 PO (15:48)
[2019-10-26] MEDS ORDERED: VENL150C98 PO (15:48)
[2019-10-26] MEDS ORDERED: SUCR1TAB PO (15:48)
[2019-10-26] MEDS ORDERED: LACT20SO2 PO (15:48)
[2019-10-26] MEDS ORDERED: BIMA2.5D5 OU (15:48)
[2019-10-26] MEDS ORDERED: FLUT1DIS28 IH (15:48)
--- NOTE | 2019-10-26 15:48 | NUR ---
UPDATED MED REC WITH ORDER SUMMARY REPORT FROM [facility] [place].
[2019-10-26] MEDS: RT-ALBUTEROL/IPRATROPIUM 3 ML (DUONEB) VIAL IH SCH ×2 (18:31→23:34)
[2019-10-26] MEDS: CATHETER FLUSH 10 ML SYR IV SCH (23:03)
[2019-10-26] MEDS: PIPERACILLIN/TAZO 4.5 GM/NS 100 ML IV SCH ×2 (23:03)
[2019-10-26 23:15] VITALS: BP 153/77
--- NOTE | 2019-10-27 00:15 | NUR ---
RECEIVED REPORT FROM KARMEN MCQUEEN. THIS RN TO ASSUME CARE OF PT AT THIS TIME.
[2019-10-27 03:09] LABS: BASOPHILS % (AUTO) 0 % (0-10); EOSINOPHILS % (AUTO) 0 % (0-10); HEMATOCRIT 34 % (40-54); HEMOGLOBIN 11.8 G/DL (13.3-17.7); LYMPHOCYTES # (AUTO) 0.2 X 10^3 (1.0-4.0); LYMPHOCYTES % (AUTO) 4 % (12-44); MEAN CORPUSCULAR HEMOGLOBIN 30 PG (25-34); MEAN CORPUSCULAR HGB CONC 35 G/DL (32-36); MEAN CORPUSCULAR VOLUME 86 FL (80-99); MEAN PLATELET VOLUME 9.9 FL (7.4-10.4); MONOCYTES # (AUTO) 0.2 X 10^3 (0.0-1.0); MONOCYTES % (AUTO) 3 % (0-12); NEUTROPHILS # (AUTO) 5.8 X 10^3 (1.8-7.8); NEUTROPHILS % (AUTO) 93 % (42-75); PLATELET COUNT 104 10^3/uL (130-400); RED CELL DISTRIBUTION WIDTH 14.1 % (10.0-14.5); WHITE BLOOD COUNT 6.2 10^3/uL (4.3-11.0)
[2019-10-27] MEDS: NS IV 1000 ML 1,000 ML IV SCH ×3 (03:10→14:23)
[2019-10-27 03:30] LABS: ALANINE AMINOTRANSFERASE 42 U/L (0-55); ALBUMIN 3.1 GM/DL (3.2-4.5); ALKALINE PHOSPHATASE 40 U/L (40-136); BILIRUBIN,TOTAL 0.5 MG/DL (0.1-1.0); BUN/CREATININE RATIO 12; CALCIUM 7.8 MG/DL (8.5-10.1); CARBON DIOXIDE 19 MMOL/L (21-32); CHLORIDE 104 MMOL/L (98-107); CREATININE SERUM 0.75 MG/DL (0.60-1.30); GFR ESTIMATED > 60; GLUCOSE 158 MG/DL (70-105); SODIUM 133 MMOL/L (135-145); TOTAL PROTEIN 5.4 GM/DL (6.4-8.2)
[2019-10-27 04:00] VITALS: BP 120/65
[2019-10-27] MEDS: RT-ALBUTEROL/IPRATROPIUM 3 ML (DUONEB) VIAL IH SCH ×6 (04:17→21:49)
[2019-10-27] MEDS: methylPREDNISolone 40 MG/ML (Solu-MEDROL) VIAL IV SCH ×4 (04:30→19:48)
[2019-10-27] MEDS: PIPERACILLIN/TAZO 4.5 GM/NS 100 ML IV SCH ×6 (07:03→19:49)
[2019-10-27] MEDS: CATHETER FLUSH 10 ML SYR IV SCH ×3 (07:08→21:47)
[2019-10-27 07:28] VITALS: BP 141/77
[2019-10-27 12:48] VITALS: BP 147/76
--- NOTE | 2019-10-27 15:14 | Progress Note ---
Subjective Date Seen by a Provider: Oct 27, 2019 Time Seen by a Provider: 14:30 Subjective/Events-last exam Patient is sitting in bed comfortably. He is noted to have some congestion but he is not with any labored breathing. He has nasal cannula on currently at 2 L. He reports his appetite is fairly good and he is drinking plenty. Focused Exam Lactate Level 10/26/19 12:55: Lactic Acid Level 5.46*H 10/26/19 15:03: Lactic Acid Level 5.14*H 10/27/19 02:59: Lactic Acid Level 1.67 Objective Exam Vital Signs Date Time Temp Pulse Resp B/P (MAP) Pulse Ox O2 Delivery O2 Flow Rate FiO2 10/27/19 15:08 60 30 96 28.00 10/27/19 15:04 92 Nasal Cannula 2.00 10/27/19 15:01 Nasal Cannula 2.00 10/27/19 13:00 72 10/27/19 12:48 36.3 65 22 147/76 (99) 98 10/27/19 11:18 Nasal Cannula 2.00 10/27/19 08:56 Nasal Cannula 2.00 10/27/19 07:56 Nasal Cannula 2.00 10/27/19 07:30 95 Nasal Cannula 2.00 10/27/19 07:28 36.3 74 18 141/77 (98) 95 10/27/19 07:18 98 Nasal Cannula 2.00 10/27/19 07:00 61 10/27/19 04:06 74 31 96 28.00 10/27/19 04:00 36.6 72 20 120/65 (83) 94 NIV Bilevel 30.00 10/27/19 04:00 NIV Bilevel 28 10/27/19 01:00 66 10/27/19 00:00 NIV Bilevel 28 10/26/19 23:35 65 21 98 30.00 10/26/19 23:15 36.7 67 21 153/77 (102) 100 NIV Bilevel 30.00 10/26/19 21:00 100 NIV Bilevel 30 10/26/19 20:00 NIV Bilevel 30 10/26/19 19:00 75 10/26/19 18:31 70 20 99 30.00 10/26/19 15:42 NIV Bilevel 30 10/26/19 15:25 36.5 10/26/19 15:25 74 22 137/70 (92) 97 NIV Bilevel 30.00 I & O 10/27/19 07:00 Intake Total 3615 ml Output Total 1650 ml Balance 1965 ml Capillary Refill : Less Than 3 Seconds General Appearance: No Apparent Distress HEENT: Pharynx Normal (With dry membranes) Neck: Supple Respiratory: No Lungs Clear, No No Respiratory Distress, No Accessory Muscle Use; Rhonci Cardiovascular: Regular Rate, Rhythm Gastrointestinal: distended (Slightly but no rebound tenderness or guarding) Extremity: Normal Capillary Refill Neurologic/Psychiatric: Alert, Oriented x3 Results Lab Laboratory Tests 10/27/19 02:59: White Blood Count 6.2, Red Blood Count 3.97L, Hemoglobin 11.8L, Hematocrit 34L, Mean Corpuscular Volume 86, Mean Corpuscular Hemoglobin 30, Mean Corpuscular Hemoglobin Concent 35, Red Cell Distribution Width 14.1, Platelet Count 104L, Mean Platelet Volume 9.9, Neutrophils (%) (Auto) 93H, Lymphocytes (%) (Auto) 4L, Monocytes (%) (Auto) 3, Eosinophils (%) (Auto) 0, Basophils (%) (Auto) 0, Neutrophils # (Auto) 5.8, Lymphocytes # (Auto) 0.2L, Monocytes # (Auto) 0.2, Eosinophils # (Auto) 0.0, Basophils # (Auto) 0.0, Sodium Level 133L, Potassium Level 4.0, Chloride Level 104, Carbon Dioxide Level 19L, Anion Gap 10, Blood Urea Nitrogen 9, Creatinine 0.75, Estimat Glomerular Filtration Rate > 60, BUN/Creatinine Ratio 12, Glucose Level 158H, Lactic Acid Level 1.67, Calcium Level 7.8L, Corrected Calcium 8.5, Total Bilirubin 0.5, Aspartate Amino Transf (AST/SGOT) 27, Alanine Aminotransferase (ALT/SGPT) 42, Alkaline Phosphatase 40, Total Protein 5.4L, Albumin 3.1L Microbiology 10/26/19 Influenza Types A,B Antigen (ANNETTE) - Final, Complete Assessment/Plan Assessment/Plan Assess & Plan/Chief Complaint 1. COPD exacerbation -IV Solu-Medrol initiated in the emergency department -Nebulizing treatments per RT 10/27 -Patient has shown signs of improvement. -Will continue with the Solu-Medrol for an additional 24 hours. -He is now on nasal cannula oxygen at 2 L 2. Suspicious for sepsis with a lactic acid of 5 -Patient initiated on IV Zosyn in ED. -Monitor lactic acid level 10/27 -Lactic acid level decreased to 1.67 -Patient will continue to receive IV fluids but will decrease to 100 mL per hour -Continue to monitor input and output. 3. Abdominal discomfortCT nondiagnostic -Monitor for improvement 10/27 -After talking to his daughter his abdominal discomfort is ongoing problem for him. He sees this most of the time after he eats. He is passing gas. We'll continue to monitor. Clinical Quality Measures Admission Status Admission Dx 1. COPD exacerbation 2. Suspicious for sepsis with a lactic acid of 5 3. Abdominal discomfortCT nondiagnostic DVT/VTE Risk/Contraindication: Risk Factor Score Per Nursin RFS Level Per Nursing on Admit: 4+=Very High KRISTEL PEREZ MD Oct 27, 2019 15:14
[2019-10-27 15:33] VITALS: BP 139/68
[2019-10-27] MEDS ORDERED: VANCOMYCIN 1 GM/NS 250 ML IVPB IV SCH ×2 (16:00)
[2019-10-27 20:00] VITALS: BP 128/68
[2019-10-27 23:25] VITALS: BP 127/68
[2019-10-28] MEDS: RT-ALBUTEROL/IPRATROPIUM 3 ML (DUONEB) VIAL IH SCH ×5 (01:48→22:12)
[2019-10-28] MEDS: NS IV 1000 ML 1,000 ML IV SCH ×2 (02:39→11:43)
[2019-10-28] MEDS: PIPERACILLIN/TAZO 4.5 GM/NS 100 ML IV SCH ×6 (02:39→20:23)
[2019-10-28] MEDS: methylPREDNISolone 40 MG/ML (Solu-MEDROL) VIAL IV SCH ×4 (02:39→20:23)
[2019-10-28 03:36] VITALS: BP 157/79
[2019-10-28 04:01] LABS: BASOPHILS % (AUTO) 0 % (0-10); EOSINOPHILS % (AUTO) 0 % (0-10); HEMATOCRIT 34 % (40-54); HEMOGLOBIN 11.3 G/DL (13.3-17.7); LYMPHOCYTES # (AUTO) 0.3 X 10^3 (1.0-4.0); LYMPHOCYTES % (AUTO) 4 % (12-44); MEAN CORPUSCULAR HEMOGLOBIN 29 PG (25-34); MEAN CORPUSCULAR HGB CONC 33 G/DL (32-36); MEAN CORPUSCULAR VOLUME 88 FL (80-99); MEAN PLATELET VOLUME 9.8 FL (7.4-10.4); MONOCYTES # (AUTO) 0.3 X 10^3 (0.0-1.0); MONOCYTES % (AUTO) 5 % (0-12); NEUTROPHILS # (AUTO) 5.7 X 10^3 (1.8-7.8); NEUTROPHILS % (AUTO) 91 % (42-75); PLATELET COUNT 111 10^3/uL (130-400); RED CELL DISTRIBUTION WIDTH 14.6 % (10.0-14.5); WHITE BLOOD COUNT 6.3 10^3/uL (4.3-11.0)
[2019-10-28 04:23] LABS: BUN/CREATININE RATIO 19; CALCIUM 7.8 MG/DL (8.5-10.1); CARBON DIOXIDE 18 MMOL/L (21-32); CHLORIDE 105 MMOL/L (98-107); CREATININE SERUM 0.75 MG/DL (0.60-1.30); GFR ESTIMATED > 60; GLUCOSE 147 MG/DL (70-105); POTASSIUM 3.6 MMOL/L (3.6-5.0); SODIUM 135 MMOL/L (135-145)
[2019-10-28] MEDS: CATHETER FLUSH 10 ML SYR IV SCH ×3 (04:37→21:44)
--- NOTE | 2019-10-28 07:31 | Progress Note ---
Subjective Date Seen by a Provider: Oct 28, 2019 Time Seen by a Provider: 07:10 Subjective/Events-last exam Patient sitting comfortably in bed this morning with nasal cannula oxygen. He had BiPAP on overnight. He does not voice increased labored breathing. Focused Exam Lactate Level 10/26/19 12:55: Lactic Acid Level 5.46*H 10/26/19 15:03: Lactic Acid Level 5.14*H 10/27/19 02:59: Lactic Acid Level 1.67 Objective Exam Vital Signs Date Time Temp Pulse Resp B/P (MAP) Pulse Ox O2 Delivery O2 Flow Rate FiO2 10/28/19 03:37 NIV Bilevel 28 10/28/19 03:36 36.1 71 22 157/79 (105) 95 NIV Bilevel 28.00 10/28/19 01:48 59 18 93 28.00 10/28/19 01:00 76 10/27/19 23:25 36.6 80 20 127/68 (87) 95 NIV Bilevel 28.00 10/27/19 23:16 NIV Bilevel 28 10/27/19 21:49 62 22 96 28.00 10/27/19 21:00 Nasal Cannula 3.00 10/27/19 20:00 36.4 65 18 128/68 (88) 96 Nasal Cannula 3.00 10/27/19 20:00 Nasal Cannula 2.00 10/27/19 19:05 95 Nasal Cannula 3.00 10/27/19 19:00 67 10/27/19 15:33 36.4 73 20 139/68 (91) 97 10/27/19 15:08 60 30 96 28.00 10/27/19 15:04 92 Nasal Cannula 2.00 10/27/19 15:01 Nasal Cannula 2.00 10/27/19 13:00 72 10/27/19 12:48 36.3 65 22 147/76 (99) 98 10/27/19 11:18 Nasal Cannula 2.00 10/27/19 08:56 Nasal Cannula 2.00 10/27/19 07:56 Nasal Cannula 2.00 10/27/19 07:30 95 Nasal Cannula 2.00 I & O 10/28/19 07:00 Intake Total 2780 ml Output Total 900 ml Balance 1880 ml Capillary Refill : Less Than 3 Seconds General Appearance: No Apparent Distress Respiratory: Accessory Muscle Use (Slight), Rhonci Cardiovascular: Regular Rate, Rhythm Gastrointestinal: soft (This morning) Results Lab Laboratory Tests 10/28/19 03:25: White Blood Count 6.3, Red Blood Count 3.84L, Hemoglobin 11.3L, Hematocrit 34L, Mean Corpuscular Volume 88, Mean Corpuscular Hemoglobin 29, Mean Corpuscular Hemoglobin Concent 33, Red Cell Distribution Width 14.6H, Platelet Count 111L, Mean Platelet Volume 9.8, Neutrophils (%) (Auto) 91H, Lymphocytes (%) (Auto) 4L, Monocytes (%) (Auto) 5, Eosinophils (%) (Auto) 0, Basophils (%) (Auto) 0, Neutrophils # (Auto) 5.7, Lymphocytes # (Auto) 0.3L, Monocytes # (Auto) 0.3, Eosinophils # (Auto) 0.0, Basophils # (Auto) 0.0, Sodium Level 135, Potassium Level 3.6, Chloride Level 105, Carbon Dioxide Level 18L, Anion Gap 12, Blood Urea Nitrogen 14, Creatinine 0.75, Estimat Glomerular Filtration Rate > 60, BUN/Creatinine Ratio 19, Glucose Level 147H, Calcium Level 7.8L Microbiology 10/26/19 Blood Culture - Preliminary, Resulted Probable Coag Negative Staph See Comments 10/26/19 Influenza Types A,B Antigen (ANNETTE) - Final, Complete Assessment/Plan Assessment/Plan Assess & Plan/Chief Complaint 1. COPD exacerbation -IV Solu-Medrol initiated in the emergency department -Nebulizing treatments per RT 10/27 -Patient has shown signs of improvement. -Will continue with the Solu-Medrol for an additional 24 hours. -He is now on nasal cannula oxygen at 2 L 1/2 -He continues at Solu-Medrol 40 mg IV every 6 hours. -Consultation with pulmonology today. 2. Suspicious for sepsis with a lactic acid of 5 -Patient initiated on IV Zosyn in ED. -Monitor lactic acid level 10/27 -Lactic acid level decreased to 1.67 -Patient will continue to receive IV fluids but will decrease to 100 mL per hour -Continue to monitor input and output. 1/2 -Blood cultures essentially negative. One culture had coag negative staph probably contamination 3. Abdominal discomfortCT nondiagnostic -Monitor for improvement 10/27 -After talking to his daughter his abdominal discomfort is ongoing problem for him. He sees this most of the time after he eats. He is passing gas. We'll continue to monitor. Clinical Quality Measures Admission Status Admission Dx 1. COPD exacerbation 2. Suspicious for sepsis with a lactic acid of 5 3. Abdominal discomfortCT nondiagnostic DVT/VTE Risk/Contraindication: Risk Factor Score Per Nursin RFS Level Per Nursing on Admit: 4+=Very High KRISTEL PEREZ MD Oct 28, 2019 07:31
[2019-10-28 08:00] VITALS: BP 122/67
--- NOTE | 2019-10-28 10:21 | Pulmonary Consultation ---
History of Present Illness History of Present Illness Date Seen by Provider: Oct 28, 2019 Time Seen by Provider: 10:08 Date of Admission History of Present Illness 79yo with hx of COPD and severe debility and was recently treated in our in pt rehab unit presented to ED from [facility] secondary to worsening SOB. He was noted to have oxygen saturation in the 70 percentile on room air while in the ED. Pt was placed on Vanco and zosyn and admitted to cardiac step down unit. Pt has been very wheezy and has also been getting solumedrol 40 IV Q 6. Allergies and Home Medications Allergies Coded Allergies: No Known Allergies (Verified Allergy, Unknown, 09/29/18) Home Medications Bimatoprost 2.5 Ml Drops, 1 DROP OU DAILY, (Reported) Fluticasone/Salmeterol 1 Each Blst.w.dev, 1 PUFF IH BID, (Reported) Lactulose 20 Gm/30 Ml Solution, 30 ML PO BID, (Reported) Loratadine 10 Mg Tablet, 10 MG PO DAILY, (Reported) Montelukast Sodium 10 Mg Tablet, 10 MG PO DAILY, (Reported) Pantoprazole Sodium 40 Mg Tablet.dr, 40 MG PO DAILY, (Reported) Sucralfate 1 Gm Tablet, 1 GM PO ACHS, (Reported) Venlafaxine HCl 150 Mg Cap.er.24h, 150 MG PO DAILY, (Reported) Past Peueqob-Jwrzfg-Ktuyuu Hx Past Med/Social Hx: Reviewed and Corrections made Patient Social History Alcohol Use: Denies Use Recreational Drug Use: No Type Used: Cigarettes Former Smoker, Quit: Sep 29, 1988 2nd Hand Smoke Exposure: No Recent Foreign Travel: No Contact w/Someone Who Travel: No Recent Infectious Disease Expo: No Recent Hopitalizations: No Immunizations Up To Date Tetanus Booster (TDap): Unknown Date of Pneumonia Vaccine: Sep 29, 2014 Date of Influenza Vaccine: Aug 27, 2019 Seasonal Allergies Seasonal Allergies: No Past Medical History Surgeries: Yes Coronary Stent, Eye Surgery Respiratory: Yes COPD Currently Using CPAP: No Cardiac: Yes (stents) Coronary Artery Disease, Hypertension Neurological: Yes Dementia Genitourinary: No Gastrointestinal: Yes Gastroesophageal Reflux, Chronic Constipation Musculoskeletal: No Endocrine: No HEENT: Yes Glaucoma Cancer: No Psychosocial: Yes Depression Integumentary: Yes (dry skin legs and arms) Blood Disorders: No Adverse Reaction/Blood Tranf: No Family Medical History Patient reports no known family medical history. Review of Systems Time Seen by Provider: 10:32 Sepsis Event Evaluation Height, Weight, BMI Height: 5'9.00" Weight: 145lbs. 0.0oz. 65.674708rp; 24.34 BMI Method:Stated Exam Exam Vital Signs Date Time Temp Pulse Resp B/P (MAP) Pulse Ox O2 Delivery O2 Flow Rate FiO2 10/28/19 09:00 Nasal Cannula 3.00 10/28/19 08:00 36.4 72 20 122/67 (85) 95 Room Air 3.00 10/28/19 08:00 Nasal Cannula 3.00 10/28/19 07:00 81 10/28/19 03:37 NIV Bilevel 28 10/28/19 03:36 36.1 71 22 157/79 (105) 95 NIV Bilevel 28.00 10/28/19 01:48 59 18 93 28.00 10/28/19 01:00 76 10/27/19 23:25 36.6 80 20 127/68 (87) 95 NIV Bilevel 28.00 10/27/19 23:16 NIV Bilevel 28 10/27/19 21:49 62 22 96 28.00 10/27/19 21:00 Nasal Cannula 3.00 10/27/19 20:00 36.4 65 18 128/68 (88) 96 Nasal Cannula 3.00 10/27/19 20:00 Nasal Cannula 2.00 10/27/19 19:05 95 Nasal Cannula 3.00 10/27/19 19:00 67 10/27/19 15:33 36.4 73 20 139/68 (91) 97 10/27/19 15:08 60 30 96 28.00 10/27/19 15:04 92 Nasal Cannula 2.00 10/27/19 15:01 Nasal Cannula 2.00 10/27/19 13:00 72 10/27/19 12:48 36.3 65 22 147/76 (99) 98 10/27/19 11:18 Nasal Cannula 2.00 I & O 10/28/19 07:00 Intake Total 2780 ml Output Total 900 ml Balance 1880 ml Height & Weight Height: 5'9.00" Weight: 145lbs. 0.0oz. 65.865923au; 24.34 BMI Method:Stated General Appearance: No Apparent Distress HEENT: Pharynx Normal (With dry membranes) Neck: Supple Respiratory: Accessory Muscle Use (Slight), Rhonci Cardiovascular: Regular Rate, Rhythm Capillary Refill: Less Than 3 Seconds Gastrointestinal: soft (This morning) Extremity: Normal Capillary Refill Neurologic/Psychiatric: Alert, Oriented x3 Skin: Normal Color, Warm/Dry Results Lab Laboratory Tests 10/27/19 02:59 10/28/19 03:25 Assessment/Plan Assessment/Plan COPDAE with hypoxia -Currently on Solumedrol 40 IV Q 6 -SVNS Q 4-- Add advair -Repeat CXR -I discussed pt with Dr. Watson Metabolic lactic acidosis -Improving -Cultures are negative -Will D/C vancomcyin -IVF currently NS at 100cc/hr Anemia -Monitor Abdominal pain -CT is negative KENISHA CORCORAN DO Oct 28, 2019 10:21
[2019-10-28 11:41] VITALS: BP 153/71
--- NOTE | 2019-10-28 11:57 | NUR ---
CM/SS visited with the patient to assess needs upon discharge. The patient was eating lunch upon arrival. The patient seemed to be in good spirits today and stated that he feels better than he did when he first got here. The patient was pleasantly confused during the conversation but was able to provide some information. The patient is not currently but does have a daughter who visits him and takes care of things for him. He could not tell me where she worked but he stated [place] The patient has a son as well that live in [place] who does not visit often; however, he states they have a good relationship. CM/SS spoke with the Step Down nurse to see if there was a planned discharge date. It was unknown. The patient stated that he did not have any needs at this time. CM/SS will continue to follow and plan to send discharge records to facility when available.
--- NOTE | 2019-10-28 12:27 | Diagnostic Imaging Report ---
INDICATION: Shortness of breath. TIME OF EXAM: 11:56 a.m. Correlation is made with prior chest from 10/26/2019. FINDINGS: The heart size is normal. The pulmonary vascularity is unremarkable. The lungs are clear. No infiltrate, effusion or pneumothorax is detected. IMPRESSION: No acute cardiopulmonary process is detected. Dictated by: Dictated on workstation # [id number]
[2019-10-28 16:00] VITALS: BP 161/77
[2019-10-28] MEDS: RT-ADVAIR HFA 115/21 MCG PER PUFF IH SCH (19:10)
[2019-10-28 20:00] VITALS: BP 172/82
[2019-10-29] VITALS: BP 173/80
[2019-10-29] MEDS: RT-ALBUTEROL/IPRATROPIUM 3 ML (DUONEB) VIAL IH SCH ×6 (02:01→22:46)
[2019-10-29] MEDS: PIPERACILLIN/TAZO 4.5 GM/NS 100 ML IV SCH ×6 (03:09→21:59)
[2019-10-29] MEDS: NS IV 1000 ML 1,000 ML IV SCH (03:09)
[2019-10-29] MEDS: methylPREDNISolone 40 MG/ML (Solu-MEDROL) VIAL IV SCH ×4 (03:09→21:59)
[2019-10-29 04:00] VITALS: BP 119/73
[2019-10-29] MEDS: CATHETER FLUSH 10 ML SYR IV SCH ×3 (06:39→22:21)
--- NOTE | 2019-10-29 07:11 | Physician Query Clarification ---
PQ-Uncertain Diagnosis Admission/Discharge Admission Date: Oct 26, 2019 at 12:47 Discharge Date: The medical record reflects the following clinical scenario: History/Risk Factors: COPDAE, Dementia Clinical Findings: R 28, BP 141/77, t36.9, wbc 8.1, Lactic acid 5.46 Treatment: IV Piperacillin, IV Vancomycin, Solumedrol IVP, Albuterol Question: Is Sepsis a clinically valid diagnosis? Sepsis was documented in the suspicious for sepsis with a lactic of 5 documented in the record with no further documentation in the medical record. Please clarify if sepsis confirmed or ruled out after study. Please document a response in Progress Note or Discharge Summary. 1. Yes, clinically valid, condition resolved. 2. No, condition ruled out. 3. Other, with explanation of clinical findings. 4. Undetermined, no explanation for clinical findings. PHYSICIAN RESPONSE Diagnosis clinically valid: Other, explanation/clinical finding Explanation of clincal finding Lactic acid was elevated. No significant fever. WBC ok. Blood cultures negative. Please remember a lack of response to the above will prompt a phone page by CDI/Coding staff. In responding to this query, please exercise your independent professional judgment. The purpose of this communication is to more accurately reflect the complexity of your patients condition. The fact that a question is asked does not imply that any particular answer is desired or expected. Thank you for your timely response to this clarification. Requestors name: Agata THIS PHYSICIAN QUERY FORM IS A PERMANENT PART OF THE MEDICAL RECORD AGATA CHAVEZ Oct 29, 2019 07:11 KRISTEL PEREZ MD Oct 30, 2019 07:14
--- NOTE | 2019-10-29 07:31 | Progress Note ---
Subjective Date Seen by a Provider: Oct 29, 2019 Time Seen by a Provider: 07:20 Subjective/Events-last exam Patient breathing fairly well during daytime hours while on nasal cannula oxygen. He has been sleeping however with BiPAP. Upon awakening this morning he was with audible wheezing but did not appear to be in any distress. Focused Exam Lactate Level 10/26/19 12:55: Lactic Acid Level 5.46*H 10/26/19 15:03: Lactic Acid Level 5.14*H 10/27/19 02:59: Lactic Acid Level 1.67 Objective Exam Vital Signs Date Time Temp Pulse Resp B/P (MAP) Pulse Ox O2 Delivery O2 Flow Rate FiO2 10/29/19 04:00 35.8 73 18 119/73 (88) 98 NIV Bilevel 28.00 10/29/19 04:00 98 NIV Bilevel 28 10/29/19 02:01 54 17 96 28.00 10/29/19 01:00 60 10/29/19 00:00 100 NIV Bilevel 28 10/29/19 00:00 36.7 57 22 173/80 (111) 100 NIV Bilevel 28.00 10/28/19 22:15 56 23 94 28.00 10/28/19 22:12 Nasal Cannula 3.00 10/28/19 21:00 High Flow N/C 3.00 10/28/19 20:00 36.5 83 24 172/82 (112) 96 Room Air 10/28/19 20:00 High Flow N/C 3.00 10/28/19 19:12 96 Nasal Cannula 3.00 10/28/19 19:00 60 10/28/19 16:00 Nasal Cannula 3.00 10/28/19 16:00 36.2 62 19 161/77 (105) 96 Room Air 10/28/19 15:25 90 Nasal Cannula 3.00 10/28/19 12:25 63 10/28/19 12:00 Nasal Cannula 3.00 10/28/19 11:41 36.6 63 20 153/71 (98) 95 Room Air 3.00 10/28/19 10:05 90 Nasal Cannula 3.00 10/28/19 09:00 Nasal Cannula 3.00 10/28/19 08:00 36.4 72 20 122/67 (85) 95 Room Air 3.00 10/28/19 08:00 Nasal Cannula 3.00 I & O 10/29/19 07:00 Intake Total 2570 ml Output Total 1100 ml Balance 1470 ml Capillary Refill : Less Than 3 Seconds General Appearance: No Apparent Distress (But noted audible wheezing) Respiratory: Lungs Clear (With faint expiratory wheeze) Cardiovascular: Regular Rate, Rhythm Gastrointestinal: soft Extremity: Normal Capillary Refill Results Lab Microbiology 10/26/19 Blood Culture - Preliminary, Resulted Staph, Coag Neg (RN DELIVERY) See Comments 10/26/19 Influenza Types A,B Antigen (ANNETTE) - Final, Complete Assessment/Plan Assessment/Plan Assess & Plan/Chief Complaint 1. COPD exacerbation -IV Solu-Medrol initiated in the emergency department -Nebulizing treatments per RT 10/27 -Patient has shown signs of improvement. -Will continue with the Solu-Medrol for an additional 24 hours. -He is now on nasal cannula oxygen at 2 L 1/2 -He continues at Solu-Medrol 40 mg IV every 6 hours. -Consultation with pulmonology today. 10/29 -Will check into CPAP for usage when discharged -Advair was started back yesterday 2. Suspicious for sepsis with a lactic acid of 5 -Patient initiated on IV Zosyn in ED. -Monitor lactic acid level 10/27 -Lactic acid level decreased to 1.67 -Patient will continue to receive IV fluids but will decrease to 100 mL per hour -Continue to monitor input and output. 10/28 -Blood cultures essentially negative. One culture had coag negative staph probably contamination 10/29 -Blood cultures again negative. Vancomycin DCed yesterday 3. Abdominal discomfortCT nondiagnostic -Monitor for improvement 10/27 -After talking to his daughter his abdominal discomfort is ongoing problem for him. He sees this most of the time after he eats. He is passing gas. We'll continue to monitor. Clinical Quality Measures Admission Status Admission Dx 1. COPD exacerbation 2. Suspicious for sepsis with a lactic acid of 5 3. Abdominal discomfortCT nondiagnostic DVT/VTE Risk/Contraindication: Risk Factor Score Per Nursin RFS Level Per Nursing on Admit: 4+=Very High KRISTEL PEREZ MD Oct 29, 2019 07:31
[2019-10-29] MEDS: RT-ADVAIR HFA 115/21 MCG PER PUFF IH SCH ×2 (08:48→19:13)
[2019-10-29 09:08] LABS: ABG BASE EXCESS -0.6 MMOL/L (-2.5-2.5); ABG OXYGEN SATURATION 99 % (94-100); ABG PCO2 34 MMHG (35-45); ABG PH 7.44 (7.37-7.43); ABG PO2 106 MMHG (79-93); ABG TCO2 24.2 MMOL/L (21.0-31.0)
[2019-10-29 09:13] LABS: ALLENS TEST YES-POS; INSPIRED O2 28% BIPAP; PATIENT TEMP 36.3; VENTILATOR NO
--- NOTE | 2019-10-29 09:27 | Pulmonary Progress Note ---
Subjective Time Seen by a Provider: 09:00 Subjective/Events-last exam RN called me secondary to pt going into respiratory distress. RT placed pt on BIPAP. Sepsis Event Evaluation Height, Weight, BMI Height: 5'9.00" Weight: 145lbs. 0.0oz. 65.241079pj; 24.34 BMI Method:Stated Focused Exam Lactate Level 10/26/19 12:55: Lactic Acid Level 5.46*H 10/26/19 15:03: Lactic Acid Level 5.14*H 10/27/19 02:59: Lactic Acid Level 1.67 Exam Exam Vital Signs Date Time Temp Pulse Resp B/P (MAP) Pulse Ox O2 Delivery O2 Flow Rate FiO2 10/29/19 08:48 98 NIV Bilevel 28 10/29/19 08:20 76 24 98 28.00 10/29/19 07:00 63 10/29/19 04:00 35.8 73 18 119/73 (88) 98 NIV Bilevel 28.00 10/29/19 04:00 98 NIV Bilevel 28 10/29/19 02:01 54 17 96 28.00 10/29/19 01:00 60 10/29/19 00:00 100 NIV Bilevel 28 10/29/19 00:00 36.7 57 22 173/80 (111) 100 NIV Bilevel 28.00 10/28/19 22:15 56 23 94 28.00 10/28/19 22:12 Nasal Cannula 3.00 10/28/19 21:00 High Flow N/C 3.00 10/28/19 20:00 36.5 83 24 172/82 (112) 96 Room Air 10/28/19 20:00 High Flow N/C 3.00 10/28/19 19:12 96 Nasal Cannula 3.00 10/28/19 19:00 60 10/28/19 16:00 Nasal Cannula 3.00 10/28/19 16:00 36.2 62 19 161/77 (105) 96 Room Air 10/28/19 15:25 90 Nasal Cannula 3.00 10/28/19 12:25 63 10/28/19 12:00 Nasal Cannula 3.00 10/28/19 11:41 36.6 63 20 153/71 (98) 95 Room Air 3.00 10/28/19 10:05 90 Nasal Cannula 3.00 I & O 10/29/19 07:00 Intake Total 2570 ml Output Total 1100 ml Balance 1470 ml Height & Weight Height: 5'9.00" Weight: 145lbs. 0.0oz. 65.679872tc; 24.34 BMI Method:Stated General Appearance: Mild Distress HEENT: Pharynx Normal (With dry membranes) Neck: Supple Respiratory: Decreased Breath Sounds, Wheezing Cardiovascular: Regular Rate, Rhythm Capillary Refill: Less Than 3 Seconds Gastrointestinal: soft Extremity: Normal Capillary Refill Neurologic/Psychiatric: Alert, Oriented x3 Skin: Normal Color, Warm/Dry Results Lab Laboratory Tests 10/28/19 03:25 Assessment/Plan Assessment/Plan COPDAE with hypoxia -Solumedrol 40 IV Q 6 -SVNS Q 4-- advair -Check stat ABG , CXR and labs -Hep lock IVF and give Lasix Metabolic lactic acidosis -Improving -Cultures are negative Anemia -Monitor Abdominal pain -CT is negative KENISHA CORCORAN DO Oct 29, 2019 09:27
[2019-10-29] MEDS ORDERED: KCL 20 MEQ TAB (K-DUR) PO NR (09:30)
[2019-10-29] MEDS ORDERED: FUROSEMIDE 40 MG/4 ML INJ (LASIX) IVP NR (09:30)
--- NOTE | 2019-10-29 10:30 | Diagnostic Imaging Report ---
INDICATION: Shortness of breath. Portable chest 10:12 AM Heart size and pulmonary vascularity are normal. Lungs are clear. There are no effusions or pneumothoraces. IMPRESSION: Negative chest Dictated by: Dictated on workstation # [id number]
[2019-10-29 11:22] LABS: BASOPHILS % (AUTO) 0 % (0-10); EOSINOPHILS % (AUTO) 0 % (0-10); HEMATOCRIT 34 % (40-54); HEMOGLOBIN 11.6 G/DL (13.3-17.7); LYMPHOCYTES # (AUTO) 0.4 X 10^3 (1.0-4.0); LYMPHOCYTES % (AUTO) 7 % (12-44); MEAN CORPUSCULAR HEMOGLOBIN 30 PG (25-34); MEAN CORPUSCULAR HGB CONC 34 G/DL (32-36); MEAN CORPUSCULAR VOLUME 88 FL (80-99); MEAN PLATELET VOLUME 9.4 FL (7.4-10.4); MONOCYTES # (AUTO) 0.4 X 10^3 (0.0-1.0); MONOCYTES % (AUTO) 7 % (0-12); NEUTROPHILS # (AUTO) 4.7 X 10^3 (1.8-7.8); NEUTROPHILS % (AUTO) 86 % (42-75); PLATELET COUNT 98 10^3/uL (130-400); RED CELL DISTRIBUTION WIDTH 14.6 % (10.0-14.5); WHITE BLOOD COUNT 5.4 10^3/uL (4.3-11.0)
[2019-10-29 11:44] LABS: ALANINE AMINOTRANSFERASE 91 U/L (0-55); ALBUMIN 3.3 GM/DL (3.2-4.5); ALKALINE PHOSPHATASE 40 U/L (40-136); BILIRUBIN,TOTAL 0.3 MG/DL (0.1-1.0); BUN/CREATININE RATIO 21; CALCIUM 8.1 MG/DL (8.5-10.1); CARBON DIOXIDE 21 MMOL/L (21-32); CHLORIDE 104 MMOL/L (98-107); GFR ESTIMATED > 60; GLUCOSE 160 MG/DL (70-105); MAGNESIUM 2.1 MG/DL (1.6-2.4); PHOSPHORUS 2.3 MG/DL (2.3-4.7); POTASSIUM 3.7 MMOL/L (3.6-5.0); SODIUM 136 MMOL/L (135-145); TOTAL PROTEIN 5.6 GM/DL (6.4-8.2)
[2019-10-29 12:49] VITALS: BP 143/74
[2019-10-29] MEDS ORDERED: PANTOPRAZOLE 40 MG (PROTONIX) TAB PO NR (13:00)
[2019-10-29] MEDS ORDERED: TROUGH ORDER-PHARMACY XX NR (15:00)
[2019-10-29 16:00] VITALS: BP 165/83
[2019-10-29 20:00] VITALS: BP 174/84
[2019-10-29 23:47] VITALS: BP 177/84
[2019-10-30] MEDS: methylPREDNISolone 40 MG/ML (Solu-MEDROL) VIAL IV SCH (03:08)
[2019-10-30] MEDS: RT-ALBUTEROL/IPRATROPIUM 3 ML (DUONEB) VIAL IH SCH ×5 (03:20→18:44)
[2019-10-30 03:55] LABS: BASOPHILS % (AUTO) 0 % (0-10); EOSINOPHILS % (AUTO) 0 % (0-10); HEMATOCRIT 34 % (40-54); HEMOGLOBIN 11.3 G/DL (13.3-17.7); LYMPHOCYTES # (AUTO) 0.4 X 10^3 (1.0-4.0); LYMPHOCYTES % (AUTO) 7 % (12-44); MEAN CORPUSCULAR HEMOGLOBIN 29 PG (25-34); MEAN CORPUSCULAR HGB CONC 34 G/DL (32-36); MEAN CORPUSCULAR VOLUME 88 FL (80-99); MEAN PLATELET VOLUME 9.4 FL (7.4-10.4); MONOCYTES # (AUTO) 0.4 X 10^3 (0.0-1.0); MONOCYTES % (AUTO) 6 % (0-12); NEUTROPHILS # (AUTO) 5.3 X 10^3 (1.8-7.8); NEUTROPHILS % (AUTO) 87 % (42-75); PLATELET COUNT 111 10^3/uL (130-400); RED CELL DISTRIBUTION WIDTH 14.5 % (10.0-14.5); WHITE BLOOD COUNT 6.1 10^3/uL (4.3-11.0)
[2019-10-30 04:00] VITALS: BP 166/75
[2019-10-30 04:14] LABS: BUN/CREATININE RATIO 21; CALCIUM 8.3 MG/DL (8.5-10.1); CARBON DIOXIDE 23 MMOL/L (21-32); CHLORIDE 100 MMOL/L (98-107); CREATININE SERUM 0.78 MG/DL (0.60-1.30); GFR ESTIMATED > 60; GLUCOSE 123 MG/DL (70-105); MAGNESIUM 2.1 MG/DL (1.6-2.4); POTASSIUM 4.6 MMOL/L (3.6-5.0); SODIUM 135 MMOL/L (135-145)
[2019-10-30] MEDS: PIPERACILLIN/TAZO 4.5 GM/NS 100 ML IV SCH ×6 (04:40→20:19)
[2019-10-30] MEDS: CATHETER FLUSH 10 ML SYR IV SCH ×3 (05:06→20:34)
--- NOTE | 2019-10-30 07:07 | Pulmonary Progress Note ---
Subjective Time Seen by a Provider: 07:07 Subjective/Events-last exam Pt is doing better. Sepsis Event Evaluation Height, Weight, BMI Height: 5'9.00" Weight: 145lbs. 0.0oz. 65.299613cm; 24.34 BMI Method:Stated Exam Exam Vital Signs Date Time Temp Pulse Resp B/P (MAP) Pulse Ox O2 Delivery O2 Flow Rate FiO2 10/30/19 04:00 36.1 55 22 166/75 (105) 97 NIV Bilevel 28.00 10/30/19 04:00 NIV Bilevel 28 10/30/19 03:21 94 Nasal Cannula 3.00 10/30/19 01:00 54 10/29/19 23:48 NIV Bilevel 28 10/29/19 23:47 36.5 64 21 177/84 (115) 97 NIV Bilevel 28.00 10/29/19 22:47 64 25 97 28.00 10/29/19 21:00 High Flow N/C 3.00 10/29/19 20:00 36.5 67 22 174/84 (114) 97 Nasal Cannula 3.00 10/29/19 20:00 High Flow N/C 3.00 10/29/19 19:18 Nasal Cannula 3.00 10/29/19 19:14 98 Nasal Cannula 3.00 10/29/19 19:00 63 10/29/19 16:00 High Flow N/C 3.00 10/29/19 16:00 36.4 77 22 165/83 (110) 94 Nasal Cannula 3.00 10/29/19 15:00 98 Nasal Cannula 3.00 10/29/19 12:49 75 22 143/74 (97) 97 Nasal Cannula 3.00 10/29/19 12:45 36.5 10/29/19 12:26 82 10/29/19 12:00 High Flow N/C 3.00 10/29/19 10:50 64 25 97 28.00 10/29/19 08:48 98 NIV Bilevel 28 10/29/19 08:20 76 24 98 28.00 10/29/19 08:10 High Flow N/C 3.00 10/29/19 08:10 High Flow N/C 3.00 I & O 10/30/19 07:00 Intake Total 570 ml Output Total 6300 ml Balance -5730 ml Height & Weight Height: 5'9.00" Weight: 145lbs. 0.0oz. 65.283244fb; 24.34 BMI Method:Stated General Appearance: No Apparent Distress, WD/WN HEENT: Pharynx Normal (With dry membranes) Neck: Supple Respiratory: Decreased Breath Sounds, Wheezing Cardiovascular: Regular Rate, Rhythm Capillary Refill: Less Than 3 Seconds Gastrointestinal: soft Extremity: Normal Capillary Refill Neurologic/Psychiatric: Alert, Oriented x3 Skin: Normal Color, Warm/Dry Results Lab Laboratory Tests 10/29/19 11:10 10/30/19 03:17 Assessment/Plan Assessment/Plan COPDAE with hypoxia -Currently on BiPAP. Will trial back to regular NC. -Solumedrol 40 IV Q 6 -SVNS Q 4-- advair -Hep lock IVF and give Lasix Anemia -Monitor Abdominal pain -CT is negative KENISHA CORCORAN DO Oct 30, 2019 07:07
[2019-10-30 08:00] VITALS: BP 122/67
--- NOTE | 2019-10-30 08:19 | Progress Note ---
Subjective Date Seen by a Provider: Oct 30, 2019 Time Seen by a Provider: 08:00 Subjective/Events-last exam Patient doing better since on Protonix. He does appear to be breathing very comfortably this morning. Objective Exam Vital Signs Date Time Temp Pulse Resp B/P (MAP) Pulse Ox O2 Delivery O2 Flow Rate FiO2 10/30/19 04:00 36.1 55 22 166/75 (105) 97 NIV Bilevel 28.00 10/30/19 04:00 NIV Bilevel 28 10/30/19 03:21 94 Nasal Cannula 3.00 10/30/19 01:00 54 10/29/19 23:48 NIV Bilevel 28 10/29/19 23:47 36.5 64 21 177/84 (115) 97 NIV Bilevel 28.00 10/29/19 22:47 64 25 97 28.00 10/29/19 21:00 High Flow N/C 3.00 10/29/19 20:00 36.5 67 22 174/84 (114) 97 Nasal Cannula 3.00 10/29/19 20:00 High Flow N/C 3.00 10/29/19 19:18 Nasal Cannula 3.00 10/29/19 19:14 98 Nasal Cannula 3.00 10/29/19 19:00 63 10/29/19 16:00 High Flow N/C 3.00 10/29/19 16:00 36.4 77 22 165/83 (110) 94 Nasal Cannula 3.00 10/29/19 15:00 98 Nasal Cannula 3.00 10/29/19 12:49 75 22 143/74 (97) 97 Nasal Cannula 3.00 10/29/19 12:45 36.5 10/29/19 12:26 82 10/29/19 12:00 High Flow N/C 3.00 10/29/19 10:50 64 25 97 28.00 10/29/19 08:48 98 NIV Bilevel 28 10/29/19 08:20 76 24 98 28.00 I & O 10/30/19 07:00 Intake Total 570 ml Output Total 6300 ml Balance -5730 ml Capillary Refill : Less Than 3 Seconds General Appearance: No Apparent Distress HEENT: Moist Mucous Membranes Respiratory: Lungs Clear (With occasional rhonchi) Cardiovascular: Regular Rate, Rhythm Gastrointestinal: No rebound, No tenderness Extremity: Normal Capillary Refill Neurologic/Psychiatric: Alert Results Lab Laboratory Tests 10/29/19 09:03: Blood Gas Puncture Site RT RADIAL, Blood Gas Patient Temperature 36.3, Arterial Blood pH 7.44H, Arterial Blood Partial Pressure CO2 34L, Arterial Blood Partial Pressure O2 106H, Arterial Blood HCO3 23, Arterial Blood Total CO2 24.2, Arterial Blood Oxygen Saturation 99, Arterial Blood Base Excess -0.6, Casey Test YES-POS, Blood Gas Ventilator Setting NO, Blood Gas Inspired Oxygen 28% BIPAP 10/29/19 11:10: White Blood Count 5.4, Red Blood Count 3.92L, Hemoglobin 11.6L, Hematocrit 34L, Mean Corpuscular Volume 88, Mean Corpuscular Hemoglobin 30, Mean Corpuscular Hemoglobin Concent 34, Red Cell Distribution Width 14.6H, Platelet Count 98L, Mean Platelet Volume 9.4, Neutrophils (%) (Auto) 86H, Lymphocytes (%) (Auto) 7L, Monocytes (%) (Auto) 7, Eosinophils (%) (Auto) 0, Basophils (%) (Auto) 0, Neutrophils # (Auto) 4.7, Lymphocytes # (Auto) 0.4L, Monocytes # (Auto) 0.4, Eosinophils # (Auto) 0.0, Basophils # (Auto) 0.0, Sodium Level 136, Potassium Level 3.7, Chloride Level 104, Carbon Dioxide Level 21, Anion Gap 11, Blood Urea Nitrogen 17, Creatinine 0.80, Estimat Glomerular Filtration Rate > 60, BUN/Creatinine Ratio 21, Glucose Level 160H, Calcium Level 8.1L, Corrected Calcium 8.7, Phosphorus Level 2.3, Magnesium Level 2.1, Total Bilirubin 0.3, Aspartate Amino Transf (AST/SGOT) 47H, Alanine Aminotransferase (ALT/SGPT) 91H, Alkaline Phosphatase 40, B-Type Natriuretic Peptide 490.1H, Total Protein 5.6L, Albumin 3.3 10/30/19 03:17: White Blood Count 6.1, Red Blood Count 3.84L, Hemoglobin 11.3L, Hematocrit 34L, Mean Corpuscular Volume 88, Mean Corpuscular Hemoglobin 29, Mean Corpuscular Hemoglobin Concent 34, Red Cell Distribution Width 14.5, Platelet Count 111L, M mana Platelet Volume 9.4, Neutrophils (%) (Auto) 87H, Lymphocytes (%) (Auto) 7L, Monocytes (%) (Auto) 6, Eosinophils (%) (Auto) 0, Basophils (%) (Auto) 0, Neutrophils # (Auto) 5.3, Lymphocytes # (Auto) 0.4L, Monocytes # (Auto) 0.4, Eosinophils # (Auto) 0.0, Basophils # (Auto) 0.0, Sodium Level 135, Potassium Level 4.6, Chloride Level 100, Carbon Dioxide Level 23, Anion Gap 12, Blood Urea Nitrogen 16, Creatinine 0.78, Estimat Glomerular Filtration Rate > 60, BUN/Creatinine Ratio 21, Glucose Level 123H, Calcium Level 8.3L, Phosphorus Level 3.0, Magnesium Level 2.1 Microbiology 10/26/19 Blood Culture - Preliminary, Resulted Michaelh, Coag Neg (CLINICAL TECHNOLOGIST) See Comments 10/26/19 Influenza Types A,B Antigen (ANNETTE) - Final, Complete Assessment/Plan Assessment/Plan Assess & Plan/Chief Complaint 1. COPD exacerbation -IV Solu-Medrol initiated in the emergency department -Nebulizing treatments per RT 10/27 -Patient has shown signs of improvement. -Will continue with the Solu-Medrol for an additional 24 hours. -He is now on nasal cannula oxygen at 2 L 10/28 -He continues at Solu-Medrol 40 mg IV every 6 hours. -Consultation with pulmonology today. 10/29 -Will check into CPAP for usage when discharged -Advair was started back yesterday 10/30 -We'll transfer patient to [facility] -Will discontinue Solu-Medrol and began prednisone 40 mg -Possibly back to [facility] in [place] tomorrow pending response today 2. Suspicious for sepsis with a lactic acid of 5 -Patient initiated on IV Zosyn in ED. -Monitor lactic acid level 10/27 -Lactic acid level decreased to 1.67 -Patient will continue to receive IV fluids but will decrease to 100 mL per hour -Continue to monitor input and output. 10/28 -Blood cultures essentially negative. One culture had coag negative staph probably contamination 10/29 -Blood cultures again negative. Vancomycin DCed yesterday 10/30 -Patient currently on vancomycin and will continue 1 further day on [facility] 3. Abdominal discomfortCT nondiagnostic -Monitor for improvement 10/27 -After talking to his daughter his abdominal discomfort is ongoing problem for him. He sees this most of the time after he eats. He is passing gas. We'll continue to monitor. 10/30 -Patient done well on Protonix 40 mg orally. -We'll continue Protonix on outpatient basis Clinical Quality Measures Admission Status Admission Dx 1. COPD exacerbation 2. Suspicious for sepsis with a lactic acid of 5 3. Abdominal discomfortCT nondiagnostic DVT/VTE Risk/Contraindication: Risk Factor Score Per Nursin RFS Level Per Nursing on Admit: 4+=Very High KRISTEL PEREZ MD Oct 30, 2019 08:19
[2019-10-30] MEDS: LACTULOSE SYRUP 10GM/15ML (ENULOSE) 30ML UDC PO SCH ×3 (09:17→20:36)
[2019-10-30] MEDS: FUROSEMIDE 40 MG/4 ML INJ (LASIX) IVP SCH ×2 (09:17→09:22)
[2019-10-30] MEDS: LORATADINE (CLARITIN) 10 MG TAB PO SCH (09:18)
[2019-10-30] MEDS: PANTOPRAZOLE 40 MG (PROTONIX) TAB PO SCH ×2 (09:18)
[2019-10-30] MEDS: RT-ADVAIR HFA 115/21 MCG PER PUFF IH SCH ×2 (09:25→18:45)
[2019-10-30 12:00] VITALS: BP 149/74
[2019-10-30] MEDS: SUCRALFATE 1 GM (CARAFATE) TAB PO SCH ×3 (12:22→20:34)
[2019-10-30] MEDS: predniSONE 20 MG TAB PO SCH (12:26)
--- NOTE | 2019-10-30 16:26 | NUR ---
REPORT GIVEN TO KOBY PERAZA. PT TRANSPORTED TO ROOM 413 WITH BELONGINGS.
[2019-10-30 16:30] VITALS: BP 170/81
--- NOTE | 2019-10-30 16:30 | NUR ---
THIS RN TOOK OVER PATIENT CARE AT THIS TIME. PATIENT ALERT AND ORIENTATED. INTRODUCED TO SURROUNDINGS. CALL LIGHT AND PHONE WITHIN REACH. PATIENT VERBALIZES NO OTHER NEEDS AT THIS TIME
[2019-10-30 20:00] VITALS: BP 145/72
[2019-10-30] MEDS: MONTELUKAST 10 MG (SINGULAIR) TAB PO SCH (20:34)
[2019-10-31] MEDS: RT-ALBUTEROL/IPRATROPIUM 3 ML (DUONEB) VIAL IH SCH ×7 (00:02→22:51)
[2019-10-31 00:14] VITALS: BP 134/67
[2019-10-31 04:10] VITALS: BP 160/83
[2019-10-31] MEDS: PIPERACILLIN/TAZO 4.5 GM/NS 100 ML IV SCH ×2 (04:18)
[2019-10-31 05:13] LABS: BASOPHILS % (AUTO) 0 % (0-10); EOSINOPHILS % (AUTO) 0 % (0-10); HEMATOCRIT 36 % (40-54); HEMOGLOBIN 11.9 G/DL (13.3-17.7); LYMPHOCYTES # (AUTO) 0.8 X 10^3 (1.0-4.0); LYMPHOCYTES % (AUTO) 13 % (12-44); MEAN CORPUSCULAR HEMOGLOBIN 29 PG (25-34); MEAN CORPUSCULAR HGB CONC 34 G/DL (32-36); MEAN CORPUSCULAR VOLUME 87 FL (80-99); MEAN PLATELET VOLUME 9.8 FL (7.4-10.4); MONOCYTES # (AUTO) 0.5 X 10^3 (0.0-1.0); MONOCYTES % (AUTO) 8 % (0-12); NEUTROPHILS # (AUTO) 4.6 X 10^3 (1.8-7.8); NEUTROPHILS % (AUTO) 79 % (42-75); PLATELET COUNT 112 10^3/uL (130-400); RED CELL DISTRIBUTION WIDTH 14.2 % (10.0-14.5); WHITE BLOOD COUNT 5.9 10^3/uL (4.3-11.0)
[2019-10-31 05:30] LABS: BUN/CREATININE RATIO 27; CALCIUM 8.3 MG/DL (8.5-10.1); CARBON DIOXIDE 25 MMOL/L (21-32); CHLORIDE 98 MMOL/L (98-107); CREATININE SERUM 0.79 MG/DL (0.60-1.30); GFR ESTIMATED > 60; GLUCOSE 98 MG/DL (70-105); POTASSIUM 3.8 MMOL/L (3.6-5.0); SODIUM 135 MMOL/L (135-145)
--- NOTE | 2019-10-31 06:47 | Progress Note ---
Subjective Date Seen by a Provider: Oct 31, 2019 Time Seen by a Provider: 06:10 Subjective/Events-last exam Patient slept overnight on [facility] utilizing nasal cannula oxygen. He was in no distress this morning. He appears to be communicating well. Borrero catheter remains in place. Objective Exam Vital Signs Date Time Temp Pulse Resp B/P (MAP) Pulse Ox O2 Delivery O2 Flow Rate FiO2 10/31/19 04:10 36.4 64 22 160/83 (108) 92 High Flow N/C 3.00 10/31/19 04:00 High Flow N/C 3.00 10/31/19 03:50 90 Nasal Cannula 10/31/19 01:00 55 10/31/19 00:14 36.4 67 22 134/67 (89) 95 High Flow N/C 3.00 10/31/19 00:00 High Flow N/C 3.00 10/30/19 21:00 High Flow N/C 3.00 10/30/19 20:00 High Flow N/C 3.00 10/30/19 20:00 36.6 76 22 145/72 (96) 96 High Flow N/C 3.00 10/30/19 19:00 82 10/30/19 18:51 87 Nasal Cannula 10/30/19 18:43 87 Nasal Cannula 10/30/19 16:30 36.5 60 28 170/81 (110) 96 High Flow N/C 3.00 10/30/19 16:00 High Flow N/C 3.00 10/30/19 13:00 70 10/30/19 12:00 36.2 64 16 149/74 (99) 93 Nasal Cannula 3.00 10/30/19 12:00 High Flow N/C 3.00 10/30/19 09:32 Nasal Cannula 3.00 10/30/19 09:26 97 Nasal Cannula 3.00 10/30/19 09:00 High Flow N/C 3.00 10/30/19 08:00 36.4 66 18 122/67 (85) 94 Nasal Cannula 3.00 10/30/19 08:00 High Flow N/C 3.00 10/30/19 07:00 65 I & O 10/31/19 07:00 Intake Total 2140 ml Output Total 6900 ml Balance -4760 ml Capillary Refill : Less Than 3 Seconds General Appearance: No Apparent Distress HEENT: Moist Mucous Membranes Respiratory: Lungs Clear (With only faint coarseness) Cardiovascular: Regular Rate, Rhythm Gastrointestinal: soft; No rebound, No tenderness Skin: Normal Color Results Lab Laboratory Tests 10/31/19 04:54: White Blood Count 5.9, Red Blood Count 4.09L, Hemoglobin 11.9L, Hematocrit 36L, Mean Corpuscular Volume 87, Mean Corpuscular Hemoglobin 29, Mean Corpuscular Hemoglobin Concent 34, Red Cell Distribution Width 14.2, Platelet Count 112L, Mean Platelet Volume 9.8, Neutrophils (%) (Auto) 79H, Lymphocytes (%) (Auto) 13, Monocytes (%) (Auto) 8, Eosinophils (%) (Auto) 0, Basophils (%) (Auto) 0, Neutrophils # (Auto) 4.6, Lymphocytes # (Auto) 0.8L, Monocytes # (Auto) 0.5, Eosinophils # (Auto) 0.0, Basophils # (Auto) 0.0, Sodium Level 135, Potassium Level 3.8, Chloride Level 98, Carbon Dioxide Level 25, Anion Gap 12, Blood Urea Nitrogen 21H, Creatinine 0.79, Estimat Glomerular Filtration Rate > 60, BUN/Creatinine Ratio 27, Glucose Level 98, Calcium Level 8.3L Microbiology 10/26/19 Blood Culture - Preliminary, Resulted Glenna Sher Neg (PAYROLL TAX ANALYST) See Comments 10/26/19 Influenza Types A,B Antigen (ANNETTE) - Final, Complete Assessment/Plan Assessment/Plan Assess & Plan/Chief Complaint 1. COPD exacerbation -IV Solu-Medrol initiated in the emergency department -Nebulizing treatments per RT 10/27 -Patient has shown signs of improvement. -Will continue with the Solu-Medrol for an additional 24 hours. -He is now on nasal cannula oxygen at 2 L 1/2 -He continues at Solu-Medrol 40 mg IV every 6 hours. -Consultation with pulmonology today. 10/29 -Will check into CPAP for usage when discharged -Advair was started back yesterday 10/30 -We'll transfer patient to [facility] -Will discontinue Solu-Medrol and began prednisone 40 mg -Possibly back to [facility] in [place] tomorrow pending response today 10/31 -Patient tolerated being off the Solu-Medrol and switching to prednisone. -Currently requiring nasal cannula oxygen 2. Suspicious for sepsis with a lactic acid of 5 -Patient initiated on IV Zosyn in ED. -Monitor lactic acid level 10/27 -Lactic acid level decreased to 1.67 -Patient will continue to receive IV fluids but will decrease to 100 mL per hour -Continue to monitor input and output. 10/28 -Blood cultures essentially negative. One culture had coag negative staph probably contamination 10/29 -Blood cultures again negative. Vancomycin DCed yesterday 10/30 -Patient currently on vancomycin and will continue 1 further day on [facility] 10/31 -Discontinue Zosyn as well as Borrero catheter 3. Abdominal discomfortCT nondiagnostic -Monitor for improvement 10/27 -After talking to his daughter his abdominal discomfort is ongoing problem for him. He sees this most of the time after he eats. He is passing gas. We'll continue to monitor. 10/30 -Patient done well on Protonix 40 mg orally. -We'll continue Protonix on outpatient basis Clinical Quality Measures Admission Status Admission Dx 1. COPD exacerbation 2. Suspicious for sepsis with a lactic acid of 5 3. Abdominal discomfortCT nondiagnostic DVT/VTE Risk/Contraindication: Risk Factor Score Per Nursin RFS Level Per Nursing on Admit: 4+=Very High KRISTEL PEREZ MD Oct 31, 2019 06:47
[2019-10-31] MEDS: SUCRALFATE 1 GM (CARAFATE) TAB PO SCH ×4 (06:56→20:30)
[2019-10-31] MEDS: predniSONE 20 MG TAB PO SCH (06:57)
[2019-10-31] MEDS: CATHETER FLUSH 10 ML SYR IV SCH ×3 (06:57→20:30)
--- NOTE | 2019-10-31 07:50 | Pulmonary Progress Note ---
Subjective Time Seen by a Provider: 07:47 Subjective/Events-last exam No complications noted. Pt is doing much better. Sepsis Event Evaluation Height, Weight, BMI Height: 5'9.00" Weight: 145lbs. 0.0oz. 65.545125av; 24.34 BMI Method:Stated Exam Exam Vital Signs Date Time Temp Pulse Resp B/P (MAP) Pulse Ox O2 Delivery O2 Flow Rate FiO2 10/31/19 04:10 36.4 64 22 160/83 (108) 92 High Flow N/C 3.00 10/31/19 04:00 High Flow N/C 3.00 10/31/19 03:50 90 Nasal Cannula 10/31/19 01:00 55 10/31/19 00:14 36.4 67 22 134/67 (89) 95 High Flow N/C 3.00 10/31/19 00:00 High Flow N/C 3.00 10/30/19 21:00 High Flow N/C 3.00 10/30/19 20:00 High Flow N/C 3.00 10/30/19 20:00 36.6 76 22 145/72 (96) 96 High Flow N/C 3.00 10/30/19 19:00 82 10/30/19 18:51 87 Nasal Cannula 10/30/19 18:43 87 Nasal Cannula 10/30/19 16:30 36.5 60 28 170/81 (110) 96 High Flow N/C 3.00 10/30/19 16:00 High Flow N/C 3.00 10/30/19 13:00 70 10/30/19 12:00 36.2 64 16 149/74 (99) 93 Nasal Cannula 3.00 10/30/19 12:00 High Flow N/C 3.00 10/30/19 09:32 Nasal Cannula 3.00 10/30/19 09:26 97 Nasal Cannula 3.00 10/30/19 09:00 High Flow N/C 3.00 10/30/19 08:00 36.4 66 18 122/67 (85) 94 Nasal Cannula 3.00 10/30/19 08:00 High Flow N/C 3.00 I & O 10/31/19 07:00 Intake Total 2140 ml Output Total 6900 ml Balance -4760 ml Height & Weight Height: 5'9.00" Weight: 145lbs. 0.0oz. 65.705108bm; 24.34 BMI Method:Stated General Appearance: No Apparent Distress HEENT: Pharynx Normal (With dry membranes) Neck: Supple Respiratory: Accessory Muscle Use (Slight), Rhonci Cardiovascular: Regular Rate, Rhythm Capillary Refill: Less Than 3 Seconds Gastrointestinal: soft (This morning) Extremity: Normal Capillary Refill Neurologic/Psychiatric: Alert, Oriented x3 Skin: Normal Color, Warm/Dry Results Lab Laboratory Tests 10/29/19 11:10 10/30/19 03:17 10/31/19 04:54 Assessment/Plan Assessment/Plan COPDAE with hypoxia -Currently on regular NC. -PRednisone 40mg daily -SVNS Q 4-- advair -Hep lock IVF and give Lasix Anemia -Monitor Abdominal pain -CT is negative KENISHA CORCORAN DO Oct 31, 2019 07:50
[2019-10-31] MEDS: LORATADINE (CLARITIN) 10 MG TAB PO SCH (07:58)
[2019-10-31] MEDS: LACTULOSE SYRUP 10GM/15ML (ENULOSE) 30ML UDC PO SCH ×2 (07:58→20:30)
[2019-10-31] MEDS: PANTOPRAZOLE 40 MG (PROTONIX) TAB PO SCH ×2 (07:58)
[2019-10-31] MEDS: FUROSEMIDE 40 MG/4 ML INJ (LASIX) IVP SCH (07:59)
[2019-10-31 08:00] VITALS: BP 144/77
[2019-10-31] MEDS ORDERED: KCL 20 MEQ TAB (K-DUR) PO ONE (08:00)
[2019-10-31 12:00] VITALS: BP 127/74
[2019-10-31] MEDS: RT-ADVAIR HFA 115/21 MCG PER PUFF IH SCH ×2 (14:50→18:17)
[2019-10-31 16:59] VITALS: BP 112/74
[2019-10-31 20:13] VITALS: BP 125/71
[2019-10-31] MEDS: MONTELUKAST 10 MG (SINGULAIR) TAB PO SCH (20:30)
[2019-11-01 00:10] VITALS: BP 147/77
[2019-11-01] MEDS: RT-ALBUTEROL/IPRATROPIUM 3 ML (DUONEB) VIAL IH SCH ×3 (03:16→11:40)
[2019-11-01 03:45] VITALS: BP 143/69
[2019-11-01 05:07] LABS: BASOPHILS % (AUTO) 0 % (0-10); EOSINOPHILS % (AUTO) 1 % (0-10); HEMATOCRIT 36 % (40-54); HEMOGLOBIN 12.2 G/DL (13.3-17.7); LYMPHOCYTES % (AUTO) 15 % (12-44); MEAN CORPUSCULAR HEMOGLOBIN 30 PG (25-34); MEAN CORPUSCULAR HGB CONC 34 G/DL (32-36); MEAN CORPUSCULAR VOLUME 87 FL (80-99); MEAN PLATELET VOLUME 9.1 FL (7.4-10.4); MONOCYTES # (AUTO) 0.4 X 10^3 (0.0-1.0); MONOCYTES % (AUTO) 6 % (0-12); NEUTROPHILS # (AUTO) 5.3 X 10^3 (1.8-7.8); NEUTROPHILS % (AUTO) 79 % (42-75); PLATELET COUNT 116 10^3/uL (130-400); RED CELL DISTRIBUTION WIDTH 14.3 % (10.0-14.5); WHITE BLOOD COUNT 6.7 10^3/uL (4.3-11.0)
[2019-11-01 05:29] LABS: BUN/CREATININE RATIO 32; CALCIUM 8.2 MG/DL (8.5-10.1); CARBON DIOXIDE 27 MMOL/L (21-32); CHLORIDE 98 MMOL/L (98-107); CREATININE SERUM 0.79 MG/DL (0.60-1.30); GFR ESTIMATED > 60; GLUCOSE 88 MG/DL (70-105); POTASSIUM 4.4 MMOL/L (3.6-5.0); SODIUM 135 MMOL/L (135-145)
[2019-11-01] MEDS: SUCRALFATE 1 GM (CARAFATE) TAB PO SCH ×2 (06:01→11:20)
[2019-11-01] MEDS: predniSONE 20 MG TAB PO SCH (06:01)
[2019-11-01] MEDS: CATHETER FLUSH 10 ML SYR IV SCH ×2 (06:01→10:40)
[2019-11-01] MEDS: RT-ADVAIR HFA 115/21 MCG PER PUFF IH SCH (07:06)
--- NOTE | 2019-11-01 07:31 | Discharge Inst-Skilled Nursing ---
Discharge Inst-Skilled NF Reconcile Patient Problems Problems Reviewed?: Yes Chief Complaint 79-year-old male with COPD requiring inpatient rehabilitation. He has already been a resident at [facility] Patient Instructions Patient Problems: COPD Consult/Follow Up/Orders Follow Up Appt.: Dr Perez in 4 days Skilled NF Admit to: [facility] (SNF) I certify that SNF services are required to be given on an inpatient basis because of the above named patient's need for halfway care on a continuing basis for the conditions(s) for which he/she was receiving inpatient hospital services prior to his/her transfer to the SNF. Detention Facility Order: Information Receptionist-Evaluate & Treat, Physical Therapy-Evaluate & Treat, Speech Language-Evaluate & Treat Oxygen Delivery Method: Nasal Cannula Oxygen Flow Rate L/min (Range): 3 Discharge Diet: Regular Diet Daily Activity as Tolerated: Yes Resuscitation Status: Do Not Resuscitate New & Resume Previous Orders Kristel Perez Nov 01, 2019 07:29 KRISTEL PEREZ MD Nov 01, 2019 07:31
--- NOTE | 2019-11-01 07:33 | Discharge Summary ---
Diagnosis/Chief Complaint Date of Admission Oct 26, 2019 at 12:47 Date of Discharge November 01, 2019 Discharge Date: Nov 01, 2019 Discharge Time: 1000 Admission Diagnosis Admission Diagnosis 1. COPD exacerbation 2. Elevated lactic acid 3. Abdominal discomfort, NOS Discharge Diagnosis 1. COPD exacerbation with bronchitis 2. Sepsis excluded 3. Abdominal pain improved with proton pump inhibitor Reason Hospital Visit 79-year-old male brought into the emergency room via EMS from [facility] in [place] today with difficulty breathing. Patient was recently admitted and spent time on inpatient rehabilitation. He was ultimately released to [facility] and was there. On his recent admission it was for COPD with exacerbation. Currently he is with also wheezing and abdominal distention. He was noted to have oxygen saturation in the 70 percentile on room air. He was placed on 3 L nasal cannula and this has brought him up to the 90 percentile in the emergency department. Discharge Summary Hospital Course Was the Problem List Reviewed?: Yes Hospital Course Patient was admitted on October 26, 2019 with COPD exacerbation. Patient was g iven nebulizing treatments in the emergency room as well as initiated on Solu- Medrol. At that time it was also suspected that he may have sepsis due to an elevated lactic acid. He was started on IV Zosyn as well as IV vancomycin. Within 24 hours the lactic acid level had decreased to 1.67. On cardiac stepdown he was placed on nasal cannula oxygen and did receive BiPAP during the evenings while he rested. He was continued on Solu-Medrol until October 31, 2019 at which time he was switched to oral prednisone. Pulmonary was consulted on October 28, 2019. At that time his IV vancomycin was discontinued since his blood cultures were negative. His chest x-ray repeated also did not reveal any infiltrates. He also was noted to have abdominal discomfort primarily after eating and this was improved after starting 40 mg Protonix in the morning. Ultimately patient improved only requiring nasal cannula oxygen. His lung sounds had also improved with only faint rhonchi. He was felt ready for dismissal back to [facility] in [place] in the morning of November 01, 2019. Arrangements to be made for nasal cannula oxygen Labs Laboratory Tests 10/29/19 09:03: Arterial Blood pH 7.44H, Arterial Blood Partial Pressure CO2 34L, Arterial Blood Partial Pressure O2 106H 10/29/19 11:10: Red Blood Count 3.92L, Hemoglobin 11.6L, Hematocrit 34L, Red Cell Distribution Width 14.6H, Platelet Count 98L, Neutrophils (%) (Auto) 86H, Lymphocytes (%) (Auto) 7L, Lymphocytes # (Auto) 0.4L, Glucose Level 160H, Calcium Level 8.1L, Aspartate Amino Transf (AST/SGOT) 47H, Alanine Aminotransferase (ALT/SGPT) 91H, B-Type Natriuretic Peptide 490.1H, Total Protein 5.6L 10/30/19 03:17: Red Blood Count 3.84L, Hemoglobin 11.3L, Hematocrit 34L, Platelet Count 111L, Neutrophils (%) (Auto) 87H, Lymphocytes (%) (Auto) 7L, Lymphocytes # (Auto) 0.4L , Glucose Level 123H, Calcium Level 8.3L 10/31/19 04:54: Red Blood Count 4.09L, Hemoglobin 11.9L, Hematocrit 36L, Platelet Count 112L, Neutrophils (%) (Auto) 79H, Lymphocytes # (Auto) 0.8L, Calcium Level 8.3L, Blood Urea Nitrogen 21H 11/01/19 04:50: Red Blood Count 4.12L, Hemoglobin 12.2L, Hematocrit 36L, Platelet Count 116L, Neutrophils (%) (Auto) 79H, Blood Urea Nitrogen 25H, Calcium Level 8.2L Procedures None. Consultations 1. Pulmonary consultation with Dr. Reid Discharge Physical Examination Allergies: Coded Allergies: No Known Allergies (Verified Allergy, Unknown, 09/29/18) Vitals & I&Os Vital Signs Date Time Temp Pulse Resp B/P (MAP) Pulse Ox O2 Delivery O2 Flow Rate FiO2 11/01/19 07:05 92 Nasal Cannula 3.00 11/01/19 03:45 36.6 58 20 143/69 (93) 10/30/19 04:00 28 General Appearance: No Acute Distress Respiratory: Clear to Auscultation (Overall with few faint rhonchi) Abdominal: Soft Skin: No Rashes Neuro: Normal Speech Discharge Home Medications Reviewed and agree with Discharge Medication list on patient's Discharge Instruction sheet Instructions to Patient/Family Please see electronic discharge instructions given to patient. Clinical Quality Measures DVT/VTE Risk/Contraindication: Risk Factor Score Per Nursin RFS Level Per Nursing on Admit: 4+=Very High KRISTEL PEREZ MD Nov 01, 2019 07:33
[2019-11-01] MEDS ORDERED: PRD20T PO (07:46)
[2019-11-01 08:00] VITALS: BP 133/70
[2019-11-01] MEDS: PANTOPRAZOLE 40 MG (PROTONIX) TAB PO SCH (08:27)
[2019-11-01] MEDS: LACTULOSE SYRUP 10GM/15ML (ENULOSE) 30ML UDC PO SCH (08:27)
[2019-11-01] MEDS: LORATADINE (CLARITIN) 10 MG TAB PO SCH (08:27)
--- NOTE | 2019-11-01 10:03 | NUR ---
CM/SS visited with the patients nurse to finalize discharge. Plan: The patient is to return to [facility] today. The scheduled potato picker time will be 12:00 p.m. The facility was informed that the patient will need oxygen for potato picker. The medical records and discharge were sent to [facility]. The nurse and patient were informed of the potato picker time. The patient verbalized that he did not have any other needs today.
--- NOTE | 2019-11-01 11:15 | NUR ---
Important Message from Medicare presented, reviewed, signed and placed in patient chart. Patient voiced no intention to appeal and deny any needs or further questions at this time.
--- NOTE | 2019-11-01 13:35 | NUR ---
REPORT CALLED TO NURSE AT [facility]. DC'D PER WC WITH OK PERSONNEL.
== END 2019-11-01 13:37 | DRG 191 ==
LOC: ER 08:45 → EDUNIT# 08:45 → CSD 12:47 → 4TH 10-30 16:10
PROVIDERS: ADMIT Family Medicine; ATTEND Family Medicine
DX: J44.1 Chronic obstructive pulmonary disease with (acute) exacerbation (principal); E87.2 Acidosis; R09.02 Hypoxemia; R10.84 Generalized abdominal pain; F03.90 Unspecified dementia, unspecified severity, without behavioral disturbance, psychotic disturbance, mood disturbance, and anxiety; I25.10 Atherosclerotic heart disease of native coronary artery without angina pectoris; I10 Essential (primary) hypertension; D64.9 Anemia, unspecified; Z66 Do not resuscitate; F32.9 Major depressive disorder, single episode, unspecified; K21.9 Gastro-esophageal reflux disease without esophagitis; K59.09 Other constipation; H40.9 Unspecified glaucoma; Z87.891 Personal history of nicotine dependence; Z95.5 Presence of coronary angioplasty implant and graft
CPT/HCPCS: 36415; 36600; 51701; 71045; 74177; 80048; 80053; 81000; 82805; 83605; 83735; 83880; 84100; 85007; 85025; 85027; 85610; 85730; 86141; 87040; 87804; 94640; 94660; 94760; 96361; 96365; 96375

== ENCOUNTER → 2019-11-18 | Outpatient (CLI) | payer MEDICARE ==
[~2019-11-18] MED LIST changes: +BARIUM for suspension 96% w/w (Vanilla Silq Medium Density) PO ONE; +BARIUM for suspension 98% w/w (Vanilla Silq High Density) PO ONE; +BIMA2.5D5 OU; +FLUT1DIS28 IH; +LACT20SO2 PO; +LORA10TA7 PO; +MONT10TA24 PO; +PRD20T PO; -RT-ALBUTEROL/IPRATROPIUM 3 ML (DUONEB) VIAL ONE; +VENL150C98 PO
--- NOTE | 2019-11-18 12:45 | Diagnostic Imaging Report ---
EXAM: Modified barium swallow INDICATION: Dysphagia The study was performed in the presence of the speech pathologist, Karlie. The patient was given barium in different substances to swallow. This included honey, nectar, thin barium, and barium on banana. The patient did aspirate with the thin barium. There was no cough with the aspiration. He was able to swallow the other substances without aspiration or penetration. IMPRESSION: The swallowing mechanism is compromised, as there was aspiration without a cough with the thin barium. Dictated by: Dictated on workstation # [id number]
== END ==
LOC: RAD 10:31
PROVIDERS: ATTEND Family Medicine
DX: R13.10 Dysphagia, unspecified (principal)
CPT/HCPCS: 74230